=== PATIENT | male | born 1955 | race Caucasian/White ===

== ENCOUNTER → 2016-12-27 | Outpatient (CLI) | payer BC ==
--- NOTE | 2016-12-27 22:18 | PN ---
61-year-old male patient coming in for a yearly check regarding his obstructive sleep apnea. The patient has severe STEFFANIE with an AHI of 96. He is maintained on auto CPAP at a pressure minimum of 5, maximum of 15. On today's follow-up is still doing well, he is looking for alternative masks. He used to the Simplus full-face mask and he is looking for an alternative use for some leaks around his eyes. He is averaging around 6.7 hours of CPAP use per night. His leak factor is 76 per minute. His AHI while on treatment is down to 1.8. His weight has gone down and he is down to 319.2 pounds and this is approximately 13 pounds less compared to his latest body weight measurements approximately a year ago. Otherwise he has no other complaints for now. No other new onset health issues. BP is 123/78, pulse 68, respirations 16, temperature 98.9 and sats are 95% on room air. BMI is 47.1. Weight is 319. Bandon score is one. GENERAL APPEARANCE: Calm, comfortable. HEENT: Short neck, crowding posterior pharynx. There is no goiter or neck mass. LUNGS: Diminished breath sounds bilaterally; otherwise clear. HEART: Sounds are regular rate and rhythm. Normal S1, S2. ABDOMEN: Soft, nontender. No organomegaly. EXTREMITIES: No edema. No cyanosis, or clubbing. IMPRESSION: 1. Severe symptomatic obstructive sleep apnea with an AHI of 96, currently on auto CPAP therapy with successful treatment. 2. Morbid obesity. 3. Chronic hypersomnia, improved. 4. Paroxysmal atrial fibrillation. PLAN: 1. The patient remains quite compliant. 2. Will change the patient to an air fit P10 mask large size. 3. Encourage further weight loss. 4. Continue monitoring his progress and implement good sleep hygiene measures. 5. Continue to follow and see him back in a year's time in follow-up.
== END | disposition home or self-care (01) ==
LOC: SLEEP 16:56
PROVIDERS: ATTEND Internal Medicine Critical Care Medicine
DX: G47.33 Obstructive sleep apnea (adult) (pediatric) (principal); G47.10 Hypersomnia, unspecified; E66.01 Morbid (severe) obesity due to excess calories; Z68.42 Body mass index [BMI] 45.0-49.9, adult; Z99.89 Dependence on other enabling machines and devices

== ENCOUNTER → 2017-02-07 | Outpatient (CLI) | payer BC ==
--- NOTE | 2017-02-07 22:07 | PN ---
This is a 61-year-old male patient with severe obstructive sleep apnea with an AHI of 96. He is coming in for followup. He is currently receiving Auto CPAP therapy with a pressure minimum of 5, pressure maximum of 15. Originally he was using a Simplus full-face mask. I switched this patient to an AirFit F10 full-face mask. He is having significant problems with the newer mask, including air leaks that occur around 3 to 4 a.m. in the morning. The leaks are less with his Simplus full-face mask, and he switched back to the Simplus mask. His P90 pressure is 14.3. He is averaging around 6.5 hours of CPAP use per night. His AHI is down to 0.9. He is obese and is trying to lose weight. His only concern is occasional arousals due to high-pressure sensation occurring on and off through the night and the mask leaks. BP is 157/78, pulse 58, respiration 16, temperature 98.1. BMI is 44.3. Weight is 317. Height is 5 feet 11 inches. GENERAL APPEARANCE: Calm, comfortable. HEENT: Crowding of posterior pharynx. No goiter or neck masses. LUNGS: Clear to auscultation. HEART: Heart sounds are regular rate and rhythm. Normal S1, S2. ABDOMEN: Soft, nontender. No organomegaly. EXTREMITIES: No edema. No cyanosis or clubbing. IMPRESSION: 1. Severe symptomatic obstructive sleep apnea; AHI of 96; currently on Auto CPAP therapy with a pressure minimum of 5, maximum of 15. 2. Morbid obesity. 3. Paroxysmal atrial fibrillation. 4. Chronic hypersomnia, improved. PLAN: 1. Try a large-size Simplus full-face mask. 2. Quit the AirFit F10 mask. 3. Encourage weight loss. 4. No adjustments on his settings are recommended for today.
== END | disposition home or self-care (01) ==
LOC: SLEEP 17:04
PROVIDERS: ATTEND Internal Medicine Critical Care Medicine
DX: G47.33 Obstructive sleep apnea (adult) (pediatric) (principal); E66.01 Morbid (severe) obesity due to excess calories; Z68.41 Body mass index [BMI] 40.0-44.9, adult; I48.0 Paroxysmal atrial fibrillation; G47.13 Recurrent hypersomnia

== ENCOUNTER → 2017-11-18 | Outpatient (CLI) | payer BC ==
[2017-11-18 09:13] LABS: HCT 49.6 % (39.0-53.0); MCH 31.6 pg (25.0-35.0); MCHC 32.2 g/dL (31.0-37.0); MCV 98.3 fL (80.0-100.0); Mean Platelet Volume 7.2; Platelet Count 246 k/uL (150-450); RBC 5.05 m/uL (4.30-5.90); RDW 14.2 % (11.5-15.5); WBC 5.3 k/uL (3.8-10.6)
[2017-11-18 09:36] LABS: Anion Gap 9 mmol/L; Blood Urea Nitrogen 18 mg/dL (9-20); Carbon Dioxide 27 mmol/L (22-30); Chloride 105 mmol/L (98-107); Sodium 141 mmol/L (137-145)
== END | disposition home or self-care (01) ==
LOC: LABPAT 08:43
PROVIDERS: ATTEND Internal Medicine Interventional Cardiology
DX: Z01.812 Encounter for preprocedural laboratory examination (principal); I48.1 Persistent atrial fibrillation
CPT/HCPCS: 36415; 80051; 82565; 84520; 85027

== ENCOUNTER 2017-11-21 06:31 | Day surgery (SDC) | payer BC ==
[2017-11-16 15:52] VITALS: BMI 44.6
[~2017-11-21 06:31] MED LIST: SODIUM CHLORIDE 0.9% 1,000 ML IV SCH
[2017-11-21] MEDS ORDERED: fentaNYL (PF) 50 MCG/ML 2 ML AMP ONE (07:30)
[2017-11-21] MEDS ORDERED: LIDOCAINE 1% INJ 10MG/ML (20 ML MDV) ONE (07:30)
[2017-11-21] MEDS ORDERED: PROPOFOL 10 MG/ML 20 ML VIAL IV ONE (07:30)
[2017-11-21] MEDS ORDERED: BENZOCAINE SPRAY 1 SPRAY CAN MUCOUS MEM ONE (07:30)
[2017-11-21] MEDS ORDERED: SILDENAFIL 20 MG TAB PO PRN (07:50)
[2017-11-21] MEDS ORDERED: ACETAMINOPHEN TAB 325 MG TAB PO PRN (07:50)
[2017-11-21 07:58] VITALS: TEMP 98
[2017-11-21] MEDS ORDERED: SODIUM CHLORIDE 0.9% 1,000 ML IV SCH (08:00)
--- NOTE | 2017-11-21 08:14 | ECHOT ---
TRANSESOPHAGEAL ECHOCARDIOGRAM INDICATION: Evaluation for left atrial appendage. PROCEDURE: After explaining the procedure to the patient, it's risks and the complications, blood pressure, heart rate, O2 saturation was monitored. The throat was ss with sprayed Cetacaine. He received sedation per Anesthesia Department. The probe was introduced in the esophagus without difficulty. Images were obtained Following 'from that. The probe was removed. There was no immediate complication. FINDINGS: Left atrial size is dilated. Left atrial appendage is normal. Normal left ventricular size and systolic function. The aortic valve, mitral valve, tricuspid valve are normal. Descending thoracic aorta appears to be normal. Contrast bubble study revealed no evidence of shunting across the interatrial septum. No pericardial effusion was noted. Doppler and pulse wave contained revealed mild mitral and tricuspid regurgitation. There were no shunting by color Doppler study. CONCLUSION: 1. Normal left ventricular size and systolic function. 2. Dilated left atrium with normal appearance of the left atrial appendage. 3. Mild mitral and tricuspid regurgitation. 4. No shunting across the interatrial septum. MMODL / IJN: [id number] /
--- NOTE | 2017-11-21 08:29 | CE ---
CARDIAC ELECTROPHYSIOLOGY REPORT CARDIOVERSION PROCEDURE NOTE. INDICATION: Atrial fibrillation. PROCEDURE: After explaining the procedure to the patient, its risks and the complications, his blood pressure, heart rate, O2 saturation was monitored. After obtaining sedated state and obtaining a transesophageal echocardiogram, a synchronized biphasic 250 joules cardioversion was performed with confucianist of normal sinus rhythm. There was no immediate complication. KRISTAL / BELLAN: [id number] /
[2017-11-21 08:52] VITALS: PULSE 60
[2017-11-21] MEDS ORDERED: FLECAINIDE 50 MG TAB PO SCH (09:00)
[2017-11-21] MEDS ORDERED: APIXABAN 5 MG TAB PO SCH (09:00)
[2017-11-21] MEDS ORDERED: OXYBUTYNIN CHLORIDE 5 MG TAB PO SCH (09:00)
[2017-11-21] MEDS ORDERED: NON-FORMULARY DRUG (Omeprazole [Omeprazole] 20 MG) PO SCH (09:00)
[2017-11-21 09:26] VITALS: BP 103/71; RESP 20
[2017-11-21] MEDS ORDERED: NON-FORMULARY DRUG (Simvastatin [Zocor] 40 MG) PO SCH (21:00)
== END 2017-11-21 09:30 | disposition home or self-care (01) ==
LOC: CATHCVL 06:31
PROVIDERS: ATTEND Internal Medicine Interventional Cardiology
DX: I48.1 Persistent atrial fibrillation (principal); I08.1 Rheumatic disorders of both mitral and tricuspid valves; Z79.01 Long term (current) use of anticoagulants; I10 Essential (primary) hypertension; E78.2 Mixed hyperlipidemia; G47.33 Obstructive sleep apnea (adult) (pediatric); Z99.89 Dependence on other enabling machines and devices; Z79.899 Other long term (current) drug therapy
CPT/HCPCS: 93312; 93320; 93325; 92960; J2001; J3010; J2704; 93005

== ENCOUNTER → 2017-11-30 | Outpatient (CLI) | payer BC ==
[2017-11-30 13:36] LABS: Blood Urea Nitrogen 19 mg/dL (9-20)
--- NOTE | 2017-11-30 16:03 | CT ---
EXAMINATION TYPE: CT urogram wo/w con DATE OF EXAM: 11/30/2017 COMPARISON: 10/03/2017 INDICATION: Hematuria DLP: 3769 mGycm, Automated exposure control for dose reduction was used. CONTRAST: 100 ml mL of Omnipaque 300. Study performed without Oral Contrast TECHNIQUE: Axial images were obtained from above the diaphragm to the pubic rami in the axial plane a t 5 mm thick sections. Reconstructed images are reviewed on the computer in the coronal plane. FINDINGS: Limited CT sections are obtained the lung bases. The lung bases are clear. Coronary artery calcific ation is noted. CT ABDOMEN: Liver: Normal Spleen: Normal Pancreas: Normal Adrenal glands: The adrenal glands are normal. Gallbladder: Surgically absent. Kidneys: No masses are evident. No hydronephrosis is present. No cysts are present. There is a 0.6 similar calcification without obstruction at superior pole left kidney. This is adjace nt to a punctate 0.3 cm calcification. Within the left kidney there are 2 calcifications in the poste rior lateral kidney measuring 0.7 cm each. No obstruction is evident. There is a smaller nonobstructi ng stone in the posterior mid to inferior pole measuring 0.4 cm. There is a punctate superior MID rig ht kidney stone measuring 0.3 cm without obstruction. A medial superior pole right renal calcificatio n measures 0.5 cm. No hydronephrosis is evident. The ureters without contrast appear unremarkable wit hin the proximal portion. Following contrast administration there is symmetrical contrast through the bilateral kidneys. Delaye d images were obtained without hydronephrosis or hydroureter. This exam is compared 10/03/2014. The calcifications within the bilateral kidneys have increased in n umber and size. Aorta: Vascular calcification is within the aorta. Inferior vena cava: Normal. CT PELVIS: Loops of bowel within the abdomen and pelvis are normal. Study is without oral contrast limiting the evaluation. Some fecal debris is within the colon. Appendix: Not identified. No suspicious inflammatory changes are evident. Urinary bladder: Normal. Genitourinary structures: Prostate is prominent contains calcification. Osseous structures: No suspicious lytic or sclerotic lesions. Degenerative disc changes are within th e lower lumbar spine vacuum disc phenomenon. Three-D reconstructed images are performed on a separate ultrasonic computer by the technologist and presented. Renal calyces and infundibulum and renal pelves appear normal. Sequential images demonstra te the proximal to mid ureters is normal. The distal ureters are not identified during the examinatio n. IMPRESSIONS: 1. Multiple bilateral nonobstructing renal stones. 2. No suspicious changes to account for hematuria within the ureters. The distal ureters however are not visualized during this exam. Kidneys be on the nonobstructing renal stones appear unremarkable.
== END | disposition home or self-care (01) ==
LOC: RADCTMAIN 12:47
PROVIDERS: ATTEND Urology
DX: N20.0 Calculus of kidney (principal)
CPT/HCPCS: 82565; 84520; 74178; 36415; 74400; Q9967

== ENCOUNTER → 2017-12-16 | Outpatient (CLI) | payer BC ==
[2017-12-16 09:28] LABS: HCT 46.5 % (39.0-53.0); HGB 15.6 gm/dL (13.0-17.5); MCH 31.8 pg (25.0-35.0); MCHC 33.5 g/dL (31.0-37.0); MCV 94.8 fL (80.0-100.0); Mean Platelet Volume 6.7; Platelet Count 225 k/uL (150-450); RDW 12.8 % (11.5-15.5); WBC 5.8 k/uL (3.8-10.6)
[2017-12-16 10:12] LABS: Anion Gap 12 mmol/L; Blood Urea Nitrogen 18 mg/dL (9-20); Calcium 9.7 mg/dL (8.4-10.2); Carbon Dioxide 28 mmol/L (22-30); Chloride 103 mmol/L (98-107); Glucose 107 mg/dL (74-99); Potassium 4.9 mmol/L (3.5-5.1); Sodium 143 mmol/L (137-145)
== END | disposition home or self-care (01) ==
LOC: LABPAT 09:02
PROVIDERS: ATTEND Urology
DX: Z01.812 Encounter for preprocedural laboratory examination (principal); N20.0 Calculus of kidney; R35.0 Frequency of micturition; Z79.899 Other long term (current) drug therapy
CPT/HCPCS: 36415; 80048; 85027; 87086

== ENCOUNTER 2017-12-21 07:25 | Day surgery (SDC) | payer BC ==
[2017-12-18 14:49] VITALS: BMI 43.9
[~2017-12-21 07:25] MED LIST changes: +LACTATED RINGERS 1,000 ML IV SCH; +MORPHINE SULFATE 2 MG/ML SYRINGE IV PRN; -SODIUM CHLORIDE 0.9% 1,000 ML IV SCH; +ceFAZolin IN SWFI 2 GM/20 ML SYRINGE IVP ONE
[2017-12-21] MEDS ORDERED: LIDOCAINE 1% 20 ML VIAL (10MG/ML) FOR IV START INTRADERMA ONE (08:11)
--- NOTE | 2017-12-21 08:17 | XR ---
EXAMINATION TYPE: XR KUB DATE OF EXAM: 12/21/2017 7:49 AM CLINICAL HISTORY: Preop kidney stones. TECHNIQUE: Two supine KUB images of the abdomen are obtained. COMPARISON: CT urogram November 30, 2017 FINDINGS: There are 4 calculi grouped lower pole level right kidney redemonstrated measuring up to 7 mm on long axis. There is upper pole 7 mm calculus right kidney redemonstrated. Smaller 2 to 3 mm gisela culus upper to mid pole level right kidney on CT is less well-seen on x-ray. There is 5 mm calculus upper pole left kidney projecting over left posterior 11th rib redemonstrated. There is overall nonobstructive bowel gas pattern. Cholecystectomy clips are again seen. There is mul tilevel spurring in the spine and disc space narrowing redemonstrated. Impression: Right side greater than left side nephrolithiasis as detailed above without significant i nterval change.
[2017-12-21] MEDS ORDERED: GLYCOPYRROLATE 0.2 MG/ML 2 ML VIAL ONE (08:46)
[2017-12-21] MEDS ORDERED: fentaNYL (PF) 50 MCG/ML 2 ML AMP ONE (08:46)
[2017-12-21] MEDS ORDERED: SUCCINYLCHOLINE CHLORIDE VIAL 200 MG/10 ML VIAL IV ONE (08:46)
[2017-12-21] MEDS ORDERED: LIDOCAINE 1% INJ 10MG/ML (20 ML MDV) ONE (08:46)
[2017-12-21] MEDS ORDERED: MIDAZOLAM 2 MG/2 ML VIAL ONE (08:46)
[2017-12-21] MEDS ORDERED: PROPOFOL 10 MG/ML 20 ML VIAL IV ONE (08:46)
[2017-12-21] MEDS ORDERED: LACTATED RINGERS 1,000 ML IV ONE (09:16)
--- NOTE | 2017-12-21 10:57 | P.OP ---
Date of Procedure: 12/21/17 Preoperative Diagnosis: Right Renal Calculi Postoperative Diagnosis: Same Procedure(s) Performed: Cystoscopy, right ureteroscopy with Holmium laser lithotripsy and stone basketing, right ureteral stent insertion Anesthesia: IVAN Surgeon: Heri Zhao Estimated Blood Loss (ml): 5 IV fluids (ml): 600 Pathology: other (Calculus fragments, sent for chemical analysis) Condition: stable Disposition: PACU Indications for Procedure: He is a 62 year old male with a history of kidney stones and microhematuria. 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 His father was previously diagnosed with bladder cancer. He reports occasional gross hemturia, but feels that he is passing stones when this happens. He experiences pain associated with hematuria, then passes a stone. This occurs about every 2-[address] urogram reveals multiple bilateral renal calculi. Urine cytology is suspicious, but cystoscopy was unremarkable. His stone burden is greater on the right, and he has elected to undergo ureteroscopic removal of his right renal calculi. Operative Findings: Upper pole and lower pole calculi, fragmented completely and basketed. Description of Procedure: The patient was taken to the operating room and placed in the dorsolithotomy position, with legs supported in Andrey stirrups. The external genitalia was prepped and draped sterilely. The 30 lens was used to introduce the 19-Ukrainian Stortz cystoscopic sheath through the urethra and into the bladder under direct vision. The prostatic urethra showed evidence of moderate lateral lobe enlargement. The bladder was examined in its entirety. Both ureteral orifices were normal anatomic location and configuration, and clear urine effluxed from both. No tumors or foreign bodies were seen. A 0.038 inch Glidewire was passed through the cystoscope. The right ureteral orifice was cannulated, and the Glidewire was advanced up to the right renal pelvis. An 11/13-Ukrainian ureteral access catheter was passed over the wire, up to the mid ureter. The Olympus flexible ureteroscope was passed through the ureteral access catheter sheath. The ureteroscope was advanced under direct vision into the right renal pelvis, which was a bifid pelvis. Each calyx was examined. Several Brooks's plaques were seen. Within an upper pole calyx was a calculus measuring approximately 5 mm in size. A lower pole calyx contained two calculi measuring 5-7 mm. The 200 micron Holmium laser probe was passed through the ureteroscope, and lithotripsy was performed. A dusting technique was utilized, though ultimately the calculi broke into multiple small fragments which were removed using a 1.9-Ukrainian nitinol basket. Once this was completed, the ureteroscope was withdrawn. The cystoscope was again advanced into the bladder under direct vision. The Glidewire was passed up to the right renal pelvis, and a 28 cm, 4.8-Ukrainian double-J ureteral stent was placed over the wire. Proper stent positioning was verified fluoroscopically and endoscopically. The bladder was emptied and the cystoscope removed. The patient tolerated the procedure well and was taken to the recovery room in stable condition. The calculus fragments were sent for chemical analysis..
[2017-12-21 11:04] VITALS: TEMP 96.8
[2017-12-21 11:16] VITALS: RESP 16
--- NOTE | 2017-12-21 11:37 | FL ---
EXAMINATION TYPE: FL guidance operating room DATE OF EXAM: 12/21/2017 CLINICAL HISTORY: Kidney stones. TECHNIQUE: Fluoroscopy. COMPARISON: Abdominal x-ray earlier today.. FINDINGS: Fluoroscopic guidance was provided during lithotripsy procedure performed by Dr. Zhao. A total of 38 seconds of fluoroscopic time was utilized during the procedure and 2 spot intraoperativ e images are acquired which show advancement of guidewire and catheter to right-sided ureter and cecilio ecting system. IMPRESSION: As Above.
[2017-12-21] MEDS ORDERED: HYDROcodone/APAP 5-325MG 1 EACH TAB PO ONE (12:20)
[2017-12-21 12:30] VITALS: BP 154/72; PULSE 56
== END 2017-12-21 13:15 | disposition home or self-care (01) ==
LOC: OR 07:25
PROVIDERS: ATTEND Urology
DX: N20.0 Calculus of kidney (principal); I10 Essential (primary) hypertension; E78.00 Pure hypercholesterolemia, unspecified; R00.1 Bradycardia, unspecified; I48.91 Unspecified atrial fibrillation; E78.5 Hyperlipidemia, unspecified; G47.33 Obstructive sleep apnea (adult) (pediatric); K21.9 Gastro-esophageal reflux disease without esophagitis; R42 Dizziness and giddiness; E66.9 Obesity, unspecified; Z68.41 Body mass index [BMI] 40.0-44.9, adult; Z87.891 Personal history of nicotine dependence; Z80.52 Family history of malignant neoplasm of bladder; Z79.01 Long term (current) use of anticoagulants; Z79.899 Other long term (current) drug therapy
CPT/HCPCS: 82365; 74018; 52356; C2625; C1769; J2250; J0330; J2001; J3010; J2704; J0690

== ENCOUNTER → 2018-01-16 | Outpatient (CLI) | payer BC ==
--- NOTE | 2018-01-16 18:01 | PN ---
PROGRESS NOTE Nino is 62. He is seeing me for an annual check regarding his obstructive sleep apnea. He is morbidly obese. He has severe STEFFANIE with an AHI of 96 and he has been maintained on CPAP for the past year. He had one episode where he went into atrial fibrillation and he had to be cardioverted. His cardioversion has been successful and he is currently on flecainide to maintain his normal sinus rhythm. His weight has been stable. He has lost around 3 pounds. He is still benefitting from the treatment, as the patient wears his CPAP every night, which is an auto CPAP unit with a minimum pressure of 5 and a maximum pressure of 15. Treatment has been extremely successful and the patient has been averaging around 5.7 hours of CPAP use per night. His CPAP use for more than 4 hours is 26/30. His leak factor is 13 L and his AHI is down to 0.5. He has no complaints. His P90 pressure is at 12.6. He is benefitting from the treatment and he seems to be quite satisfied. PHYSICAL EXAMINATION: BP is 136/74, pulse 57, respirations 16, temperature 99.1, saturation 95% on room air. Weight is 314. Height is 5 feet 11 inches. Perkins score is 2. GENERAL APPEARANCE: Obese, calm, comfortable. Head is atraumatic, normocephalic. Neck is supple. There is no JVD. No goiter or neck masses. Mallampati class 4. LUNGS: Clear to auscultation. Heart sounds are regular rate and rhythm. Normal S1, S2. No S3, S4. No murmurs. Abdomen is soft, nontender. No organomegaly. EXTREMITIES: No edema. No cyanosis or clubbing at this point. SKIN: Negative for any wounds or ulcerations. IMPRESSION: 1. Severe symptomatic obstructive sleep apnea with an AHI of 96. The patient continues to be on auto CPAP therapy with a minimum pressure of 5, maximum pressure of 15, and treatment has been successful, as the patient continues to benefit. 2. Morbid obesity with a body mass index of 43.7. 3. Paroxysmal atrial fibrillation; current rhythm is sinus. 4. Hypersomnia, recovered. PLAN: 1. Keep the same CPAP setting. 2. Renew the patient's Simplus full-face mask, medium size. 3. Encourage weight loss. 4. Continue flecainide for normal sinus rhythm maintenance. 5. See me back in a year's time in followup, earlier if needed. MMODL / IJN: [id number] /
== END | disposition home or self-care (01) ==
LOC: SLEEP 16:11
PROVIDERS: ATTEND Internal Medicine Critical Care Medicine
DX: G47.33 Obstructive sleep apnea (adult) (pediatric) (principal); G47.10 Hypersomnia, unspecified; E66.01 Morbid (severe) obesity due to excess calories; I48.0 Paroxysmal atrial fibrillation; Z68.41 Body mass index [BMI] 40.0-44.9, adult; Z99.89 Dependence on other enabling machines and devices

== ENCOUNTER → 2018-06-14 | Day surgery (SDC) | payer BC ==
[2018-06-08 09:57] VITALS: BMI 46.0
[~2018-06-14] MED LIST changes: +APIXABAN 5 MG TAB PO SCH; +FLECAINIDE 50 MG TAB PO SCH; +LISINOPRIL 10 MG TAB PO SCH; -MORPHINE SULFATE 2 MG/ML SYRINGE IV PRN; +NON-FORMULARY DRUG (Acetaminophen [Tylenol Arthritis] 650 MG) PO PRN; +NON-FORMULARY DRUG (Omeprazole [Omeprazole] 20 MG) PO PRN; +NON-FORMULARY DRUG (Simvastatin [Zocor] 40 MG) PO SCH; +OXYBUTYNIN CHLORIDE 5 MG TAB PO SCH; +PROPOFOL 10 MG/ML 20 ML VIAL IV ONE; +SILDENAFIL 20 MG TAB PO PRN; +SODIUM CHLORIDE 0.9% 1,000 ML IV SCH; +SODIUM CHLORIDE 0.9% 500 ML IV ONE; -ceFAZolin IN SWFI 2 GM/20 ML SYRINGE IVP ONE
[2018-06-14 07:21] VITALS: TEMP 98.3
[2018-06-14] MEDS: BENZOCAINE SPRAY 1 CAN MUCOUS MEM ONE ×2 (07:25→07:41)
--- NOTE | 2018-06-14 08:34 | ECHOT ---
TRANSESOPHAGEAL ECHOCARDIOGRAM INDICATION: Evaluation left atrial appendage. PROCEDURE: After explaining the procedure to the patient, its risks and the complications, blood pressure, heart rate, O2 saturation was monitored. The throat was sprayed with Cetacaine. He received sedation per anesthesia department. The probe was introduced in the esophagus without difficulty. Images were obtained. Following that, the probe was removed. There was no immediate complication. FINDINGS: Left atrial size is dilated. Left atrial appendage is normal. Left ventricular size and systolic function normal. The aortic valve appears to be normal. Mitral valve is normal. Tricuspid valve is normal. Descending thoracic aorta appears to be normal. Contrast bubble study revealed no shunting across the interatrial septum. No pericardial effusion was noted. Doppler pulse wave and color Doppler obtained and revealed mild mitral and tricuspid regurgitation. There was no shunting by color Doppler study. CONCLUSION: 1. Dilated left atrium with normal appearance left atrial appendage. 2. Normal left ventricular size and systolic function. 3. Mild mitral and tricuspid regurgitation. 4. No shunting across the interatrial septum. MMODL / IJN: [id number] /
--- NOTE | 2018-06-14 08:40 | CE ---
CARDIAC ELECTROPHYSIOLOGY REPORT CARDIOVERSION PROCEDURE NOTE INDICATION: Atrial fibrillation. PROCEDURE: After explaining the procedure to the patient, its risks and the complications, blood pressure, heart rate, O2 saturation was monitored and after obtaining a transesophageal echocardiogram and sedated state, a synchronized biphasic cardioversion using 200, 300 and subsequently 360 joules were successful in restoring normal sinus rhythm. There was no immediate complication. KRISTAL / BELLAN: [id number] /
[2018-06-14 09:09] VITALS: BP 128/61; PULSE 58; RESP 18
== END | disposition home or self-care (01) ==
LOC: CATHCVL 06:33
PROVIDERS: ATTEND Internal Medicine Interventional Cardiology
DX: I08.1 Rheumatic disorders of both mitral and tricuspid valves (principal); I48.1 Persistent atrial fibrillation; G47.33 Obstructive sleep apnea (adult) (pediatric); Z99.89 Dependence on other enabling machines and devices; E78.2 Mixed hyperlipidemia; Z79.01 Long term (current) use of anticoagulants; Z79.899 Other long term (current) drug therapy; I10 Essential (primary) hypertension
CPT/HCPCS: 93312; 93320; 93325; 92960; J2704

== ENCOUNTER → 2018-11-16 | Outpatient (CLI) | payer BC ==
[2018-11-16 08:27] LABS: Basophils % (A) 1 %; Eosinophils # (A) 0.2 k/uL (0-0.7); Eosinophils % (A) 5 %; HCT 48.6 % (39.0-53.0); HGB 16.4 gm/dL (13.0-17.5); Lymphocytes % (A) 24 %; MCH 32.3 pg (25.0-35.0); MCHC 33.7 g/dL (31.0-37.0); MCV 95.9 fL (80.0-100.0); Mean Platelet Volume 6.6; Monocytes # (A) 0.3 k/uL (0-1.0); Monocytes % (A) 6 %; Neutrophils # (A) 2.6 k/uL (1.3-7.7); Neutrophils % (A) 61 %; Platelet Count 219 k/uL (150-450); RBC 5.07 m/uL (4.30-5.90); WBC 4.2 k/uL (3.8-10.6)
[2018-11-16 09:08] LABS: Anion Gap 4 mmol/L; Blood Urea Nitrogen 20 mg/dL (9-20); Carbon Dioxide 29 mmol/L (22-30); Chloride 107 mmol/L (98-107); Glucose 127 mg/dL (74-99); Potassium 5.1 mmol/L (3.5-5.1); Sodium 140 mmol/L (137-145)
== END | disposition home or self-care (01) ==
LOC: LABPAT 07:53
PROVIDERS: ATTEND Internal Medicine Clinical Cardiac Electrophysiology
DX: Z01.812 Encounter for preprocedural laboratory examination (principal); I48.1 Persistent atrial fibrillation
CPT/HCPCS: 80051; 82565; 82947; 84520; 85025

== ENCOUNTER → 2018-11-16 | Outpatient (CLI) | payer BC | END | disposition home or self-care (01) | LOC: LABWHC1 07:49 | PROVIDERS: ATTEND Family Medicine | DX: E78.00 Pure hypercholesterolemia, unspecified (principal) | CPT/HCPCS: 36415; 80061 ==

== ENCOUNTER 2018-11-29 12:46 | Day surgery (SDC) | payer BC ==
[~2018-11-29 12:46] MED LIST changes: -APIXABAN 5 MG TAB PO SCH; -FLECAINIDE 50 MG TAB PO SCH; -LACTATED RINGERS 1,000 ML IV SCH; -LISINOPRIL 10 MG TAB PO SCH; -NON-FORMULARY DRUG (Acetaminophen [Tylenol Arthritis] 650 MG) PO PRN; -NON-FORMULARY DRUG (Omeprazole [Omeprazole] 20 MG) PO PRN; -NON-FORMULARY DRUG (Simvastatin [Zocor] 40 MG) PO SCH; -OXYBUTYNIN CHLORIDE 5 MG TAB PO SCH; -PROPOFOL 10 MG/ML 20 ML VIAL IV ONE; -SILDENAFIL 20 MG TAB PO PRN; -SODIUM CHLORIDE 0.9% 500 ML IV ONE
[2018-11-29] MEDS ORDERED: ACETAMINOPHEN TAB 325 MG TAB ONE (13:09)
[2018-11-29] MEDS ORDERED: LISINOPRIL 10 MG TAB PO SCH (13:30)
[2018-11-29] MEDS ORDERED: SODIUM CHLORIDE 0.9% 1,000 ML IV ONE (13:40)
[2018-11-29] MEDS ORDERED: HEPARIN SODIUM,PORCINE 10,000 UNIT/ML 1 ML VIAL ONE (15:23)
[2018-11-29] MEDS ORDERED: ROCURONIUM BROMIDE 10 MG/ML 10 ML VIAL IV ONE (15:23)
[2018-11-29] MEDS ORDERED: MIDAZOLAM 2 MG/2 ML VIAL ONE (15:23)
[2018-11-29] MEDS ORDERED: PROPOFOL 10 MG/ML 20 ML VIAL IV ONE (15:23)
[2018-11-29] MEDS ORDERED: PHENYLEPHRINE-0.9% NACL SYG 1 MG/10 ML SYRINGE ONE (15:23)
[2018-11-29] MEDS ORDERED: PROTAMINE SULFATE 10 MG/ML 5 ML VIAL IV ONE (15:23)
[2018-11-29] MEDS ORDERED: SUCCINYLCHOLINE CHLORIDE VIAL 200 MG/10 ML VIAL IV ONE (15:23)
[2018-11-29] MEDS ORDERED: fentaNYL (PF) 50 MCG/ML 2 ML AMP ONE (15:23)
[2018-11-29] MEDS ORDERED: LIDOCAINE 1% INJ 10MG/ML (20 ML MDV) ONE (15:59)
[2018-11-29] MEDS ORDERED: HEPARIN SOD,PORK IN 0.45% NACL 25,000 UNIT in 0.45% NACL 1 250ML.BAG IV ONE (16:05)
[2018-11-29] MEDS ORDERED: LIDOCAINE 1% INJ 10MG/ML (20 ML MDV) SQ ONE (16:07)
[2018-11-29] MEDS ORDERED: HYDROcodone/APAP 5-325MG 1 EACH TAB PO PRN (18:35)
[2018-11-29] MEDS ORDERED: ACETAMINOPHEN IV (For NPO) 1,000 MG in EMPTY BAG 1 BAG IVPB ONE (18:35)
[2018-11-29] MEDS ORDERED: PANTOPRAZOLE 40 MG TABLET PO PRN (18:37)
[2018-11-29] MEDS ORDERED: SODIUM CHLORIDE 0.9% 250 ML IV ONE (18:43)
--- NOTE | 2018-11-29 18:50 | P.PCN ---
Preoperative Diagnosis: Diagnosis Atrial fibrillation, symptomatic, refractory to therapy, persistent atrial fibrillation failed drug therapy Result Successful pulmonary vein isolation of all veins using cryo-ablation Complete entrance block in all 4 veins confirmed No evidence for phrenic nerve injury Ablation of the left atrial roof Esophageal deflection YES for ablation of the left atrial roof Electrical cardioversion with a synchronized shock across the chest YES Procedure details Patient was brought to the EP lab in a fasting state. Written informed consent was obtained prior to the procedure. Procedure performed under general anesthesia After initial muscle relaxant use, muscle relaxants were not given thereafter in order to assess phrenic nerve during procedure. Patient prepped and draped as per protocol Full cryo-set up with standard preparation of the cryoablation tools done. Femoral Venous access obtained on the right and left groins Venous and arterial Sheaths placed. Diagnostic catheters for the high right atrium, phrenic nerve stimulation and pacing, His bundle, RV and coronary sinus placed Intracardiac echo catheter placed. Long sheath placed in the right atrium Left and right transseptal catheterization performed under intracardiac echo guidance. Intravenous heparin with aCT above 300 Later, catheter positioning and balloon positioning in the left atrium, under intracardiac echo guidance Comprehensive diagnostic EP study Coronary sinus pacing and recording Baseline measurements Sinus cycle length 1130 ms, DE interval 238 ms QRS 110 ms and QT 472 ms Baseline HV 31 ms Transseptal catheterization performed RA pressure 18/7/13 LA pressure 35/9/16 Transseptal catheterization performed with standard sheath. The cryoablation sheath was then placed with an over the wire exchange without any acute complications. All 4 pulmonary veins were isolated in the following sequence: Left superior followed by left inferior followed by right superior followed by right inferior The cryo-ablation balloon was placed at the os of each vein 1.5 mL of IV dye was injected to confirm an occluded vein Goal during cryoablation was to achieve complete occlusion of the pulmonary vein , achieve -30C at 30 seconds and achieve -40C at 60 seconds and a time to affect of less than 60-90 seconds, . If not the balloon was repositioned to obtain this result After completion of Cryoblation with durations from 180-240 seconds, entrance block was confirmed with the Attain circular catheter in a roving fashion around the antrum of the pulmonary veins Phrenic nerve pacing was performed from the SVC, right innominate vein area and diaphragm voltage was monitored. Diaphragmatic contractions were also monitored manually for strength of contraction. Parameter goals for each cryo freeze -30 C by 30 seconds -40 degrees C by 60 seconds Minimum between minus 40-55C Thaw time greater than 10 seconds Balloon visualized by intracardiac echo The esophagus was intubated. Esophageal Temperature monitoring with a CIRCA catheter formed. Esophageal deflection for hypothermia of the esophagus below 32C Left superior pulmonary vein/common left-sided os 4 minute cryoablation lesion, complete isolation, time to effect 57 seconds Left inferior pulmonary vein 3 minute cryoablation, complete isolation Right superior pulmonary vein, during phrenic nerve pacing 3 minute cryoablation, complete isolation in 21 seconds Right inferior pulmonary vein, during phrenic nerve pacing 3 minute cryoablation, complete isolation Christopher esophageal temperature 22.5C Complex fractionated electrograms noted in the roof area with mapping Roof line was made with the cryoablation balloon. 3 cryo lesions were given to span the roof. Each cryo lesion for 2 minutes, good temperature is achieved Phrenic nerve intact following that At the end of the procedure the Achieve catheter was once again used to check for entrance block Phrenic nerve stimulation was performed to confirm diaphragmatic stimulation the end of the procedure Cine fluoroscopy was performed at the very end of the procedure to confirm movement of both diaphragms with inspiration and expiration At the end of the procedure the patient was extubated Heparin was reversed Venous sheaths were removed and hemostasis assured Procedures performed (PVI - CRYO Ablation) Comprehensive diagnostic EP study CS pacing and recording Left and right transseptal catheterization Catheter the mapping of the tachycardia (NOT 3D mapping) Intracardiac echocardiography Pulmonary vein isolation with transseptal and comprehensive EPS, [id number] Linear ablation in the left atrium, roof, +[id number] Electrical cardioversion with a synchronized shock across the chest [id number]
--- NOTE | 2018-11-29 18:52 | P.PRLE ---
RE: Jeramie Stahl Dear Dr. Shaji Bobo underwent cryoablation of all 4 pulmonary veins successfully with complete isolation. He also underwent ablation of the left atrial roof. However he remained in atrial fibrillation and he underwent electrical cardioversion thereafter Previously he was refractory to therapy and has failed treatment including electrical cardioversion Hopefully with this ablation strategy along with flecainide 100 mg twice daily he is able to maintain sinus rhythm He will continue ELIQUIS lifelong Thank you for entrusting me with the care of the patient Warm regards Sincerely Zack Maciel
[2018-11-29 19:33] VITALS: RESP 18
[2018-11-29] MEDS ORDERED: ATORVASTATIN 20 MG TAB PO SCH (21:00)
[2018-11-29 21:02] VITALS: BMI 45.3
[2018-11-29] MEDS: APIXABAN 5 MG TAB PO SCH (22:45)
[2018-11-29] MEDS: LISINOPRIL 10 MG TAB PO SCH (22:45)
[2018-11-29] MEDS: ACETAMINOPHEN TAB 325 MG TAB PO PRN (22:47)
[2018-11-29] MEDS: FLECAINIDE 50 MG TAB PO SCH (22:56)
[2018-11-29] MEDS: COLCHICINE 0.6 MG EACH PO SCH (22:59)
[2018-11-30] MEDS: ACETAMINOPHEN TAB 325 MG TAB PO PRN (06:11)
[2018-11-30] MEDS: FLECAINIDE 50 MG TAB PO SCH (08:16)
[2018-11-30] MEDS: LISINOPRIL 10 MG TAB PO SCH (08:16)
[2018-11-30] MEDS: COLCHICINE 0.6 MG EACH PO SCH (08:16)
[2018-11-30] MEDS: APIXABAN 5 MG TAB PO SCH (08:17)
--- NOTE | 2018-11-30 08:21 | P.PRLE ---
RE: Jeramie Stahl Patient is doing well. He is been walking around his room to the bathroom. Groins of healed well there is no hematoma no swelling mildly tender in the right groin heart sounds are normal breath sounds are clear no rhonchi no crackles abdomen soft nontender except is warm no edema he has no orthopnea He maintains sinus rhythm blood pressure 126/63 mmHg pulse rate in the 70s afebrile Impression Persistent drug refractory symptomatically atrial fibrillation status post cryoablation of the pulmonary veins and left atrial roof ablation Plan Colchicine for 3 days Continue all other medications Continue anticoagulation lifelong and follow-up of Dr. Hernandez in 1-2 weeks
[2018-11-30 08:50] VITALS: BP 94/57; PULSE 69; TEMP 97.4
== END 2018-11-30 11:19 | disposition home or self-care (01) ==
LOC: CATHEP 12:46 → 1SOBS 18:27 → CATHEP 11-30 11:19
PROVIDERS: ATTEND Internal Medicine Clinical Cardiac Electrophysiology
DX: I48.1 Persistent atrial fibrillation (principal); I44.2 Atrioventricular block, complete; I11.0 Hypertensive heart disease with heart failure; I50.9 Heart failure, unspecified; E78.2 Mixed hyperlipidemia; G47.33 Obstructive sleep apnea (adult) (pediatric); M19.90 Unspecified osteoarthritis, unspecified site; K21.9 Gastro-esophageal reflux disease without esophagitis; Z99.89 Dependence on other enabling machines and devices; Z79.01 Long term (current) use of anticoagulants; Z79.899 Other long term (current) drug therapy; Z96.653 Presence of artificial knee joint, bilateral; Z91.048 Other nonmedicinal substance allergy status; Z87.891 Personal history of nicotine dependence
CPT/HCPCS: 85347; 93662; 93609; 93656; 93657; C1769 ×4; C1894 ×3; C1730 ×2; C1759; C1893; C1733; C1766; J2250; J0330; J2720; J1644 ×2; J2001; J3010; J2370; J2704; 92960

== ENCOUNTER → 2019-02-05 | Outpatient (CLI) | payer BC ==
--- NOTE | 2019-02-05 19:26 | PN ---
PROGRESS NOTE 63-year-old male patient coming in for a compliancy check. This is his annual check. The patient has been diagnosed having severe obstructive sleep apnea with an AHI of 96 currently is in APap with a minimum pressure of 5, maximum pressure of 15. On today's evaluation, the patient is using a medium-sized Simplus full face mask. He is averaging around 6.5 hours of CPAP. The CPAP use for more than 4 hours is 100%. His average pressures is at 12 and his AHI is down to 0.7. His leak is 26 L per minute. He has gained around 7 pounds since his last evaluation. He has also undergone cardiac ablation and cardiac rhythm was sinus. He is not having any nocturnal palpitation, chest pain, shortness of breath or heartburn. He is very compliant and he is benefitting from the CPAP unit. He has also purchased so clean cleaning system. REVIEW OF SYSTEMS: Fourteen-point review of system was done. Positive findings are mentioned above in history of present illness. Positive for weight gain. No hypersomnia or sleepiness. No sleep paralysis or hallucinations, cataplexy. No nocturnal chest pain, heartburn, shortness of breath or palpitations. PHYSICAL EXAMINATION: BP is 126/76, pulse 68, respirations 16, temperature 98.7 and weight is 221. Height is 5 feet 9 inches. Saturation 95% on room air. GENERAL APPEARANCE: Calm, comfortable. HEAD: Atraumatic, normocephalic. NECK: Supple. No JVD. No goiter or neck masses. Mallampati class IV. LUNGS: Clear to auscultation. HEART: Sounds regular rate and rhythm. Normal S1, S2. No S3, S4. No murmurs. ABDOMEN: Soft, nontender. No organomegaly. EXTREMITIES: No edema. No cyanosis or clubbing. Neurologic is awake and alert. There is no focal neurological deficits. PSYCHIATRIC: Negative for anxiety or depression. IMPRESSION: 1. Severe obstructive sleep apnea with an AHI of 96 currently undergoing successful APAP treatment minimum of 5, maximum 15. 2. Hypersomnia, improved. 3. Obesity with a BMI of 47.4. 4. Paroxysmal atrial fibrillation current rhythm is sinus, post ablation. PLAN: 1. Encourage further weight loss. 2. Continue APAP therapy at the same level of pressure. 3. Use a Simplus full-face mask, medium size. 4. See me back in a few years time, earlier if needed. For now, his treatment is successful. MMODL / IJN: [id number] /
== END ==
LOC: SLEEP 17:11
PROVIDERS: ATTEND Internal Medicine Critical Care Medicine
DX: G47.33 Obstructive sleep apnea (adult) (pediatric) (principal); E66.9 Obesity, unspecified; I48.0 Paroxysmal atrial fibrillation; Z68.42 Body mass index [BMI] 45.0-49.9, adult; Z99.89 Dependence on other enabling machines and devices

== ENCOUNTER → 2020-05-21 | Outpatient (CLI) | payer MEDICARE | END | disposition home or self-care (01) | LOC: LABWHC1 10:12 | PROVIDERS: ATTEND Urology | DX: R97.20 Elevated prostate specific antigen [PSA] (principal) | CPT/HCPCS: 36415; 84153 ==

== ENCOUNTER → 2020-12-15 | Outpatient (CLI) | payer MEDICARE ==
--- NOTE | 2020-12-15 17:29 | PN ---
PROGRESS NOTE Jeramie is 65, coming in for a followup regarding his obstructive sleep apnea. His last evaluation was in 2019. He is morbidly obese. He has a BMI of 45.7, and he has maintained his own weight at 319 pounds. He has severe STEFFANIE with an AHI of 96 at baseline, and the patient is on an APAP at a minimum pressure of 5, maximum pressure of 15. He uses a Simplus full-face mask. He was having issue with a power adapter, and he was able to get a new power adapter through his [employer]. He works at [employer]. He is using his machine every night. Compliance is 100% for more than 4 hours. He is averaging more than 6 hours of CPAP use per night. Leak is on the order of 12 L/minute. P90 pressure is 11.3 and his AHI is down to 0.4, indicating successful treatment. No hypersomnia. No sleepiness. BP is under good control. He was diagnosed having diabetes mellitus. He was started on metformin. He also takes Zocor 40 mg p.o. daily regarding his hyperlipidemia. No chest pain. No nocturnal shortness of breath. He is waking up refreshed and alert during the day. He has paroxysmal atrial fibrillation and has undergone ablation and continues to be on anticoagulation. PHYSICAL EXAMINATION: BP is 136/79, pulse 79, respirations 20, temperature 96.5. Weight is 319, height is 5 feet 10 inches. Murray score is 8. BMI 45.7. Saturation 97% on room air. GENERAL APPEARANCE: Calm, comfortable. HEAD: Atraumatic, normocephalic. NECK: Supple. No JVD. No goiter or neck masses. LUNGS: Diminished; otherwise clear. HEART: Heart sounds are regular rate and rhythm. Normal S1, S2. No S3, S4. No murmurs. ABDOMEN: Soft, nontender. No organomegaly. EXTREMITIES: No edema. No cyanosis or clubbing. NEUROLOGIC: Awake and alert. There is no focal neurological deficit. PSYCHIATRIC: Negative for anxiety or depression. IMPRESSION: 1. Severe symptomatic obstructive sleep apnea; AHI of 96, currently on APAP 5/15 pressures. 2. Morbid obesity with a BMI of 45.7. Weight is stable. 3. Hypersomnia, recovered. 4. Paroxysmal atrial fibrillation. Current rhythm is sinus. 5. Hyperlipidemia. 6. Hypertension. PLAN: 1. Encourage weight loss. 2. Order a new APAP unit for this patient. I think he is interested in updating his machine, and it has been 5 years since his original machine was given to him and he qualifies for a new machine. He is interested also in switching his DME and he may end up with [employer]. 3. Keep a Simplus full-face mask. 4. Compliance data was checked. No need for any pressure adjustments. Maintain cardiovascular health. Treat risk factors for cardiovascular disease. Maintain good sleep hygiene measures. See me back in a year's time in followup. MMODL / IJN: [id number] /
== END | disposition home or self-care (01) ==
LOC: SLEEP 16:04
PROVIDERS: ATTEND Internal Medicine Critical Care Medicine
DX: G47.33 Obstructive sleep apnea (adult) (pediatric) (principal); E66.01 Morbid (severe) obesity due to excess calories; I48.0 Paroxysmal atrial fibrillation; E78.5 Hyperlipidemia, unspecified; I10 Essential (primary) hypertension; Z68.42 Body mass index [BMI] 45.0-49.9, adult

== ENCOUNTER 2021-03-07 11:22 | Inpatient (IN) | payer MEDICARE ==
--- NOTE | 2021-03-07 11:58 | ED ---
General Adult HPI <Eliud Voss Anthony - Last Filed: 03/07/21 12:25> - General Source: patient, RN notes reviewed Mode of arrival: ambulatory Limitations: no limitations <Phi Merrill - Last Filed: 03/07/21 12:41> - General Chief complaint: Extremity Problem,Nontraumatic Stated complaint: Shoulder & back pain Time Seen by Provider: 03/07/21 11:51 - History of Present Illness Initial comments: This is a 65-year-old male presents emergency Department chief complaint of chest pain. Patient states that he's been having pain and right and left side of his chest and towards his shoulder blades last week. He states he had to his right shoulder yesterday with no trauma but states today the left side of his chest, left shoulder. Patient does have history of A. fib with multiple cardioversions and ablations with no success. Patient is currently anticoagulated. Patient states he felt short of breath states is not currently. Patient's had a cough and states is chronic in nature from his A. fib and which she's been told. No prior cardiac stents. Patient is currently on medications for hypertension denies headache dizziness diaphoresis or any abdominal complaints at this time. (Phi Merrill) - Related Data Home Medications Medication Instructions Recorded Confirmed Apixaban [Eliquis] 5 mg PO BID 11/04/15 11/29/18 Oxybutynin Chloride 5 mg PO BID 11/04/15 11/29/18 Simvastatin [Zocor] 40 mg PO HS 11/04/15 11/29/18 Acetaminophen [Tylenol Arthritis] 650 mg PO BID PRN 03/07/16 11/29/18 Omeprazole 20 mg PO DAILY PRN 09/22/16 11/29/18 Albuterol Inhaler (Mhu) [Ventolin 2 puff IH Q6HR PRN 11/21/17 11/29/18 Hfa Inhaler (Mhu)] Flecainide [Tambocor] 100 mg PO Q12HR 06/08/18 11/29/18 lisinopriL [Zestril] 10 mg PO BID 06/08/18 11/29/18 Previous Rx's Medication Instructions Recorded Sildenafil [Revatio] 20 mg PO DAILY PRN tab 11/21/17 Colchicine [Colcrys] 0.6 mg PO BID #6 each 11/30/18 Allergies Allergy/AdvReac Type Severity Reaction Status Date / Time tape AdvReac BLISTERS, Uncoded 03/07/21 11:30 SKIN PEELS Review of Systems ROS Other: All systems not noted in ROS Statement are negative. <Eliud Voss Anthony - Last Filed: 03/07/21 12:25> ROS Other: All systems not noted in ROS Statement are negative. <Phi Merrill - Last Filed: 03/07/21 12:41> ROS Statement: Those systems with pertinent positive or pertinent negative responses have been documented in the HPI. Past Medical History Past Medical History: Atrial Fibrillation, GERD/Reflux, Hyperlipidemia, Hypertension, Osteoarthritis (OA), Renal Disease, Sleep Apnea/CPAP/BIPAP Additional Past Medical History / Comment(s): kidney stones, History of Any Multi-Drug Resistant Organisms: None Reported Past Surgical History: Cholecystectomy, Hernia Repair, Joint Replacement Additional Past Surgical History / Comment(s): 10/2015 cardioversion, bilateral total knee arthroplasty, umbilical hernia repair, removal of kidney stones Past Anesthesia/Blood Transfusion Reactions: No Reported Reaction Additional Past Anesthesia/Blood Transfusion Reaction / Comment(s): difficul intubation Past Psychological History: No Psychological Hx Reported Smoking Status: Former smoker Past Alcohol Use History: Rare Past Drug Use History: None Reported - Past Family History Mother Family Medical History: No Reported History Additional Family Medical History / Comment(s): Mother is 84 yrs old. Father Family Medical History: Cancer Additional Family Medical History / Comment(s): BLADDER CANCER . <Phi Merrill - Last Filed: 03/07/21 12:41> General Exam Limitations: no limitations General appearance: alert, in no apparent distress Head exam: Present: atraumatic, normocephalic, normal inspection Eye exam: Present: normal appearance, PERRL, EOMI. Absent: scleral icterus, conjunctival injection, periorbital swelling ENT exam: Present: normal exam, normal oropharynx, mucous membranes moist Neck exam: Present: normal inspection, full ROM. Absent: tenderness, meningismus, lymphadenopathy Respiratory exam: Present: normal lung sounds bilaterally. Absent: respiratory distress, wheezes, rales, rhonchi, stridor, chest wall tenderness Cardiovascular Exam: Present: regular rate, normal rhythm, normal heart sounds. Absent: systolic murmur, diastolic murmur, rubs, gallop, clicks GI/Abdominal exam: Present: soft, normal bowel sounds. Absent: distended, tenderness, guarding, rebound, rigid <Phi Merrill - Last Filed: 03/07/21 12:41> Course <Eliud Voss - Last Filed: 03/07/21 12:25> Vital Signs 03/07/21 03/07/21 03/07/21 11:25 12:21 12:31 Temperature 98 F Pulse Rate 98 106 H 116 H Respiratory 18 18 18 Rate Blood Pressure 117/80 126/96 120/82 O2 Sat by Pulse 97 98 99 Oximetry - Reevaluation(s) Reevaluation #1: 03/07/21 12:25 65-year-old male presenting with 1 week of atraumatic left shoulder pain and developed chest pain within the past morning. Patient is noted to be in atrial fibrillation with ST segment elevation anteriorly with reciprocal change. STEMI is activated and patient is taken urgently to the Technical Stenographer. (Eliud Voss) EKG Findings - EKG Comments: EKG Findings:: EKG performed at 12:11 A. fib with RVR/STEMI rate of 118 QRS 80 QT/QTC 250/[address] elevation V2-V6, - EKG Results: EKG: interpreted by ERMD <Phi Merrill - Last Filed: 03/07/21 12:41> Medical Decision Making <Phi Merrill - Last Filed: 03/07/21 12:41> - Medical Decision Making 65-year-old male presented to [facility] from for left-sided chest, shoulder discomfort. Patient does have extensive cardiac history EKG he reveals an acute [place]. Patient case discussed with hvac estimator sent Lab. (Phi Merrill) Critical Care Time Critical Care Time: Yes Total Critical Care Time: 35 <Phi Merrill - Last Filed: 03/07/21 12:41> Critical Care Time: Total 35 including ordering labs, chest x-ray, EKG shows evidence of ST elevation, STEMI activation was called at this time case discussed with hvac estimator Dr. Treviño who came down and evaluated the patient and take to the Technical Stenographer that time. Admitting physician contacted (Phi Merrill) Disposition <Eliud Voss - Last Filed: 03/07/21 12:25> <Phi Merrill M - Last Filed: 03/07/21 12:41> Clinical Impression: STEMI (ST elevation myocardial infarction), A-fib Disposition: ADMITTED IP TO THIS HOSP Condition: Serious
[2021-03-07] MEDS ORDERED: LORazepam 2 MG/ML INJ IV STA (12:13)
[2021-03-07] MEDS ORDERED: ATORVASTATIN 80 MG TAB PO STA (12:13)
[2021-03-07] MEDS ORDERED: ASPIRIN 81 MG PO STA (12:13)
[2021-03-07] MEDS ORDERED: HEPARIN SODIUM 1,000 UN/ML (10ML VL) IV STA (12:15)
[2021-03-07] MEDS ORDERED: NITROGLYCERIN SL TABS 0.4 MG TAB SUBLINGUAL PRN ×2 (12:16→13:40)
[2021-03-07] MEDS ORDERED: HEPARIN SODIUM 1,000 UN/ML (10ML VL) IV ONE ×3 (12:17→13:18)
--- NOTE | 2021-03-07 12:33 | XR ---
EXAMINATION TYPE: XR chest 1V DATE OF EXAM: 03/07/2021 COMPARISON: 09/22/2016 HISTORY: Chest TECHNIQUE: Single frontal view of the chest is obtained. FINDINGS: There is no focal air space opacity, pleural effusion, or pneumothorax seen. The heart is enlarged and there is a prominence of the interstitium. Hypertrophic change of the spine. IMPRESSION: Cardiomegaly and mild central venous congestion in the differential diagnosis.
--- NOTE | 2021-03-07 12:34 | P.CRDCN ---
History of Present Illness History of present illness: HISTORY OF PRESENTING ILLNESS This is a pleasant 65-year-old with past medical history significant for paroxysmal atrial fibrillation status post ablation, hypertension, hyperlipidemia, morbid obesity, obstructive sleep apnea. He states he has been having left shoulder pain for the past week however developed into left-sided chest pain this morning and therefore urged patient to come to emergency department. He denies any associated shortness breath, nausea or diaphoresis. No recent fevers, chills. Admits to a chronic cough and admits always been sweaty. EKG shows afib with some Q waves in the anterolateral leads with ST elevation and reciprocal changes. REVIEW OF SYSTEMS At the time of my exam: CONSTITUTIONAL: Denies fever or chills. CARDIOVASCULAR: +chest pain, no shortness of breath, orthopnea, PND or palpitations. RESPIRATORY: +chronic cough. GASTROINTESTINAL: Denies abdominal pain, diarrhea, constipation, nausea or vomiting. MUSCULOSKELETAL: Denies myalgias. NEUROLOGIC: Denies numbness, tingling or weakness. ENDOCRINE: Denies fatigue, weight change, polydipsia or polyurina. GENITOURINARY: Denies burning, hematuria or urgency with micturation. HEMATOLOGIC: Denies history of anemia or bleeding. PHYSICAL EXAMINATION Vital signs reviewed. CONSTITUTIONAL: No apparent distress, morbidly obese HEENT: Head is normocephalic. Pupils are equal, round. Sclerae anicteric. Mucous membranes of the mouth are moist. No JVD. No carotid bruit. CHEST EXAMINATION: Lungs are clear to auscultation. No chest wall tenderness is noted on palpation or with deep breathing. HEART EXAMINATION: Regular rate and rhythm. S1, S2 heard. No murmurs, gallops or rub. ABDOMEN: Soft, nontender. Positive bowel sounds. EXTREMITIES: 2+ peripheral pulses, no lower extremity edema and no calf tenderness. NEUROLOGIC EXAMINATION: Patient is awake, alert and oriented x3. ASSESSMENT 1. Anterolateral STEMI, late presenting with some Q waves, persistent chest pain 2. Hypertension 3. Hyperlipidemia 4. Obesity 5. Obstructive sleep apnea 6. Paroxysmal atrial fibrillation PLAN Unclear if angina symptoms have been the shoulder pain or his more chest pain. EKG is concerning for Q waves with late presenting anterior lateral MN. Given ongoing chest pain we discussed recommendations for heart catheterization with likely PCI. Check 2D echo. Further recommendations follow. Past Medical History Past Medical History: Atrial Fibrillation, GERD/Reflux, Hyperlipidemia, Hypertension, Osteoarthritis (OA), Renal Disease, Sleep Apnea/CPAP/BIPAP Additional Past Medical History / Comment(s): kidney stones, History of Any Multi-Drug Resistant Organisms: None Reported Past Surgical History: Cholecystectomy, Hernia Repair, Joint Replacement Additional Past Surgical History / Comment(s): 10/2015 cardioversion, bilateral total knee arthroplasty, umbilical hernia repair, removal of kidney stones Past Anesthesia/Blood Transfusion Reactions: No Reported Reaction Additional Past Anesthesia/Blood Transfusion Reaction / Comment(s): difficul intubation Past Psychological History: No Psychological Hx Reported Smoking Status: Former smoker Past Alcohol Use History: Rare Past Drug Use History: None Reported - Past Family History Mother Family Medical History: No Reported History Additional Family Medical History / Comment(s): Mother is 84 yrs old. Father Family Medical History: Cancer Additional Family Medical History / Comment(s): BLADDER CANCER . Medications and Allergies Home Medications Medication Instructions Recorded Confirmed Type Apixaban [Eliquis] 5 mg PO BID 11/04/15 11/29/18 History Oxybutynin Chloride 5 mg PO BID 11/04/15 11/29/18 History Simvastatin [Zocor] 40 mg PO HS 11/04/15 11/29/18 History Acetaminophen [Tylenol Arthritis] 650 mg PO BID PRN 03/07/16 11/29/18 History Omeprazole 20 mg PO DAILY PRN 09/22/16 11/29/18 History Albuterol Inhaler (Mhu) [Ventolin 2 puff IH Q6HR PRN 11/21/17 11/29/18 History Hfa Inhaler (Mhu)] Sildenafil [Revatio] 20 mg PO DAILY PRN tab 11/21/17 11/29/18 Rx Flecainide [Tambocor] 100 mg PO Q12HR 06/08/18 11/29/18 History lisinopriL [Zestril] 10 mg PO BID 06/08/18 11/29/18 History Colchicine [Colcrys] 0.6 mg PO BID #6 each 11/30/18 Rx Allergies Allergy/AdvReac Type Severity Reaction Status Date / Time tape AdvReac BLISTERS, Uncoded 03/07/21 11:30 SKIN PEELS Physical Exam Vitals: Vital Signs Temp Pulse Resp BP Pulse Ox 03/07/21 12:21 106 H 18 126/96 98 03/07/21 11:25 98 F 98 18 117/80 97 Intake and Output 03/06/21 03/07/21 03/07/21 22:59 06:59 14:59 Other: Weight 140.614 kg Results Current Medications Generic Name Dose Route Start Last Admin Trade Name Freq PRN Reason Stop Dose Admin Aspirin 325 mg 03/08/21 09:00 Aspirin 325 Mg Tab PO DAILY CAROL Nitroglycerin 0.4 mg 03/07/21 12:16 Nitroglycerin Sl Tabs 0.4 Mg Tab SUBLINGUAL Q5M PRN Chest Pain Intake and Output 03/06/21 03/07/21 03/07/21 22:59 06:59 14:59 Other: Weight 140.614 kg Patient Weight 03/08/21 06:59 Weight 140.614 kg
[2021-03-07 12:41] LABS: ALT 43 U/L (4-49); AST 282 U/L (17-59); African American GFR (CKD) >90 (>60 ml/min/1.73 sqM); Albumin 3.2 g/dL (3.5-5.0); Alkaline Phosphatase 53 U/L (38-126); Anion Gap 6 mmol/L; Blood Urea Nitrogen 11 mg/dL (9-20); Calcium 7.7 mg/dL (8.4-10.2); Carbon Dioxide 21 mmol/L (22-30); Chloride 114 mmol/L (98-107); Glucose 159 mg/dL (74-99); Lipase 34 U/L (23-300); Magnesium 1.3 mg/dL (1.6-2.3); Non-African American GFR(CKD) >90 (>60 ml/min/1.73 sqM); Potassium 3.9 mmol/L (3.5-5.1); Sodium 141 mmol/L (137-145); Total Bilirubin 0.9 mg/dL (0.2-1.3); Total Protein 5.5 g/dL (6.3-8.2)
[2021-03-07 12:45] LABS: Partial Thromboplastin Time 24.3 sec (22.0-30.0); Prothrombin Time 10.9 sec (9.0-12.0)
[2021-03-07] MEDS ORDERED: VERAPAMIL 2.5 MG/ML 2 ML AMP ONE (12:50)
[2021-03-07] MEDS ORDERED: fentaNYL (PF) 50 MCG/ML 2 ML AMP ONE (12:50)
[2021-03-07] MEDS ORDERED: IV FLUID CONTINUATION 1,000 ML IV ONE (12:50)
[2021-03-07] MEDS ORDERED: LIDOCAINE 1% INJ 10MG/ML (20 ML MDV) ONE (12:50)
[2021-03-07] MEDS ORDERED: MIDAZOLAM 2 MG/2 ML VIAL IV ONE (12:52)
[2021-03-07] MEDS ORDERED: LIDOCAINE 1% INJ 10MG/ML (20 ML MDV) SQ ONE (12:52)
[2021-03-07] MEDS ORDERED: fentaNYL (PF) 50 MCG/ML 2 ML AMP IV ONE ×2 (12:52)
[2021-03-07 12:54] LABS: Basophils % (A) 0 %; Eosinophils # (A) 0.1 k/uL (0-0.7); Eosinophils % (A) 1 %; HCT 45.5 % (39.0-53.0); HGB 15.8 gm/dL (13.0-17.5); Lymphocytes # (A) 0.7 k/uL (1.0-4.8); Lymphocytes % (A) 5 %; MCH 32.7 pg (25.0-35.0); MCHC 34.7 g/dL (31.0-37.0); MCV 94.2 fL (80.0-100.0); Mean Platelet Volume 6.9; Monocytes # (A) 0.8 k/uL (0-1.0); Monocytes % (A) 6 %; Neutrophils # (A) 12.8 k/uL (1.3-7.7); Neutrophils % (A) 88 %; Platelet Count 226 k/uL (150-450); RBC 4.83 m/uL (4.30-5.90); RDW 12.7 % (11.5-15.5); WBC 14.5 k/uL (3.8-10.6)
[2021-03-07] MEDS ORDERED: VERAPAMIL SYRINGE (5 MG/10 ML) INTRAARTER ONE (12:55)
[2021-03-07] MEDS ORDERED: TICAGRELOR 90 MG TAB ONE (13:04)
[2021-03-07] MEDS ORDERED: TICAGRELOR 90 MG TAB PO ONE (13:04)
[2021-03-07] MEDS: NITROGLYCERIN 1000MCG/10ML SYRINGE INTRACORON ONE ×2 (13:05→13:11)
[2021-03-07 13:09] LABS: Troponin I 53.8 ng/mL (0.000-0.034)
[2021-03-07] MEDS ORDERED: IOPAMIDOL-370 125ML BTL INJ ONE (13:25)
[2021-03-07] MEDS ORDERED: IOPAMIDOL-370 100ML BTL INJ ONE (13:28)
[2021-03-07] MEDS ORDERED: ATROPINE SULFATE 0.1 MG/ML 10ML SYRINGE IV PRN (13:40)
[2021-03-07] MEDS ORDERED: RX INFO: IV CONTRAST WAS GIVEN 1 EACH MISC MISCELLANE PRN (13:40)
[2021-03-07] MEDS ORDERED: ZOLPIDEM 5 MG TAB PO PRN (13:40)
[2021-03-07] MEDS ORDERED: MAG HYDROX/AL HYDROX/SIMETH 30 ML CUP PO PRN (13:40)
[2021-03-07] MEDS ORDERED: SODIUM CHLORIDE 0.9% 1,000 ML IV SCH ×2 (13:45→15:45)
[2021-03-07 13:50] LABS: Glucose,Whole Blood 155 mg/dL (75-99)
[2021-03-07] MEDS ORDERED: ALBUTEROL HFA INHALER INHALATION PRN (15:42)
--- NOTE | 2021-03-07 16:42 | P.HPIM ---
History of Present Illness H&P Date: 03/07/21 Chief Complaint: Chest pain This is a 65-year-old male with past medical history noted below that presented to the emergency room with chest pain radiating to his left shoulder. Patient was evaluated in the ER and was found to have evidence of ST elevation RI. Patient was seen by cardiology and was taken urgently to the quality lab technician. He underwent left heart catheterization with successful stent placement. He is currently in the ICU. He was sitting in the chair when I saw him. He denies any chest pain at this time. Review of Systems Review of system: 14 points review of systems were obtained and were negative except to what were mentioned in the HPI. Past Medical History Past Medical History: Atrial Fibrillation, GERD/Reflux, Hyperlipidemia, Hypertension, Myocardial Infarction (RI), Osteoarthritis (OA), Renal Disease, Sleep Apnea/CPAP/BIPAP Additional Past Medical History / Comment(s): kidney stones, Last Myocardial Infarction Date:: 03/07/2021 History of Any Multi-Drug Resistant Organisms: None Reported Past Surgical History: Cholecystectomy, Hernia Repair, Joint Replacement Additional Past Surgical History / Comment(s): 10/2015 cardioversion, bilateral total knee arthroplasty, umbilical hernia repair, removal of kidney stones, cardioversion X3, Cardiac Ablation. Past Anesthesia/Blood Transfusion Reactions: No Reported Reaction Additional Past Anesthesia/Blood Transfusion Reaction / Comment(s): difficul intubation Past Psychological History: No Psychological Hx Reported Additional Psychological History / Comment(s): . Smoking Status: Former smoker Past Alcohol Use History: Rare Additional Past Alcohol Use History / Comment(s): started smoking at age 18 or 19yrs. quit in Past Drug Use History: None Reported - Past Family History Mother Family Medical History: No Reported History Additional Family Medical History / Comment(s): Mother is 84 yrs old. Father Family Medical History: Cancer Additional Family Medical History / Comment(s): BLADDER CANCER . Medications and Allergies Home Medications Medication Instructions Recorded Confirmed Type Apixaban [Eliquis] 5 mg PO BID 11/04/15 03/07/21 History Oxybutynin Chloride 5 mg PO DAILY 11/04/15 03/07/21 History Simvastatin [Zocor] 40 mg PO HS 11/04/15 03/07/21 History lisinopriL [Zestril] 10 mg PO DAILY 06/08/18 03/07/21 History Acetaminophen Tab [Tylenol Tab] 1,000 mg PO Q6H PRN 03/07/21 03/07/21 History Albuterol Sulfate [Proair Hfa] 2 puff INHALATION RT-QID PRN 03/07/21 03/07/21 History metFORMIN HCL [Glucophage] 500 mg PO AC-BID 03/07/21 03/07/21 History Allergies Allergy/AdvReac Type Severity Reaction Status Date / Time adhesive tape Allergy Rash/Hives Verified 03/07/21 14:22 tape AdvReac BLISTERS, Uncoded 03/07/21 11:30 SKIN PEELS Physical Exam Vitals: Vital Signs Temp Pulse Resp BP Pulse Ox 03/07/21 15:45 99 8 L 126/95 95 03/07/21 15:30 104 H 29 H 114/93 94 L 03/07/21 15:15 101 H 28 H 87/62 94 L 03/07/21 15:00 112 H 34 H 111/87 94 L 03/07/21 14:45 98.2 F 107 H 30 H 117/96 94 L 03/07/21 14:30 105 H 24 121/76 95 03/07/21 14:20 101 H 34 H 121/76 95 03/07/21 14:10 100 26 H 100/82 94 L 03/07/21 14:00 102 H 15 106/75 93 L 03/07/21 13:50 98.7 F 98 30 H 128/67 94 L 03/07/21 12:31 116 H 18 120/82 99 03/07/21 12:21 106 H 18 126/96 98 03/07/21 11:25 98 F 98 18 117/80 97 Intake and Output 03/07/21 03/07/21 03/07/21 06:59 14:59 22:59 Intake Total 150 Output Total 125 Balance 25 Intake: IV 150 Sodium Chloride 0.9% 1, 150 000 ml @ 30 mls/hr IV . Q24H [facility] Rx#:[id number] Output: Urine 125 Other: Weight 140.614 kg General: The patient is awake and alert, in no distress Eye: there is normal conjunctiva bilaterally. Neck: The neck is supple, there is no JVD. Cardiovascular: Normal S1-S2, no S3-S4, no murmurs. Respiratory: Lungs clear to auscultation bilaterally Gastrointestinal: Abdomen is soft, nontender Musculoskeletal: There is no pedal edema. Neurological:. Speech is normal. Skin: Skin is warm and dry Results CBC & Chem 7: 03/07/21 12:22 03/07/21 12:22 Labs: Abnormal Lab Results - Last 24 Hours (Table) 03/07/21 03/07/21 03/07/21 Range/Units 12:22 12:22 12:22 WBC 14.5 H (3.8-10.6) k/uL Neutrophils # 12.8 H (1.3-7.7) k/uL Lymphocytes # 0.7 L (1.0-4.8) k/uL Chloride 114 H (98-107) mmol/L Carbon Dioxide 21 L (22-30) mmol/L Creatinine 0.55 L (0.66-1.25) mg/dL Glucose 159 H (74-99) mg/dL POC Glucose (mg/dL) (75-99) mg/dL Calcium 7.7 L (8.4-10.2) mg/dL Magnesium 1.3 L (1.6-2.3) mg/dL AST 282 H (17-59) U/L Total Creatine Kinase 2467 H* (55-170) U/L CK-MB (CK-2) 111.0 H (0.0-2.4) ng/mL Troponin I 53.800 H* (0.000-0.034) ng/mL Total Protein 5.5 L (6.3-8.2) g/dL Albumin 3.2 L (3.5-5.0) g/dL 03/07/21 Range/Units 13:48 WBC (3.8-10.6) k/uL Neutrophils # (1.3-7.7) k/uL Lymphocytes # (1.0-4.8) k/uL Chloride (98-107) mmol/L Carbon Dioxide (22-30) mmol/L Creatinine (0.66-1.25) mg/dL Glucose (74-99) mg/dL POC Glucose (mg/dL) 155 H (75-99) mg/dL Calcium (8.4-10.2) mg/dL Magnesium (1.6-2.3) mg/dL AST (17-59) U/L Total Creatine Kinase (55-170) U/L CK-MB (CK-2) (0.0-2.4) ng/mL Troponin I (0.000-0.034) ng/mL Total Protein (6.3-8.2) g/dL Albumin (3.5-5.0) g/dL Thrombosis Risk Factor Assmnt - Choose All That Apply Each Factor Represents 1 point: Acute RI, Obesity (BMI >25) Other Risk Factors: Yes Each Risk Factor Represents 2 Points: Age 61-74 years Thrombosis Risk Factor Assessment Total Risk Factor Score: 4 Thrombosis Risk Factor Assessment Level: Moderate Risk Assessment and Plan Assessment: 1. ST elevation RI status post left heart catheterization with successful stent placement. Awaiting cath report for details. Continue dual antiplatelet therapy, metoprolol, and Lipitor. Telemetry monitoring. Awaiting echocardi ogram. 2. Paroxysmal atrial fibrillation on anticoagulation with Eliquis 3. Essential hypertension, blood pressure within acceptable range. We will continue to monitor closely 4. Hyperlipidemia: Continue Lipitor 80 mg daily. Check fasting lipid profile in the morning 5. Hypomagnesemia, replacement order 6. Chronic medical problems, morbid obesity, obstructive sleep apnea Today, I reviewed his medication list and lab work results. Continue IV fluid hydration with normal saline at 75 mL per hour. Repeat lab work in the morning. Continue ICU care.
[2021-03-07] MEDS: ACETAMINOPHEN TAB 325 MG TAB PO PRN ×2 (16:45→22:22)
[2021-03-07 16:50] LABS: Glucose,Whole Blood 184 mg/dL (75-99)
[2021-03-07] MEDS ORDERED: Magnesium Replacement Protocol 1 EACH MISC MISCELLANE PRN (19:23)
[2021-03-07 19:47] LABS: Glucose,Whole Blood 217 mg/dL (75-99)
[2021-03-07] MEDS: INSULIN ASPART (NovoLOG) 100 UNIT/ML VIAL SQ SCH ×2 (19:59→20:09)
[2021-03-07] MEDS: TICAGRELOR 90 MG TAB PO SCH (20:09)
[2021-03-07] MEDS: METOPROLOL TARTRATE 25 MG TAB PO SCH (20:09)
[2021-03-07] MEDS: MAGNESIUM OXIDE 400 MG TAB PO SCH (20:09)
[2021-03-07] MEDS: APIXABAN 5 MG TAB PO SCH (20:09)
[2021-03-07] MEDS: MAGNESIUM SULFATE-D5W PMX 1 GM in DEXTROSE/WATER 1 100ML.BAG IVPB SCH ×2 (20:10→22:23)
--- NOTE | 2021-03-07 22:28 | P.PRCINT ---
Percutaneous Coronary Int. - Percutaneous Coronary Intervention Percutaneous Coronary Intervention: PROCEDURES PERFORMED: Left heart catheterization, bilateral coronary angiography, PCI of proximal LAD with a 3.5 x 12 mm Xience MIAH INDICATION: STEMI HISTORY: Patient is a pleasant 65-year-old male with history of paroxysmal atrial fibrillation, hypertension, hyperlipidemia, obesity, obstructive sleep apnea who presents with a few days of left shoulder pain which then moved in his left chest and therefore he presented to emergency department. Patient was found to have Q waves in the anterior lateral leads however still is having chest pain and therefore decision was made to take patient to [facility] for heart catheterization and possible PCI. CONSENT:I have discussed the risks, benefits and alternative therapies for the above-mentioned procedure and for both sedation/analgesia as well as necessary blood product administration, if indicated, as they pertain to this patient. The patient has indicated understanding and acceptance of the risks and procedures discussed. PROCEDURE: After the risks, benefits and alternatives of the above mentioned procedure explained in detail with the patient, informed consent was obtained. Patient was taken to the catheterization lab and prepped and draped in usual fashion. 1% lidocaine was used to anesthetize the right radial artery. A 6- Estonian sheath was placed in the right radial artery using modified Seldinger technique. Left coronary angiography was performed with a 6-Estonian CLS 3.5 catheter and right coronary angiography was performed with a 5-Estonian JR5 catheter in various views. A 5-Estonian FR5 catheter was inserted into the left ventricle and pressure measurements were obtained. The decision was made to perform PCI of the proximal LAD. The 6Fr CLS 3.5 guide was used to engage the left main. A 0.014 BMW wire was advanced into the distal LAD. The proximal LAD was predilated with a 2.5 x 12 mm balloon. Next a 3.5 x 12 mm Xience MIAH was deployed. The proximal and midportion of the stent was postdilated with a 4.0 x 8 mm noncompliant balloon. There was mild 10-20% disease distal to the stent felt best treated medically. Preintervention there was 100% stenosis with OSCAR 0 flow and postintervention there was 0% residual stenosis with OSCAR 3 flow and no dissection. The right radial sheath was removed and a TR band was placed with hemostasis achieved. The patient tolerated the procedure well. Patient was transported back to the post catheterization holding area in stable condition. Conscious Sedation: Patient was monitored under the direct supervision of vision of myself for conscious sedation using Versed and fentanyl for a total duration of 38 minutes HEMODYNAMICS: Ao: 93/70 LV: 93/6, LVEDP 17mmHg SELECTIVE CORONARY ARTERIOGRAPHY: LEFT MAIN: The left main is a large caliber vessel which bifurcates into the LAD and circumflex. There is no significant stenosis. LEFT ANTERIOR DESCENDING CORONARY ARTERY: LAD is a large caliber vessel which wraps around to the apex. There is a 100% stenosis at the level of a small to moderate caliber diagonal 1 branch. LEFT CIRCUMFLEX CORONARY ARTERY: Left circumflex is a large caliber vessel which is the dominant vessel. There is diffuse mild 20-30% stenosis. RIGHT CORONARY ARTERY: The right coronary artery is a small caliber vessel which gives off an RV branch and is nondominant. There is no significant stenosis. FINAL IMPRESSION: 1. Late presenting anterolateral STEMI 2. S/p PCI of proximal LAD with a 3.5 x 12 mm Xience MIAH 3. Borderline decreased blood pressures 4. Mildly elevated left sided filling pressures PLAN: 1. Aggressive risk factor modification per most recent ACC/AHA guidelines. 2. Continue triple therapy for 1 month then likely transition to Plavix, Eliquis for additional 11 months.
[2021-03-08 04:09] LABS: Basophils % (A) 0 %; Eosinophils % (A) 0 %; HCT 46.5 % (39.0-53.0); HGB 15.6 gm/dL (13.0-17.5); Lymphocytes # (A) 0.6 k/uL (1.0-4.8); Lymphocytes % (A) 4 %; MCH 31.8 pg (25.0-35.0); MCHC 33.5 g/dL (31.0-37.0); MCV 94.9 fL (80.0-100.0); Monocytes # (A) 0.9 k/uL (0-1.0); Monocytes % (A) 5 %; Neutrophils # (A) 16.1 k/uL (1.3-7.7); Neutrophils % (A) 90 %; Platelet Count 201 k/uL (150-450); RDW 12.8 % (11.5-15.5); WBC 17.9 k/uL (3.8-10.6)
[2021-03-08 04:28] LABS: African American GFR (CKD) >90 (>60 ml/min/1.73 sqM); Anion Gap 13 mmol/L; Blood Urea Nitrogen 19 mg/dL (9-20); Calcium 9.5 mg/dL (8.4-10.2); Carbon Dioxide 17 mmol/L (22-30); Chloride 106 mmol/L (98-107); Glucose 223 mg/dL (74-99); Magnesium 2.2 mg/dL (1.6-2.3); Non-African American GFR(CKD) >90 (>60 ml/min/1.73 sqM); Sodium 136 mmol/L (137-145)
[2021-03-08] MEDS: ACETAMINOPHEN TAB 325 MG TAB PO PRN ×5 (04:33→23:37)
[2021-03-08 04:44] LABS: Potassium 5.1 mmol/L (3.5-5.1)
[2021-03-08 05:13] LABS: Cholesterol 132 mg/dL (<200); HDL Cholesterol 41 mg/dL (40-60); LDL Cholesterol,Calculated 74 mg/dL (0-99); Triglycerides 84 mg/dL (<150)
[2021-03-08] MEDS: MAGNESIUM SULFATE-D5W PMX 1 GM in DEXTROSE/WATER 1 100ML.BAG IVPB SCH (05:33)
[2021-03-08 06:35] LABS: Glucose,Whole Blood 201 mg/dL (75-99)
[2021-03-08] MEDS: INSULIN ASPART (NovoLOG) 100 UNIT/ML VIAL SQ SCH ×4 (07:49→20:32)
[2021-03-08] MEDS: ASPIRIN 81 MG PO SCH (08:03)
[2021-03-08] MEDS: APIXABAN 5 MG TAB PO SCH ×2 (08:03→20:32)
[2021-03-08] MEDS: TICAGRELOR 90 MG TAB PO SCH ×2 (08:04→20:31)
[2021-03-08] MEDS: lisinopriL 10 MG TAB PO SCH (08:04)
[2021-03-08] MEDS: ATORVASTATIN 80 MG TAB PO SCH (08:04)
[2021-03-08] MEDS: METOPROLOL TARTRATE 25 MG TAB PO SCH ×2 (08:04→20:32)
[2021-03-08] MEDS: MAGNESIUM OXIDE 400 MG TAB PO SCH ×2 (08:05→20:31)
[2021-03-08] MEDS ORDERED: ASPIRIN 325 MG TAB PO SCH (09:00)
--- NOTE | 2021-03-08 09:59 | P.PN ---
Subjective Progress Note Date: 03/08/21 Feels better, still has some intermittent substernal chest pain. No shortness of breath, no nausea no vomiting or fever. Patient is up in chair, he does not appear to be in distress. Objective - Vital Signs Vital signs: Vital Signs Temp 98.2 F 03/08/21 08:00 Pulse 78 03/08/21 09:00 Resp 15 03/08/21 09:00 BP 122/98 03/08/21 09:00 Pulse Ox 96 03/08/21 09:00 Intake & Output 03/07/21 03/08/21 03/08/21 18:59 06:59 18:59 Intake Total 275 550 300 Output Total 125 380 125 Balance 150 170 175 Weight 140.614 kg 144.9 kg Intake: IV 275 550 100 Sodium Chloride 0.9% 1, 225 000 ml @ 30 mls/hr IV . Q24H [facility] Rx#:[id number] Sodium Chloride 0.9% 1, 50 550 100 000 ml @ 50 mls/hr IV . Q20H [facility] Rx#:[id number] Oral 200 Output: Urine 125 380 125 Other: # Voids 1 0 - Exam Constitutional: No acute distress, conversant, pleasant Eyes: Anicteric sclerae, moist conjunctiva ENMT: NC/AT Neck:Supple, FROM, no masses Lungs: Clear to auscultation, Clear to percussion, Normal respiratory effort, no accessory muscle use Cardiovascular: Heart regular in rate and rhythm, No murmurs, gallops, or rubs no peripheral edema Abdominal: Soft Nontender, non distended Skin: Normal temperature, tone Extremities:No digital cyanosis No clubbing, Pedal pulses intact and symmetrical Radial pulses intact and symmetrical Normal gait and station, No calf tenderness Psychiatric: Alert and oriented to person, place and time, Appropriate affect Intact judgement Neuro: Muscles Strength 5/5 in all 4 extremities, Sensation to light touch grossly present throughout, Cranial nerves II-XII grossly intact. No focal s ensory deficits - Labs CBC & Chem 7: 03/08/21 03:21 03/08/21 03:21 Labs: Abnormal Lab Results - Last 24 Hours (Table) 03/07/21 03/07/21 03/07/21 Range/Units 12:22 12:22 12:22 WBC 14.5 H (3.8-10.6) k/uL Neutrophils # 12.8 H (1.3-7.7) k/uL Lymphocytes # 0.7 L (1.0-4.8) k/uL Sodium (137-145) mmol/L Chloride 114 H (98-107) mmol/L Carbon Dioxide 21 L (22-30) mmol/L Creatinine 0.55 L (0.66-1.25) mg/dL Glucose 159 H (74-99) mg/dL POC Glucose (mg/dL) (75-99) mg/dL Calcium 7.7 L (8.4-10.2) mg/dL Magnesium 1.3 L (1.6-2.3) mg/dL AST 282 H (17-59) U/L Total Creatine Kinase 2467 H* (55-170) U/L CK-MB (CK-2) 111.0 H (0.0-2.4) ng/mL Troponin I 53.800 H* (0.000-0.034) ng/mL Total Protein 5.5 L (6.3-8.2) g/dL Albumin 3.2 L (3.5-5.0) g/dL 03/07/21 03/07/21 03/07/21 Range/Units 13:48 16:48 19:46 WBC (3.8-10.6) k/uL Neutrophils # (1.3-7.7) k/uL Lymphocytes # (1.0-4.8) k/uL Sodium (137-145) mmol/L Chloride (98-107) mmol/L Carbon Dioxide (22-30) mmol/L Creatinine (0.66-1.25) mg/dL Glucose (74-99) mg/dL POC Glucose (mg/dL) 155 H 184 H 217 H (75-99) mg/dL Calcium (8.4-10.2) mg/dL Magnesium (1.6-2.3) mg/dL AST (17-59) U/L Total Creatine Kinase (55-170) U/L CK-MB (CK-2) (0.0-2.4) ng/mL Troponin I (0.000-0.034) ng/mL Total Protein (6.3-8.2) g/dL Albumin (3.5-5.0) g/dL 03/08/21 03/08/21 03/08/21 Range/Units 03:21 03:21 06:33 WBC 17.9 H (3.8-10.6) k/uL Neutrophils # 16.1 H (1.3-7.7) k/uL Lymphocytes # 0.6 L (1.0-4.8) k/uL Sodium 136 L (137-145) mmol/L Chloride (98-107) mmol/L Carbon Dioxide 17 L (22-30) mmol/L Creatinine 0.64 L (0.66-1.25) mg/dL Glucose 223 H (74-99) mg/dL POC Glucose (mg/dL) 201 H (75-99) mg/dL Calcium (8.4-10.2) mg/dL Magnesium (1.6-2.3) mg/dL AST (17-59) U/L Total Creatine Kinase (55-170) U/L CK-MB (CK-2) (0.0-2.4) ng/mL Troponin I (0.000-0.034) ng/mL Total Protein (6.3-8.2) g/dL Albumin (3.5-5.0) g/dL Assessment and Plan Plan: 1. Anterolateral ST elevation CT status post left heart catheterization with successful stent placement. Status post PCI of proximal LAD. Continue aspirin, Eliquis Brilinta, metoprolol, and Lipitor.. Awaiting echocardiogram. appreciate cardiology input 2. Paroxysmal atrial fibrillation on anticoagulation with Eliquis and metoprolol 3. Essential hypertension : continue to monitor closely 4. Hyperlipidemia: Continue Lipitor 80 mg daily 5. Hypomagnesemia, replacementas indicated 6. Chronic medical problems, morbid obesity BMI 44.6 , obstructive sleep apnea 7. Leukocytosis: WBC 17,000, likely reactive, monitor. 8. Metabolic acidosis: Serum bicarbonate down to 17, monitor Treatment plan discussed with the patient and nurse Disposition: Pending clinical progression
--- NOTE | 2021-03-08 11:28 | P.PN ---
Subjective Progress Note Date: 03/08/21 HISTORY OF PRESENT ILLNESS: 65-year-old male who follows in the office with Dr. Hernandez. Patient presented to the hospital as a STEMI. He underwent cardiac cath yesterday with Dr. Treviño with PCI to the proximal LAD. Patient examined this morning at the bedside in the intensive care unit. Patient is currently on aspirin, brilinta, and eliquis. Patient reports some chest discomfort with deep inspiration and coughing. He reports right shoulder pain which has been ongoing for the past few weeks. Patient reports he did not sleep well last night and feels tired this morning. Blood pressure 122/98. Heart rate in the 80s. He is on room air with oxygen saturations greater than 92%. He is afebrile. Telemetry reveals afib with controlled rate. PHYSICAL EXAM: VITAL SIGNS: Reviewed. GENERAL: Well-developed in no acute distress. NECK: Supple. No JVD or thyromegaly LUNGS: Respirations even and unlabored. Lungs essentially clear to auscultation bilaterally. HEART: Irregular rate and rhythm. S1 and S2 heard. EXTREMITIES: Normal range of motion. No clubbing or cyanosis. Peripheral pulses intact. No lower extremity edema. Right wrist cath side with pulse present. ASSESSMENT: Anterolateral STEMI, s/p PCI to proximal LAD Hypertension Hyperlipidemia Obesity Obstructive sleep apnea Paroxysmal atrial fibrillation PLAN: 2D echo ordered. Await results Continue triple therapy with Eliquis, Brilinta, and aspirin for 1 month. Then discontinue aspirin. Continue metoprolol and atorvastatin Continue telemetry monitoring Further recommendations pending patient course Nurse practitioner note has been reviewed by physician. Signing provider agrees with the documented findings, assessment, and plan of care. Objective - Vital Signs Vital signs: Vital Signs Temp 97.6 F 03/08/21 04:00 Pulse 93 03/08/21 07:00 Resp 25 H 03/08/21 07:00 BP 108/88 03/08/21 07:00 Pulse Ox 95 03/08/21 07:00 Intake & Output 03/07/21 03/08/21 03/08/21 18:59 06:59 18:59 Intake Total 275 550 300 Output Total 125 380 125 Balance 150 170 175 Weight 140.614 kg 144.9 kg Intake: IV 275 550 100 Sodium Chloride 0.9% 1, 225 000 ml @ 30 mls/hr IV . Q24H [facility] Rx#:[id number] Sodium Chloride 0.9% 1, 50 550 100 000 ml @ 50 mls/hr IV . Q20H [facility] Rx#:[id number] Oral 200 Output: Urine 125 380 125 Other: # Voids 1 0 - Labs CBC & Chem 7: 03/08/21 03:21 03/08/21 03:21 Labs: Abnormal Lab Results - Last 24 Hours (Table) 03/07/21 03/07/21 03/07/21 Range/Units 12:22 12:22 12:22 WBC 14.5 H (3.8-10.6) k/uL Neutrophils # 12.8 H (1.3-7.7) k/uL Lymphocytes # 0.7 L (1.0-4.8) k/uL Sodium (137-145) mmol/L Chloride 114 H (98-107) mmol/L Carbon Dioxide 21 L (22-30) mmol/L Creatinine 0.55 L (0.66-1.25) mg/dL Glucose 159 H (74-99) mg/dL POC Glucose (mg/dL) (75-99) mg/dL Calcium 7.7 L (8.4-10.2) mg/dL Magnesium 1.3 L (1.6-2.3) mg/dL AST 282 H (17-59) U/L Total Creatine Kinase 2467 H* (55-170) U/L CK-MB (CK-2) 111.0 H (0.0-2.4) ng/mL Troponin I 53.800 H* (0.000-0.034) ng/mL Total Protein 5.5 L (6.3-8.2) g/dL Albumin 3.2 L (3.5-5.0) g/dL 03/07/21 03/07/21 03/07/21 Range/Units 13:48 16:48 19:46 WBC (3.8-10.6) k/uL Neutrophils # (1.3-7.7) k/uL Lymphocytes # (1.0-4.8) k/uL Sodium (137-145) mmol/L Chloride (98-107) mmol/L Carbon Dioxide (22-30) mmol/L Creatinine (0.66-1.25) mg/dL Glucose (74-99) mg/dL POC Glucose (mg/dL) 155 H 184 H 217 H (75-99) mg/dL Calcium (8.4-10.2) mg/dL Magnesium (1.6-2.3) mg/dL AST (17-59) U/L Total Creatine Kinase (55-170) U/L CK-MB (CK-2) (0.0-2.4) ng/mL Troponin I (0.000-0.034) ng/mL Total Protein (6.3-8.2) g/dL Albumin (3.5-5.0) g/dL 03/08/21 03/08/21 03/08/21 Range/Units 03:21 03:21 06:33 WBC 17.9 H (3.8-10.6) k/uL Neutrophils # 16.1 H (1.3-7.7) k/uL Lymphocytes # 0.6 L (1.0-4.8) k/uL Sodium 136 L (137-145) mmol/L Chloride (98-107) mmol/L Carbon Dioxide 17 L (22-30) mmol/L Creatinine 0.64 L (0.66-1.25) mg/dL Glucose 223 H (74-99) mg/dL POC Glucose (mg/dL) 201 H (75-99) mg/dL Calcium (8.4-10.2) mg/dL Magnesium (1.6-2.3) mg/dL AST (17-59) U/L Total Creatine Kinase (55-170) U/L CK-MB (CK-2) (0.0-2.4) ng/mL Troponin I (0.000-0.034) ng/mL Total Protein (6.3-8.2) g/dL Albumin (3.5-5.0) g/dL
[2021-03-08 11:43] VITALS: BMI 44.5
[2021-03-08 11:44] LABS: Glucose,Whole Blood 191 mg/dL (75-99)
[2021-03-08 17:05] LABS: Glucose,Whole Blood 204 mg/dL (75-99)
--- NOTE | 2021-03-08 18:22 | XR ---
EXAMINATION TYPE: XR chest 2V DATE OF EXAM: 03/08/2021 COMPARISON: Chest x-ray 03/07/2021 HISTORY: Chest pain TECHNIQUE: Frontal and lateral views of the chest are obtained. FINDINGS: There is no focal air space opacity, pleural effusion, or pneumothorax seen. The cardiac silhouette size is stable and enlarged, there are overlying leads. The osseous structures are intac t. Aorta is dense. IMPRESSION: No acute cardiopulmonary process.
[2021-03-08 19:51] LABS: Glucose,Whole Blood 209 mg/dL (75-99)
[2021-03-09 06:04] LABS: Glucose,Whole Blood 218 mg/dL (75-99)
[2021-03-09] MEDS: INSULIN ASPART (NovoLOG) 100 UNIT/ML VIAL SQ SCH ×4 (06:31→20:21)
[2021-03-09 08:09] LABS: Basophils % (A) 0 %; Eosinophils # (A) 0.2 k/uL (0-0.7); Eosinophils % (A) 1 %; HCT 43.1 % (39.0-53.0); HGB 15.1 gm/dL (13.0-17.5); Lymphocytes # (A) 0.8 k/uL (1.0-4.8); Lymphocytes % (A) 6 %; MCH 33.5 pg (25.0-35.0); MCV 95.7 fL (80.0-100.0); Mean Platelet Volume 7.1; Monocytes # (A) 0.5 k/uL (0-1.0); Monocytes % (A) 4 %; Neutrophils # (A) 11.4 k/uL (1.3-7.7); Neutrophils % (A) 88 %; Platelet Count 221 k/uL (150-450); RDW 12.8 % (11.5-15.5); WBC 13.1 k/uL (3.8-10.6)
[2021-03-09 08:24] LABS: ALT 47 U/L (4-49); AST 96 U/L (17-59); African American GFR (CKD) >90 (>60 ml/min/1.73 sqM); Albumin 3.8 g/dL (3.5-5.0); Alkaline Phosphatase 53 U/L (38-126); Anion Gap 8 mmol/L; Blood Urea Nitrogen 25 mg/dL (9-20); Calcium 9.3 mg/dL (8.4-10.2); Carbon Dioxide 26 mmol/L (22-30); Chloride 105 mmol/L (98-107); Glucose 183 mg/dL (74-99); Non-African American GFR(CKD) >90 (>60 ml/min/1.73 sqM); Potassium 4.7 mmol/L (3.5-5.1); Sodium 139 mmol/L (137-145); Total Bilirubin 1.4 mg/dL (0.2-1.3); Total Protein 6.7 g/dL (6.3-8.2)
[2021-03-09] MEDS: ACETAMINOPHEN TAB 325 MG TAB PO PRN (08:55)
[2021-03-09] MEDS: APIXABAN 5 MG TAB PO SCH ×2 (08:56→20:21)
[2021-03-09] MEDS: lisinopriL 10 MG TAB PO SCH (08:56)
[2021-03-09] MEDS: ASPIRIN 81 MG PO SCH (08:56)
[2021-03-09] MEDS: ATORVASTATIN 80 MG TAB PO SCH (08:56)
[2021-03-09] MEDS: MAGNESIUM OXIDE 400 MG TAB PO SCH ×2 (08:56→20:21)
[2021-03-09] MEDS: TICAGRELOR 90 MG TAB PO SCH ×2 (08:56→20:21)
[2021-03-09] MEDS: METOPROLOL TARTRATE 25 MG TAB PO SCH ×2 (08:57→20:21)
--- NOTE | 2021-03-09 10:07 | P.PN ---
<Baltazar Khan - Last Filed: 03/09/21 09:50> Subjective Progress Note Date: 03/09/21 Hospital course: Patient is a 65-year-old male with a past medical history of hypertension, hy perlipidemia, paroxysmal atrial fibrillation status post ablation, and obstructive sleep apnea. He presented to the hospital on 01/05/21 with a chief complaint of left-sided chest pain. He was found to have an elevated troponin of 53.800 and his EKG revealed ST elevations in anterolateral leads with reciprocal changes positive for STEMI. Patient was taken to medical laboratory assistant which resulted in placement of PCI of proximal LAD and patient placed on triple therapy with aspirin, Brillinta, and Eliquis. Physical exam: General: non toxic, No distress, appears at stated age Derm: warm, dry Head: atraumatic, normocephalic, symmetric Eyes: EOMI, no lid lag, anicteric sclera Mouth: no lip lesion, mucus membranes moist Cardiovascular: S1S2 reg, no murmur, gallop, or rub, positive posterior tibial pulses bilaterally, cap refill less than 2 seconds. Lungs: Respirations even, regular, and unlabored, lungs CTA bilaterally, no rhonchi, no rales, or wheezes noted. No accessory muscle use. Abdominal: Obese abdomen soft, nontender to palpation, no guarding, no ap preciable organomegaly Ext: No gross muscle atrophy, no edema, no contractures Neuro: CN II-XI grossly intact, no focal neuro deficits Psych: Alert, oriented, appropriate affect Plan of care: Anterolateral STEMI status post heart catheterization with successful stent placement in proximal LAD -Continue triple therapy with aspirin, Brillinta, and Eliquis as recommended by cardiovascular team. -Continue atorvastatin and metoprolol. -Continuous telemetry monitoring. -PRN nitroglycerin sublingual tablets as needed for chest pain -Heart healthy diet Hypertension -Monitor vital signs and continue daily medication regimen with Metoprolol and lisinopril. Hyperlipidemia -Continue daily medication regimen with atorvastatin 80 mg daily. -Heart healthy diet Paroxysmal atrial fibrillation -Continue anticoagulation with Eliquis and metoprolol for rate control. Other chronic medical conditions include: Obstructive sleep apnea and morbid obesity with BMI of 44.6 CODE STATUS: Full code DVT prophylaxis: Eliquis Discussed with: Patient and RN Anticipated discharge date: Clinical course to determine Anticipated discharge place: Home A total of 45 minutes was spent on the care of this complex patient more than 50% of the time was spent in counseling and care coordination. Objective - Vital Signs Vital signs: Vital Signs Temp 98.1 F 03/09/21 08:00 Pulse 110 H 03/09/21 08:00 Resp 20 03/09/21 08:00 BP 126/80 03/09/21 08:00 Pulse Ox 95 03/09/21 08:00 Intake & Output 03/08/21 03/09/21 03/09/21 18:59 06:59 18:59 Intake Total 1410 240 240 Output Total 275 Balance 1135 240 240 Weight 144.9 kg 145 kg Intake: IV 100 Sodium Chloride 0.9% 1, 100 000 ml @ 50 mls/hr IV . Q20H [facility] Rx#:[id number] Oral 1310 240 240 Output: Urine 275 Other: Voiding Method Toilet Toilet # Voids 1 1 - Labs CBC & Chem 7: 03/09/21 07:54 03/09/21 07:54 Labs: Abnormal Lab Results - Last 24 Hours (Table) 03/08/21 03/08/21 03/08/21 Range/Units 11:42 17:01 19:49 WBC (3.8-10.6) k/uL Neutrophils # (1.3-7.7) k/uL Lymphocytes # (1.0-4.8) k/uL BUN (9-20) mg/dL Glucose (74-99) mg/dL POC Glucose (mg/dL) 191 H 204 H 209 H (75-99) mg/dL Total Bilirubin (0.2-1.3) mg/dL AST (17-59) U/L 03/09/21 03/09/21 03/09/21 Range/Units 06:03 07:54 07:54 WBC 13.1 H (3.8-10.6) k/uL Neutrophils # 11.4 H (1.3-7.7) k/uL Lymphocytes # 0.8 L (1.0-4.8) k/uL BUN 25 H (9-20) mg/dL Glucose 183 H (74-99) mg/dL POC Glucose (mg/dL) 218 H (75-99) mg/dL Total Bilirubin 1.4 H (0.2-1.3) mg/dL AST 96 H (17-59) U/L <ElyssaKiara A - Last Filed: 03/09/21 15:05> Objective - Vital Signs Vital signs: Vital Signs Temp 98.2 F 03/09/21 12:00 Pulse 78 03/09/21 13:43 Resp 20 03/09/21 13:43 BP 108/74 03/09/21 12:00 Pulse Ox 96 03/09/21 12:00 Intake & Output 03/08/21 03/09/21 03/09/21 18:59 06:59 18:59 Intake Total 1410 240 540 Output Total 275 Balance 1135 240 540 Weight 144.9 kg 145 kg Intake: IV 100 Sodium Chloride 0.9% 1, 100 000 ml @ 50 mls/hr IV . Q20H [facility] Rx#:[id number] Oral 1310 240 540 Output: Urine 275 Other: Voiding Method Toilet Toilet # Voids 1 1 1 - Labs CBC & Chem 7: 03/09/21 07:54 03/09/21 07:54 Labs: Abnormal Lab Results - Last 24 Hours (Table) 03/08/21 03/08/21 03/09/21 Range/Units 17:01 19:49 06:03 WBC (3.8-10.6) k/uL Neutrophils # (1.3-7.7) k/uL Lymphocytes # (1.0-4.8) k/uL BUN (9-20) mg/dL Glucose (74-99) mg/dL POC Glucose (mg/dL) 204 H 209 H 218 H (75-99) mg/dL Total Bilirubin (0.2-1.3) mg/dL AST (17-59) U/L 03/09/21 03/09/21 03/09/21 Range/Units 07:54 07:54 11:18 WBC 13.1 H (3.8-10.6) k/uL Neutrophils # 11.4 H (1.3-7.7) k/uL Lymphocytes # 0.8 L (1.0-4.8) k/uL BUN 25 H (9-20) mg/dL Glucose 183 H (74-99) mg/dL POC Glucose (mg/dL) 172 H (75-99) mg/dL Total Bilirubin 1.4 H (0.2-1.3) mg/dL AST 96 H (17-59) U/L Assessment and Plan Assessment: I discussed the care with Baltazar Khan NP and reviewed the findings and plan as documented in the note above. I did not physically speak with or examine the patient on this date. Ischemic Cardiomyopathy with EF 20-25% - on metoprolol, Lisinopril - will d/w cardio possible need for life vest. - tele
[2021-03-09 11:21] LABS: Glucose,Whole Blood 172 mg/dL (75-99)
--- NOTE | 2021-03-09 12:00 | ECHOF ---
Referral Reason:lv function MEASUREMENTS -------- HEIGHT: 180.3 cm WEIGHT: 144.7 kg BP: 91/59 RVIDd: 3.5 cm (< 3.3) IVSd: 1.7 cm (0.6 - 1.1) LVIDd: 4.8 cm (3.9 - 5.3) LVPWd: 1.9 cm (0.6 - 1.1) IVSs: 2.3 cm LVIDs: 4.5 cm LVPWs: 2.1 cm LA Diam: 4.2 cm (2.7 - 3.8) Ao Diam: 3.3 cm (2.0 - 3.7) AV Cusp: 2.2 cm (1.5 - 2.6) MV EXCURSION: 16.052 mm (> 18.000) MV EF SLOPE: 102 mm/s (70 - 150) EPSS: 1.6 cm RAP: 5.00 mmHg RVSP: 58.19 mmHg FINDINGS -------- Atrial fibrillation. This was a technically difficult study with suboptimal views. The left ventricular size is normal. There is severe concentric left ventricular hypertrophy. Ove rall left ventricular systolic function is severely impaired with, an EF between 20 - 25 %. Apical anterior LV wall motion is akinetic. Apical lateral LV wall motion is akinetic. Apical inferior LV wall motion is akinetic. Apical septum LV wall motion is akinetic. Global hypokinesis The right ventricle is mildly enlarged. The left atrium is mildly dilated. The right atrium is normal in size. 5 ml of Lumason was utilized for enhancement of images. There is mild aortic valve sclerosis. Mild mitral annular calcification present. Mild tricuspid regurgitation present. There is severe pulmonary hypertension. The right ventricul ar systolic pressure, as measured by Doppler, is 58.19mmHg. The pulmonic valve was not well visualized. The aortic root size is normal. IVC Not well visulized. There is no pericardial effusion. CONCLUSIONS -------- 1. The left ventricular size is normal. 2. There is severe concentric left ventricular hypertrophy. 3. Overall left ventricular systolic function is severely impaired with, an EF between 20 - 25 %. 4. Apical anterior LV wall motion is akinetic. 5. Apical lateral LV wall motion is akinetic. 6. Apical inferior LV wall motion is akinetic. 7. Apical septum LV wall motion is akinetic. 8. Global hypokinesis 9. The right ventricle is mildly enlarged. 10. The left atrium is mildly dilated. 11. 5 ml of Lumason was utilized for enhancement of images. 12. There is mild aortic valve sclerosis. 13. Mild mitral annular calcification present. 14. Mild tricuspid regurgitation present. 15. There is severe pulmonary hypertension. 16. The right ventricular systolic pressure, as measured by Doppler, is 58.19mmHg. 17. There is no pericardial effusion. AGRICULTURAL EXTENSION SPECIALIST: Sonya Caldera RDCS
--- NOTE | 2021-03-09 12:19 | P.PN ---
Subjective This is a pleasant 65-year-old male past medical history significant for chronic persistent atrial fibrillation status post cardioversion, hypertension, dyslipidemia and obstructive sleep apnea. He follows in the office with Dr. Hernandez. He is status post PCI to the proximal LAD. Maintained on dual antiplatelet therapy. He is seen and examined laying flat resting comfortably in bed in no acute distress. He denies chest pain, shortness of breath, dizziness or palpitations. Blood pressure 126/80 heart rate 110 afebrile and maintaining oxygen saturation on room air. Telemetry tracings reviewed, he is in afib with controlled rates, no VT/VF. Laboratory data reviewed, WBC 13.1, hemoglobin 15.1, platelets 221, sodium 139, potassium 4.7 and creatinine 0.72. Currently maintained on Eliquis 5 mg twice a day, aspirin 81 mg daily, osiel rvastatin 80 mg daily, lisinopril 10 mg daily, metoprolol 25 mg twice a day and brilinta 90 mg BID. GENERAL: Well-appearing, well-nourished and in no acute distress. NECK: Supple without JVD or thyromegaly. LUNGS: Breath sounds clear to auscultation bilaterally. Respiration equal and unlabored. No wheezes, rales or rhonchi. HEART: Irregular rate and rhythm without murmurs, rubs or gallops. S1 and S2 heard. EXTREMITIES: Normal range of motion, no edema. No clubbing or cyanosis. Peripheral pulses intact. ASSESSMENT Anterolater ST elevated DC s/p PCI to the LAD Chronic persistent atrial fibrillation s/p cardioversion and ablation with controlled ventricular rates Ischemic cardiomyopathy Acute systolic heart failure s/p DC Hypertension Dyslipidemia STEFFANIE Morbid obesity, BMI 44 PLAN STEMI with EF less than 35%, recommend Life Vest placement to prevent sudden cardiac . Ongoing telemetry monitoring. Further recommendations to follow based on clinical course. Nurse Practitioner note has been reviewed, I agree with a documented findings and plan of care. Patient was seen and examined. Objective - Vital Signs Vital signs: Vital Signs Temp 98.1 F 03/09/21 08:00 Pulse 110 H 03/09/21 08:00 Resp 20 03/09/21 08:00 BP 126/80 03/09/21 08:00 Pulse Ox 95 03/09/21 08:00 Intake & Output 03/08/21 03/09/21 03/09/21 18:59 06:59 18:59 Intake Total 1410 240 540 Output Total 275 Balance 1135 240 540 Weight 144.9 kg 145 kg Intake: IV 100 Sodium Chloride 0.9% 1, 100 000 ml @ 50 mls/hr IV . Q20H [facility] Rx#:[id number] Oral 1310 240 540 Output: Urine 275 Other: Voiding Method Toilet Toilet # Voids 1 1 1 - Labs CBC & Chem 7: 03/09/21 07:54 03/09/21 07:54 Labs: Abnormal Lab Results - Last 24 Hours (Table) 03/08/21 03/08/21 03/08/21 Range/Units 11:42 17:01 19:49 WBC (3.8-10.6) k/uL Neutrophils # (1.3-7.7) k/uL Lymphocytes # (1.0-4.8) k/uL BUN (9-20) mg/dL Glucose (74-99) mg/dL POC Glucose (mg/dL) 191 H 204 H 209 H (75-99) mg/dL Total Bilirubin (0.2-1.3) mg/dL AST (17-59) U/L 03/09/21 03/09/21 03/09/21 Range/Units 06:03 07:54 07:54 WBC 13.1 H (3.8-10.6) k/uL Neutrophils # 11.4 H (1.3-7.7) k/uL Lymphocytes # 0.8 L (1.0-4.8) k/uL BUN 25 H (9-20) mg/dL Glucose 183 H (74-99) mg/dL POC Glucose (mg/dL) 218 H (75-99) mg/dL Total Bilirubin 1.4 H (0.2-1.3) mg/dL AST 96 H (17-59) U/L
[2021-03-09 16:41] LABS: Glucose,Whole Blood 181 mg/dL (75-99)
[2021-03-09 19:57] LABS: Glucose,Whole Blood 182 mg/dL (75-99)
[2021-03-10 06:23] LABS: Glucose,Whole Blood 137 mg/dL (75-99)
[2021-03-10] MEDS: INSULIN ASPART (NovoLOG) 100 UNIT/ML VIAL SQ SCH (06:28)
[2021-03-10 08:01] LABS: Basophils # (A) 0.1 k/uL (0-0.2); Basophils % (A) 1 %; Eosinophils # (A) 0.1 k/uL (0-0.7); Eosinophils % (A) 1 %; Lymphocytes # (A) 0.9 k/uL (1.0-4.8); Lymphocytes % (A) 8 %; MCH 33.3 pg (25.0-35.0); MCHC 34.1 g/dL (31.0-37.0); MCV 97.5 fL (80.0-100.0); Mean Platelet Volume 7.4; Monocytes # (A) 0.5 k/uL (0-1.0); Monocytes % (A) 5 %; Neutrophils # (A) 8.7 k/uL (1.3-7.7); Neutrophils % (A) 84 %; Platelet Count 267 k/uL (150-450); RBC 4.82 m/uL (4.30-5.90); RDW 12.6 % (11.5-15.5); WBC 10.3 k/uL (3.8-10.6)
[2021-03-10 08:14] LABS: African American GFR (CKD) >90 (>60 ml/min/1.73 sqM); Anion Gap 11 mmol/L; Blood Urea Nitrogen 29 mg/dL (9-20); Calcium 9.5 mg/dL (8.4-10.2); Carbon Dioxide 23 mmol/L (22-30); Chloride 106 mmol/L (98-107); Glucose 151 mg/dL (74-99); Magnesium 2.2 mg/dL (1.6-2.3); Non-African American GFR(CKD) >90 (>60 ml/min/1.73 sqM); Potassium 4.7 mmol/L (3.5-5.1); Sodium 140 mmol/L (137-145)
[2021-03-10] MEDS: METOPROLOL TARTRATE 25 MG TAB PO SCH (08:42)
[2021-03-10] MEDS: ASPIRIN 81 MG PO SCH (08:42)
[2021-03-10] MEDS: MAGNESIUM OXIDE 400 MG TAB PO SCH (08:42)
[2021-03-10] MEDS: lisinopriL 10 MG TAB PO SCH (08:42)
[2021-03-10] MEDS: TICAGRELOR 90 MG TAB PO SCH (08:42)
[2021-03-10] MEDS: APIXABAN 5 MG TAB PO SCH (08:43)
[2021-03-10] MEDS: ATORVASTATIN 80 MG TAB PO SCH (08:43)
[2021-03-10 08:49] VITALS: BP 125/83; PULSE 105; RESP 20; TEMP 98.2
--- NOTE | 2021-03-10 10:58 | P.DS ---
<Baltazar Khan - Last Filed: 03/10/21 12:49> Providers Expected date of discharge: 03/10/21 Hospital Course: Discharge Diagnosis: Anterolateral STEMI status post heart catheterization with successful stent placement in proximal LAD Ischemic cardiomyopathy with a severely impaired ejection fraction of 20-25% requiring placement in LifeVest Severe pulmonary hypertension Hypertension Hyperlipidemia Paroxysmal atrial fibrillation Obstructive sleep apnea Morbid obesity with BMI of 44.6 Hospital Course: Patient is a 65-year-old male with a past medical history of hypertension, hyperlipidemia, paroxysmal atrial fibrillation status post ablation, and obstructive sleep apnea. He presented to the hospital on 01/05/21 with a chief complaint of left-sided chest pain. He was found to have an elevated troponin of 53.800 and his EKG revealed ST elevations in anterolateral leads with reciprocal changes positive for STEMI. Patient was taken to wetlands conservation laborer which resulted in placement of PCI of proximal LAD and patient placed on triple therapy with aspirin, Brillinta, and Eliquis. Echocardiogram was then completed on 03/09/21 revealing a severely impaired ejection fraction of 20-25%, severe LVH with akinetic movement throughout, and severe pulmonary hypertension. Patient was placed in LifeVest. He is being discharged home with LifeVest and educated on the importance of taking his cardiac medications directly as prescribed without of her missing a dose. Patient to follow-up with PCP in the next 1-2 days and has scheduled appointment to follow up with support engineer on 03/17/21 at 9:15 AM. Patient educated on the importance of keeping these appointments as they are necessary to ensure his continued medical management. Patient verbalized understanding and is stable for discharge home at this time. Physical exam: Patient was seen and fully evaluated at the bedside this morning. He is sitting up in the chair reports feeling great this morning. Patient verbalized understanding of LifeVest after meeting with business development representative. Patient's vital signs and labs unremarkable. Patient denies currently having any headache, lightheadedness, dizziness, chest pain or palpitations, shortness of breath, abdominal pain, nausea, vomiting, or experiencing any numbness/tingling/weakness in his extremities. LifeVest is in place. General: non toxic, No distress, appears at stated age Derm: warm, dry Head: atraumatic, normocephalic, symmetric Eyes: EOMI, no lid lag, anicteric sclera Mouth: no lip lesion, mucus membranes moist Cardiovascular: S1S2 reg, no murmur, gallop, or rub, positive posterior tibial pulses bilaterally, cap refill less than [address] Lungs: Respirations even, regular, and unlabored, lungs CTA bilaterally, no rhonchi, no rales, or wheezes noted. No accessory muscle use. Abdominal: Obese abdomen soft, nontender to palpation, no guarding, no appreciable organomegaly Ext: No gross muscle atrophy, no edema, no contractures Neuro: CN II-XI grossly intact, no focal neuro deficits Psych: Alert, oriented, appropriate affect A total of 45 minutes of time were spent preparing this complex discharge summar y. Plan - Discharge Summary Discharge Rx Participant: No New Discharge Prescriptions: New Ticagrelor [Brilinta] 90 mg PO BID #60 tab Aspirin 81 mg PO DAILY chew Atorvastatin [Lipitor] 80 mg PO DAILY #90 tab Metoprolol Tartrate [Lopressor] 25 mg PO BID #180 tab Continue Oxybutynin Chloride 5 mg PO DAILY Apixaban [Eliquis] 5 mg PO BID lisinopriL [Zestril] 10 mg PO DAILY Albuterol Sulfate [Proair Hfa] 2 puff INHALATION RT-QID PRN PRN Reason: Shortness Of Breath metFORMIN HCL [Glucophage] 500 mg PO AC-BID Discontinued Simvastatin [Zocor] 40 mg PO HS Acetaminophen Tab [Tylenol Tab] 1,000 mg PO Q6H PRN PRN Reason: Pain Discharge Medication List Apixaban [Eliquis] 5 mg PO BID 11/04/15 [History] Oxybutynin Chloride 5 mg PO DAILY 11/04/15 [History] lisinopriL [Zestril] 10 mg PO DAILY 06/08/18 [History] Albuterol Sulfate [Proair Hfa] 2 puff INHALATION RT-QID PRN 03/07/21 [History] metFORMIN HCL [Glucophage] 500 mg PO AC-BID 03/07/21 [History] Ticagrelor [Brilinta] 90 mg PO BID #60 tab 03/08/21 [Rx] Aspirin 81 mg PO DAILY chew 03/10/21 [Rx] Atorvastatin [Lipitor] 80 mg PO DAILY #90 tab 03/10/21 [Rx] Metoprolol Tartrate [Lopressor] 25 mg PO BID #180 tab 03/10/21 [Rx] Follow up Appointment(s)/Referral(s): María Elena Hernandez MD [STAFF PHYSICIAN] - 03/17/21 9:15 am Nonstaff,Physician [REFERRING] - 1-2 days (It is very important to follow up with your PCP in his office in the next 1-2 days for follow up after discharge.) Patient Instructions/Handouts: *Surgery [facility] - After Heart Catheterization - Receiving Lead Instructions, Wearable Cardioverter Defibrillator (DC) Activity/Diet/Wound Care/Special Instructions: Activity: As tolerated Diet: Heart healthy and carb consistent diet. Avoid salt, or foods with hidden salts. Extra salt make sure heart work harder and traps fluid in your body. Special Instructions: It is very important to take all of your medications directly as prescribed without skipping a dose. Please refer to the manual for any additional questions you may have pertaining your LifeVest or you may call the number provided to and/or your support engineer office. It is very important to keep your follow-up appointments with your primary care provider and support engineer as directed. Thank you for allowing us to participate in your care, it was a pleasure having you for our patient!! Discharge Disposition: HOME SELF-CARE <Kiara Bergeron - Last Filed: 03/10/21 22:16> Providers Date of admission: 03/07/21 12:07 Attending physician: Kiara Bergeron DO Consults: 03/07/21 12:16 Consult Physician Urgent Consulting Provider: Dom Treviño Consult Reason/Comments: STEMI Do you want consulting provider notified?: Already Contacted 03/07/21 13:40 Consult Physician Routine Consulting Provider: [facility] Consult Reason/Comments: Post Interventional patient Do you want consulting provider notified?: Already Contacted Primary care physician: Brien Girard [facility] Hospital Course: I discussed the care with Baltazar Khan NP and reviewed the findings and plan as documented in the note above. I did not physically speak with or examine the patient on this date.
[2021-03-10 12:05] LABS: Glucose,Whole Blood 197 mg/dL (75-99)
--- NOTE | 2021-03-10 12:37 | P.PN ---
Subjective This is a pleasant 65-year-old male past medical history significant for chronic persistent atrial fibrillation status post cardioversion, hypertension, dyslipidemia and obstructive sleep apnea. He follows in the office with Dr. Hernandez. He is status post PCI to the proximal LAD. Maintained on dual antiplatelet therapy. He is seen and examined laying flat resting comfortably in bed in no acute distress. He denies chest pain, shortness of breath, dizziness or palpitations. Blood pressure 126/80 heart rate 110 afebrile and maintaining oxygen saturation on room air. Telemetry tracings reviewed, he is in afib with controlled rates, no VT/VF. Laboratory data reviewed, WBC 13.1, hemoglobin 15.1, platelets 221, sodium 139, potassium 4.7 and creatinine 0.72. Currently maintained on Eliquis 5 mg twice a day, aspirin 81 mg daily, osiel rvastatin 80 mg daily, lisinopril 10 mg daily, metoprolol 25 mg twice a day and brilinta 90 mg BID. 03/10/2021 Patient seen and examined sitting up in the recliner in no acute distress. Life vest was applied yesterday with instructions from the refining machine operator. The patient has no symptoms of chest discomfort, shortness of breath, dizziness or palpitations. Telemetry tracings reveal he is in atrial fibrillation with mostly controlled ventricular rates. Blood pressure 125/83 heart rate 70-80's on the monitor afebrile maintaining oxygen saturation on room air. Laboratory data reviewed, CBC unremarkable, sodium 140, potassium 4.7, creatinine 0.81 and magnesium 2.2. Currently maintained on Eliquis 5 mg twice a day, aspirin 81 mg daily, lisinopril 10 mg daily, metoprolol 25 mg twice a day and brilinta 90 mg BID. GENERAL: Well-appearing, well-nourished and in no acute distress. NECK: Supple without JVD or thyromegaly. LUNGS: Breath sounds clear to auscultation bilaterally. Respiration equal and unlabored. No wheezes, rales or rhonchi. HEART: Irregular rate and rhythm without murmurs, rubs or gallops. S1 and S2 heard. EXTREMITIES: Normal range of motion, no edema. No clubbing or cyanosis. Peripheral pulses intact. ASSESSMENT Anterolateral ST elevated TX s/p PCI to the LAD Chronic persistent atrial fibrillation s/p cardioversion and ablation with controlled ventricular rates Ischemic cardiomyopathy Acute systolic heart failure s/p TX Hypertension Dyslipidemia STEFFANIE Morbid obesity, BMI 44 PLAN Clinically stable from a cardiac perspective. Life vest in place. Questions have been answered appropriately. Follow-up in the office with Dr. Hernandez in one week. Nurse Practitioner note has been reviewed, I agree with a documented findings and plan of care. Patient was seen and examined. Objective - Vital Signs Vital signs: Vital Signs Temp 98.2 F 03/10/21 08:00 Pulse 105 H 03/10/21 08:00 Resp 20 03/10/21 08:00 BP 125/83 03/10/21 08:00 Pulse Ox 96 03/10/21 08:00 Intake & Output 03/09/21 03/10/21 03/10/21 18:59 06:59 18:59 Intake Total 780 540 200 Output Total 100 Balance 680 540 200 Weight 145 kg Intake: Oral 780 540 200 Output: Urine 100 Other: Voiding Method Toilet Toilet Toilet # Voids 1 2 1 - Labs CBC & Chem 7: 03/10/21 07:28 03/10/21 07:28 Labs: Abnormal Lab Results - Last 24 Hours (Table) 03/09/21 03/09/21 03/09/21 Range/Units 11:18 16:38 19:56 Neutrophils # (1.3-7.7) k/uL Lymphocytes # (1.0-4.8) k/uL BUN (9-20) mg/dL Glucose (74-99) mg/dL POC Glucose (mg/dL) 172 H 181 H 182 H (75-99) mg/dL 03/10/21 03/10/21 03/10/21 Range/Units 06:21 07:28 07:28 Neutrophils # 8.7 H (1.3-7.7) k/uL Lymphocytes # 0.9 L (1.0-4.8) k/uL BUN 29 H (9-20) mg/dL Glucose 151 H (74-99) mg/dL POC Glucose (mg/dL) 137 H (75-99) mg/dL
== END 2021-03-10 13:15 | disposition home or self-care (01) | DRG 246 ==
LOC: EC 11:22 → 2SICU 12:07 → 3SCARD 03-08 15:53
PROVIDERS: ADMIT Internal Medicine; ATTEND Internal Medicine
PROC: 4A023N7 Measurement of Cardiac Sampling and Pressure, Left Heart, Percutaneous Approach (ICD-10-PCS; principal; 2021-03-07 12:37)
PROC: B2111ZZ Fluoroscopy of Multiple Coronary Arteries using Low Osmolar Contrast (ICD-10-PCS; principal; 2021-03-07 12:37)
PROC: 027034Z Dilation of Coronary Artery, One Artery with Drug-eluting Intraluminal Device, Percutaneous Approach (ICD-10-PCS; principal; 2021-03-07 12:37)
DX: I21.09 ST elevation (STEMI) myocardial infarction involving other coronary artery of anterior wall (principal); I50.21 Acute systolic (congestive) heart failure; E87.2 Acidosis; I48.19 Other persistent atrial fibrillation; Z68.41 Body mass index [BMI] 40.0-44.9, adult; I27.20 Pulmonary hypertension, unspecified; I11.0 Hypertensive heart disease with heart failure; E66.01 Morbid (severe) obesity due to excess calories; I25.5 Ischemic cardiomyopathy; I25.2 Old myocardial infarction; E83.42 Hypomagnesemia; G47.33 Obstructive sleep apnea (adult) (pediatric); E78.5 Hyperlipidemia, unspecified; K21.9 Gastro-esophageal reflux disease without esophagitis; M19.90 Unspecified osteoarthritis, unspecified site; Z79.01 Long term (current) use of anticoagulants; Z79.84 Long term (current) use of oral hypoglycemic drugs; Z79.899 Other long term (current) drug therapy; Z87.891 Personal history of nicotine dependence; Z90.49 Acquired absence of other specified parts of digestive tract; Z87.442 Personal history of urinary calculi; Z87.19 Personal history of other diseases of the digestive system; Z96.653 Presence of artificial knee joint, bilateral; Z87.448 Personal history of other diseases of urinary system; Z98.890 Other specified postprocedural states; Z91.048 Other nonmedicinal substance allergy status; Z80.52 Family history of malignant neoplasm of bladder
CPT/HCPCS: 71045; 71046; 80048; 80053; 80061; 82550; 82553; 83690; 83735; 83880; 84484; 85025; 85379; 85610; 85730; 93005; 93306; 93458; 99291

== ENCOUNTER 2021-03-13 21:35 | Inpatient (IN) | payer MEDICARE ==
--- NOTE | 2021-03-13 21:46 | ED ---
Chest Pain HPI - General Chief Complaint: Chest Pain Stated Complaint: Coughing up blood Time Seen by Provider: 03/13/21 21:42 Source: patient Mode of arrival: wheelchair Limitations: no limitations - History of Present Illness Initial Comments: This is a 66-year-old male DF for evaluation of high blood pressure cholesterol history of prior OR coming in for what he believes any coughing up some blood. Patient complaining of severe dizziness weakness and lightheadedness. Ration presents by EMS history obtained by EMS patient did from patient's prior charting. Patient has and strong cardiac history EKG is obtained patient very diaphoretic on arrival and did have a STEMI last week with pacer Complaint: chest pain -: hour(s) Onset: during rest, during exertion Pain Location: substernal, left chest Pain Radiation: none Severity: severe Severity scale (1-10): 9 Quality: similar to prior OR Consistency: constant Improves With: nothing Worsens With: nothing Context: recent surgery Anginal Symptoms: diaphoresis, dyspnea, sense of impending doom Other Symptoms: palpitations Treatments Prior to Arrival: none - Related Data Home Medications Medication Instructions Recorded Confirmed Oxybutynin Chloride 5 mg PO DAILY 11/04/15 03/14/21 lisinopriL [Zestril] 10 mg PO DAILY 06/08/18 03/14/21 Albuterol Sulfate [Proair Hfa] 2 puff INHALATION RT-QID PRN 03/07/21 03/14/21 metFORMIN HCL [Glucophage] 500 mg PO AC-BID 03/07/21 03/14/21 Atorvastatin [Lipitor] 80 mg PO HS 03/14/21 03/14/21 Previous Rx's Medication Instructions Recorded Ticagrelor [Brilinta] 90 mg PO BID #60 tab 03/08/21 Aspirin 81 mg PO DAILY chew 03/10/21 Metoprolol Tartrate [Lopressor] 25 mg PO BID #180 tab 03/10/21 Furosemide [Lasix] 20 mg PO DAILY #30 tab 03/14/21 Nitroglycerin Sl Tabs [Nitrostat] 0.4 mg SUBLINGUAL Q5M PRN #30 tab 03/14/21 Allergies Allergy/AdvReac Type Severity Reaction Status Date / Time adhesive tape Allergy Rash/Hives Verified 03/14/21 09:52 tape AdvReac BLISTERS, Uncoded 03/13/21 21:41 SKIN PEELS Review of Systems ROS Statement: Those systems with pertinent positive or pertinent negative responses have been documented in the HPI. ROS Other: All systems not noted in ROS Statement are negative. EKG Findings - EKG Comments: EKG Findings:: EKG shows a fib 89 QRS 88 QTc 420 Past Medical History Past Medical History: Atrial Fibrillation, GERD/Reflux, Hyperlipidemia, Hypertension, Myocardial Infarction (OR), Osteoarthritis (OA), Renal Disease, Sleep Apnea/CPAP/BIPAP Additional Past Medical History / Comment(s): kidney stones, Last Myocardial Infarction Date:: 03/07/2021 History of Any Multi-Drug Resistant Organisms: None Reported Past Surgical History: Cholecystectomy, Hernia Repair, Joint Replacement Additional Past Surgical History / Comment(s): 10/2015 cardioversion, bilateral total knee arthroplasty, umbilical hernia repair, removal of kidney stones, cardioversion X3, Cardiac Ablation. Past Anesthesia/Blood Transfusion Reactions: No Reported Reaction Additional Past Anesthesia/Blood Transfusion Reaction / Comment(s): difficul intubation Past Psychological History: No Psychological Hx Reported Smoking Status: Former smoker Past Alcohol Use History: Rare Past Drug Use History: None Reported - Past Family History Mother Family Medical History: No Reported History Additional Family Medical History / Comment(s): Mother is 84 yrs old. Father Family Medical History: Cancer Additional Family Medical History / Comment(s): BLADDER CANCER . General Exam Limitations: no limitations General appearance: anxious, in distress Head exam: Present: atraumatic, normocephalic, normal inspection Eye exam: Present: normal appearance, PERRL, EOMI. Absent: scleral icterus, conjunctival injection, periorbital swelling ENT exam: Present: normal exam, mucous membranes moist Neck exam: Present: normal inspection. Absent: tenderness, meningismus, lymphadenopathy Respiratory exam: Present: normal lung sounds bilaterally. Absent: respiratory distress, wheezes, rales, rhonchi, stridor Cardiovascular Exam: Present: regular rate, normal rhythm, normal heart sounds. Absent: systolic murmur, diastolic murmur, rubs, gallop, clicks GI/Abdominal exam: Present: soft, normal bowel sounds. Absent: distended, te nderness, guarding, rebound, rigid Extremities exam: Present: normal inspection, full ROM, normal capillary refill. Absent: tenderness, pedal edema, joint swelling, calf tenderness Back exam: Present: normal inspection Neurological exam: Present: alert, oriented X3, CN II-XII intact Psychiatric exam: Present: normal affect, normal mood Skin exam: Present: warm, dry, intact, normal color. Absent: rash Course Vital Signs 03/13/21 03/13/21 03/13/21 21:38 21:40 22:00 Temperature 97.8 F Pulse Rate 88 86 Pulse Rate [ 84 Roustabout Crew Pusher ] Respiratory 22 18 Rate Blood Pressure 130/96 140/77 O2 Sat by Pulse 95 98 Oximetry - Reevaluation(s) Reevaluation #1: Medical record is reviewed STEMI was paged on patient arrival of EKG Patient remains a chest pain here significantly in the emergency room Patient informed results and questions answered Chest Pain MDM - MDM 66 male coming in for dizziness. Patient is found to have ST elevated OR. Patient to be admitted for cardiac evaluation, Abrasive Wheel Molder Critical Care Time Critical Care Time: Yes Total Critical Care Time: 31 Disposition Clinical Impression: Dizziness, STEMI (ST elevation myocardial infarction) Disposition: ADMITTED IP TO THIS HOSP Condition: Good Is patient prescribed a controlled substance at d/c from ED?: No
[2021-03-13] MEDS ORDERED: ASPIRIN 81 MG PO STA (21:55)
[2021-03-13] MEDS ORDERED: HEPARIN SODIUM 1,000 UN/ML (10ML VL) IV ONE (21:55)
[2021-03-13] MEDS ORDERED: NITROGLYCERIN SL TABS 0.4 MG TAB SUBLINGUAL PRN (21:55)
[2021-03-13] MEDS ORDERED: MORPHINE SULFATE 4 MG/ML SYRINGE IV PRN (21:55)
[2021-03-13 22:00] LABS: Basophils # (A) 0.1 k/uL (0-0.2); Basophils % (A) 1 %; Eosinophils # (A) 0.2 k/uL (0-0.7); Eosinophils % (A) 2 %; HCT 41.4 % (39.0-53.0); HGB 14.1 gm/dL (13.0-17.5); Lymphocytes % (A) 11 %; MCH 32.2 pg (25.0-35.0); MCV 94.6 fL (80.0-100.0); Mean Platelet Volume 7.1; Monocytes # (A) 0.6 k/uL (0-1.0); Monocytes % (A) 6 %; Neutrophils # (A) 7.5 k/uL (1.3-7.7); Neutrophils % (A) 79 %; Platelet Count 347 k/uL (150-450); RBC 4.37 m/uL (4.30-5.90); RDW 12.6 % (11.5-15.5); WBC 9.4 k/uL (3.8-10.6)
[2021-03-13] MEDS ORDERED: HEPARIN SOD,PORK IN 0.45% NACL 25,000 UNIT in 0.45% NACL 1 250ML.BAG IV SCH (22:00)
[2021-03-13 22:09] LABS: INR 1.1 (<1.2); Prothrombin Time 11.7 sec (9.0-12.0)
[2021-03-13 22:12] LABS: ALT 95 U/L (4-49); AST 65 U/L (17-59); African American GFR (CKD) >90 (>60 ml/min/1.73 sqM); Albumin 3.6 g/dL (3.5-5.0); Alkaline Phosphatase 113 U/L (38-126); Anion Gap 8 mmol/L; Blood Urea Nitrogen 19 mg/dL (9-20); Calcium 9.1 mg/dL (8.4-10.2); Carbon Dioxide 26 mmol/L (22-30); Chloride 106 mmol/L (98-107); Glucose 159 mg/dL (74-99); Lipase 102 U/L (23-300); Magnesium 1.9 mg/dL (1.6-2.3); Non-African American GFR(CKD) >90 (>60 ml/min/1.73 sqM); Potassium 4.5 mmol/L (3.5-5.1); Sodium 140 mmol/L (137-145); Total Bilirubin 0.8 mg/dL (0.2-1.3); Total Protein 6.3 g/dL (6.3-8.2)
--- NOTE | 2021-03-13 22:12 | XR ---
EXAMINATION TYPE: XR chest 1V portable DATE OF EXAM: 03/13/2021 COMPARISON: 03/08/2021 HISTORY: Chest pain TECHNIQUE: FINDINGS: Heart is enlarged. There is mild pulmonary congestion. There are chest leads. There is no d efinite pleural effusion. IMPRESSION: Cardiomegaly with mild pelvic congestion that could be mild acute heart failure. Pulmonar y congestion is new compared to old exam.
[2021-03-13] MEDS ORDERED: MIDAZOLAM 2 MG/2 ML VIAL IV ONE (22:27)
[2021-03-13] MEDS ORDERED: LIDOCAINE 1% INJ 10MG/ML (20 ML MDV) ONE (22:28)
[2021-03-13] MEDS ORDERED: LIDOCAINE 1% INJ 10MG/ML (20 ML MDV) SQ ONE (22:30)
[2021-03-13] MEDS ORDERED: fentaNYL (PF) 50 MCG/ML 2 ML AMP IV ONE (22:30)
[2021-03-13] MEDS ORDERED: fentaNYL (PF) 50 MCG/ML 2 ML AMP ONE (22:35)
[2021-03-13] MEDS ORDERED: IV FLUID CONTINUATION 1,000 ML IV ONE (22:36)
[2021-03-13] MEDS ORDERED: IOPAMIDOL-370 125ML BTL INJ ONE (22:48)
[2021-03-13] MEDS ORDERED: RX INFO: IV CONTRAST WAS GIVEN 1 EACH MISC MISCELLANE PRN (22:57)
[2021-03-13] MEDS ORDERED: SODIUM CHLORIDE 0.9% 1,000 ML IV SCH (23:00)
[2021-03-13] MEDS ORDERED: FUROSEMIDE 10 MG/ML 4 ML VIAL ONE (23:01)
[2021-03-13] MEDS ORDERED: FUROSEMIDE 10 MG/ML 4 ML VIAL IV ONE (23:01)
[2021-03-13 23:24] LABS: Glucose,Whole Blood 131 mg/dL (75-99)
[2021-03-14 04:34] LABS: Basophils # (A) 0.1 k/uL (0-0.2); Basophils % (A) 1 %; Eosinophils # (A) 0.2 k/uL (0-0.7); Eosinophils % (A) 2 %; HCT 39.4 % (39.0-53.0); HGB 13.8 gm/dL (13.0-17.5); Lymphocytes % (A) 12 %; MCH 33.3 pg (25.0-35.0); MCV 95.1 fL (80.0-100.0); Monocytes # (A) 0.5 k/uL (0-1.0); Monocytes % (A) 6 %; Neutrophils # (A) 6.7 k/uL (1.3-7.7); Neutrophils % (A) 79 %; Platelet Count 324 k/uL (150-450); RBC 4.14 m/uL (4.30-5.90); RDW 12.7 % (11.5-15.5); WBC 8.5 k/uL (3.8-10.6)
[2021-03-14 04:55] LABS: ALT 83 U/L (4-49); AST 52 U/L (17-59); African American GFR (CKD) >90 (>60 ml/min/1.73 sqM); Albumin 3.4 g/dL (3.5-5.0); Alkaline Phosphatase 85 U/L (38-126); Anion Gap 6 mmol/L; Blood Urea Nitrogen 18 mg/dL (9-20); Calcium 8.7 mg/dL (8.4-10.2); Carbon Dioxide 28 mmol/L (22-30); Chloride 106 mmol/L (98-107); Glucose 130 mg/dL (74-99); Non-African American GFR(CKD) >90 (>60 ml/min/1.73 sqM); Potassium 4.4 mmol/L (3.5-5.1); Sodium 140 mmol/L (137-145); Total Bilirubin 0.9 mg/dL (0.2-1.3); Total Protein 5.9 g/dL (6.3-8.2)
--- NOTE | 2021-03-14 07:52 | CC ---
CARDIAC CATHETERIZATION REPORT PROCEDURE: Cardiac catheterization INDICATION: Acute ST-segment elevation MA. HISTORY OF PRESENT ILLNESS: This is a 65-year-old gentleman who was admitted to the hospital last week with acute anterior wall myocardial infarction. He underwent cardiac catheterization and angioplasty of proximal LAD. The patient presented to the hospital somewhat late and developed a persistent ST-segment elevation. Was discharged home on Monday and today comes into hospital initially because his sputum was a little bloody, but to the ER physician he complained that he was having chest tightness, that he was short of breath and diaphoretic and EKG showed the persistent ST-segment elevation in the precordial leads. The ER physician has activated the STEMI team and I saw the patient in the cardiac catheterization lab where his chest discomfort had improved, but he stated that earlier in the day, he had chest pressure that lasted for 15 minutes and he was diaphoretic. We decided to proceed with cardiac catheterization to rule out subacute thrombosis of the stent. The patient understood risks, benefits and alternatives. PROCEDURE NOTE: After obtaining informed consent, left heart catheterization and coronary angiogram are performed via the right femoral artery using standard Darek catheters. The patient tolerated the procedure well without any obvious immediate complications. A femoral angiogram was performed and Angio-Seal was deployed for hemostasis. ANESTHESIA: He received moderate conscious sedation and total sedation time was 19 minutes. HEMODYNAMICS: Left ventricular end-diastolic pressure is 29 mm. There is no significant gradient across the aortic valve. ANGIOGRAPHIC DATA: Left main coronary artery: Left main coronary artery is a normal-sized vessel and is free of stenosis. Divides into left anterior descending coronary artery and circumflex coronary artery. Circumflex coronary artery and its branches are free of significant stenosis. LAD was previously occluded in the midportion and was stented. The stent appears patent with good flow into the distal LAD. Right coronary artery is a dominant vessel and is free of significant stenosis. CONCLUSIONS: 1. Patent stent within the LAD. 2. Elevated left ventricular end-diastolic pressure. 3. The patient's ST-segment elevation is probably related to recent myocardial infarction and delayed reperfusion. We will admit the patient to the hospital, hold the Eliquis at this time and continue the Plavix. Hopefully discharge him home tomorrow. MMODL / IJN: [id number] /
--- NOTE | 2021-03-14 08:10 | CONS ---
CONSULTATION CHIEF COMPLAINT: Chest pain and shortness of breath. This is a 65-year-old gentleman with history of coronary artery disease, status post recent acute anterior wall myocardial infarction who was discharged home. Had ischemic cardiomyopathy and went home with a life vest. Comes back in actually because he had bloody sputum at home, but when he presented to the emergency room told the ER physician that he had chest pressure and was diaphoretic. He had persistent ST-segment elevation on his EKG that was related to his recent myocardial infarction and the ER physician has activated the STEMI team. The patient was seen in the label maker for the first time. He was appearing comfortable but had chest pressure here and was diaphoretic due to which we decided to proceed with cardiac catheterization and he had been explained of risks, benefits and alternatives, PAST MEDICAL HISTORY: Significant for coronary artery disease, persistent atrial fibrillation, hypertension, diabetes, dyslipidemia. MEDICATIONS: Medications at home include Eliquis 5 b.i.d., albuterol, Lipitor, Lopressor, Brilinta, Zestril and metformin. ALLERGIES: TAPE. FAMILY HISTORY: Negative for premature coronary artery disease. SOCIAL HISTORY: Negative for smoking, EtOH abuse, or drug abuse. REVIEW OF SYSTEMS: HEENT is unremarkable. CARDIAC: As described above. RESPIRATORY: Negative. GI: Negative. GENITOURINARY: Negative. ALLERGY/IMMUNOLOGY: Negative. SKIN: Negative. MUSCULOSKELETAL: Significant for arthritis. PSYCHOSOCIAL: Negative. ENDOCRINE: Negative. DERM: Negative. CONSTITUTIONAL: Negative. ONCOLOGICAL: Negative. ZIG ZAG SPRING MACHINE OPERATOR: Negative. PHYSICAL EXAMINATION: Patient is comfortable at rest. Heart rate is 84 beats per minute, blood pressure is 130/80, respiratory rate is 16, O2 saturation is 98% on 2 L. There is no jugular venous distention. Carotid upstroke is normal. There is no bruit. Chest exam reveals good air entry bilaterally. Heart exam reveals first and second heart sounds. No gallop. No murmur. No rub. Abdomen is soft, nontender. Examination of extremities did not reveal edema. Peripheral pulses are felt. LABS: Labs show that the hemoglobin is 14.1, creatinine is 0.78, potassium is 4.5. Troponin is 7.1. ASSESSMENT: 1. Acute coronary syndrome in a patient with recent anterior wall myocardial infarction and angioplasty of LAD. 2. Ischemic cardiomyopathy with severe LV dysfunction. PLAN: Patient will undergo cardiac catheterization and we will decide on further course of action based on how he does. KRISTAL / BELLAN: [id number] /
[2021-03-14] MEDS: ASPIRIN 81 MG PO SCH ×2 (08:51→09:10)
[2021-03-14] MEDS ORDERED: TICAGRELOR 90 MG TAB PO SCH (09:00)
[2021-03-14] MEDS ORDERED: lisinopriL 5 MG TAB PO SCH (09:00)
[2021-03-14] MEDS ORDERED: ASPIRIN 325 MG TAB PO SCH (09:00)
[2021-03-14] MEDS ORDERED: lisinopriL 5 MG TAB PO STA (09:00)
[2021-03-14] MEDS ORDERED: METOPROLOL TARTRATE 25 MG TAB PO SCH (09:00)
[2021-03-14] MEDS ORDERED: FUROSEMIDE 20 MG TAB PO SCH (09:15)
[2021-03-14 10:02] LABS: Chol/HDL Ratio 4.45; Cholesterol 98 mg/dL (0-200); LDL Cholesterol,Calculated 54.2 mg/dL (0.0-131.0)
[2021-03-14 12:05] VITALS: BP 110/86; PULSE 65; RESP 96; TEMP 97.7
--- NOTE | 2021-03-14 12:44 | PN ---
PROGRESS NOTE This is a 65-year-old gentleman who was admitted to the hospital with acute coronary syndrome. He underwent emergent cardiac catheterization yesterday that revealed a patent stent within the LAD. He is doing well this morning and is free of symptoms. He denies chest pain or difficulty in breathing. He is on aspirin Lipitor 80 mg daily, Lasix 20 mg daily, Zestril 10 mg daily, Lopressor 25 b.i.d. and Brilinta 90 mg b.i.d. EXAM: Comfortable at rest. Afebrile. Vital signs are stable. There is no jugular venous distention. Carotid upstroke is normal. There is no bruit. Chest exam reveals good air entry bilaterally. Heart exam reveals first and second heart sounds. No gallop. No murmur. No rub. Abdomen is soft, nontender. Examination of extremities did not reveal any edema. Peripheral pulses are felt. Groin is free of bleeding, bruit or hematoma. LABS: Labs show a hemoglobin of 13.8, platelet count is 324. Potassium is 4.4. His tropes have been coming down. BNP was elevated at 4030 with a chest x-ray that showed mild pulmonary congestion. ASSESSMENT: 1. Acute coronary syndrome, status post catheterization. 2. Acute systolic heart failure. 3. Permanent atrial fibrillation with controlled ventricular rate. PLAN: The patient is doing much better. We will discharge him home on Lasix along with his other medications. I will hold Eliquis at this time as he has blood-stained sputum from time to time and he will be evaluated by Dr. Hernandez, his technician automated equipment tomorrow. I told the patient that is once his sputum clears up, he should resume the Eliquis. MMODL / IJN: [id number] /
--- NOTE | 2021-03-14 15:00 | P.HPIM ---
History of Present Illness Patient [id number] male came in with comments of chest pain patient had a recent acute myocardial infarction with ischemic cardiomyopathy and is on a LifeVest. Patient came in with chest pressure like sensation and had a pers istent ST elevation on the EKG because of which patient underwent the emergent cardiac catheterization which showed patent stent within the LAD and elevated end-diastolic pressure and ST elevations or believed to be secondary to delayed reperfusion from his recent acute myocardial infarction. On admission patient was complaining of for the coughing up blood or hemoptysis. Patient is on Mcdonough tie along with aspirin and Eliquis for atrial fibrillation. Cardiology cleared the patient to be discharged. They're recommending to hold off on Eliquis. Patient has a follow-up with Dr. wilkins on his his rehabilitation inspector tomorrow with this side on anticoagulation and antiplatelet therapy. Patient had an ejection fraction of 20-25% post catheterization. RVSP of around 58. Review of Systems REVIEW OF SYSTEMS: CONSTITUTIONAL: No fever, no malaise, no fatigue. HEENT: No recent visual problems or hearing problems. Denied any sore throat. CARDIOVASCULAR: No orthopnea, PND, no palpitations, no syncope. PULMONARY: No shortness of breath. GASTROINTESTINAL: No diarrhea, no nausea, no vomiting, no abdominal pain. NEUROLOGICAL: No headaches, no weakness, no numbness. HEMATOLOGICAL: Denies any bleeding or petechiae. GENITOURINARY: Denies any burning micturition, frequency, or urgency. MUSCULOSKELETAL/RHEUMATOLOGICAL: Denies any joint pain, swelling, or any muscle pain. ENDOCRINE: Denies any polyuria or polydipsia. The rest of the 14-point review of systems is negative. Past Medical History Past Medical History: Atrial Fibrillation, GERD/Reflux, Hyperlipidemia, Hypertension, Myocardial Infarction ([place]), Osteoarthritis (OA), Renal Disease, Sleep Apnea/CPAP/BIPAP Additional Past Medical History / Comment(s): kidney stones, Last Myocardial Infarction Date:: 03/07/2021 History of Any Multi-Drug Resistant Organisms: None Reported Past Surgical History: Cholecystectomy, Hernia Repair, Joint Replacement Additional Past Surgical History / Comment(s): 10/2015 cardioversion, bilateral total knee arthroplasty, umbilical hernia repair, removal of kidney stones, cardioversion X3, Cardiac Ablation. Past Anesthesia/Blood Transfusion Reactions: No Reported Reaction Additional Past Anesthesia/Blood Transfusion Reaction / Comment(s): difficul int ubation Smoking Status: Former smoker - Past Family History Mother Family Medical History: No Reported History Additional Family Medical History / Comment(s): Mother is 84 yrs old. Father Family Medical History: Cancer Additional Family Medical History / Comment(s): BLADDER CANCER . Medications and Allergies Home Medications Medication Instructions Recorded Confirmed Type Oxybutynin Chloride 5 mg PO DAILY 11/04/15 03/14/21 History lisinopriL [Zestril] 10 mg PO DAILY 06/08/18 03/14/21 History Albuterol Sulfate [Proair Hfa] 2 puff INHALATION RT-QID PRN 03/07/21 03/14/21 History metFORMIN HCL [Glucophage] 500 mg PO AC-BID 03/07/21 03/14/21 History Ticagrelor [Brilinta] 90 mg PO BID #60 tab 03/08/21 03/14/21 Rx Aspirin 81 mg PO DAILY chew 03/10/21 03/14/21 Rx Metoprolol Tartrate [Lopressor] 25 mg PO BID #180 tab 03/10/21 03/14/21 Rx Atorvastatin [Lipitor] 80 mg PO HS 03/14/21 03/14/21 History Furosemide [Lasix] 20 mg PO DAILY #30 tab 03/14/21 Rx Nitroglycerin Sl Tabs [Nitrostat] 0.4 mg SUBLINGUAL Q5M PRN #30 tab 03/14/21 Rx Allergies Allergy/AdvReac Type Severity Reaction Status Date / Time adhesive tape Allergy Rash/Hives Verified 03/14/21 09:52 tape AdvReac BLISTERS, Uncoded 03/13/21 21:41 SKIN PEELS Physical Exam Vitals: Vital Signs Temp Pulse Pulse Resp BP BP Pulse Ox 03/14/21 12:00 97.7 F 65 96 H 110/86 03/14/21 08:47 98.2 F 84 18 129/87 94 L 03/14/21 08:00 84 03/14/21 02:42 71 24 100/69 97 03/14/21 01:42 79 24 118/87 97 03/14/21 00:42 79 24 111/84 97 03/14/21 00:12 98.3 F 78 26 H 111/78 96 03/13/21 23:45 77 33 H 97 03/13/21 23:30 13 92 L 03/13/21 23:23 21 03/13/21 22:20 98.0 F 84 16 134/88 98 03/13/21 22:00 86 18 140/77 98 03/13/21 21:40 84 03/13/21 21:38 97.8 F 88 22 130/96 95 Intake and Output 03/13/21 03/14/21 03/14/21 22:59 06:59 14:59 Intake Total 50 250 730 Output Total 1940 450 Balance 50 -1690 280 Intake: IV 50 250 250 Sodium Chloride 0.9% 1, 250 250 000 ml @ 50 mls/hr IV . Q20H [facility] Rx#:[id number] Oral 480 Output: Urine 1940 450 Other: Voiding Method Indwelling Catheter Urinal Weight 144.696 kg 142.9 kg PHYSICAL EXAMINATION: GENERAL: The patient is alert and oriented x3, not in any acute distress. Obese HEENT: Pupils are round and equally reacting to light. EOMI. No scleral icterus. No conjunctival pallor. Normocephalic, atraumatic. No pharyngeal erythema. No thyromegaly. CARDIOVASCULAR: S1 and S2 present. No murmurs, rubs, or gallops. PULMONARY: Chest is clear to auscultation, no wheezing or crackles. ABDOMEN: Soft, nontender, nondistended, normoactive bowel sounds. No palpable organomegaly. MUSCULOSKELETAL: No joint swelling or deformity. EXTREMITIES: No cyanosis, clubbing, or pedal edema. NEUROLOGICAL: Gross neurological examination did not reveal any focal deficits. SKIN: No rashes. Results CBC & Chem 7: 03/14/21 04:04 03/14/21 04:04 Labs: Abnormal Lab Results - Last 24 Hours (Table) 03/13/21 03/13/21 03/13/21 Range/Units 21:46 21:46 23:22 RBC (4.30-5.90) m/uL Glucose 159 H (74-99) mg/dL POC Glucose (mg/dL) 131 H (75-99) mg/dL AST 65 H (17-59) U/L ALT 95 H (4-49) U/L Troponin I 7.140 H* (0.000-0.034) ng/mL Total Protein (6.3-8.2) g/dL Albumin (3.5-5.0) g/dL HDL Cholesterol (40.0-60.0) mg/dL 03/14/21 03/14/21 03/14/21 Range/Units 01:19 04:04 04:04 RBC (4.30-5.90) m/uL Glucose 130 H (74-99) mg/dL POC Glucose (mg/dL) (75-99) mg/dL AST (17-59) U/L ALT 83 H (4-49) U/L Troponin I 6.440 H* 5.540 H* (0.000-0.034) ng/mL Total Protein 5.9 L (6.3-8.2) g/dL Albumin 3.4 L (3.5-5.0) g/dL HDL Cholesterol 22.0 L (40.0-60.0) mg/dL 03/14/21 Range/Units 04:04 RBC 4.14 L (4.30-5.90) m/uL Glucose (74-99) mg/dL POC Glucose (mg/dL) (75-99) mg/dL AST (17-59) U/L ALT (4-49) U/L Troponin I (0.000-0.034) ng/mL Total Protein (6.3-8.2) g/dL Albumin (3.5-5.0) g/dL HDL Cholesterol (40.0-60.0) mg/dL Thrombosis Risk Factor Assmnt - Choose All That Apply Other Risk Factors: Yes Each Risk Factor Represents 2 Points: Age 61-74 years Thrombosis Risk Factor Assessment Total Risk Factor Score: 2 Thrombosis Risk Factor Assessment Level: Low Risk Assessment and Plan Plan: -Hemoptysis: Secondary to Eliquis and dual antiplatelet therapy. Eliquis is being held patient will continue with his dual antiplatelet therapy patient will follow with his cardiology's -Chest pain with ST elevations on the EKG and elevated troponins: Patient had a cardiac catheterization which showed patent stent to LAD. ST elevations and elevated troponins are believed to be secondary to delayed reperfusion. -Acute systolic dysfunction with EF of around the 20-25% secondary to acute myocardial infarction. Patient is not in acute exacerbation patient was started on low-dose of Lasix that is 20 mg by cardiology and patient will be discharged on that. -Atrial fibrillation: Presently rate controlled anti-correlation is being held for above-mentioned reasons -Gastroesophageal reflux disease -Obesity sleep apnea -Coronary artery disease -Hyperlipidemia -Hypertension Patient will be discharged today holding off on Eliquis.
--- NOTE | 2021-03-14 15:00 | P.DS ---
Providers Date of admission: 03/13/21 21:55 Attending physician: Andres Irvin Consults: 03/13/21 21:55 Consult Physician Urgent Consulting Provider: Simeon Rubio Consult Reason/Comments: stemi Do you want consulting provider notified?: Yes Primary care physician: Brien Girard [facility] Course: Please refer to my HPI for further details. Patient Condition at Discharge: Good Plan - Discharge Summary New Discharge Prescriptions: New Furosemide [Lasix] 20 mg PO DAILY #30 tab Nitroglycerin Sl Tabs [Nitrostat] 0.4 mg SUBLINGUAL Q5M PRN #30 tab PRN Reason: Chest Pain Continue Oxybutynin Chloride 5 mg PO DAILY lisinopriL [Zestril] 10 mg PO DAILY Albuterol Sulfate [Proair Hfa] 2 puff INHALATION RT-QID PRN PRN Reason: Shortness Of Breath Ticagrelor [Brilinta] 90 mg PO BID #60 tab Atorvastatin [Lipitor] 80 mg PO HS metFORMIN HCL [Glucophage] 500 mg PO AC-BID Aspirin 81 mg PO DAILY chew Metoprolol Tartrate [Lopressor] 25 mg PO BID #180 tab Discontinued Apixaban [Eliquis] 5 mg PO BID Discharge Medication List Oxybutynin Chloride 5 mg PO DAILY 11/04/15 [History] lisinopriL [Zestril] 10 mg PO DAILY 06/08/18 [History] Albuterol Sulfate [Proair Hfa] 2 puff INHALATION RT-QID PRN 03/07/21 [History] metFORMIN HCL [Glucophage] 500 mg PO AC-BID 03/07/21 [History] Ticagrelor [Brilinta] 90 mg PO BID #60 tab 03/08/21 [Rx] Aspirin 81 mg PO DAILY chew 03/10/21 [Rx] Metoprolol Tartrate [Lopressor] 25 mg PO BID #180 tab 03/10/21 [Rx] Atorvastatin [Lipitor] 80 mg PO HS 03/14/21 [History] Furosemide [Lasix] 20 mg PO DAILY #30 tab 03/14/21 [Rx] Nitroglycerin Sl Tabs [Nitrostat] 0.4 mg SUBLINGUAL Q5M PRN #30 tab 03/14/21 [Rx] Follow up Appointment(s)/Referral(s): María Elena Hernandez MD [STAFF PHYSICIAN] - 1-2 Days Brien Girard MD [Primary Care Provider] - 1-2 days Patient Instructions/Handouts: Left Heart Catheterization (DC) Discharge Disposition: HOME SELF-CARE
[2021-03-14] MEDS ORDERED: ATORVASTATIN 80 MG TAB PO SCH (21:00)
[2021-03-15] MEDS ORDERED: lisinopriL 10 MG TAB PO SCH (09:00)
== END 2021-03-14 13:55 | disposition home or self-care (01) | DRG 280 ==
LOC: EC 21:35 → 2SICU 21:55
PROVIDERS: ADMIT Hospitalist; ATTEND Hospitalist
PROC: B2111ZZ Fluoroscopy of Multiple Coronary Arteries using Low Osmolar Contrast (ICD-10-PCS; 2021-03-13)
PROC: 4A023N7 Measurement of Cardiac Sampling and Pressure, Left Heart, Percutaneous Approach (ICD-10-PCS; principal; 2021-03-13 22:14)
DX: I21.09 ST elevation (STEMI) myocardial infarction involving other coronary artery of anterior wall (principal); I50.21 Acute systolic (congestive) heart failure; I48.21 Permanent atrial fibrillation; R04.2 Hemoptysis; I25.2 Old myocardial infarction; Z79.84 Long term (current) use of oral hypoglycemic drugs; Z79.02 Long term (current) use of antithrombotics/antiplatelets; Z79.82 Long term (current) use of aspirin; Z80.52 Family history of malignant neoplasm of bladder; I25.5 Ischemic cardiomyopathy; Z87.891 Personal history of nicotine dependence; T45.515A Adverse effect of anticoagulants, initial encounter; T45.525A Adverse effect of antithrombotic drugs, initial encounter; K21.9 Gastro-esophageal reflux disease without esophagitis; E66.9 Obesity, unspecified; G47.30 Sleep apnea, unspecified; I25.10 Atherosclerotic heart disease of native coronary artery without angina pectoris; E78.5 Hyperlipidemia, unspecified; E11.9 Type 2 diabetes mellitus without complications; Z87.442 Personal history of urinary calculi; Z96.653 Presence of artificial knee joint, bilateral; I11.0 Hypertensive heart disease with heart failure
CPT/HCPCS: 36415; 71045; 80053; 80061; 83690; 83735; 83880; 84484; 85025; 85610; 85730; 93005; 93458; 99285

== ENCOUNTER → 2021-03-23 | Outpatient (CLI) | payer MEDICARE ==
[2021-03-23 22:08] LABS: African American GFR (CKD) 102.8 (60.0-200.0); Anion Gap 11.2 mmol/L (4.00-12.00); Carbon Dioxide 23.8 mmol/L (21.6-31.8); Non-African American GFR(CKD) 88.7 (60.0-200.0); Potassium 4.7 mmol/L (3.5-5.5)
== END | disposition home or self-care (01) ==
LOC: LABWHC1 11:33
PROVIDERS: ATTEND Internal Medicine Interventional Cardiology
DX: I10 Essential (primary) hypertension (principal)
CPT/HCPCS: 36415; 80051; 82565; 84520

== ENCOUNTER → 2021-04-19 | Outpatient (CLI) | payer MEDICARE ==
[2021-04-19 15:32] LABS: African American GFR (CKD) 90.5 (60.0-200.0); Albumin 4.4 g/dL (3.80-4.90); Anion Gap 9.7 mmol/L (4.00-12.00); Calcium 9.5 mg/dL (8.7-10.3); Carbon Dioxide 23.3 mmol/L (21.6-31.8); Chol/HDL Ratio 3.93; Globulin 2.2 g/dL (1.6-3.3); LDL Cholesterol,Calculated 60.8 mg/dL (0.0-131.0); Non-African American GFR(CKD) 78.1 (60.0-200.0); Potassium 4.3 mmol/L (3.5-5.5); Total Protein 6.6 g/dL (6.2-8.2); VLDL Calculation 18.2 mg/dL (5.00-40.00)
== END | disposition home or self-care (01) ==
LOC: LABWHC1 08:03
PROVIDERS: ATTEND Internal Medicine Interventional Cardiology
DX: E78.2 Mixed hyperlipidemia (principal)
CPT/HCPCS: 36415; 80053; 80061

== ENCOUNTER → 2021-05-04 | Outpatient (CLI) | payer MEDICARE ==
--- NOTE | 2021-05-04 17:17 | PN ---
PROGRESS NOTE Jeramie is 66 with known history of severe obstructive sleep apnea. During his last evaluation, I was able to provide him a new CPAP unit. Note that the patient has an AHI of 96 and he was given a newer-generation ResMed APAP unit which is a minimum pressure of 5, maximum pressure of 15. He is also using a Simplus full-face mask. The same mask was provided. On today's compliancy evaluation, the patient demonstrated excellent use and averaging around 4.8 hours of CPAP use per night. He puts on his machine every night without any interruption. Leak is in order of 90 L/minute. AHI is down to 0.9. He is using a Simplus full-face mask, medium size. His weight is down from 319 down to 300. His average pressure delivered by the machine is at 9.2 cm of water. His current Murphy score is 6. No complaints otherwise for now. REVIEW OF SYSTEMS: Fourteen-point review of system was done, positive findings are mentioned in history of present illness. BP is 105/76, pulse 76, respirations 16, temperature 98.7, weight is 300, saturation 98% on room air. General appearance: Calm, comfortable. Head is atraumatic, normocephalic. Neck: Supple. No JVD. No goiter or neck mass. Mallampati class 4. Lungs diminished, otherwise clear. Heart sounds are regular rate and rhythm. Normal S1, S2. No S3, S4. No murmurs. Abdomen: Soft, nontender. No organomegaly. Extremities: No edema, no cyanosis or clubbing. Neurologically: The patient is awake and alert. There is no focal neurological deficits. IMPRESSION: 1. Severe symptomatic obstructive sleep apnea, AHI of 96, currently on APAP machine, pressure minimum of 5, maximum of 15 with excellent clinical response and compliance. 2. Hypersomnia, improving. 3. Obesity with interval weight loss. Current weight is down to 300. 4. Congestive heart failure with ischemic cardiomyopathy, ejection fraction of less than 20%, currently wearing a LifeVest. 5. Chronic atrial fibrillation. 6. Coronary artery disease with recent myocardial infarction and stenting of the LAD. 7. Hypertension. 8. Hyperlipidemia. PLAN: 1. Continue using APAP therapy and compliance evaluation was done. The patient's usage of the machine is appropriate. We will encourage using the same machine, same pressure setting with same mask interface. 2. Activated smart start feature. 3. Activated EPR features. 4. Keep the heated tubing at automatic mode. 5. Keep a Simplus full-face mask. 6. Continue wearing a life vest and ultimately the patient is being considered for an AICD. 7. Follow up with Cardiology, Dr. Hernandez. 8. See me back in a year's time in followup. Earlier if needed. MMODL / IJN: [id number] /
== END ==
LOC: SLEEP 14:52
PROVIDERS: ATTEND Internal Medicine Critical Care Medicine
DX: G47.33 Obstructive sleep apnea (adult) (pediatric) (principal); E66.9 Obesity, unspecified; E78.5 Hyperlipidemia, unspecified; I11.0 Hypertensive heart disease with heart failure; I25.10 Atherosclerotic heart disease of native coronary artery without angina pectoris; I48.20 Chronic atrial fibrillation, unspecified; I25.2 Old myocardial infarction; Z95.5 Presence of coronary angioplasty implant and graft; Z99.89 Dependence on other enabling machines and devices

== ENCOUNTER → 2021-06-30 | Outpatient (CLI) | payer MEDICARE | END | disposition home or self-care (01) | LOC: LABWHC1 09:35 | PROVIDERS: ATTEND Urology | DX: R35.0 Frequency of micturition (principal) | CPT/HCPCS: 36415; 84153 ==

== ENCOUNTER → 2021-09-02 | Outpatient (CLI) | payer MEDICARE ==
[2021-09-02 16:33] LABS: ALT 12 U/L (10-49); AST 14 U/L (14-35); African American GFR (CKD) 102.8 (60.0-200.0); Albumin 4.1 g/dL (3.8-4.9); Albumin/Globulin Ratio 1.95 (1.60-3.17); Alkaline Phosphatase 76 U/L (41-126); BUN/Creat Ratio 22.89 Ratio (12.00-20.00); Blood Urea Nitrogen 20.6 mg/dL (9.0-27.0); Calcium 9.4 mg/dL (8.7-10.3); Carbon Dioxide 20.7 mmol/L (21.6-31.8); Chloride 105 mmol/L (96-109); Globulin 2.1 g/dL (1.6-3.3); Glucose 141 mg/dL (70-110); LDL Cholesterol,Calculated 60.1 mg/dL (0.0-131.0); Non-African American GFR(CKD) 88.7 (60.0-200.0); Potassium 4.6 mmol/L (3.5-5.5); Sodium 140 mmol/L (135-145); Total Protein 6.2 g/dL (6.2-8.2); VLDL Calculation 15.42 mg/dL (5.00-40.00)
== END | disposition home or self-care (01) ==
LOC: LABWHC1 07:21
PROVIDERS: ATTEND Nurse Practitioner Adult Health
DX: I10 Essential (primary) hypertension (principal); E78.2 Mixed hyperlipidemia
CPT/HCPCS: 36415; 80053; 80061

== ENCOUNTER 2021-09-05 06:31 | Inpatient (IN) | payer MEDICARE ==
--- NOTE | 2021-09-05 06:49 | ED ---
Chest Pain HPI - General Chief Complaint: Chest Pain Stated Complaint: Chest Pain Time Seen by Provider: 09/05/21 06:38 Source: patient, RN notes reviewed Mode of arrival: wheelchair Limitations: no limitations - History of Present Illness Initial Comments: This a 66-year-old male presents emergency Department chief complaint of upper back chest discomfort. Patient states that is very similar pain that he had when he had his LA. Patient states his started around 3:30 AM. Patient states that he does have chronic A. fib and which she's had multiple cardioversions, attempted ablation. Patient states that it's nothing has worked he is on Eliquis currently. Patient did not take any nitro as he took Viagra. Patient states that he has no nausea vomiting and diaphoretic episodes shortness breath headache dizziness. Patient states the pain is moving up towards his upper shoulders, neck region. - Related Data Home Medications Medication Instructions Recorded Confirmed Oxybutynin Chloride 5 mg PO DAILY 11/04/15 03/14/21 lisinopriL [Zestril] 10 mg PO DAILY 06/08/18 03/14/21 Albuterol Sulfate [Proair Hfa] 2 puff INHALATION RT-QID PRN 03/07/21 03/14/21 metFORMIN HCL [Glucophage] 500 mg PO AC-BID 03/07/21 03/14/21 Atorvastatin [Lipitor] 80 mg PO HS 03/14/21 03/14/21 Previous Rx's Medication Instructions Recorded Ticagrelor [Brilinta] 90 mg PO BID #60 tab 03/08/21 Aspirin 81 mg PO DAILY chew 03/10/21 Metoprolol Tartrate [Lopressor] 25 mg PO BID #180 tab 03/10/21 Furosemide [Lasix] 20 mg PO DAILY #30 tab 03/14/21 Nitroglycerin Sl Tabs [Nitrostat] 0.4 mg SUBLINGUAL Q5M PRN #30 tab 03/14/21 Allergies Allergy/AdvReac Type Severity Reaction Status Date / Time adhesive tape Allergy Rash/Hives Verified 09/05/21 06:36 tape AdvReac BLISTERS, Uncoded 03/13/21 21:41 SKIN PEELS Review of Systems ROS Statement: Those systems with pertinent positive or pertinent negative responses have been documented in the HPI. ROS Other: All systems not noted in ROS Statement are negative. EKG Findings - EKG Comments: EKG Findings:: EKG performed at 6:42 atrial fibrillation rate of 63 QRS 84 QT/QTC 394/403 Past Medical History Past Medical History: Atrial Fibrillation, GERD/Reflux, Hyperlipidemia, Hypertension, Myocardial Infarction ([place]), Osteoarthritis ([place]), Renal Disease, Sleep Apnea/CPAP/BIPAP Additional Past Medical History / Comment(s): kidney stones, Last Myocardial Infarction Date:: 03/07/2021 History of Any Multi-Drug Resistant Organisms: None Reported Past Surgical History: Cholecystectomy, Hernia Repair, Joint Replacement Additional Past Surgical History / Comment(s): 10/2015 cardioversion, bilateral total knee arthroplasty, umbilical hernia repair, removal of kidney stones, cardioversion X3, Cardiac Ablation. Past Anesthesia/Blood Transfusion Reactions: No Reported Reaction Additional Past Anesthesia/Blood Transfusion Reaction / Comment(s): difficul intubation Past Psychological History: No Psychological Hx Reported Smoking Status: Former smoker Past Alcohol Use History: Rare Past Drug Use History: None Reported - Past Family History Mother Family Medical History: No Reported History Additional Family Medical History / Comment(s): Mother is 84 yrs old. Father Family Medical History: Cancer Additional Family Medical History / Comment(s): BLADDER CANCER . General Exam General appearance: alert, in no apparent distress Head exam: Present: atraumatic, normocephalic, normal inspection Eye exam: Present: normal appearance, PERRL, EOMI. Absent: scleral icterus, conjunctival injection, periorbital swelling ENT exam: Present: normal exam, normal oropharynx, mucous membranes moist Neck exam: Present: normal inspection, full ROM. Absent: tenderness, meningismus, lymphadenopathy Respiratory exam: Present: normal lung sounds bilaterally. Absent: respiratory distress, wheezes, rales, rhonchi, stridor Cardiovascular Exam: Present: regular rate, normal rhythm, normal heart sounds. Absent: systolic murmur, diastolic murmur, rubs, gallop, clicks GI/Abdominal exam: Present: soft, normal bowel sounds. Absent: distended, tenderness, guarding, rebound, rigid Extremities exam: Present: normal capillary refill Skin exam: Present: warm, dry, intact, normal color. Absent: rash Course Vital Signs 09/05/21 09/05/21 06:33 07:37 Temperature 97.9 F Pulse Rate 71 47 L Respiratory 18 16 Rate Blood Pressure 130/82 101/84 O2 Sat by Pulse 98 95 Oximetry Chest Pain MDM - MDM EKG shows atrial fibrillation which is chronic. Patient's initial troponin is negative. Patient has concerning symptoms in which she had a stent placed in February. Patient be admitted for cardiology evaluation. Disposition Clinical Impression: A-fib, Bradycardia, Chest pain Disposition: ADMITTED IP TO THIS HOSP Referrals: Brien Girard MD [Primary Care Provider] - 1-2 days Time of Disposition: 07:49
--- NOTE | 2021-09-05 07:01 | XR ---
EXAMINATION TYPE: XR chest 2V DATE OF EXAM: 09/05/2021 COMPARISON: 03/13/2021 HISTORY: Chest pain TECHNIQUE: FINDINGS: Heart appears enlarged. There is no heart failure. Lungs are clear of consolidation. There are no hilar masses. There are chest leads. IMPRESSION: No active cardiopulmonary disease. There is improvement in the pulmonary vascularity comp ared to old exam.
[2021-09-05 07:16] LABS: Basophils # (A) 0.1 k/uL (0-0.2); Basophils % (A) 1 %; Eosinophils # (A) 0.3 k/uL (0-0.7); Eosinophils % (A) 4 %; HCT 39.9 % (39.0-53.0); HGB 13.6 gm/dL (13.0-17.5); Lymphocytes # (A) 1.1 k/uL (1.0-4.8); Lymphocytes % (A) 15 %; MCH 32.4 pg (25.0-35.0); MCHC 34.1 g/dL (31.0-37.0); MCV 95.2 fL (80.0-100.0); Mean Platelet Volume 6.9; Monocytes # (A) 0.5 k/uL (0-1.0); Monocytes % (A) 7 %; Neutrophils # (A) 5.1 k/uL (1.3-7.7); Neutrophils % (A) 72 %; Platelet Count 253 k/uL (150-450); RDW 12.8 % (11.5-15.5); WBC 7.1 k/uL (3.8-10.6)
[2021-09-05 07:27] LABS: ALT 13 U/L (4-49); African American GFR (CKD) >90 (>60 ml/min/1.73 sqM); Albumin 4.2 g/dL (3.5-5.0); Anion Gap 6 mmol/L; Blood Urea Nitrogen 24 mg/dL (9-20); Calcium 9.8 mg/dL (8.4-10.2); Carbon Dioxide 24 mmol/L (22-30); Chloride 107 mmol/L (98-107); Glucose 132 mg/dL (74-99); Lipase 218 U/L (23-300); Non-African American GFR(CKD) >90 (>60 ml/min/1.73 sqM); Partial Thromboplastin Time 24.7 sec (22.0-30.0); Prothrombin Time 10.9 sec (9.0-12.0); Sodium 137 mmol/L (137-145); Total Bilirubin 1.1 mg/dL (0.2-1.3)
[2021-09-05 07:33] LABS: AST 23 U/L (17-59); Alkaline Phosphatase 60 U/L (38-126); Magnesium 1.7 mg/dL (1.6-2.3); Potassium 5.3 mmol/L (3.5-5.1)
[2021-09-05] MEDS ORDERED: NITROGLYCERIN SL TABS 0.4 MG TAB SUBLINGUAL PRN (07:51)
[2021-09-05] MEDS ORDERED: FLUTICASONE 50MCG/SPRAY NASAL 16GM EA NOSTRIL PRN (12:12)
[2021-09-05] MEDS ORDERED: ALBUTEROL NEBULIZED 2.5 MG/3 ML INHALATION PRN (12:12)
--- NOTE | 2021-09-05 12:55 | P.HPIM ---
History of Present Illness H&P Date: 09/05/21 Chief Complaint: Atypical chest pain This is a pleasant 66-year-old male presents to the emergency department with upper back and shoulder pain. Patient states this episode is very similar to the pain he experienced with his prior myocardial infarction. The pain began around 3:30 AM because it woke him up. Patient noticed that her CPAP mask was off his face. Patient did take all his medications this morning which include lisinopril, metoprolol, Lasix, and Spirinolactone. Hence, his low blood pressure in the ER. Patient's family became greatly concerned and recommended patient be evaluated in the hospital. Patient continues to be persistently bradycardic. Troponin 1 was negative. Patient does have history of chronic atrial fibrillation with multiple cardioversions and ablation, hypertension, hyperlipidemia, coronary artery disease PTCA 1, non-insulin- dependent diabetes mellitus, STEFFANIE on CPAP, and morbid obesity. Last cardiac cath was March 07, 2021. At that time PCI of proximal LAD was done after a late presenting anterolateral STEMI. Echocardiogram completed in February of 2021 showed an ejection fraction of 20-25%. Patient has since had the echocardiogram repeated and admits that with medical management ejection fraction went above 40% patient denies retrosternal chest pain or shortness of breath. Patient further denies nausea, vomiting, fever, chills, or diaphoresis. Patient is resting comfortably in a chair. Review of Systems All systems: negative Past Medical History Past Medical History: Atrial Fibrillation, GERD/Reflux, Hyperlipidemia, Hypertension, Myocardial Infarction ([place]), Osteoarthritis ([place]), Renal Disease, Sleep Apnea/CPAP/BIPAP Additional Past Medical History / Comment(s): kidney stones, Last Myocardial Infarction Date:: 03/07/2021 History of Any Multi-Drug Resistant Organisms: None Reported Past Surgical History: Cholecystectomy, Hernia Repair, Joint Replacement Additional Past Surgical History / Comment(s): 10/2015 cardioversion, bilateral total knee arthroplasty, umbilical hernia repair, removal of kidney stones, cardioversion X3, Cardiac Ablation. Past Anesthesia/Blood Transfusion Reactions: No Reported Reaction Additional Past Anesthesia/Blood Transfusion Reaction / Comment(s): difficul intubation Past Psychological History: No Psychological Hx Reported Smoking Status: Former smoker Past Alcohol Use History: Rare Past Drug Use History: None Reported - Past Family History Mother Family Medical History: No Reported History Additional Family Medical History / Comment(s): Mother is 84 yrs old. Father Family Medical History: Cancer Additional Family Medical History / Comment(s): BLADDER CANCER . Medications and Allergies Home Medications Medication Instructions Recorded Confirmed Type Oxybutynin Chloride 5 mg PO BID 11/04/15 09/05/21 History lisinopriL [Zestril] 5 mg PO BID 06/08/18 09/05/21 History Albuterol Sulfate [Proair Hfa] 2 puff INHALATION RT-QID PRN 03/07/21 09/05/21 History metFORMIN HCL [Glucophage] 500 mg PO AC-BID 03/07/21 09/05/21 History Atorvastatin [Lipitor] 80 mg PO HS 03/14/21 09/05/21 History Nitroglycerin Sl Tabs [Nitrostat] 0.4 mg SUBLINGUAL Q5M PRN #30 tab 03/14/21 09/05/21 Rx ALPRAZolam [Xanax] 0.25 mg PO DAILY PRN 09/05/21 09/05/21 History Acetaminophen [Tylenol Extra 500 mg PO Q6H PRN 09/05/21 09/05/21 History Strength] Apixaban [Eliquis] 5 mg PO BID 09/05/21 09/05/21 History Fluticasone Nasal Morton [Flonase 1 spray EA NOSTRIL DAILY PRN 09/05/21 09/05/21 History Nasal Morton] Furosemide [Lasix] 20 mg PO BID 09/05/21 09/05/21 History Metoprolol Tartrate [Lopressor] 25 mg PO DAILY 09/05/21 09/05/21 History Spironolactone 25 mg PO DAILY 09/05/21 09/05/21 History Allergies Allergy/AdvReac Type Severity Reaction Status Date / Time adhesive tape Allergy Rash/Hives Verified 09/05/21 11:47 tape AdvReac BLISTERS, Uncoded 09/05/21 11:47 SKIN PEELS Physical Exam Osteopathic Statement: *. No significant issues noted on an osteopathic structural exam other than those noted in the History and Physical/Consult. Vitals: Vital Signs Temp Pulse Resp BP Pulse Ox 09/05/21 10:00 43 L 18 85/53 96 09/05/21 08:40 46 L 18 96/40 96 09/05/21 07:37 47 L 16 101/84 95 09/05/21 06:33 97.9 F 71 18 130/82 98 Intake and Output 09/04/21 09/05/21 09/05/21 22:59 06:59 14:59 Other: Weight 138.346 kg General: [non toxic], [no distress], [appears at stated age] morbidly obese Derm: [warm], [dry] Head: [atraumatic], [normocephalic], [symmetric] Eyes: [EOMI], [no lid lag], [anicteric sclera] Mouth: [no lip lesion], [mucus membranes moist] Cardiovascular: [Bradycardic], [no murmur], [positive posterior tibial pulse bilateral], Lungs: [CTA bilateral], [no rhonchi, no rales] , [no accessory muscle use] Abdominal: [soft], [ nontender to palpation], [no guarding], [no appreciable or ganomegaly] Ext: [no gross muscle atrophy], [+1 edema], [no contractures] Neuro: [ CN II-XI grossly intact], [no focal neuro deficits] Psych: [Alert], [oriented], [appropriate affect] Results CBC & Chem 7: 09/05/21 06:53 09/05/21 06:53 Labs: Abnormal Lab Results - Last 24 Hours (Table) 09/05/21 09/05/21 Range/Units 06:53 06:53 RBC 4.20 L (4.30-5.90) m/uL Potassium 5.3 H (3.5-5.1) mmol/L BUN 24 H (9-20) mg/dL Glucose 132 H (74-99) mg/dL Thrombosis Risk Factor Assmnt - DVT/VTE Prophylaxis DVT/VTE Prophylaxis: Pharmacologic Prophylaxis ordered Assessment and Plan Assessment: 1. Atypical chest pain rule out acute coronary syndrome Trend cardiac enzymes Cardiology consult Nitro when necessary Oxygen as needed Telemetry 2. Chronic A. fib currently bradycardic Continue Eliquis Monitor telemetry Hold beta ron Check TSH 3. Hypotension with bradycardia rule out ACS Hold metoprolol, lisinopril, Lasix, and spironolactone Monitor on telemetry 4. PTCA 1 of LAD February 2021 Continue statin 5. Systolic heart failure compensated 6. History of hypertension, hyperlipidemia, diabetes, Overactive bladder, and obstructive sleep apnea on CPAP CPAP machine at night Resume home medications that her appropriate 7. GI DVT prophylaxis 8. A.m. labs 9. Insulin sliding scale Metformin will be held during hospital stay Check hemoglobin A1c CODE STATUS full code Anticipated time of stay greater than 1-2 midnight stay Greater than 45 minutes spent coordinating care, counseling and documenting. Time with Patient: Greater than 30
[2021-09-05] MEDS: FAMOTIDINE 20 MG TAB PO SCH ×2 (13:10→13:11)
[2021-09-05 13:12] LABS: Glucose,Whole Blood 177 mg/dL (75-99)
[2021-09-05] MEDS: INSULIN ASPART (NovoLOG) 100 UNIT/ML VIAL SQ SCH ×2 (13:12→17:48)
[2021-09-05 14:38] LABS: African American GFR (CKD) >90 (>60 ml/min/1.73 sqM); Anion Gap 9 mmol/L; Blood Urea Nitrogen 25 mg/dL (9-20); Calcium 9.7 mg/dL (8.4-10.2); Carbon Dioxide 28 mmol/L (22-30); Chloride 101 mmol/L (98-107); Glucose 167 mg/dL (74-99); Non-African American GFR(CKD) 85 (>60 ml/min/1.73 sqM); Potassium 4.5 mmol/L (3.5-5.1); Sodium 138 mmol/L (137-145)
[2021-09-05 17:16] LABS: Glucose,Whole Blood 105 mg/dL (75-99)
[2021-09-05 20:32] LABS: Glucose,Whole Blood 149 mg/dL (75-99)
[2021-09-05] MEDS: APIXABAN 5 MG TAB PO SCH (21:00)
[2021-09-05] MEDS: ATORVASTATIN 80 MG TAB PO SCH (21:00)
[2021-09-05] MEDS: OXYBUTYNIN CHLORIDE 5 MG TAB PO SCH (21:32)
[2021-09-05] MEDS: ACETAMINOPHEN TAB 500 MG TAB PO PRN (21:32)
[2021-09-06 00:04] LABS: Glucose,Whole Blood 103 mg/dL (75-99)
[2021-09-06 06:45] LABS: ALT 13 U/L (4-49); AST 19 U/L (17-59); African American GFR (CKD) >90 (>60 ml/min/1.73 sqM); Albumin/Globulin Ratio 1.5; Alkaline Phosphatase 61 U/L (38-126); Anion Gap 9 mmol/L; Blood Urea Nitrogen 22 mg/dL (9-20); Calcium 9.8 mg/dL (8.4-10.2); Carbon Dioxide 26 mmol/L (22-30); Chloride 103 mmol/L (98-107); Globulin 2.7 g/dL; Glucose 111 mg/dL (74-99); Non-African American GFR(CKD) >90 (>60 ml/min/1.73 sqM); Potassium 4.6 mmol/L (3.5-5.1); Sodium 138 mmol/L (137-145); Total Bilirubin 1.4 mg/dL (0.2-1.3); Total Protein 6.7 g/dL (6.3-8.2)
[2021-09-06 07:24] LABS: Glucose,Whole Blood 114 mg/dL (75-99)
[2021-09-06] MEDS: INSULIN ASPART (NovoLOG) 100 UNIT/ML VIAL SQ SCH ×3 (07:26→18:19)
[2021-09-06] MEDS: APIXABAN 5 MG TAB PO SCH (07:32)
[2021-09-06] MEDS: OXYBUTYNIN CHLORIDE 5 MG TAB PO SCH ×2 (07:32→19:53)
[2021-09-06] MEDS ORDERED: CLOPIDOGREL 75 MG TAB PO SCH (09:45)
--- NOTE | 2021-09-06 09:48 | P.CRDCN ---
History of Present Illness Consult date: 09/06/21 History of present illness: HISTORY OF PRESENT ILLNESS: This is a 66-year-old male with a past medical history significant for coronary artery disease with stent placement to the LAD and February 2021, Ischemic cardiomyopathy, Atrial fibrillation, hypertension, and hyperlipidemia. Patient follows in the office with Dr. Hernandez. We have been asked to see the patient in consultation for chest pain. Patient examined at the bedside. Patient states he woke up yesterday around 4am and was having pain that went from his left shoulder blade across his back to his right shoulder blade. He denies any injury to the area. He denied any chest pain or pressure. Denied shortness of breath. He states when he had his heart attack in February the only symptom he had was back pain so he became concerned and came to the ER for further evaluation. He reports taking Tylenol at home with no relief. He report intermittent back pain overnight. This morning he is rating the pain 2/10. The patient does have significant discomfort with palpation of his upper back. EKG reveals atrial fibrillation with controlled ventricular rates. Chest xray no active cardiac pulmonary disease. There is some improvement in the pulmonary vascularity compared to exam. Laboratory data: WBC 7.1. Hemoglobin 13.6. Platelet count 253. Sodium 138. Potassium 4.6. BUN 22. Creatinine 0.4. Troponin negative 3. Current home cardiac medications include Lipitor 80 mg daily, lisinopril 5 mg twice a day, Eliquis 5 mg twice a day, spironolactone 25 mg daily, metoprolol tartrate 25 mg daily, and Lasix 20 mg twice a day Most recent echocardiogram obtained in April 2021 revealed ejection fraction 42%, mild MR, mild TR, RVSP 40 mmHg, ascending aorta 4.1 cm Previous echocardiogram performed in February 2021 revealed ejection fraction 25% Cardiac catheterization history: February 2021 with stent placement to the proximal LAD REVIEW OF SYSTEMS: At the time of my exam: CONSTITUTIONAL: Denies fever or chills. HEENT: Denies blurred vision, vision changes, or eye pain. Denies hemoptysis CARDIOVASCULAR: Denies chest pain. Denies orthopnea. Denies PND. Denies pa lpitations RESPIRATORY: Denies shortness of breath. GASTROINTESTINAL: Denies abdominal pain. Denies nausea or vomiting. HEMATOLOGIC: Denies bleeding disorders. GENITOURINARY: Denies any blood in urine. SKIN: Denies pruitis. Denies rash. PHYSICAL EXAM: VITAL SIGNS: Reviewed. GENERAL: Well-developed in no acute distress. HEENT: Head is normocephalic. Pupils are equal, round. Sclerae anicteric. Mucous membranes of the mouth are moist. Neck supple. No JVD or thyromegaly LUNGS: Respirations even and unlabored. Lungs essentially clear to auscultation bilaterally. HEART: Irregular rate and rhythm. S1 and S2 heard. ABDOMEN: Soft. Nondistended. Nontender. EXTREMITIES: Normal range of motion. No clubbing or cyanosis. Peripheral pulses intact. No lower extremity edema NEUROLOGIC: Awake and alert. Oriented x 3. ASSESSMENT: Upper back discomfort, reproducible with palpation, atypical chest pain, troponin negative x 3 Chronic persistent atrial fibrillation Coronary artery disease with PCI to LAD, February 2021 Ischemic cardiomyopathy, previous EF 25%, most recently 42% Hypertension Hyperlipidemia Objective sleep apnea Diabetes Morbid obesity PLAN: Obtain 2D echo to assess cardiac structure and function Continue Eliquis Add Plavix 75mg daily due to recent PCI Resume metoprolol and lisinopril at lower doses Resume spironolactone and Lasix. Continue to monitor blood pressure and telemetry Further recommendations pending patient course Nurse practitioner note has been reviewed by physician. Signing provider agrees with the documented findings, assessment, and plan of care. Past Medical History Past Medical History: Atrial Fibrillation, Diabetes Mellitus, GERD/Reflux, Hyperlipidemia, Hypertension, Myocardial Infarction ([place]), Osteoarthritis (OA), Renal Disease, Sleep Apnea/CPAP/BIPAP Additional Past Medical History / Comment(s): kidney stones, Last Myocardial Infarction Date:: 03/07/2021 History of Any Multi-Drug Resistant Organisms: None Reported Past Surgical History: Cholecystectomy, Hernia Repair, Joint Replacement Additional Past Surgical History / Comment(s): 10/2015 cardioversion, bilateral total knee arthroplasty, umbilical hernia repair, removal of kidney stones, cardioversion X3, Cardiac Ablation. Past Anesthesia/Blood Transfusion Reactions: No Reported Reaction Additional Past Anesthesia/Blood Transfusion Reaction / Comment(s): difficul intubation Past Psychological History: No Psychological Hx Reported Smoking Status: Former smoker Past Alcohol Use History: Rare Additional Past Alcohol Use History / Comment(s): started smoking at age 18 or 19yrs. quit in Past Drug Use History: None Reported - Past Family History Mother Family Medical History: No Reported History Additional Family Medical History / Comment(s): Mother is 84 yrs old. Father Family Medical History: Cancer Additional Family Medical History / Comment(s): BLADDER CANCER . Medications and Allergies Home Medications Medication Instructions Recorded Confirmed Type Oxybutynin Chloride 5 mg PO BID 11/04/15 09/05/21 History lisinopriL [Zestril] 5 mg PO BID 06/08/18 09/05/21 History Albuterol Sulfate [Proair Hfa] 2 puff INHALATION RT-QID PRN 03/07/21 09/05/21 History metFORMIN HCL [Glucophage] 500 mg PO AC-BID 03/07/21 09/05/21 History Atorvastatin [Lipitor] 80 mg PO HS 03/14/21 09/05/21 History Nitroglycerin Sl Tabs [Nitrostat] 0.4 mg SUBLINGUAL Q5M PRN #30 tab 03/14/21 09/05/21 Rx ALPRAZolam [Xanax] 0.25 mg PO DAILY PRN 09/05/21 09/05/21 History Acetaminophen [Tylenol Extra 500 mg PO Q6H PRN 09/05/21 09/05/21 History Strength] Apixaban [Eliquis] 5 mg PO BID 09/05/21 09/05/21 History Fluticasone Nasal [place] [Flonase 1 spray EA NOSTRIL DAILY PRN 09/05/21 09/05/21 History Nasal [place]] Furosemide [Lasix] 20 mg PO BID 09/05/21 09/05/21 History Metoprolol Tartrate [Lopressor] 25 mg PO DAILY 09/05/21 09/05/21 History Spironolactone 25 mg PO DAILY 09/05/21 09/05/21 History Allergies Allergy/AdvReac Type Severity Reaction Status Date / Time adhesive tape Allergy Rash/Hives Verified 09/05/21 11:47 tape AdvReac BLISTERS, Uncoded 09/05/21 11:47 SKIN PEELS Physical Exam Vitals: Vital Signs Temp Pulse Pulse Resp BP BP Pulse Ox 09/06/21 04:47 97.6 F 68 18 104/64 98 09/06/21 00:00 98.3 F 51 L 17 85/55 99 09/05/21 19:16 98.1 F 67 18 108/71 97 09/05/21 16:16 98.0 F 64 18 109/74 98 09/05/21 14:00 50 L 16 104/79 97 09/05/21 12:30 97.8 F 43 L 18 104/76 97 09/05/21 12:16 90 16 108/70 98 09/05/21 10:00 43 L 18 85/53 96 09/05/21 08:40 46 L 18 96/40 96 Intake and Output 09/05/21 09/06/21 09/06/21 22:59 06:59 14:59 Intake Total 600 Balance 600 Intake: Oral 600 Other: # Voids 1 2 Weight 138.346 kg Results 09/05/21 06:53 09/06/21 04:39 Cardiac Enzymes 09/05/21 09/05/21 09/06/21 Range/Units 13:59 18:24 04:39 AST 19 (17-59) U/L Troponin I <0.012 <0.012 (0.000-0.034) ng/mL Comprehensive Metabolic Panel 09/05/21 09/06/21 Range/Units 13:59 04:39 Sodium 138 138 (137-145) mmol/L Potassium 4.5 4.6 (3.5-5.1) mmol/L Chloride 101 103 (98-107) mmol/L Carbon Dioxide 28 26 (22-30) mmol/L BUN 25 H 22 H (9-20) mg/dL Creatinine 0.94 0.84 (0.66-1.25) mg/dL Glucose 167 H 111 H (74-99) mg/dL Calcium 9.7 9.8 (8.4-10.2) mg/dL AST 19 (17-59) U/L ALT 13 (4-49) U/L Alkaline Phosphatase 61 (38-126) U/L Total Protein 6.7 (6.3-8.2) g/dL Albumin 4.0 (3.5-5.0) g/dL Current Medications Generic Name Dose Route Start Last Admin Trade Name Freq PRN Reason Stop Dose Admin Acetaminophen 500 mg 09/05/21 12:12 09/05/21 21:32 Acetaminophen Tab 500 Mg Tab PO 500 mg Q6H PRN Administration Fever and/ or Pain Albuterol Sulfate 2.5 mg 09/05/21 12:12 Albuterol Nebulized 2.5 Mg/3 Ml INHALATION RT-QID PRN Shortness Of Breath Alprazolam 0.25 mg 09/05/21 12:12 Alprazolam 0.25 Mg Tab PO DAILY PRN Anxiety Apixaban 5 mg 09/05/21 21:00 09/06/21 07:32 Apixaban 5 Mg Tab PO 5 mg BID CAROL Administration Protocol Atorvastatin Calcium 80 mg 09/05/21 21:00 09/05/21 21:00 Atorvastatin 80 Mg Tab PO 80 mg HS CAROL Administration Famotidine 40 mg 09/05/21 12:30 09/05/21 13:11 Famotidine 20 Mg Tab PO 40 mg DAILY CAROL Administration Fluticasone Propionate 1 spray 09/05/21 12:12 Fluticasone 50mcg/[place] Nasal 16gm EA NOSTRIL DAILY PRN Allergy Symptoms Insulin Aspart 0 unit 09/05/21 12:30 09/06/21 07:26 Insulin Aspart (Novolog) 100 Unit/Ml Vial SQ Not Given AC-TID [facility] Protocol Nitroglycerin 0.4 mg 09/05/21 07:51 Nitroglycerin Sl Tabs 0.4 Mg Tab SUBLINGUAL Q5M PRN Chest Pain Oxybutynin Chloride 5 mg 09/05/21 21:00 09/06/21 07:32 Oxybutynin Chloride 5 Mg Tab PO 5 mg BID CAROL Administration Intake and Output 09/05/21 09/06/21 09/06/21 22:59 06:59 14:59 Intake Total 600 Balance 600 Intake: Oral 600 Other: # Voids 1 2 Weight 138.346 kg 09/05/21 06:53 09/06/21 04:39
[2021-09-06] MEDS: CLOPIDOGREL 75 MG TAB PO SCH (10:03)
[2021-09-06 11:05] LABS: Basophils # (A) 0.07 X 10*3/uL (0.00-0.10); Basophils % (A) 0.9 %; Eosinophils # (A) 0.25 X 10*3/uL (0.04-0.35); Eosinophils % (A) 3.2 %; HCT 38.9 % (39.6-50.0); Lymphocytes # (A) 1.25 X 10*3/uL (0.90-5.00); Lymphocytes % (A) 16.1 %; MCH 32.4 pg (27.0-32.0); MCHC 33.4 g/dL (32.0-37.0); Mean Platelet Volume 9.2 fL (9.5-12.2); Monocytes # (A) 0.65 X 10*3/uL (0.20-1.00); Monocytes % (A) 8.4 %; Neutrophils # (A) 5.51 X 10*3/uL (1.80-7.70); Platelet Count 237 X 10*3/uL (140-440); RBC 4.01 X 10*6/uL (4.40-5.60); RDW 12.9 % (11.5-14.5); WBC 7.76 X 10*3/uL (4.50-10.00)
[2021-09-06] MEDS: FUROSEMIDE 20 MG TAB PO SCH ×2 (11:10→18:26)
[2021-09-06] MEDS: SPIRONOLACTONE 25 MG TAB PO SCH (11:10)
[2021-09-06] MEDS: ALPRAZolam 0.25 MG TAB PO PRN (11:10)
[2021-09-06 12:17] LABS: Glucose,Whole Blood 238 mg/dL (75-99)
[2021-09-06 14:26] LABS: Glucose,Whole Blood 141 mg/dL (75-99)
[2021-09-06] MEDS ORDERED: MORPHINE SULFATE 2 MG/ML SYRINGE ONE ×2 (15:05→15:09)
[2021-09-06] MEDS ORDERED: LORazepam 2 MG/ML INJ ONE (15:08)
[2021-09-06] MEDS ORDERED: AMIODARONE 360 MG in DEXTROSE 5% IN WATER 200 ML IV ONE ×2 (15:10)
[2021-09-06] MEDS ORDERED: AMIODARONE IN DEXTROSE,ISO-OSM 360 MG/200 ML PLAST..BAG IV ONE (15:20)
--- NOTE | 2021-09-06 15:37 | P.EN ---
I responded for a CODE BLUE on patient was found pulseless. Apparently patient was getting an echocardiogram and right after receiving Lumason patient went unresponsive and was found to be pulseless. Chest compression started immediately by nursing staff. Initial rhythm showed PEA arrest and patient received multiple rounds of epinephrine and subsequently he was noted to be in V. fib and what appears to be torsades de pointes transitioning to V. fib on the monitor. Patient received multiple shocks and was more challenging the patient was very hard to palpate a pulse on him. High quality CPR continue patient was treated per ACLS protocol and received 2 amiodarone boluses and subsequently shocked one last time with ROSC with what appeared to be A. fib on the monitor. Nursing staff were able to obtain a blood pressure of 112/72. Patient was sedated with propofol and also he was intubated during the code. He was transferred to the ICU. A 12-lead EKG to be done as soon as patient arrival to the ICU. I would also order a chest x-ray.
[2021-09-06] MEDS ORDERED: NOREPINEPHRIN 4 MG-0.9% NS PMX 4 MG/250 ML ML IV ONE (16:01)
[2021-09-06] MEDS: NOREPINEPHRINE 4 MG in SODIUM CHLORIDE 0.9% 250 ML IV SCH ×3 (16:07→22:56)
--- NOTE | 2021-09-06 16:12 | XR ---
EXAMINATION TYPE: XR thoracic spine 2V DATE OF EXAM: 09/06/2021 COMPARISON: NONE HISTORY: 66-year-old male left-sided back pain, shoulder pain, thoracic region. TECHNIQUE: 3 views FINDINGS: 12 rib bearing thoracic vertebral bodies. Moderate degenerative disc disease and endplate spondylosis throughout the thoracic spine. Vertebral body heights are preserved and alignment is maintained. IMPRESSION: Moderate disc/endplate degenerative change throughout the thoracic spine. No vertebral compression co llapse or malalignment.
--- NOTE | 2021-09-06 16:19 | XR ---
EXAMINATION TYPE: XR chest 1V portable DATE OF EXAM: 09/06/2021 COMPARISON: 09/05/2021 INDICATION: Status post intubation TECHNIQUE: Single frontal view of the chest is obtained. FINDINGS: The heart size is moderately prominent. The pulmonary vasculature is normal. No suspicious focal consolidation is evident. There is placement of an endotracheal tube with the tip 5.5 cm above the ana. A nasogastric tube t ransverses the thorax with tip in the left upper quadrant of the abdomen. IMPRESSION: 1. No acute pulmonary process radiographically evident. 2. Lines and catheters discussed above.
[2021-09-06] MEDS ORDERED: NOREPINEPHRINE 8 MG in SODIUM CHLORIDE 0.9% 250 ML IV SCH ×2 (16:30→22:00)
[2021-09-06] MEDS ORDERED: CISATRACURIUM 2 MG/ML 5 ML VIAL IV ONE (16:37)
--- NOTE | 2021-09-06 16:56 | P.PN ---
Subjective Progress Note Date: 09/06/21 Hospital course: Patient is a very pleasant 66-year-old male with a past medical history of CAD with stents, chronic systolic heart failure with a previously known severely impaired EF between 20 and 25%, chronic persistentatrial fibrillation status post ablation on anticoagulation with Eliquis, hypertension, hyperlipidemia, and type II [id number] diabetes mellitus. patient presented to the hospital on 09/05/21 with a chief complaint of left upper back and shoulder pain. Patient states this pain is very similar to previous AL. Pt states that he was awoken from sleep with this severe sharp pain. He was seen and evaluated in the ER. chest x-ray revealed improvement in pulmonary vascularity compared to prior evaluation, negative for acute cardiopulmonary process.EKG revealing atrial fibrillation with a controlled ventricular rate at 63 bpm with no noted T wave or ST abnormality showing no signs of acute ischemia. Patient was admitted under our services with consultation to cardiology. Pt had recent cardiac cath on 03/07/21 in which pt presented with back pain and diagnosed with anterolateral STEMI which resulted in stent place ment to proximal LAD. Troponins were trended resulting at < 0.012 x 3 draws. Pt was evaluated by cardiology and had echocardiogram completed and awaiting results. Physical exam: Pt continues to report reproducible left upper thoracic back pain directly beneath left scapula and reported to radiate into left shoulder. Point Tenderness upon palpation, denies worsening pain with movement and has full ROM with left arm and shoulder. Orders placed for Thoracic spine x-ray. Pt denies experiencing any headache, lightheadedness, dizziness, chest pain, palpitations, shortness of breath, or experiencing any recent increased dyspnea with exertion, or having any increased swelling/tingling/weakness in extremities. Morning labs reviewed and stable. Vital signs reviewed and stable. General: Nontoxic, no distress and appears stated age. Obese. Derm: Skin warm and dry, normal coloration for ethnicity. Head: Atraumatic, normocephalic and symmetric. Eyes: No lid lag and anicteric sclera Mouth: No lip lesions mucus membranes moist Cardiovascular: irregularly irregular rhythm, normal rate,with normal S1S2, no murmur, positive posterior tibial pulses bilaterally, and cap refill < 2 seconds. Lungs: Respirations even, regular, and unlabored on room air. Lungs CTA bilaterally, no rhonchi, no rales, no wheezing, and no accessory muscle usage. Abdominal: soft, round, distended, nontender to palpation, no guarding, no appreciable organomegaly Ext: ROM intact. No gross muscle atrophy, trace edema, no contractures Neuro: Speech clear, face symmetrical and CN II-XII grossly intact with no noted focal neuro deficits Psych: Alert and oriented to person, place, time, and situation. Appropriate and pleasant affect. Assessment and Plan of Care: Atypical chest pain, acute coronary event ruled out Left upper back pain, thoracic region History of CAD with stents Chronic persistent atrial fibrillation status post ablation on anticoagulation with Eliquis, having episodes of bradycardic rate -EKG revealing atrial fibrillation with a controlled ventricular rate at 63 bpm with no noted T wave or ST abnormality showing no signs of acute ischemia. -Troponins were trended resulting at < 0.012 x 3 draws. -Echocardiogram completed, awaiting results -Cardiology following, recommending following up outpatient pending echocardiogram results. -Continuous telemetry monitoring -Continue daily medication regimen with Eliquis, Plavix, atorvastatin, lisinopril, metoprolol, and Aldactone with when necessary sublingual nitro for chest pain. Hypertension, experienced episodes of hypotension upon arrival to facility, currently resolved with vital signs stable. -Metoprolol decreased to 12.5 mg twice daily and lisinopril decreased to 2.5 mg daily. -continue to monitor vital signs closely. Hyperlipidemia Continue daily medication regimen with atorvastatin 80 mg nightly. Chronic systolic heart failure with previously known severely impaired EF of 20- 25% Continue daily medication regimen with Aldactone and Lasix. Obstructive sleep apnea CPAP dependent nightly -Continue CPAP machine at night and while napping. Type II mop-[id number]-bidwtdetd diabetes mellitus. Hold metformin in place patient on glycemic protocol with NovoLog sliding scale. CODE STATUS: Full code DVT prophylaxis: Eliquis Discussed with: Patient and RN Anticipated discharge date: Clinical course to determine, likely tomorrow a.m. pending echocardiogram results and clinical course. Anticipated discharge place: Home A total of 45 minutes was spent on the care of this complex patient more than 50% of the time was spent in counseling and care coordination. Objective - Vital Signs Vital signs: Vital Signs Temp 97.6 F 09/06/21 04:47 Pulse 68 09/06/21 04:47 Resp 18 09/06/21 04:47 BP 104/64 09/06/21 04:47 Pulse Ox 98 09/06/21 04:47 Intake & Output 09/05/21 09/06/21 09/06/21 18:59 06:59 18:59 Intake Total 600 Balance 600 Weight 138.346 kg Intake: Oral 600 Other: # Voids 2 - Labs CBC & Chem 7: 09/06/21 04:39 09/06/21 04:39 Labs: Abnormal Lab Results - Last 24 Hours (Table) 09/05/21 09/05/21 09/05/21 Range/Units 13:10 13:59 13:59 BUN 25 H (9-20) mg/dL Glucose 167 H (74-99) mg/dL POC Glucose (mg/dL) 177 H (75-99) mg/dL Hemoglobin A1c 6.8 H (4.0-6.0) % Total Bilirubin (0.2-1.3) mg/dL 09/05/21 09/05/21 09/06/21 Range/Units 17:14 20:31 00:04 BUN (9-20) mg/dL Glucose (74-99) mg/dL POC Glucose (mg/dL) 105 H 149 H 103 H (75-99) mg/dL Hemoglobin A1c (4.0-6.0) % Total Bilirubin (0.2-1.3) mg/dL 09/06/21 09/06/21 Range/Units 04:39 07:23 BUN 22 H (9-20) mg/dL Glucose 111 H (74-99) mg/dL POC Glucose (mg/dL) 114 H (75-99) mg/dL Hemoglobin A1c (4.0-6.0) % Total Bilirubin 1.4 H (0.2-1.3) mg/dL
[2021-09-06] MEDS: CISATRACURIUM 200 MG in SODIUM CHLORIDE 0.9% 180 ML IV SCH (16:59)
[2021-09-06 17:06] LABS: ABG Base Excess -3.6 mmol/L; ABG HCO3 24 mmol/L (21-25); ABG Oxygen Saturation 91.3 % (94-97); ABG PCO2 57 mmHg (35-45); ABG PH 7.23 (7.35-7.45); ABG PO2 73 mmHg (83-108); ABG TCO2 26 mmol/L (19-24)
[2021-09-06] MEDS ORDERED: HEPARIN SODIUM 1,000 UN/ML (10ML VL) IV PRN (17:08)
[2021-09-06] MEDS ORDERED: HEPARIN SODIUM 1,000 UN/ML (10ML VL) IV ONE (17:08)
[2021-09-06 17:37] LABS: Albumin 3.4 g/dL (3.5-5.0); Calcium 8.8 mg/dL (8.4-10.2); Potassium 3.8 mmol/L (3.5-5.1); Total Protein 5.8 g/dL (6.3-8.2)
--- NOTE | 2021-09-06 17:37 | P.CNPUL ---
History of Present Illness Consult date: 09/06/21 Requesting physician: Chito Mujica Reason for consult: other (cardiac arrest) Chief complaint: chest pain History of present illness: This is a 66-year-old white male with history of coronary artery disease, ischemic cardiomyopathy, patient had previous stent placement in LAD back in February 2021, his also known to have history of chronic atrial fibrillation, hypertension, dyslipidemia, patient was admitted on 09/05/2021, mostly with symptoms of chest pain. Patient described the chest pain as severe, woke him up in the morning around 5:40 AM, and pain was radiating to the left shoulder. Ac ross his back. Patient had similar chest pain previously when he had previous AL. Patient was seen by cardiology, and the recommendation was to do an echocardiogram, and recommended reevaluation after his echocardiogram and stress test.apparently the patient was getting an echocardiogram,Just after receiving his lumason, patient went unresponsive, and he went pulseless. Chest compression was started immediately by nursing staff, his initial rhythm was pulseless electrical activity, patient received multiple rounds of epinephrine, and he received multiple fibrillations. And multiple shocks were given. Patient had high quality CPR, and ACLS protocol was followed. Patient received 2 amiodarone boluses, he was shocked you times, and eventually there was return of spontaneous circulation, in the meantime patient was intubated, transferred to the ICU, and I was asked to see him on consultation. In the ICU, patient was hypotensive, required placement of right femoral central line, and he required an arterial line/left radial. His ventilator settings were noted to be initially on the percent FiO2, tidal volume is 500, rate of 20, PEEP was increased from 5-10. And ABG was pending. Review of Systems ROS unobtainable: due to endotracheal tube Past Medical History Past Medical History: Atrial Fibrillation, Diabetes Mellitus, GERD/Reflux, Hyperlipidemia, Hypertension, Myocardial Infarction (AL), Osteoarthritis (OA), Renal Disease, Sleep Apnea/CPAP/BIPAP Additional Past Medical History / Comment(s): kidney stones, Last Myocardial Infarction Date:: 03/07/2021 History of Any Multi-Drug Resistant Organisms: None Reported Past Surgical History: Cholecystectomy, Hernia Repair, Joint Replacement Additional Past Surgical History / Comment(s): 10/2015 cardioversion, bilateral total knee arthroplasty, umbilical hernia repair, removal of kidney stones, cardioversion X3, Cardiac Ablation. Past Anesthesia/Blood Transfusion Reactions: No Reported Reaction Additional Past Anesthesia/Blood Transfusion Reaction / Comment(s): difficul intubation Past Psychological History: No Psychological Hx Reported Smoking Status: Former smoker Past Alcohol Use History: Rare Additional Past Alcohol Use History / Comment(s): started smoking at age 18 or 19yrs. quit in Past Drug Use History: None Reported - Past Family History Mother Family Medical History: No Reported History Additional Family Medical History / Comment(s): Mother is 84 yrs old. Father Family Medical History: Cancer Additional Family Medical History / Comment(s): BLADDER CANCER . Medications and Allergies Home Medications Medication Instructions Recorded Confirmed Type Oxybutynin Chloride 5 mg PO BID 11/04/15 09/05/21 History lisinopriL [Zestril] 5 mg PO BID 06/08/18 09/05/21 History Albuterol Sulfate [Proair Hfa] 2 puff INHALATION RT-QID PRN 03/07/21 09/05/21 History metFORMIN HCL [Glucophage] 500 mg PO AC-BID 03/07/21 09/05/21 History Atorvastatin [Lipitor] 80 mg PO HS 03/14/21 09/05/21 History Nitroglycerin Sl Tabs [Nitrostat] 0.4 mg SUBLINGUAL Q5M PRN #30 tab 03/14/21 09/05/21 Rx ALPRAZolam [Xanax] 0.25 mg PO DAILY PRN 09/05/21 09/05/21 History Acetaminophen [Tylenol Extra 500 mg PO Q6H PRN 09/05/21 09/05/21 History Strength] Apixaban [Eliquis] 5 mg PO BID 09/05/21 09/05/21 History Fluticasone Nasal [place] [Flonase 1 spray EA NOSTRIL DAILY PRN 09/05/21 09/05/21 History Nasal [place]] Furosemide [Lasix] 20 mg PO BID 09/05/21 09/05/21 History Metoprolol Tartrate [Lopressor] 25 mg PO DAILY 09/05/21 09/05/21 History Spironolactone 25 mg PO DAILY 09/05/21 09/05/21 History Allergies Allergy/AdvReac Type Severity Reaction Status Date / Time adhesive tape Allergy Rash/Hives Verified 09/05/21 11:47 tape AdvReac BLISTERS, Uncoded 09/05/21 11:47 SKIN PEELS Physical Exam Vitals: Vital Signs Temp Pulse Resp BP BP Pulse Ox 09/06/21 12:43 98.2 F 63 16 111/74 97 09/06/21 08:00 97.5 F L 63 16 117/80 98 09/06/21 07:52 98 09/06/21 04:47 97.6 F 68 18 104/64 98 09/06/21 00:00 98.3 F 51 L 17 85/55 99 09/05/21 19:16 98.1 F 67 18 108/71 97 Intake and Output 09/06/21 09/06/21 09/06/21 06:59 14:59 22:59 Intake Total 600 0.439 Balance 600 0.439 Intake: Intake, IV Titration 0.439 Amount Norepinephrine 4 mg In 0.439 Sodium Chloride 0.9% 250 ml @ 0.05 MCG/KG/MIN 26. 355 mls/hr IV .Q9H39M [facility] Rx#:[id number] Oral 600 Other: # Voids 2 1 GENERAL: revealed a 66-year-old white male. intubated and mechanically ventilated. head:atraumatic normocephalic. HEENT: Head is normocephalic. Pupils are equal, round. Sclerae anicteric. Mucous membranes of the mouth are moist. Neck supple. No JVD or thyromegaly LUNGS: .Diminished breath sounds and crackles bilaterally noted. HEART: Irregular rate and rhythm. S1 and S2 heard. ABDOMEN: Soft. Nondistended. Nontender. EXTREMITIES: Normal range of motion. No clubbing or cyanosis. Peripheral pulses intact. No lower extremity edema NEUROLOGIC: could not be assessed, patient is sedated, on propofol, Psychiatric: could not be assessed. Results - Laboratory Findings CBC and BMP: 09/06/21 04:39 09/06/21 04:39 ABG ABG pH 7.23 (7.35-7.45) L 09/06/21 16:58 ABG pCO2 57 mmHg (35-45) H 09/06/21 16:58 ABG pO2 73 mmHg (83-108) L 09/06/21 16:58 ABG O2 Saturation 91.3 % (94-97) L 09/06/21 16:58 PT/INR, D-dimer PT 10.9 sec (9.0-12.0) 09/05/21 06:53 INR 1.0 (<1.2) 09/05/21 06:53 Abnormal lab findings: Abnormal Labs 09/05/21 09/05/21 09/05/21 06:53 06:53 13:10 RBC 4.20 L Hct MCH MPV ABG pH ABG pCO2 ABG pO2 ABG Total CO2 ABG O2 Saturation Potassium 5.3 H BUN 24 H Glucose 132 H POC Glucose (mg/dL) 177 H Hemoglobin A1c Total Bilirubin 09/05/21 09/05/21 09/05/21 13:59 13:59 17:14 RBC Hct MCH MPV ABG pH ABG pCO2 ABG pO2 ABG Total CO2 ABG O2 Saturation Potassium BUN 25 H Glucose 167 H POC Glucose (mg/dL) 105 H Hemoglobin A1c 6.8 H Total Bilirubin 09/05/21 09/06/21 09/06/21 20:31 00:04 04:39 RBC Hct MCH MPV ABG pH ABG pCO2 ABG pO2 ABG Total CO2 ABG O2 Saturation Potassium BUN 22 H Glucose 111 H POC Glucose (mg/dL) 149 H 103 H Hemoglobin A1c Total Bilirubin 1.4 H 09/06/21 09/06/21 09/06/21 04:39 07:23 12:16 RBC 4.01 L Hct 38.9 L MCH 32.4 H MPV 9.2 L ABG pH ABG pCO2 ABG pO2 ABG Total CO2 ABG O2 Saturation Potassium BUN Glucose POC Glucose (mg/dL) 114 H 238 H Hemoglobin A1c Total Bilirubin 09/06/21 09/06/21 14:24 16:58 RBC Hct MCH MPV ABG pH 7.23 L ABG pCO2 57 H ABG pO2 73 L ABG Total CO2 26 H ABG O2 Saturation 91.3 L Potassium BUN Glucose POC Glucose (mg/dL) 141 H Hemoglobin A1c Total Bilirubin - Diagnostic Findings Chest x-ray: image reviewed (no acute pulmonary processes noted) Assessment and Plan Assessment: Impression: Cardiac arrest, etiology is not clear. Acute hypoxic respiratory failure secondary to cardiac arrest. History of underlying coronary artery disease and previous stent placement. Suspect anoxic brain injury. Patient had a prolonged CPR. Was over half an hour. Hypotension secondary to ischemic cardiomyopathy and LV dysfunction. Recommendation: Continue present ventilatory support. Continue norepinephrine. GI and DVT prophylaxis. Cardiology to reevaluate the patient today. Neurology consultation for possible anoxic brain injury. Overall prognosis is extremely poor and guarded. Discussed his condition with family at bedside, patient is still presently full code. We will continue to follow and address his neurological status and cardiac status on a daily basis. ABG is pending and based on the ABG further recommendations will follow regarding his ventilator settings. We will continue to follow. Critical care time is over 55 minutes not including the time spent on procedures. Time with Patient: Greater than 30
[2021-09-06 17:44] LABS: HCT 50.3 % (39.0-53.0); MCH 32.4 pg (25.0-35.0); MCHC 33.5 g/dL (31.0-37.0); MCV 96.9 fL (80.0-100.0); Mean Platelet Volume 7.1; Platelet Count 376 k/uL (150-450); RBC 5.19 m/uL (4.30-5.90); RDW 13.4 % (11.5-15.5); WBC 16.4 k/uL (3.8-10.6)
[2021-09-06 17:45] LABS: Magnesium 5.1 mg/dL (1.6-2.3)
[2021-09-06 17:48] LABS: HGB 16.9 gm/dL (13.0-17.5)
[2021-09-06 17:50] LABS: Glucose,Whole Blood 168 mg/dL (75-99)
--- NOTE | 2021-09-06 17:59 | P.PN ---
Subjective Cardiology progress note: Patient's main presentation was of atypical mostly reproducible constant back pain radiating across to his chest. Troponins initially noted to be normal and EKG unrevealing. Patient has a history of prior ischemic cardiomyopathy with EF 20-25% improved to 40% s/p PCI in February 2021. Patient had echo performed with difficulty assessing LV function and endocardial border and therefore Lumason was used to help define endocardial border. Per nursing, shortly after patient appeared to be gasping and appeared to almost be choking. Per nursing, quick attempts were made at stabilizing patient however became blue and lost pulse. Underwent prolonged CPR with initial PEA then Torsades and Vfib with Amio given, defibrillation and eventual ROSC. Patient seen and examined again in ICU. Intubated and sedated, nonresponsive, on Norepinephrine and amiodarone drip. Discussed events with family and concern regarding possible anoxic brain injury. Family admits he did have more mild symptoms with previous Lumason injection in February 2021 with apparent mild diaphoresis and SOB and appears possible allergic reaction to Lumason. We will stop Eliquis and place patient on heparin drip, check troponin x 3, continue supportive care with Vasopressors as needed. Prognosis guarded. Objective - Vital Signs Vital signs: Vital Signs Temp 98.2 F 09/06/21 12:43 Pulse 63 09/06/21 12:43 Resp 16 09/06/21 12:43 BP 111/74 09/06/21 12:43 Pulse Ox 97 09/06/21 12:43 Intake & Output 09/05/21 09/06/21 09/06/21 18:59 06:59 18:59 Intake Total 600 0.439 Balance 600 0.439 Weight 138.346 kg Intake: Intake, IV Titration 0.439 Amount Norepinephrine 4 mg In 0.439 Sodium Chloride 0.9% 250 ml @ 0.05 MCG/KG/MIN 26. 355 mls/hr IV .Q9H39M [facility] Rx#:[id number] Oral 600 Other: # Voids 2 1 - Labs CBC & Chem 7: 09/06/21 16:30 09/06/21 16:30 Labs: Abnormal Lab Results - Last 24 Hours (Table) 09/05/21 09/05/21 09/06/21 Range/Units 13:59 20:31 00:04 WBC (3.8-10.6) k/uL RBC (4.40-5.60) X 10*6/uL Hct (39.6-50.0) % MCH (27.0-32.0) pg MPV (9.5-12.2) fL Neutrophils # (1.3-7.7) k/uL ABG pH (7.35-7.45) ABG pCO2 (35-45) mmHg ABG pO2 (83-108) mmHg ABG Total CO2 (19-24) mmol/L ABG O2 Saturation (94-97) % BUN (9-20) mg/dL Glucose (74-99) mg/dL POC Glucose (mg/dL) 149 H 103 H (75-99) mg/dL Hemoglobin A1c 6.8 H (4.0-6.0) % Magnesium (1.6-2.3) mg/dL Total Bilirubin (0.2-1.3) mg/dL Alkaline Phosphatase (38-126) U/L Total Protein (6.3-8.2) g/dL Albumin (3.5-5.0) g/dL 09/06/21 09/06/21 09/06/21 Range/Units 04:39 04:39 07:23 WBC (3.8-10.6) k/uL RBC 4.01 L (4.40-5.60) X 10*6/uL Hct 38.9 L (39.6-50.0) % MCH 32.4 H (27.0-32.0) pg MPV 9.2 L (9.5-12.2) fL Neutrophils # (1.3-7.7) k/uL ABG pH (7.35-7.45) ABG pCO2 (35-45) mmHg ABG pO2 (83-108) mmHg ABG Total CO2 (19-24) mmol/L ABG O2 Saturation (94-97) % BUN 22 H (9-20) mg/dL Glucose 111 H (74-99) mg/dL POC Glucose (mg/dL) 114 H (75-99) mg/dL Hemoglobin A1c (4.0-6.0) % Magnesium (1.6-2.3) mg/dL Total Bilirubin 1.4 H (0.2-1.3) mg/dL Alkaline Phosphatase (38-126) U/L Total Protein (6.3-8.2) g/dL Albumin (3.5-5.0) g/dL 09/06/21 09/06/21 09/06/21 Range/Units 12:16 14:24 16:30 WBC 16.4 H (3.8-10.6) k/uL RBC (4.40-5.60) X 10*6/uL Hct (39.6-50.0) % MCH (27.0-32.0) pg MPV (9.5-12.2) fL Neutrophils # 14.1 H (1.3-7.7) k/uL ABG pH (7.35-7.45) ABG pCO2 (35-45) mmHg ABG pO2 (83-108) mmHg ABG Total CO2 (19-24) mmol/L ABG O2 Saturation (94-97) % BUN (9-20) mg/dL Glucose (74-99) mg/dL POC Glucose (mg/dL) 238 H 141 H (75-99) mg/dL Hemoglobin A1c (4.0-6.0) % Magnesium (1.6-2.3) mg/dL Total Bilirubin (0.2-1.3) mg/dL Alkaline Phosphatase (38-126) U/L Total Protein (6.3-8.2) g/dL Albumin (3.5-5.0) g/dL 09/06/21 09/06/21 Range/Units 16:30 16:58 WBC (3.8-10.6) k/uL RBC (4.40-5.60) X 10*6/uL Hct (39.6-50.0) % MCH (27.0-32.0) pg MPV (9.5-12.2) fL Neutrophils # (1.3-7.7) k/uL ABG pH 7.23 L (7.35-7.45) ABG pCO2 57 H (35-45) mmHg ABG pO2 73 L (83-108) mmHg ABG Total CO2 26 H (19-24) mmol/L ABG O2 Saturation 91.3 L (94-97) % BUN 23 H (9-20) mg/dL Glucose 200 H (74-99) mg/dL POC Glucose (mg/dL) (75-99) mg/dL Hemoglobin A1c (4.0-6.0) % Magnesium 5.1 H* (1.6-2.3) mg/dL Total Bilirubin (0.2-1.3) mg/dL Alkaline Phosphatase 132 H (38-126) U/L Total Protein 5.8 L (6.3-8.2) g/dL Albumin 3.4 L (3.5-5.0) g/dL
[2021-09-06 18:01] LABS: Band Neutrophils % 7 %; Eosinophils # (M) 0.16 k/uL (0-0.7); Lymphocytes # (M) 1.97 k/uL (1.0-4.8); Monocytes # (M) 0.33 k/uL (0-1.0); Neutrophils % (M) 78 %; Nucleated Red Blood Cells 0 /100 WBC (0-0); Polychromasia Present; Total Cells Counted 100
[2021-09-06] MEDS ORDERED: SODIUM CHLORIDE 0.9% 1,000 ML IV ONE (18:05)
[2021-09-06 18:08] LABS: INR 1.1 (<1.2); Partial Thromboplastin Time 20.5 sec (22.0-30.0); Prothrombin Time 11.2 sec (9.0-12.0)
[2021-09-06] MEDS: HEPARIN SOD,PORK IN 0.45% NACL 25,000 UNIT in 0.45% NACL 1 250ML.BAG IV SCH (18:55)
[2021-09-06] MEDS: ATORVASTATIN 80 MG TAB PO SCH (19:53)
[2021-09-06] MEDS: CHLORHEXIDINE GLUCONATE 15 ML CUP MUCOUS MEM SCH (19:53)
[2021-09-06 20:40] LABS: Chol/HDL Ratio 3.85 Ratio; LDL Cholesterol,Calculated 58.6 mg/dL (0.0-131.0)
--- NOTE | 2021-09-06 22:33 | PCN ---
PROCEDURE NOTE OPERATIVE REPORT: Placement of a right femoral triple-lumen catheter. PREOPERATIVE DIAGNOSIS: Status post cardiac arrest, hypotension. POSTOPERATIVE DIAGNOSIS: Status post cardiac arrest, hypotension. ANESTHESIA USED: 2 mL of 1% lidocaine. PROCEDURE: The right groin was prepared in a sterile fashion, drapes were applied, the area was locally anesthetized with 2 mL of lidocaine. Then, the right femoral vein was easily cannulated, and a guidewire was placed. The area around the guidewire was dilated. Then a triple-lumen catheter was inserted over the guidewire, and the guidewire was removed. Good blood flow noted in the 3 different ports of the triple-lumen catheter. Catheter was secured using 3.0 silk sutures. No evidence of any complications and a sterile dressing was applied. No complications. MMODL / IJN: [id number] /
--- NOTE | 2021-09-06 22:33 | PCN ---
PROCEDURE NOTE OPERATIVE REPORT: Placement of a left radial arterial line. PREOPERATIVE DIAGNOSIS: Acute cardiac arrest. POSTOPERATIVE DIAGNOSIS: Acute cardiac arrest. ANESTHESIA: Used none deployed. PROCEDURE: The patient was placed in the supine position. The left wrist was prepared in a sterile fashion. The drapes were applied. The left radial artery was palpated, cannulated easily and a guidewire was placed. A Cook's catheter was inserted over the guidewire, and the guidewire was removed. Good blood flow, good waveform noted, no evidence of complications, the line was secured using 3.0 silk sutures. MMODL / IJN: [id number] /
[2021-09-06] MEDS: AMIODARONE 450 MG in DEXTROSE 5% IN WATER 250 ML IV SCH ×2 (22:37)
[2021-09-07 00:19] LABS: INR 1.1 (<1.2); Prothrombin Time 11.9 sec (9.0-12.0)
[2021-09-07 00:56] LABS: Glucose,Whole Blood 179 mg/dL (75-99)
[2021-09-07 01:00] LABS: Partial Thromboplastin Time 106.3 sec (22.0-30.0)
[2021-09-07 05:46] LABS: Glucose,Whole Blood 242 mg/dL (75-99)
[2021-09-07] MEDS: INSULIN ASPART (NovoLOG) 100 UNIT/ML VIAL SQ SCH ×4 (05:57→23:37)
[2021-09-07] MEDS: HEPARIN SOD,PORK IN 0.45% NACL 25,000 UNIT in 0.45% NACL 1 250ML.BAG IV SCH ×3 (06:15→22:24)
[2021-09-07 06:16] LABS: Albumin 3.4 g/dL (3.5-5.0); Calcium 8.4 mg/dL (8.4-10.2); Magnesium 3.9 mg/dL (1.6-2.3); Total Bilirubin 0.8 mg/dL (0.2-1.3); Total Protein 5.9 g/dL (6.3-8.2)
[2021-09-07] MEDS: NOREPINEPHRINE 4 MG in SODIUM CHLORIDE 0.9% 250 ML IV SCH ×3 (06:18→22:11)
[2021-09-07] MEDS: CISATRACURIUM 200 MG in SODIUM CHLORIDE 0.9% 180 ML IV SCH ×2 (06:18→17:25)
--- NOTE | 2021-09-07 06:26 | XR ---
EXAMINATION TYPE: XR chest 1V portable DATE OF EXAM: 09/07/2021 CLINICAL HISTORY: Difficulty breathing progress study. Atrial fibrillation. TECHNIQUE: Single AP portable upright view of the chest is obtained. COMPARISON: Chest x-ray from one day earlier and older studies FINDINGS: Stable endotracheal and orogastric tubes. Persistent cardiomegaly with new left basilar opacity silhouetting left hemidiaphragm. Right lung rem ains clear. Spurring in the mid to lower thoracic spine redemonstrated. IMPRESSION: New left basilar acute infiltrate and/or atelectasis and possible small left pleural effu estephanie.
--- NOTE | 2021-09-07 07:55 | ECHOF ---
Referral Reason:re: LV function MEASUREMENTS -------- HEIGHT: 177.8 cm WEIGHT: 138.3 kg BP: 117/80 RAP: 5.00 mmHg RVSP: 35.64 mmHg FINDINGS -------- Atrial fibrillation. This was a technically difficult study with suboptimal views. Overall left ventricular systolic function is severely impaired with, an EF between 20 - 25 %. 5.0mg of Lumason was utilized for enhancement of images Patient with CODE BLUE shortly after Lumaso n given concerning for allergic reaction to Lumason. There is no pericardial effusion. CONCLUSIONS -------- 1. Overall left ventricular systolic function is severely impaired with, an EF between 20 - 25 %. 2. 5.0mg of Lumason was utilized for enhancement of images 3. Patient with CODE BLUE shortly after Lumason given concerning for allergic reaction to Lumason. 4. There is no pericardial effusion. FIXTURE REPAIRER FABRICATOR: Sonya Caldera RDCS
[2021-09-07 07:57] LABS: ABG Base Excess -3.6 mmol/L; ABG HCO3 23 mmol/L (21-25); ABG PCO2 51 mmHg (35-45); ABG PH 7.27 (7.35-7.45); ABG PO2 90 mmHg (83-108); ABG TCO2 25 mmol/L (19-24)
[2021-09-07 07:59] LABS: Allen Test Performed? NO
[2021-09-07 08:58] LABS: Basophils # (A) 0.1 k/uL (0-0.2); Basophils % (A) 0 %; Eosinophils % (A) 0 %; HCT 47.1 % (39.0-53.0); Lymphocytes # (A) 0.4 k/uL (1.0-4.8); Lymphocytes % (A) 1 %; MCH 33.2 pg (25.0-35.0); MCHC 34.1 g/dL (31.0-37.0); MCV 97.4 fL (80.0-100.0); Mean Platelet Volume 7.8; Monocytes # (A) 1.2 k/uL (0-1.0); Monocytes % (A) 4 %; Neutrophils # (A) 27.7 k/uL (1.3-7.7); Neutrophils % (A) 94 %; Platelet Count 357 k/uL (150-450); RBC 4.83 m/uL (4.30-5.90); RDW 13.5 % (11.5-15.5); WBC 29.5 k/uL (3.8-10.6)
[2021-09-07] MEDS: SPIRONOLACTONE 25 MG TAB PO SCH (09:29)
[2021-09-07] MEDS: CLOPIDOGREL 75 MG TAB PO SCH (09:29)
[2021-09-07] MEDS: FAMOTIDINE 20 MG TAB PO SCH (09:29)
[2021-09-07] MEDS: METOPROLOL TARTRATE 12.5 MG TAB PO SCH (09:29)
[2021-09-07] MEDS: OXYBUTYNIN CHLORIDE 5 MG TAB PO SCH ×2 (09:30→20:43)
[2021-09-07] MEDS: CHLORHEXIDINE GLUCONATE 15 ML CUP MUCOUS MEM SCH ×2 (09:30→20:44)
[2021-09-07] MEDS: FUROSEMIDE 10 MG/ML 4 ML VIAL IV SCH ×2 (09:35→20:43)
[2021-09-07 10:07] LABS: Glucose,Whole Blood 218 mg/dL (75-99)
[2021-09-07] MEDS ORDERED: INSULIN REGULAR 100 UNIT/ML VIAL (IV) IV ONE (10:15)
[2021-09-07] MEDS: AMIODARONE 450 MG in DEXTROSE 5% IN WATER 250 ML IV SCH ×8 (11:18→12:25)
[2021-09-07 11:51] LABS: Glucose,Whole Blood 226 mg/dL (75-99)
--- NOTE | 2021-09-07 11:53 | PN ---
PROGRESS NOTE This gentleman has ischemic cardiomyopathy, paroxysmal atrial fibrillation. He came in yesterday to the hospital with some shortness of breath, was found to be in atrial fibrillation with a controlled ventricular rate, then he went on to have echocardiogram; while in the echo he received Lumason to optimize the echo images and developed a cardiac arrest with some shortness of breath that He had pulseless ventricular ectopic activity. Then after prolonged CPR he is here in the ICU. Neurological status is still not assessed. Patient remains hemodynamically unstable on over 20 mcg of Levophed. Urine output is marginal. His potassium is up to 6.0. This is being addressed with bicarb and glucose and insulin also. He will be receiving Lokelma to lower the potassium. Nephrology has also been requested to consult. Creatinine is up to 1.8. Troponin is up to 1.9. Both values are about the same. Chest x-ray suggests that there is a developing infiltrate as well. Overall prognosis remains quite poor for this gentleman with recent cardiac arrest and CPR. He probably may have some aspiration pneumonia. There is a left basilar acute infiltrate as well in the lungs. On Levophed, his blood pressure is about 100 systolic. Pulse rate is 80. Rhythm appears to be sinus, although he has been in intermittent atrial fibrillation. Heart exam reveals S1, S2 heard normally. Lungs reveal respiratory-assisted breath sounds. Abdomen is soft. Lower extremities reveal diminished pulses. IMPRESSION: 1. Ischemic cardiomyopathy. 2. Paroxysmal atrial fibrillation. 3. Cardiac arrest following Lumason administration to optimize echo images. 4. History of type 2 diabetes mellitus. 5. Hyperlipidemia. 6. Status post PCI of LAD in February of this year. RECOMMENDATIONS: Prognosis remains poor. We will reduce the potassium level with bicarb and glucose/insulin and continue supportive care for now. Echo revealed ejection fraction in the 25% range. Prognosis remains poor. Will speak to the family when they are available. MMODL / IJN: [id number] /
--- NOTE | 2021-09-07 12:54 | CONS ---
CONSULTATION REASON FOR CONSULT: Renal failure. HISTORY OF PRESENT ILLNESS: Patient is a 66-year-old male who is status post cardiac arrest. This occurred while patient was having an echocardiogram and received Lumason. He had CPR and was eventually brought into the ICU. Patient remains on the vent. He also has aspiration pneumonia. He is maintained on Levophed, as he had been hypotensive with atrial fibrillation with RVR as well. Patient's urine output dropped. Initially it was only 5 to 2 mL/hour. Now it seems to be at 15 to 18 mL/hour. Patient was just started on IV Lasix today. Serum potassium was elevated at 6.0 this morning. Patient is maintained on small dose of lisinopril as well as Aldactone. PAST MEDICAL HISTORY: Significant for hypertension, atrial fibrillation, hyperlipidemia, history of AK, osteoarthritis, obstructive sleep apnea. PAST SURGICAL HISTORY: Cholecystectomy, hernia repair, cardioversion, bilateral knee arthroplasty, umbilical hernia repair, removal of kidney stones, cardioversion, cardiac ablation. SOCIAL HISTORY: Patient is a former smoker. No history of drug abuse or alcohol abuse. MEDICATIONS: Medications prior to admission included Zestril, oxybutynin, metformin, Nitrostat, Xanax, Eliquis, metoprolol, spironolactone, Lasix. ALLERGIES: ALLERGIES include TAPE, which causes rash and hives. REVIEW OF SYSTEMS: Negative for any ongoing GI bleed. Patient remains on the vent. He is sedated and paralyzed. LABS: Sodium 136, potassium 6.0, chloride 103, BUN 32, serum creatinine 1.8. Troponin 1.9. ASSESSMENT: 1. Acute kidney injury secondary to hypotension, cardiac arrest, hypoperfusion, currently oliguric. Agree with Lasix. If urine output does not steel pickler, I will give him a higher dose of Lasix. Continue with pressor support. No nephrotoxic agents on board. 2. Status post cardiac arrest after receiving Lumason for echocardiogram. 3. Hyperkalemia associated with acute kidney injury; started on IV Lasix. Will give one dose of Lokelma. 4. Atrial fibrillation with rapid ventricular response, maintained on IV amiodarone. 5. Dyslipidemia. 6. History of coronary artery disease. PLAN: Lokelma x1. Repeat higher dose of Lasix later on today. Treat hyperglycemia, as it will worsen the hyperkalemia, and repeat labs again this evening and in the morning. Thank you for this consultation. Will continue to follow the patient with you during his hospitalization. MMODL / IJN: [id number] /
[2021-09-07] MEDS ORDERED: SODIUM ZIRCONIUM CYCLOSILICATE 10 GM PACKET PO ONE (13:00)
--- NOTE | 2021-09-07 13:00 | P.PN ---
Subjective Progress Note Date: 09/07/21 Principal diagnosis: Cardiac arrest This is a 66-year-old white male with history of coronary artery disease, ischemic cardiomyopathy, patient had previous stent placement in [facility]AD back in February 2021, his also known to have history of chronic atrial fibrillation, hypertension, dyslipidemia, patient was admitted on 09/05/2021, mostly with symptoms of chest pain. Patient described the chest pain as severe, woke him up in the morning around 5:40 AM, and pain was radiating to the left shoulder. Across his back. Patient had similar chest pain previously when he had previous CT. Patient was seen by cardiology, and the recommendation was to do an echocardiogram, and recommended reevaluation after his echocardiogram and stress test.apparently the patient was getting an echocardiogram,Just after receiving his lumason, patient went unresponsive, and he went pulseless. Chest co mpression was started immediately by nursing staff, his initial rhythm was pulseless electrical activity, patient received multiple rounds of epinephrine, and he received multiple fibrillations. And multiple shocks were given. Patient had high quality CPR, and ACLS protocol was followed. Patient received 2 amiodarone boluses, he was shocked you times, and eventually there was return of spontaneous circulation, in the meantime patient was intubated, transferred to the ICU, and I was asked to see him on consultation. In the ICU, patient was hypotensive, required placement of right femoral central line, and he required an arterial line/left radial. His ventilator settings were noted to be initially on the percent FiO2, tidal volume is 500, rate of 20, PEEP was increased from 5-10. And ABG was pending. Reevaluated today on 09/07/2021, patient remains in the ICU intubated and mechanically ventilated, his assist-control rate is 26 FiO2 is down to 55%, PEEP is 10 tidal volume is 500. ABG showed a pO2 of 90 pCO2 51 pH of 7.27. WBC count is elevated at 29.5 hemoglobin 16. Electrolytes showed elevated potassium of 6.0. Worsening renal profile with a BUN of 32 creatinine 1.8. Patient is being followed by nephrology. Chest x-ray showed left basilar infiltrate or atelectasis. With a small left pleural effusion. Right lung is relatively clear. Patient remains on multiple drips, including amiodarone at 0.5 mg/m, he is on Nimbex, propofol at 40, is also on heparin drip. And norepinephrine. Blood pressure remains marginal with systolic of 97 diastolic of 54, urine output is also marginal about 15 mL per hour. Troponin today is 1.9, patient is being followed by cardiology. Patient is yet to be started on enteral feeding today, and I'm recommending stopping his Nimbex today for at least assessment of mental status if possible. In the meantime neurology was consulted, I strongly believe the patient must have sustained significant brain injury from his prolonged cardiac arrest. Objective - Vital Signs Vital signs: Vital Signs Temp 99.8 F H 09/07/21 08:00 Pulse 85 09/07/21 10:30 Resp 26 H 09/07/21 10:30 BP 115/67 09/06/21 16:30 Pulse Ox 94 L 09/07/21 10:30 Intake & Output 09/06/21 09/07/21 09/07/21 18:59 06:59 18:59 Intake Total 5934.441 7086.608 391.308 Output Total 12 177 69 Balance 091.907 5128.608 322.308 Weight 144 kg 144 kg Intake: IV 1000 1090 10 .9 @ 10 mL/hr 90 10 bOLUS 1000 1000 Intake, IV Titration 0.439 846.608 381.308 Amount Amiodarone 450 mg In 18.334 Dextrose 5% in Water 250 ml @ 0.5 MG/MIN 16.667 mls/hr IV .Q15H [facility] Rx#: [id number] Cisatracurium 200 mg In 97.399 40.117 Sodium Chloride 0.9% 180 ml @ 2 MCG/KG/MIN 16.602 mls/hr IV .Q12H3M [facility] Rx# :[id number] Heparin Sod,Pork in 0.45% 220.087 94.245 NaCl 25,000 unit In 0.45 % NaCl 1 250ml.bag @ 16. 625 UNITS/KG/HR 23 mls/hr IV .[id number] [facility] Rx#: [id number] Norepinephrine 4 mg In 0.439 Sodium Chloride 0.9% 250 ml @ 0.05 MCG/KG/MIN 26. 355 mls/hr IV .Q9H39M [facility] Rx#:[id number] Norepinephrine 4 mg In 254 128.612 Sodium Chloride 0.9% 250 ml @ 0.05 MCG/KG/MIN 26. 355 mls/hr IV .Q9H39M [facility] Rx#:[id number] propofoL 1,000 mg In 275.122 100 Empty Bag 1 bag @ Titrate IV .Q0M [facility] Rx#: [id number] Output: Urine 12 177 69 Other: Voiding Method Indwelling Catheter Indwelling Catheter Indwelling Catheter # Voids 1 ABP, PAP, CO, CI - Last Documented Arterial Blood Pressure 97/54 - Exam GENERAL: revealed a 66-year-old white male. intubated and mechanically ventilated. head:atraumatic normocephalic. HEENT: Head is normocephalic. Pupils are equal, round. Sclerae anicteric. Mucous membranes of the mouth are moist. Neck supple. No JVD or thyromegaly LUNGS: .Diminished breath sounds and crackles bilaterally noted. HEART: Irregular rate and rhythm. S1 and S2 heard. ABDOMEN: Soft. Nondistended. Nontender. EXTREMITIES: Normal range of motion. No clubbing or cyanosis. Peripheral pulses intact. No lower extremity edema NEUROLOGIC: could not be assessed, patient is sedated, on propofol, and on Nimbex which will be discontinued Psychiatric: could not be assessed. - Labs CBC & Chem 7: 09/07/21 04:50 09/07/21 04:50 Labs: Abnormal Lab Results - Last 24 Hours (Table) 09/06/21 09/06/21 09/06/21 Range/Units 04:39 14:24 16:30 WBC 16.4 H (3.8-10.6) k/uL Neutrophils # (1.3-7.7) k/uL Neutrophils # (Manual) 13.90 H (1.3-7.7) k/uL Lymphocytes # (1.0-4.8) k/uL Monocytes # (0-1.0) k/uL APTT (22.0-30.0) sec ABG pH (7.35-7.45) ABG pCO2 (35-45) mmHg ABG pO2 (83-108) mmHg ABG Total CO2 (19-24) mmol/L ABG O2 Saturation (94-97) % Sodium (137-145) mmol/L Potassium (3.5-5.1) mmol/L Carbon Dioxide (22-30) mmol/L BUN (9-20) mg/dL Creatinine (0.66-1.25) mg/dL Glucose (74-99) mg/dL POC Glucose (mg/dL) 141 H (75-99) mg/dL Magnesium (1.6-2.3) mg/dL Alkaline Phosphatase (38-126) U/L Troponin I (0.000-0.034) ng/mL Total Protein (6.3-8.2) g/dL Albumin (3.5-5.0) g/dL HDL Cholesterol 29.60 L (40.00-60.00) mg/dL 09/06/21 09/06/21 09/06/21 Range/Units 16:30 16:58 17:20 WBC (3.8-10.6) k/uL Neutrophils # (1.3-7.7) k/uL Neutrophils # (Manual) (1.3-7.7) k/uL Lymphocytes # (1.0-4.8) k/uL Monocytes # (0-1.0) k/uL APTT 20.5 L (22.0-30.0) sec ABG pH 7.23 L (7.35-7.45) ABG pCO2 57 H (35-45) mmHg ABG pO2 73 L (83-108) mmHg ABG Total CO2 26 H (19-24) mmol/L ABG O2 Saturation 91.3 L (94-97) % Sodium (137-145) mmol/L Potassium (3.5-5.1) mmol/L Carbon Dioxide (22-30) mmol/L BUN 23 H (9-20) mg/dL Creatinine (0.66-1.25) mg/dL Glucose 200 H (74-99) mg/dL POC Glucose (mg/dL) (75-99) mg/dL Magnesium 5.1 H* (1.6-2.3) mg/dL Alkaline Phosphatase 132 H (38-126) U/L Troponin I (0.000-0.034) ng/mL Total Protein 5.8 L (6.3-8.2) g/dL Albumin 3.4 L (3.5-5.0) g/dL HDL Cholesterol (40.00-60.00) mg/dL 11/15/21 11/15/21 11/15/21 Range/Units 17:48 20:50 23:35 WBC (3.8-10.6) k/uL Neutrophils # (1.3-7.7) k/uL Neutrophils # (Manual) (1.3-7.7) k/uL Lymphocytes # (1.0-4.8) k/uL Monocytes # (0-1.0) k/uL APTT 106.3 H* (22.0-30.0) sec ABG pH (7.35-7.45) ABG pCO2 (35-45) mmHg ABG pO2 (83-108) mmHg ABG Total CO2 (19-24) mmol/L ABG O2 Saturation (94-97) % Sodium (137-145) mmol/L Potassium (3.5-5.1) mmol/L Carbon Dioxide (22-30) mmol/L BUN (9-20) mg/dL Creatinine (0.66-1.25) mg/dL Glucose (74-99) mg/dL POC Glucose (mg/dL) 168 H (75-99) mg/dL Magnesium (1.6-2.3) mg/dL Alkaline Phosphatase (38-126) U/L Troponin I 1.920 H* (0.000-0.034) ng/mL Total Protein (6.3-8.2) g/dL Albumin (3.5-5.0) g/dL HDL Cholesterol (40.00-60.00) mg/dL 09/07/21 09/07/21 09/07/21 Range/Units 00:55 04:50 04:50 WBC 29.5 H (3.8-10.6) k/uL Neutrophils # 27.7 H (1.3-7.7) k/uL Neutrophils # (Manual) (1.3-7.7) k/uL Lymphocytes # 0.4 L (1.0-4.8) k/uL Monocytes # 1.2 H (0-1.0) k/uL APTT (22.0-30.0) sec ABG pH (7.35-7.45) ABG pCO2 (35-45) mmHg ABG pO2 (83-108) mmHg ABG Total CO2 (19-24) mmol/L ABG O2 Saturation (94-97) % Sodium 136 L (137-145) mmol/L Potassium 6.0 H (3.5-5.1) mmol/L Carbon Dioxide 21 L (22-30) mmol/L BUN 32 H (9-20) mg/dL Creatinine 1.80 H (0.66-1.25) mg/dL Glucose 210 H (74-99) mg/dL POC Glucose (mg/dL) 179 H (75-99) mg/dL Magnesium 3.9 H (1.6-2.3) mg/dL Alkaline Phosphatase (38-126) U/L Troponin I (0.000-0.034) ng/mL Total Protein 5.9 L (6.3-8.2) g/dL Albumin 3.4 L (3.5-5.0) g/dL HDL Cholesterol (40.00-60.00) mg/dL 09/07/21 09/07/21 09/07/21 Range/Units 04:50 05:45 07:55 WBC (3.8-10.6) k/uL Neutrophils # (1.3-7.7) k/uL Neutrophils # (Manual) (1.3-7.7) k/uL Lymphocytes # (1.0-4.8) k/uL Monocytes # (0-1.0) k/uL APTT (22.0-30.0) sec ABG pH 7.27 L (7.35-7.45) ABG pCO2 51 H (35-45) mmHg ABG pO2 (83-108) mmHg ABG Total CO2 25 H (19-24) mmol/L ABG O2 Saturation (94-97) % Sodium (137-145) mmol/L Potassium (3.5-5.1) mmol/L Carbon Dioxide (22-30) mmol/L BUN (9-20) mg/dL Creatinine (0.66-1.25) mg/dL Glucose (74-99) mg/dL POC Glucose (mg/dL) 242 H (75-99) mg/dL Magnesium (1.6-2.3) mg/dL Alkaline Phosphatase (38-126) U/L Troponin I 1.920 H* (0.000-0.034) ng/mL Total Protein (6.3-8.2) g/dL Albumin (3.5-5.0) g/dL HDL Cholesterol (40.00-60.00) mg/dL 09/07/21 09/07/21 09/07/21 Range/Units 10:06 10:13 11:49 WBC (3.8-10.6) k/uL Neutrophils # (1.3-7.7) k/uL Neutrophils # (Manual) (1.3-7.7) k/uL Lymphocytes # (1.0-4.8) k/uL Monocytes # (0-1.0) k/uL APTT 154.5 H* (22.0-30.0) sec ABG pH (7.35-7.45) ABG pCO2 (35-45) mmHg ABG pO2 (83-108) mmHg ABG Total CO2 (19-24) mmol/L ABG O2 Saturation (94-97) % Sodium (137-145) mmol/L Potassium (3.5-5.1) mmol/L Carbon Dioxide (22-30) mmol/L BUN (9-20) mg/dL Creatinine (0.66-1.25) mg/dL Glucose (74-99) mg/dL POC Glucose (mg/dL) 218 H 226 H (75-99) mg/dL Magnesium (1.6-2.3) mg/dL Alkaline Phosphatase (38-126) U/L Troponin I (0.000-0.034) ng/mL Total Protein (6.3-8.2) g/dL Albumin (3.5-5.0) g/dL HDL Cholesterol (40.00-60.00) mg/dL Assessment and Plan Assessment: Impression: Cardiac arrest, possible non-ST elevation myocardial infarction. Acute hypoxic respiratory failure secondary to cardiac arrest. History of underlying coronary artery disease and previous stent placement. Suspect anoxic brain injury. Patient had a prolonged CPR. Was over half an hour. Acute kidney injury, suspect acute tubular necrosis secondary to hypotension secondary to cardiac arrest and ischemic cardiomyopathy with LV dysfunction. Hypotension secondary to ischemic cardiomyopathy and LV dysfunction. Recommendation: Continue ventilatory support. Continue hemodynamic support. Start the nutritional support. Will start enteral feeding. GI and DVT prophylaxis. Continue heparin. Nephrology consultation for his acute tubular necrosis Neurology consultation for possible anoxic brain injury. Overall prognosis is extremely poor and guarded. was made aware of his status yesterday during my discussion with her. Will hold Nimbex and possibly titrate propofol down to assess mental status today. We will continue to follow and address his neurological status and cardiac stat us on a daily basis. Empiric antibiotics/Zosyn for possible aspiration. We will continue to follow. Critical care time is over over 30 minutes Time with Patient: Greater than 30
[2021-09-07] MEDS: ARTIFICIAL TEARS-HYPROMELLOSE DROPS 15 ML BTL BOTH EYES SCH ×2 (13:32→17:51)
[2021-09-07] MEDS: PIPERACILLIN-TAZOBACTAM 3.375 GM in SODIUM CHLORIDE 0.9% 100 ML IVPB SCH ×2 (13:51→22:22)
--- NOTE | 2021-09-07 16:00 | EEG ---
ELECTROENCEPHALOGRAM REPORT DATE OF SERVICE: 09/07/2021 PREAMBLE: This is a 66-year-old male with cardiac arrest. EEG FINDINGS: This is a 21-channel digital EEG recorded with video component, utilizing 10/20 international system with referential and bipolar montages. The background consists of moderately well-developed and regulated, mixed frequencies of somewhat low-amplitude 2- 3 hertz delta with some theta activity seen in bihemispheric region. Some 10-12 hertz low-amplitude alpha activity is seen in the bifrontal region. Photic stimulation was not performed. Different stages of sleep were not seen. No focal or generalized epileptiform activity was seen. IMPRESSION: This is an abnormal EEG due to background slowing of moderate degree. This is suggestive of generalized cerebral dysfunction as can be seen with toxic metabolic encephalopathy or related to diffuse structural brain abnormality. No epileptiform activity was seen. Follow-up EEG recommended, if clinically indicated. MMVALENTINOL / BELLAN: [id number] /
[2021-09-07 17:42] LABS: Calcium 7.7 mg/dL (8.4-10.2); Potassium 5.4 mmol/L (3.5-5.1)
[2021-09-07 17:43] LABS: Glucose,Whole Blood 192 mg/dL (75-99)
--- NOTE | 2021-09-07 18:37 | P.PN ---
Subjective Patient was seen and evaluated by me this morning. He is sedated and intubated. His is at bedside. Objective - Vital Signs Vital signs: Vital Signs Temp 99.5 F 09/07/21 16:00 Pulse 86 09/07/21 17:30 Resp 26 H 09/07/21 17:30 BP 115/67 09/06/21 16:30 Pulse Ox 96 09/07/21 17:30 Intake & Output 09/06/21 09/07/21 09/07/21 18:59 06:59 18:59 Intake Total 5637.090 2598.608 651.308 Output Total 12 177 309 Balance 863.777 0440.608 342.308 Weight 144 kg 144 kg Intake: IV 1000 1090 90 .9 @ 10 mL/hr 90 90 bOLUS 1000 1000 Intake, IV Titration 0.439 846.608 481.308 Amount Amiodarone 450 mg In 18.334 Dextrose 5% in Water 250 ml @ 0.5 MG/MIN 16.667 mls/hr IV .Q15H [facility] Rx#: [id number] Cisatracurium 200 mg In 97.399 40.117 Sodium Chloride 0.9% 180 ml @ 2 MCG/KG/MIN 16.602 mls/hr IV .Q12H3M [facility] Rx# :[id number] Heparin Sod,Pork in 0.45% 220.087 94.245 NaCl 25,000 unit In 0.45 % NaCl 1 250ml.bag @ 16. 625 UNITS/KG/HR 23 mls/hr IV .[id number] [facility] Rx#: [id number] Norepinephrine 4 mg In 0.439 Sodium Chloride 0.9% 250 ml @ 0.05 MCG/KG/MIN 26. 355 mls/hr IV .Q9H39M [facility] Rx#:[id number] Norepinephrine 4 mg In 254 128.612 Sodium Chloride 0.9% 250 ml @ 0.05 MCG/KG/MIN 26. 355 mls/hr IV .Q9H39M [facility] Rx#:[id number] propofoL 1,000 mg In 275.122 200 Empty Bag 1 bag @ Titrate IV .Q0M [facility] Rx#: [id number] Tube Feeding 80 Output: Urine 12 177 309 Other: Voiding Method Indwelling Catheter Indwelling Catheter Indwelling Catheter # Voids 1 ABP, PAP, CO, CI - Last Documented Arterial Blood Pressure 103/53 - Exam General: The patient i sedated and intubated Eye: there is normal conjunctiva bilaterally. Neck: The neck is supple, there is no JVD. Cardiovascular: Normal S1-S2, no S3-S4, no murmurs. Respiratory: Lungs clear to auscultation bilaterally Gastrointestinal: Abdomen is soft, nontender Musculoskeletal: There is no pedal edema. Skin: Skin is warm and dry - Labs CBC & Chem 7: 09/07/21 04:50 09/07/21 16:00 Labs: Abnormal Lab Results - Last 24 Hours (Table) 09/06/21 09/06/21 09/06/21 Range/Units 04:39 20:50 23:35 WBC (3.8-10.6) k/uL Neutrophils # (1.3-7.7) k/uL Lymphocytes # (1.0-4.8) k/uL Monocytes # (0-1.0) k/uL APTT 106.3 H* (22.0-30.0) sec ABG pH (7.35-7.45) ABG pCO2 (35-45) mmHg ABG Total CO2 (19-24) mmol/L Sodium (137-145) mmol/L Potassium (3.5-5.1) mmol/L Carbon Dioxide (22-30) mmol/L BUN (9-20) mg/dL Creatinine (0.66-1.25) mg/dL Glucose (74-99) mg/dL POC Glucose (mg/dL) (75-99) mg/dL Calcium (8.4-10.2) mg/dL Magnesium (1.6-2.3) mg/dL Troponin I 1.920 H* (0.000-0.034) ng/mL Total Protein (6.3-8.2) g/dL Albumin (3.5-5.0) g/dL HDL Cholesterol 29.60 L (40.00-60.00) mg/dL 09/07/21 09/07/21 09/07/21 Range/Units 00:55 04:50 04:50 WBC 29.5 H (3.8-10.6) k/uL Neutrophils # 27.7 H (1.3-7.7) k/uL Lymphocytes # 0.4 L (1.0-4.8) k/uL Monocytes # 1.2 H (0-1.0) k/uL APTT (22.0-30.0) sec ABG pH (7.35-7.45) ABG pCO2 (35-45) mmHg ABG Total CO2 (19-24) mmol/L Sodium 136 L (137-145) mmol/L Potassium 6.0 H (3.5-5.1) mmol/L Carbon Dioxide 21 L (22-30) mmol/L BUN 32 H (9-20) mg/dL Creatinine 1.80 H (0.66-1.25) mg/dL Glucose 210 H (74-99) mg/dL POC Glucose (mg/dL) 179 H (75-99) mg/dL Calcium (8.4-10.2) mg/dL Magnesium 3.9 H (1.6-2.3) mg/dL Troponin I (0.000-0.034) ng/mL Total Protein 5.9 L (6.3-8.2) g/dL Albumin 3.4 L (3.5-5.0) g/dL HDL Cholesterol (40.00-60.00) mg/dL 09/07/21 09/07/21 09/07/21 Range/Units 04:50 05:45 07:55 WBC (3.8-10.6) k/uL Neutrophils # (1.3-7.7) k/uL Lymphocytes # (1.0-4.8) k/uL Monocytes # (0-1.0) k/uL APTT (22.0-30.0) sec ABG pH 7.27 L (7.35-7.45) ABG pCO2 51 H (35-45) mmHg ABG Total CO2 25 H (19-24) mmol/L Sodium (137-145) mmol/L Potassium (3.5-5.1) mmol/L Carbon Dioxide (22-30) mmol/L BUN (9-20) mg/dL Creatinine (0.66-1.25) mg/dL Glucose (74-99) mg/dL POC Glucose (mg/dL) 242 H (75-99) mg/dL Calcium (8.4-10.2) mg/dL Magnesium (1.6-2.3) mg/dL Troponin I 1.920 H* (0.000-0.034) ng/mL Total Protein (6.3-8.2) g/dL Albumin (3.5-5.0) g/dL HDL Cholesterol (40.00-60.00) mg/dL 09/07/21 09/07/21 09/07/21 Range/Units 10:06 10:13 11:49 WBC (3.8-10.6) k/uL Neutrophils # (1.3-7.7) k/uL Lymphocytes # (1.0-4.8) k/uL Monocytes # (0-1.0) k/uL APTT 154.5 H* (22.0-30.0) sec ABG pH (7.35-7.45) ABG pCO2 (35-45) mmHg ABG Total CO2 (19-24) mmol/L Sodium (137-145) mmol/L Potassium (3.5-5.1) mmol/L Carbon Dioxide (22-30) mmol/L BUN (9-20) mg/dL Creatinine (0.66-1.25) mg/dL Glucose (74-99) mg/dL POC Glucose (mg/dL) 218 H 226 H (75-99) mg/dL Calcium (8.4-10.2) mg/dL Magnesium (1.6-2.3) mg/dL Troponin I (0.000-0.034) ng/mL Total Protein (6.3-8.2) g/dL Albumin (3.5-5.0) g/dL HDL Cholesterol (40.00-60.00) mg/dL 09/07/21 09/07/21 Range/Units 16:00 17:41 WBC (3.8-10.6) k/uL Neutrophils # (1.3-7.7) k/uL Lymphocytes # (1.0-4.8) k/uL Monocytes # (0-1.0) k/uL APTT (22.0-30.0) sec ABG pH (7.35-7.45) ABG pCO2 (35-45) mmHg ABG Total CO2 (19-24) mmol/L Sodium 133 L (137-145) mmol/L Potassium 5.4 H (3.5-5.1) mmol/L Carbon Dioxide 20 L (22-30) mmol/L BUN 43 H (9-20) mg/dL Creatinine 2.61 H (0.66-1.25) mg/dL Glucose 203 H (74-99) mg/dL POC Glucose (mg/dL) 192 H (75-99) mg/dL Calcium 7.7 L (8.4-10.2) mg/dL Magnesium (1.6-2.3) mg/dL Troponin I (0.000-0.034) ng/mL Total Protein (6.3-8.2) g/dL Albumin (3.5-5.0) g/dL HDL Cholesterol (40.00-60.00) mg/dL Assessment and Plan Assessment: This is a 66-year-old male with complex past medical history noted below who presented to the hospital originally with a chief complaint of back pain and shoulder pain. Given prior history of coronary artery disease patient was placed on observation and ACS was ruled out. He was seen and evaluated by cardiology. He was doing fairly well up until 09/06 in the afternoon and he was found unresponsive right after finishing an echocardiogram and he went into a cardiac arrest requiring a prolonged resuscitation with successful ROSC. Patient was intubated and admitted to the ICU. Below is a list of his medical problems at this hospitalization. 1. PA cardiac arrest requiring prolonged resuscitation with successful ROSC 2. Acute hypoxic respiratory failure requiring intubation and mechanical v entilation secondary to above 3. Cardiogenic shock requiring norepinephrine, currently on the low dose 4. Coronary artery disease with prior stent and underlying ischemic cardiomyopathy with known EF of 20-25% 5. Chronic atrial fibrillation with prior ablation on anticoagulation currently with IV heparin drip 6. Acute kidney injury with hyperkalemia with possible ATN probably secondary to cardiac event. Nephrology consulted for further evaluation Today, I reviewed his medication list and lab work results. Plan for sedation holiday to assess mentation. Neurology consulted as well to help assess any underlying hypoxic brain injury. We will continue ICU care otherwise. Appreciate analytics consultant's recommendations. Patient's at bedside updated about his current critical condition.
--- NOTE | 2021-09-07 19:30 | XR ---
EXAMINATION TYPE: XR abdomen 1V DATE OF EXAM: 09/07/2021 6:47 PM CLINICAL HISTORY: NG tube placement TECHNIQUE: Supine images of the abdomen and pelvis were obtained COMPARISON: None. FINDINGS: Enteric tube distal tip over the left upper quadrant over the gastric fundus. The side-port is not discretely visualized. There is a catheter tip over the right hemipelvis, incompletely visual ized. Right upper quadrant surgical clips. Nonspecific bowel gas pattern. Degenerative changes of the spine. IMPRESSION: 1. Enteric tube distal tip over the gastric fundus. Side-port not discretely seen. 2. Catheter tip over the right hemipelvis.
[2021-09-07] MEDS: ATORVASTATIN 80 MG TAB PO SCH (20:43)
--- NOTE | 2021-09-07 20:54 | P.CNNES ---
History of Present Illness Consult date: 09/07/21 Requesting physician: Von Isidro Reason for Consult: anoxic brain injury History of Present Illness: Patient is a 66-year-old male with history of previous NE, atrial fibrillation, diabetes, hypertension, hyperlipidemia, STEFFANIE came to the hospital on 09/05/2021 for upper back and shoulder pain. Patient had experienced similar spell with his previous NE. Patient's vital signs on arrival blood pressure 130/82, pulse is 71, temperature 97.9. Patient was diagnosed with possible atypical chest pain, chronic atrial fibrillation. Patient had a CODE BLUE activated yesterday at around 3 PM-patient while getting an echocardiogram and right after receiving Lumison patient went unresponsive and was found to be pulseless. Chest compressions started immediately by nursing staff. Initial rhythm was PEA arrest and patient received multiple rounds of epinephrine and subsequently he was noted to be in V. fib and what yamila ears to be torsades de Pointes, then to V. fib on the monitor. Patient received multiple shocks, received two amiodarone boluses and subsequently shocked one last time with ROSC with what appears to be atrial fibrillation on the monitor. The CPR was initiated immediately at the time of cardiac arrest. The downtime was reported as between 30-40 minutes that CPR was continued. Patient was intubated. Patient transferred to the ICU. Patient's most recent blood test shows to be busy 29.5, hemoglobin 16.0, platelets 357. PTT is 154.5. ABG showing pH of 7.27, pCO2 51, pO2 90. Sodium 136 potassium 6.0, BUN 32, creatinine 1.80. Hepatic panel is normal, troponin is elevated 1.920. Patient is currently on propofol 40 mcg/kg gram per minute. Also on Levophed 0.08. Patient was on Nimbex, which has been discontinued earlier. Also on heparin IV. Review of Systems ROS unobtainable: due to endotracheal tube, due to mental status Past Medical History Past Medical History: Atrial Fibrillation, Diabetes Mellitus, GERD/Reflux, Hyperlipidemia, Hypertension, Myocardial Infarction (NE), Osteoarthritis (OA), Renal Disease, Sleep Apnea/CPAP/BIPAP Additional Past Medical History / Comment(s): kidney stones, Last Myocardial Infarction Date:: 03/07/2021 History of Any Multi-Drug Resistant Organisms: None Reported Past Surgical History: Cholecystectomy, Hernia Repair, Joint Replacement Additional Past Surgical History / Comment(s): 10/2015 cardioversion, bilateral total knee arthroplasty, umbilical hernia repair, removal of kidney stones, cardioversion X3, Cardiac Ablation. Past Anesthesia/Blood Transfusion Reactions: No Reported Reaction Additional Past Anesthesia/Blood Transfusion Reaction / Comment(s): difficul intubation Past Psychological History: No Psychological Hx Reported Smoking Status: Former smoker Past Alcohol Use History: Rare Additional Past Alcohol Use History / Comment(s): started smoking at age 18 or 19yrs. quit in Past Drug Use History: None Reported - Past Family History Mother Family Medical History: No Reported History Additional Family Medical History / Comment(s): Mother is 84 yrs old. Father Family Medical History: Cancer Additional Family Medical History / Comment(s): BLADDER CANCER . Medications and Allergies Home Medications Medication Instructions Recorded Confirmed Type Oxybutynin Chloride 5 mg PO BID 11/04/15 09/05/21 History lisinopriL [Zestril] 5 mg PO BID 06/08/18 09/05/21 History Albuterol Sulfate [Proair Hfa] 2 puff INHALATION RT-QID PRN 03/07/21 09/05/21 Hi story metFORMIN HCL [Glucophage] 500 mg PO AC-BID 03/07/21 09/05/21 History Atorvastatin [Lipitor] 80 mg PO HS 03/14/21 09/05/21 History Nitroglycerin Sl Tabs [Nitrostat] 0.4 mg SUBLINGUAL Q5M PRN #30 tab 03/14/21 09/05/21 Rx ALPRAZolam [Xanax] 0.25 mg PO DAILY PRN 09/05/21 09/05/21 History Acetaminophen [Tylenol Extra 500 mg PO Q6H PRN 09/05/21 09/05/21 History Strength] Apixaban [Eliquis] 5 mg PO BID 09/05/21 09/05/21 History Fluticasone Nasal [place] [Flonase 1 spray EA NOSTRIL DAILY PRN 09/05/21 09/05/21 History Nasal [place]] Furosemide [Lasix] 20 mg PO BID 09/05/21 09/05/21 History Metoprolol Tartrate [Lopressor] 25 mg PO DAILY 09/05/21 09/05/21 History Spironolactone 25 mg PO DAILY 09/05/21 09/05/21 History Allergies Allergy/AdvReac Type Severity Reaction Status Date / Time adhesive tape Allergy Rash/Hives Verified 09/05/21 11:47 sulfur hexafluoride Allergy Unknown Verified 09/06/21 17:23 microspheres [From Lumason] tape AdvReac BLISTERS, Uncoded 09/05/21 11:47 SKIN PEELS Physical Examination - Vital Signs Vital Signs: Vital Signs Temp Pulse Resp BP Pulse Ox 09/07/21 13:30 78 26 H 96 09/07/21 13:15 79 26 H 96 09/07/21 13:00 79 26 H 96 09/07/21 12:45 80 27 H 96 09/07/21 12:30 79 26 H 96 09/07/21 12:15 80 26 H 96 09/07/21 12:00 78 26 H 96 09/07/21 11:45 77 26 H 94 L 09/07/21 11:30 75 26 H 96 09/07/21 11:15 76 26 H 95 09/07/21 11:00 90 26 H 95 09/07/21 10:45 83 26 H 95 09/07/21 10:30 85 26 H 94 L 09/07/21 10:15 88 26 H 94 L 09/07/21 10:00 88 24 96 09/07/21 09:45 88 15 95 09/07/21 09:30 89 24 95 09/07/21 09:15 89 24 95 09/07/21 09:00 85 24 94 L 09/07/21 08:45 84 24 94 L 09/07/21 08:30 84 24 94 L 09/07/21 08:15 84 24 94 L 09/07/21 08:00 99.8 F H 82 24 94 L 09/07/21 07:45 82 24 93 L 09/07/21 07:30 82 24 94 L 09/07/21 07:15 81 24 94 L 09/07/21 07:00 82 24 94 L 09/07/21 06:45 81 24 94 L 09/07/21 06:30 80 24 93 L 09/07/21 06:15 81 24 93 L 09/07/21 06:00 79 24 94 L 09/07/21 05:45 80 24 93 L 09/07/21 05:30 77 24 93 L 09/07/21 05:15 79 24 94 L 09/07/21 05:00 78 24 94 L 09/07/21 04:45 75 24 93 L 09/07/21 04:30 75 24 94 L 09/07/21 04:15 75 24 93 L 09/07/21 04:00 98.6 F 73 24 93 L 09/07/21 03:45 73 24 93 L 09/07/21 03:30 72 24 94 L 09/07/21 03:15 71 24 93 L 09/07/21 03:00 71 24 93 L 09/07/21 02:45 71 24 93 L 09/07/21 02:30 72 24 93 L 09/07/21 02:15 69 24 94 L 09/07/21 02:00 69 24 93 L 09/07/21 01:45 62 24 94 L 09/07/21 01:30 71 24 94 L 09/07/21 01:15 73 24 95 09/07/21 01:00 74 24 95 09/07/21 00:45 74 24 95 09/07/21 00:30 73 24 94 L 09/07/21 00:29 73 24 94 L 09/07/21 00:15 71 24 94 L 09/07/21 00:00 98.8 F 72 24 94 L 09/06/21 23:45 73 24 94 L 09/06/21 23:30 72 24 94 L 09/06/21 23:15 70 24 95 09/06/21 23:00 71 24 95 09/06/21 22:45 74 5 L 98 09/06/21 22:30 70 24 96 09/06/21 22:15 70 24 96 09/06/21 22:00 82 24 97 09/06/21 21:45 69 24 97 09/06/21 21:30 68 24 96 09/06/21 21:15 65 24 96 09/06/21 21:00 66 24 97 09/06/21 20:45 60 24 96 09/06/21 20:30 61 24 96 09/06/21 20:15 64 24 96 09/06/21 20:00 98.7 F 65 24 96 09/06/21 19:45 70 24 97 09/06/21 19:30 71 16 96 09/06/21 19:15 74 24 96 09/06/21 19:00 82 24 97 09/06/21 18:45 81 25 H 95 09/06/21 18:30 82 24 94 L 09/06/21 18:15 83 24 93 L 09/06/21 18:00 82 24 93 L 09/06/21 17:45 81 20 93 L 09/06/21 17:30 80 20 92 L 09/06/21 17:15 79 20 93 L 09/06/21 17:00 84 21 93 L 09/06/21 16:45 95 21 94 L 09/06/21 16:30 86 27 H 115/67 94 L 09/06/21 16:15 64 25 H 85/42 89 L 09/06/21 16:00 62 30 H 82/33 83 L 09/06/21 15:45 73 28 H 09/06/21 15:41 32 H Intake and Output 09/06/21 09/07/21 09/07/21 22:59 06:59 14:59 Intake Total 2133.984 803.063 521.308 Output Total 39 150 174 Balance 2094.984 653.063 347.308 Intake: IV 2010 80 40 .9 @ 10 mL/hr 10 80 40 bOLUS 2000 Intake, IV Titration 123.984 723.063 481.308 Amount Amiodarone 450 mg In 18.334 Dextrose 5% in Water 250 ml @ 0.5 MG/MIN 16.667 mls/hr IV .Q15H [facility] Rx#: [id number] Cisatracurium 200 mg In 66.685 30.714 40.117 Sodium Chloride 0.9% 180 ml @ 2 MCG/KG/MIN 16.602 mls/hr IV .Q12H3M [facility] Rx# :[id number] Heparin Sod,Pork in 0.45% 220.087 94.245 NaCl 25,000 unit In 0.45 % NaCl 1 250ml.bag @ 16. 625 UNITS/KG/HR 23 mls/hr IV .[id number] [facility] Rx#: [id number] Norepinephrine 4 mg In 0.439 Sodium Chloride 0.9% 250 ml @ 0.05 MCG/KG/MIN 26. 355 mls/hr IV .Q9H39M [facility] Rx#:[id number] Norepinephrine 4 mg In 254 128.612 Sodium Chloride 0.9% 250 ml @ 0.05 MCG/KG/MIN 26. 355 mls/hr IV .Q9H39M [facility] Rx#:[id number] propofoL 1,000 mg In 56.860 218.262 200 Empty Bag 1 bag @ Titrate IV .Q0M [facility] Rx#: [id number] Output: Urine 39 150 174 Other: Voiding Method Indwelling Catheter Indwelling Catheter Indwelling Catheter Weight 144 kg 144 kg ABP, PAP, CO, CI - Last 8 Hours Arterial Blood Pressure 101/55 Arterial Blood Pressure 100/55 Arterial Blood Pressure 104/57 Arterial Blood Pressure 100/55 Arterial Blood Pressure 99/55 Arterial Blood Pressure 102/56 Arterial Blood Pressure 100/55 Arterial Blood Pressure 93/52 Arterial Blood Pressure 95/53 Arterial Blood Pressure 99/55 Arterial Blood Pressure 112/62 Arterial Blood Pressure 97/54 Arterial Blood Pressure 98/54 Arterial Blood Pressure 103/55 Arterial Blood Pressure 93/51 Arterial Blood Pressure 93/52 Arterial Blood Pressure 94/52 Arterial Blood Pressure 87/49 Arterial Blood Pressure 97/58 Arterial Blood Pressure 107/59 Arterial Blood Pressure 106/60 Arterial Blood Pressure 107/59 Arterial Blood Pressure 107/59 Arterial Blood Pressure 103/58 Arterial Blood Pressure 102/59 Arterial Blood Pressure 109/61 Arterial Blood Pressure 109/60 Arterial Blood Pressure 108/66 Arterial Blood Pressure 108/60 Arterial Blood Pressure 108/60 Patient is an elderly male, who is intubated, comatose, GCS of 3. Patient is also sedated. Patient is on a mechanical ventilator, sedated. Speech and language functions cannot be tested. On cranial examination, pupils are round and reacting to light, visual mejia cannot be tested, oculocephalics are almost absent. Corneal reflexes absent. Per nurse, patient is breathing over the ventilator. Lower cranial nerves cannot be assessed. Muscle strength cannot be assessed. Tone is equal bilaterally. Patient does not respond to painful stimuli in the upper limbs, although had slight withdrawal response in bilateral feet with nailbed pressure. Deep tendon reflexes are hypoactive and plantars are flat bilaterally. Sensory to touch cannot be assessed. Cerebellar function and gait cannot be checked. On general examination, there is no carotid bruit or murmur, S1-S2 audible. Abdomen is soft. Chest is clear. No edema. Results - Laboratory Findings CBC and BMP: 09/07/21 04:50 09/07/21 16:00 Abnormal Lab Findings: Abnormal Labs 09/05/21 09/05/21 09/05/21 06:53 06:53 13:10 WBC RBC 4.20 L Hct MCH MPV Neutrophils # Neutrophils # (Manual) Lymphocytes # Monocytes # APTT ABG pH ABG pCO2 ABG pO2 ABG Total CO2 ABG O2 Saturation Sodium Potassium 5.3 H Carbon Dioxide BUN 24 H Creatinine Glucose 132 H POC Glucose (mg/dL) 177 H Hemoglobin A1c Magnesium Total Bilirubin Alkaline Phosphatase Troponin I Total Protein Albumin HDL Cholesterol 09/05/21 09/05/21 09/05/21 13:59 13:59 17:14 WBC RBC Hct MCH MPV Neutrophils # Neutrophils # (Manual) Lymphocytes # Monocytes # APTT ABG pH ABG pCO2 ABG pO2 ABG Total CO2 ABG O2 Saturation Sodium Potassium Carbon Dioxide BUN 25 H Creatinine Glucose 167 H POC Glucose (mg/dL) 105 H Hemoglobin A1c 6.8 H Magnesium Total Bilirubin Alkaline Phosphatase Troponin I Total Protein Albumin HDL Cholesterol 09/05/21 09/06/21 09/06/21 20:31 00:04 04:39 WBC RBC Hct MCH MPV Neutrophils # Neutrophils # (Manual) Lymphocytes # Monocytes # APTT ABG pH ABG pCO2 ABG pO2 ABG Total CO2 ABG O2 Saturation Sodium Potassium Carbon Dioxide BUN 22 H Creatinine Glucose 111 H POC Glucose (mg/dL) 149 H 103 H Hemoglobin A1c Magnesium Total Bilirubin 1.4 H Alkaline Phosphatase Troponin I Total Protein Albumin HDL Cholesterol 29.60 L 09/06/21 09/06/21 09/06/21 04:39 07:23 12:16 WBC RBC 4.01 L Hct 38.9 L MCH 32.4 H MPV 9.2 L Neutrophils # Neutrophils # (Manual) Lymphocytes # Monocytes # APTT ABG pH ABG pCO2 ABG pO2 ABG Total CO2 ABG O2 Saturation Sodium Potassium Carbon Dioxide BUN Creatinine Glucose POC Glucose (mg/dL) 114 H 238 H Hemoglobin A1c Magnesium Total Bilirubin Alkaline Phosphatase Troponin I Total Protein Albumin HDL Cholesterol 09/06/21 09/06/21 09/06/21 14:24 16:30 16:30 WBC 16.4 H RBC Hct MCH MPV Neutrophils # Neutrophils # (Manual) 13.90 H Lymphocytes # Monocytes # APTT ABG pH ABG pCO2 ABG pO2 ABG Total CO2 ABG O2 Saturation Sodium Potassium Carbon Dioxide BUN 23 H Creatinine Glucose 200 H POC Glucose (mg/dL) 141 H Hemoglobin A1c Magnesium 5.1 H* Total Bilirubin Alkaline Phosphatase 132 H Troponin I Total Protein 5.8 L Albumin 3.4 L HDL Cholesterol 09/06/21 09/06/21 09/06/21 16:58 17:20 17:48 WBC RBC Hct MCH MPV Neutrophils # Neutrophils # (Manual) Lymphocytes # Monocytes # APTT 20.5 L ABG pH 7.23 L ABG pCO2 57 H ABG pO2 73 L ABG Total CO2 26 H ABG O2 Saturation 91.3 L Sodium Potassium Carbon Dioxide BUN Creatinine Glucose POC Glucose (mg/dL) 168 H Hemoglobin A1c Magnesium Total Bilirubin Alkaline Phosphatase Troponin I Total Protein Albumin HDL Cholesterol 09/06/21 09/06/21 09/07/21 20:50 23:35 00:55 WBC RBC Hct MCH MPV Neutrophils # Neutrophils # (Manual) Lymphocytes # Monocytes # APTT 106.3 H* ABG pH ABG pCO2 ABG pO2 ABG Total CO2 ABG O2 Saturation Sodium Potassium Carbon Dioxide BUN Creatinine Glucose POC Glucose (mg/dL) 179 H Hemoglobin A1c Magnesium Total Bilirubin Alkaline Phosphatase Troponin I 1.920 H* Total Protein Albumin HDL Cholesterol 09/07/21 09/07/21 09/07/21 04:50 04:50 04:50 WBC 29.5 H RBC Hct MCH MPV Neutrophils # 27.7 H Neutrophils # (Manual) Lymphocytes # 0.4 L Monocytes # 1.2 H APTT ABG pH ABG pCO2 ABG pO2 ABG Total CO2 ABG O2 Saturation Sodium 136 L Potassium 6.0 H Carbon Dioxide 21 L BUN 32 H Creatinine 1.80 H Glucose 210 H POC Glucose (mg/dL) Hemoglobin A1c Magnesium 3.9 H Total Bilirubin Alkaline Phosphatase Troponin I 1.920 H* Total Protein 5.9 L Albumin 3.4 L HDL Cholesterol 09/07/21 09/07/21 09/07/21 05:45 07:55 10:06 WBC RBC Hct MCH MPV Neutrophils # Neutrophils # (Manual) Lymphocytes # Monocytes # APTT ABG pH 7.27 L ABG pCO2 51 H ABG pO2 ABG Total CO2 25 H ABG O2 Saturation Sodium Potassium Carbon Dioxide BUN Creatinine Glucose POC Glucose (mg/dL) 242 H 218 H Hemoglobin A1c Magnesium Total Bilirubin Alkaline Phosphatase Troponin I Total Protein Albumin HDL Cholesterol 09/07/21 09/07/21 10:13 11:49 WBC RBC Hct MCH MPV Neutrophils # Neutrophils # (Manual) Lymphocytes # Monocytes # APTT 154.5 H* ABG pH ABG pCO2 ABG pO2 ABG Total CO2 ABG O2 Saturation Sodium Potassium Carbon Dioxide BUN Creatinine Glucose POC Glucose (mg/dL) 226 H Hemoglobin A1c Magnesium Total Bilirubin Alkaline Phosphatase Troponin I Total Protein Albumin HDL Cholesterol Assessment and Plan Assessment: * Status post in-house, witnessed cardiac arrest with prolonged downtime. CPR continued for about 30-40 minutes. Patient at present is sedated, intubated. Examination limited. Per nursing report, patient has occasionally tried to reach for ET tube minimally while suctioning. * Acute NE, cardiogenic shock, ischemic cardiomyopathy * Acute kidney injury, with hyperkalemia, possible ATN. * Hypertension Plan: * Patient underwent EEG, which revealed background slowing of moderate degree. This is suggestive of generalized cerebral dysfunction as can be seen with toxic metabolic encephalopathy or related to diffuse structural brain abnormality. No epileptiform activity was seen. * CT head, rule out any cerebral edema or intracranial process. * Continue close neuro checks. * Continue Plavix 75 mg and Lipitor 80 mg. Also on heparin IV. * We will follow clinically as well. * Discussed with patient's in detail.
[2021-09-07 23:35] LABS: Glucose,Whole Blood 197 mg/dL (75-99)
--- NOTE | 2021-09-08 01:49 | CT ---
EXAMINATION TYPE: CT brain wo con DATE OF EXAM: 09/08/2021 COMPARISON: 09/22/2016 HISTORY: ams CT DLP: 1267.4 mGycm Automated exposure control for dose reduction was used. There is mild cerebral atrophy. There is no mass effect nor midline shift. There is no sign of intrac ranial hemorrhage. Calvarium is intact. Skull base is intact. There is fairly normal aeration of the mastoid sinuses. IMPRESSION: Negative unenhanced head CT scan. Mild atrophy. No change.
[2021-09-08] MEDS: AMIODARONE 450 MG in DEXTROSE 5% IN WATER 250 ML IV SCH ×4 (03:36→18:38)
[2021-09-08] MEDS: CISATRACURIUM 200 MG in SODIUM CHLORIDE 0.9% 180 ML IV SCH ×2 (04:31→19:43)
[2021-09-08] MEDS: NOREPINEPHRINE 4 MG in SODIUM CHLORIDE 0.9% 250 ML IV SCH ×3 (05:59→23:30)
[2021-09-08 06:02] LABS: Glucose,Whole Blood 218 mg/dL (75-99)
[2021-09-08] MEDS: INSULIN ASPART (NovoLOG) 100 UNIT/ML VIAL SQ SCH ×5 (06:04→23:50)
[2021-09-08] MEDS: PIPERACILLIN-TAZOBACTAM 3.375 GM in SODIUM CHLORIDE 0.9% 100 ML IVPB SCH ×3 (06:04→22:28)
[2021-09-08 07:29] LABS: ABG Base Excess -3.8 mmol/L; ABG HCO3 22 mmol/L (21-25); ABG Oxygen Saturation 94.5 % (94-97); ABG PCO2 37 mmHg (35-45); ABG PH 7.37 (7.35-7.45); ABG PO2 70 mmHg (83-108); ABG TCO2 23 mmol/L (19-24)
[2021-09-08 07:31] LABS: Allen Test Performed? no
--- NOTE | 2021-09-08 07:56 | XR ---
EXAMINATION TYPE: XR chest 1V portable DATE OF EXAM: 09/08/2021 Comparison: 09/07/2021 Clinical History: 66-year-old male Tube placement Findings: ET tube is satisfactory. Distal aspect of the NG tube is not well-seen due to underpenetration. Heart remains enlarged. Retrocardiac region is underpenetrated and not well assessed. The remainder of the lungs appear relatively clear. Impression: Mild cardiomegaly. Retrocardiac region and lower mediastinum are underpenetrated and not well assesse d. Distal aspect of the NG tube not adequately visualized.
[2021-09-08] MEDS: CLOPIDOGREL 75 MG TAB PO SCH (09:12)
[2021-09-08] MEDS: METOPROLOL TARTRATE 12.5 MG TAB PO SCH (09:13)
[2021-09-08] MEDS: FUROSEMIDE 10 MG/ML 4 ML VIAL IV SCH (09:13)
[2021-09-08] MEDS: FAMOTIDINE 20 MG TAB PO SCH (09:14)
--- NOTE | 2021-09-08 09:19 | PN ---
PROGRESS NOTE Mr. Stahl is deeply sedated and intubated. He is still on a Diprivan drip. This gentleman had a cardiac arrest in the echo lab while echo was being performed after administration of Lumason. However, he has paroxysmal atrial fibrillation. Now he is in sinus rhythm, hemodynamically better on a smaller dose of Levophed. Urine output is fair. He is in sinus rhythm. Labs are pending at the time. I was not able to speak to his yesterday. I suggested I will speak to her today when she comes or she could speak to the consumer loan officer also. I wanted to update as to what is going on with the patient, and prognosis remains quite poor. Physical exam revealed a blood pressure of 118/60 on a modest dose of Levophed. Heart rate is 80, sinus. First-degree AV block. JVD 1 cm. No carotid bruit. S1-S2 heard normally. Short systolic murmur. Lungs reveal respiratory-assisted breath sounds. Rest of physical exam unchanged. IMPRESSION: 1. Cardiac arrest following Lumason administration during echocardiogram. 2. Ischemic cardiomyopathy. 3. Paroxysmal atrial fibrillation. 4. History of type 2 diabetes mellitus. RECOMMENDATIONS: Prognosis remains poor. We will continue supportive care for now and see how he does. MMODL / IJN: [id number] /
[2021-09-08 09:24] LABS: Albumin 2.7 g/dL (3.5-5.0); Calcium 7.7 mg/dL (8.4-10.2); Potassium 5.1 mmol/L (3.5-5.1); Total Bilirubin 0.8 mg/dL (0.2-1.3); Total Protein 4.9 g/dL (6.3-8.2)
[2021-09-08] MEDS ORDERED: DEXMEDETOMIDINE/0.9% NACL(PMX) 400 MCG in EMPTY BAG 1 BAG IV SCH (09:45)
[2021-09-08] MEDS: HEPARIN SOD,PORK IN 0.45% NACL 25,000 UNIT in 0.45% NACL 1 250ML.BAG IV SCH ×2 (10:07→15:01)
[2021-09-08] MEDS: HEPARIN SODIUM 1,000 UN/ML (10ML VL) IV PRN (10:12)
[2021-09-08] MEDS: OXYBUTYNIN CHLORIDE 5 MG TAB PO SCH ×2 (10:56→20:55)
[2021-09-08] MEDS: CHLORHEXIDINE GLUCONATE 15 ML CUP MUCOUS MEM SCH ×2 (10:57→20:55)
[2021-09-08] MEDS ORDERED: LORazepam 2 MG/ML INJ IV STA (11:01)
[2021-09-08] MEDS: DEXMEDETOMIDINE/0.9% NACL(PMX) 400 MCG in EMPTY BAG 1 BAG IV SCH ×4 (11:03→23:31)
--- NOTE | 2021-09-08 12:10 | P.PN ---
Subjective Patient remains sedated and intubated. No significant improvement in his vent setting since yesterday. No acute events overnight reported to me by nursing staff. Objective - Vital Signs Vital signs: Vital Signs Temp 100.6 F H 09/08/21 12:00 Pulse 82 09/08/21 12:00 Resp 28 H 09/08/21 12:00 BP 115/67 09/06/21 16:30 Pulse Ox 96 09/08/21 12:00 Intake & Output 09/07/21 09/08/21 09/08/21 18:59 06:59 18:59 Intake Total 553.381 5502.178 515.322 Output Total 334 410 290 Balance 450.781 6856.178 225.322 Weight 144 kg Intake: IV 100 110 40 .9 @ 10 mL/hr 100 110 40 Intake, IV Titration 161.722 2890.178 307.322 Amount Amiodarone 450 mg In 18.334 250 Dextrose 5% in Water 250 ml @ 0.5 MG/MIN 16.667 mls/hr IV .Q15H [facility] Rx#: [id number] Cisatracurium 200 mg In 40.117 Sodium Chloride 0.9% 180 ml @ 2 MCG/KG/MIN 16.602 mls/hr IV .Q12H3M [facility] Rx# :[id number] Dexmedetomidine/0.9% NaCl 3.72 (Pmx) 400 mcg In Empty Bag 1 bag @ 0.2 MCG/KG/HR 7.2 mls/hr IV .[id number] [facility] Rx#:[id number] Heparin Sod,Pork in 0.45% 94.245 182.031 81.457 NaCl 25,000 unit In 0.45 % NaCl 1 250ml.bag @ 16. 625 UNITS/KG/HR 23 mls/hr IV .[id number] [facility] Rx#: [id number] Norepinephrine 4 mg In 128.612 426.827 126.241 Sodium Chloride 0.9% 250 ml @ 0.05 MCG/KG/MIN 26. 355 mls/hr IV .Q9H39M [facility] Rx#:[id number] Piperacillin-Tazobactam 3 100 .375 gm In Sodium Chloride 0.9% 100 ml @ 25 mls/hr IVPB Q8H [facility] Rx#: [id number] propofoL 1,000 mg In 300 394.32 95.904 Empty Bag 1 bag @ Titrate IV .Q0M [facility] Rx#: [id number] Tube Feeding 100 300 168 Other 60 Output: Urine 334 410 290 Other: Voiding Method Indwelling Catheter Indwelling Catheter Indwelling Catheter ABP, PAP, CO, CI - Last Documented Arterial Blood Pressure 119/55 - Exam General: The patient i sedated and intubated Eye: there is normal conjunctiva bilaterally. Neck: The neck is supple, there is no JVD. Cardiovascular: Normal S1-S2, no S3-S4, no murmurs. Respiratory: Lungs clear to auscultation bilaterally Gastrointestinal: Abdomen is soft, nontender Musculoskeletal: There is no pedal edema. Skin: Skin is warm and dry - Labs CBC & Chem 7: 09/07/21 04:50 09/08/21 08:24 Labs: Abnormal Lab Results - Last 24 Hours (Table) 09/07/21 09/07/21 09/07/21 Range/Units 16:00 17:41 18:00 APTT 78.1 H (22.0-30.0) sec ABG pO2 (83-108) mmHg Sodium 133 L (137-145) mmol/L Potassium 5.4 H (3.5-5.1) mmol/L Carbon Dioxide 20 L (22-30) mmol/L BUN 43 H (9-20) mg/dL Creatinine 2.61 H (0.66-1.25) mg/dL Glucose 203 H (74-99) mg/dL POC Glucose (mg/dL) 192 H (75-99) mg/dL Calcium 7.7 L (8.4-10.2) mg/dL Total Protein (6.3-8.2) g/dL Albumin (3.5-5.0) g/dL 09/07/21 09/08/21 09/08/21 Range/Units 23:34 01:15 06:01 APTT 35.6 H (22.0-30.0) sec ABG pO2 (83-108) mmHg Sodium (137-145) mmol/L Potassium (3.5-5.1) mmol/L Carbon Dioxide (22-30) mmol/L BUN (9-20) mg/dL Creatinine (0.66-1.25) mg/dL Glucose (74-99) mg/dL POC Glucose (mg/dL) 197 H 218 H (75-99) mg/dL Calcium (8.4-10.2) mg/dL Total Protein (6.3-8.2) g/dL Albumin (3.5-5.0) g/dL 09/08/21 09/08/21 09/08/21 Range/Units 07:27 08:24 08:24 APTT 37.3 H (22.0-30.0) sec ABG pO2 70 L (83-108) mmHg Sodium 132 L (137-145) mmol/L Potassium (3.5-5.1) mmol/L Carbon Dioxide 18 L (22-30) mmol/L BUN 54 H (9-20) mg/dL Creatinine 3.40 H (0.66-1.25) mg/dL Glucose 227 H (74-99) mg/dL POC Glucose (mg/dL) (75-99) mg/dL Calcium 7.7 L (8.4-10.2) mg/dL Total Protein 4.9 L (6.3-8.2) g/dL Albumin 2.7 L (3.5-5.0) g/dL Assessment and Plan Assessment: This is a 66-year-old male with complex past medical history noted below who presented to the hospital originally with a chief complaint of back pain and shoulder pain. Given prior history of coronary artery disease patient was placed on observation and ACS was ruled out. He was seen and evaluated by cardiology. He was doing fairly well up until 09/06 in the afternoon and he was found unresponsive right after finishing an echocardiogram and he went into a cardiac arrest requiring a prolonged resuscitation with successful ROSC. Patient was intubated and admitted to the ICU. Below is a list of his medical problems at this hospitalization. 1. PA cardiac arrest requiring prolonged resuscitation with successful ROSC 2. Acute hypoxic respiratory failure requiring intubation and mechanical ventilation secondary to above 3. Cardiogenic shock requiring norepinephrine, currently on the low dose 4. Coronary artery disease with prior stent and underlying ischemic cardi omyopathy with known EF of 20-25% 5. Chronic atrial fibrillation with prior ablation on anticoagulation currently with IV heparin drip 6. Acute kidney injury with hyperkalemia with possible ATN probably secondary to cardiac event. Nephrology consulted for further evaluation Today, I reviewed his medication list and lab work results. Vent management by supervisor steel division. Neurology consulted as well to help assess any underlying hypoxic brain injury. Computed tomography scan of the brain with no acute findings. We will continue ICU care otherwise. Appreciate art sales consultant's recommendations. Erika mendoza's at bedside updated about his current critical condition.
[2021-09-08 12:24] LABS: Glucose,Whole Blood 232 mg/dL (75-99)
--- NOTE | 2021-09-08 13:22 | P.PN ---
Subjective Progress Note Date: 09/08/21 Principal diagnosis: Cardiac arrest This is a 66-year-old white male with history of coronary artery disease, ischemic cardiomyopathy, patient had previous stent placement in LAD back in February 2021, his also known to have history of chronic atrial fibrillation, hypertension, dyslipidemia, patient was admitted on 09/05/2021, mostly with symptoms of chest pain. Patient described the chest pain as severe, woke him up in the morning around 5:40 AM, and pain was radiating to the left shoulder. Across his back. Patient had similar chest pain previously when he had previous MN. Patient was seen by cardiology, and the recommendation was to do an echocardiogram, and recommended reevaluation after his echocardiogram and stress test.apparently the patient was getting an echocardiogram,Just after receiving his lumason, patient went unresponsive, and he went pulseless. Chest c ompression was started immediately by nursing staff, his initial rhythm was pulseless electrical activity, patient received multiple rounds of epinephrine, and he received multiple fibrillations. And multiple shocks were given. Patient had high quality CPR, and ACLS protocol was followed. Patient received 2 amiodarone boluses, he was shocked you times, and eventually there was return of spontaneous circulation, in the meantime patient was intubated, transferred to the ICU, and I was asked to see him on consultation. In the ICU, patient was hypotensive, required placement of right femoral central line, and he required an arterial line/left radial. His ventilator settings were noted to be initially on the percent FiO2, tidal volume is 500, rate of 20, PEEP was increased from 5-10. And ABG was pending. Reevaluated today on 09/07/2021, patient remains in the ICU intubated and mechanically ventilated, his assist-control rate is 26 FiO2 is down to 55%, PEEP is 10 tidal volume is 500. ABG showed a pO2 of 90 pCO2 51 pH of 7.27. WBC count is elevated at 29.5 hemoglobin 16. Electrolytes showed elevated potassium of 6.0. Worsening renal profile with a BUN of 32 creatinine 1.8. Patient is being followed by nephrology. Chest x-ray showed left basilar infiltrate or atelectasis. With a small left pleural effusion. Right lung is relatively clear. Patient remains on multiple drips, including amiodarone at 0.5 mg/m, he is on Nimbex, propofol at 40, is also on heparin drip. And norepinephrine. Blood pressure remains marginal with systolic of 97 diastolic of 54, urine output is also marginal about 15 mL per hour. Troponin today is 1.9, patient is being followed by cardiology. Patient is yet to be started on enteral feeding today, and I'm recommending stopping his Nimbex today for at least assessment of mental status if possible. In the meantime neurology was consulted, I strongly believe the patient must have sustained significant brain injury from his prolonged cardiac arrest. The patient is seen today 09/08/2021 in follow-up in the intensive care unit. He remains intubated, sedated and on the mechanical ventilator. Current settings are assist-control mode with a rate of 26, tidal volume 500, FiO2 55% 10. Morning blood gases reveal a pO2 of 70, pCO2 7, pH 7.37. Chest x-ray shows atelectasis in the lung bases. He is sedated on propofol 50 mcg/kg/m. N orepinephrine at 4 mcg/m. Heparin drip per weight base protocol. Amiodarone is 0.5 mg/m. He is being nourished with vital HPI 36 ML's per hour which is goal. He is on antibiotics in the form of Zosyn. He remains on IV diuretics. Moderate to severely impaired left ventricular systolic function with ejection fraction 20-25%. Computed tomography scan of the brain without contrast revealed mild atrophy. No mass effect or midline shift. No sign of intracranial hemorrhage. Sodium 132. Potassium 5.1. Creatinine 3.40. Glucose 227. AST 40. ALT 16. CBC pending. Objective - Vital Signs Vital signs: Vital Signs Temp 100.6 F H 09/08/21 12:00 Pulse 79 09/08/21 13:00 Resp 30 H 09/08/21 13:00 BP 115/67 09/06/21 16:30 Pulse Ox 95 09/08/21 13:00 Intake & Output 09/07/21 09/08/21 09/08/21 18:59 06:59 18:59 Intake Total 873.685 2843.178 583.827 Output Total 334 410 415 Balance 436.702 4130.178 168.827 Weight 144 kg Intake: IV 100 110 40 .9 @ 10 mL/hr 100 110 40 Intake, IV Titration 031.170 7771.178 339.827 Amount Amiodarone 450 mg In 18.334 250 Dextrose 5% in Water 250 ml @ 0.5 MG/MIN 16.667 mls/hr IV .Q15H [facility] Rx#: [id number] Cisatracurium 200 mg In 40.117 Sodium Chloride 0.9% 180 ml @ 2 MCG/KG/MIN 16.602 mls/hr IV .Q12H3M [facility] Rx# :[id number] Dexmedetomidine/0.9% NaCl 3.72 (Pmx) 400 mcg In Empty Bag 1 bag @ 0.2 MCG/KG/HR 7.2 mls/hr IV .[id number] [facility] Rx#:[id number] Heparin Sod,Pork in 0.45% 94.245 182.031 81.457 NaCl 25,000 unit In 0.45 % NaCl 1 250ml.bag @ 16. 625 UNITS/KG/HR 23 mls/hr IV .[id number] [facility] Rx#: [id number] Norepinephrine 4 mg In 128.612 426.827 158.746 Sodium Chloride 0.9% 250 ml @ 0.05 MCG/KG/MIN 26. 355 mls/hr IV .Q9H39M [facility] Rx#:[id number] Piperacillin-Tazobactam 3 100 .375 gm In Sodium Chloride 0.9% 100 ml @ 25 mls/hr IVPB Q8H [facility] Rx#: [id number] propofoL 1,000 mg In 300 394.32 95.904 Empty Bag 1 bag @ Titrate IV .Q0M [facility] Rx#: [id number] Tube Feeding 100 300 204 Other 60 Output: Urine 334 410 415 Other: Voiding Method Indwelling Catheter Indwelling Catheter Indwelling Catheter ABP, PAP, CO, CI - Last Documented Arterial Blood Pressure 122/56 - Exam GENERAL EXAM: Intubated, sedated 66-year-old gentleman, on 55% FiO2 and a PEEP of 10, comfortable in no apparent distress. HEAD: Normocephalic. EYES: Sluggish reaction of pupils, equal size. NOSE: Clear with pink turbinates. THROAT: No erythema or exudates. NECK: No masses, no JVD. CHEST: No chest wall deformity. LUNGS: Equal air entry with scattered rhonchi, crackles in the posterior bases. CVS: S1 and S2 normal with no audible murmur, regular rhythm. ABDOMEN: No hepatosplenomegaly, normal bowel sounds, no guarding or rigidity. SPINE: No scoliosis or deformity SKIN: No rashes CENTRAL NERVOUS SYSTEM: Sedated, tone is normal in all 4 extremities. EXTREMITIES: There is peripheral edema. No clubbing, no cyanosis. Peripheral pulses are intact. - Labs CBC & Chem 7: 09/07/21 04:50 09/08/21 08:24 Labs: Abnormal Lab Results - Last 24 Hours (Table) 09/07/21 09/07/21 09/07/21 Range/Units 16:00 17:41 18:00 APTT 78.1 H (22.0-30.0) sec ABG pO2 (83-108) mmHg Sodium 133 L (137-145) mmol/L Potassium 5.4 H (3.5-5.1) mmol/L Carbon Dioxide 20 L (22-30) mmol/L BUN 43 H (9-20) mg/dL Creatinine 2.61 H (0.66-1.25) mg/dL Glucose 203 H (74-99) mg/dL POC Glucose (mg/dL) 192 H (75-99) mg/dL Calcium 7.7 L (8.4-10.2) mg/dL Total Protein (6.3-8.2) g/dL Albumin (3.5-5.0) g/dL 09/07/21 09/08/21 09/08/21 Range/Units 23:34 01:15 06:01 APTT 35.6 H (22.0-30.0) sec ABG pO2 (83-108) mmHg Sodium (137-145) mmol/L Potassium (3.5-5.1) mmol/L Carbon Dioxide (22-30) mmol/L BUN (9-20) mg/dL Creatinine (0.66-1.25) mg/dL Glucose (74-99) mg/dL POC Glucose (mg/dL) 197 H 218 H (75-99) mg/dL Calcium (8.4-10.2) mg/dL Total Protein (6.3-8.2) g/dL Albumin (3.5-5.0) g/dL 09/08/21 09/08/21 09/08/21 Range/Units 07:27 08:24 08:24 APTT 37.3 H (22.0-30.0) sec ABG pO2 70 L (83-108) mmHg Sodium 132 L (137-145) mmol/L Potassium (3.5-5.1) mmol/L Carbon Dioxide 18 L (22-30) mmol/L BUN 54 H (9-20) mg/dL Creatinine 3.40 H (0.66-1.25) mg/dL Glucose 227 H (74-99) mg/dL POC Glucose (mg/dL) (75-99) mg/dL Calcium 7.7 L (8.4-10.2) mg/dL Total Protein 4.9 L (6.3-8.2) g/dL Albumin 2.7 L (3.5-5.0) g/dL 09/08/21 Range/Units 12:23 APTT (22.0-30.0) sec ABG pO2 (83-108) mmHg Sodium (137-145) mmol/L Potassium (3.5-5.1) mmol/L Carbon Dioxide (22-30) mmol/L BUN (9-20) mg/dL Creatinine (0.66-1.25) mg/dL Glucose (74-99) mg/dL POC Glucose (mg/dL) 232 H (75-99) mg/dL Calcium (8.4-10.2) mg/dL Total Protein (6.3-8.2) g/dL Albumin (3.5-5.0) g/dL Assessment and Plan Assessment: 1 Cardiac arrest, possible non-ST segment elevation myocardial infarction 2 Acute hypoxic respiratory failure secondary to above requiring intubation mechanical ventilatory support 3 History of underlying coronary artery disease with previous stent placement 4 Suspect anoxic brain injury secondary to prolonged CPR of greater than 30 minutes 5 Acute kidney injury, acute tubular necrosis secondary to hypotension, current creatinine 3.40 6 Ischemic cardiomyopathy with ejection fraction 20-25% 7 Cardiogenic shock requiring pressor support 8 Hyperlipidemia 8 Diabetes mellitus Plan: The patient was seen and evaluated by Dr. Isidro Chest x-ray and labs reviewed We'll provide daily interruption of sedation Continue the current vent settings Continue Zosyn and bronchodilators Continue nutritional support Prognosis remains guarded We will continue to follow and make further recommendations based on his clinical status Critical care time 36 minutes I, the cosigning physician, performed a history & physical examination of the patient. Lungs sounds few scattered rhonchi, crackles in the posterior bases. Maintaining good O2 saturations in the 90s on 50% FiO2 via the mechanical ventilator. I discussed the assessment and plan of care with my nurse practitioner, Alma Delia Castillo. I attest to the above note as dictated by her.
--- NOTE | 2021-09-08 15:19 | PN ---
PROGRESS NOTE Patient is seen for followup for acute kidney injury. His urine output has picked up to about 40-50 mL an hour now with last output at 100 mL an hour. The patient's serum creatinine is a bit higher from yesterday. However, it looks like he has overall turned around. The patient's Levophed is also down to only about 5 mics now. He is following commands. According to nursing staff, sedation has been decreased. EXAMINATION: Today, blood pressure 119/55, heart rate 82 per minute. He did have a temperature of 100.6 degrees Fahrenheit. Examination of the heart S1, S2. Examination of the lungs, bilateral breath sounds are heard. Abdomen is soft, nontender. Examination of lower extremities shows trace edema bilaterally. LAB: Show sodium 132, potassium 5.1, chloride 103, CO2 is 18, BUN 54, creatinine 3.4. ASSESSMENT: 1. Acute kidney injury, acute tubular necrosis secondary to hypotension, hypoperfusion and cardiac arrest, currently nonoliguric with improvement in urine output. No nephrotoxic agents on board. 2. Hyperkalemia associated with acute kidney injury, now improved. 3. Status post cardiac arrest after receiving Lumason during echocardiogram. 4. Atrial fibrillation with RVR, rate is controlled. Patient is maintained on IV amiodarone. 5. Mild volume overload. PLAN: Continue with current dose of Lasix. Repeat labs in a.m. Continue to wean off Levophed. MMODL / IJN: [id number] /
[2021-09-08] MEDS: ACETAMINOPHEN IV (For NPO) 1,000 MG in EMPTY BAG 1 BAG IVPB SCH (15:48)
--- NOTE | 2021-09-08 15:48 | XR ---
EXAMINATION TYPE: XR chest 1V portable DATE OF EXAM: 09/08/2021 Comparison: 09/08/2021 Clinical History: 66-year-old male OG tube placement verification Findings: ET tube is satisfactory. NG tube courses below the diaphragm. Heart is enlarged. Hazy right basilar d ensity. Retrocardiac opacity also present. Impression: 1. Satisfactory ET and NG tubes. 2. Mild cardiomegaly with small layering right pleural effusion. Retrocardiac atelectasis and/or cons olidation.
[2021-09-08 15:53] LABS: Glucose,Whole Blood 257 mg/dL (75-99)
[2021-09-08 18:23] LABS: Glucose,Whole Blood 254 mg/dL (75-99)
[2021-09-08] MEDS ORDERED: INSULIN ASPART (NovoLOG) 100 UNIT/ML VIAL SQ ONE (18:32)
[2021-09-08 20:50] LABS: Glucose,Whole Blood 254 mg/dL (75-99)
[2021-09-08] MEDS: ATORVASTATIN 80 MG TAB PO SCH (20:55)
[2021-09-08] MEDS: ALPRAZolam 0.25 MG TAB PO PRN (21:00)
[2021-09-08] MEDS ORDERED: ACETAMINOPHEN IV (For NPO) 1,000 MG in EMPTY BAG 1 BAG IVPB PRN (22:00)
[2021-09-08 23:38] LABS: Glucose,Whole Blood 230 mg/dL (75-99)
[2021-09-09] MEDS: DEXMEDETOMIDINE/0.9% NACL(PMX) 400 MCG in EMPTY BAG 1 BAG IV SCH ×2 (02:51→07:02)
[2021-09-09 03:29] LABS: Glucose,Whole Blood 191 mg/dL (75-99)
[2021-09-09] MEDS: INSULIN ASPART (NovoLOG) 100 UNIT/ML VIAL SQ SCH ×5 (03:32→21:00)
[2021-09-09] MEDS: HEPARIN SOD,PORK IN 0.45% NACL 25,000 UNIT in 0.45% NACL 1 250ML.BAG IV SCH (04:36)
[2021-09-09 04:54] LABS: Basophils % (A) 0 %; Eosinophils % (A) 0 %; HCT 32.7 % (39.0-53.0); Lymphocytes # (A) 0.7 k/uL (1.0-4.8); Lymphocytes % (A) 6 %; MCH 32.8 pg (25.0-35.0); MCHC 33.7 g/dL (31.0-37.0); MCV 97.2 fL (80.0-100.0); Mean Platelet Volume 8.8; Monocytes # (A) 0.5 k/uL (0-1.0); Monocytes % (A) 5 %; Neutrophils # (A) 9.5 k/uL (1.3-7.7); Neutrophils % (A) 87 %; Platelet Count 189 k/uL (150-450); RBC 3.37 m/uL (4.30-5.90); RDW 13.4 % (11.5-15.5)
[2021-09-09] MEDS: CISATRACURIUM 200 MG in SODIUM CHLORIDE 0.9% 180 ML IV SCH (05:16)
[2021-09-09 05:32] LABS: Albumin 2.7 g/dL (3.5-5.0); Total Bilirubin 0.9 mg/dL (0.2-1.3); Total Protein 5.2 g/dL (6.3-8.2)
[2021-09-09] MEDS: PIPERACILLIN-TAZOBACTAM 3.375 GM in SODIUM CHLORIDE 0.9% 100 ML IVPB SCH ×2 (05:41→19:52)
[2021-09-09 07:19] LABS: ABG Base Excess -3.1 mmol/L; ABG HCO3 22 mmol/L (21-25); ABG Oxygen Saturation 99.5 % (94-97); ABG PCO2 34 mmHg (35-45); ABG PH 7.41 (7.35-7.45); ABG PO2 123 mmHg (83-108); ABG TCO2 23 mmol/L (19-24)
[2021-09-09 07:20] LABS: Allen Test Performed? no
--- NOTE | 2021-09-09 07:59 | XR ---
EXAMINATION TYPE: XR chest 1V portable DATE OF EXAM: 09/09/2021 COMPARISON: 09/08/2021 HISTORY: SOB, Follow Up FINDINGS: Indwelling tubes and catheters are unchanged. No change in bibasilar opacities. Stable appearance of the cardio-mediastinal structures at this time. Pleural effusion unchanged. IMPRESSION: 1. Stable portable chest. Clinical correlation and follow up until resolution is recommended.
--- NOTE | 2021-09-09 08:46 | P.PN ---
Subjective Progress Note Date: 09/08/21 Patient was seen for a follow-up. Patient is on Precedex drip running at 0.8 g. Patient still significantly obtunded. Per nursing report, he does squeeze hands on commands and tries to bring his arms up to the ET tube. No seizures. Objective - Vital Signs Vital signs: Vital Signs Temp 99.4 F 09/09/21 08:00 Pulse 61 09/09/21 08:00 Resp 26 H 09/09/21 08:00 BP 115/67 09/06/21 16:30 Pulse Ox 98 09/09/21 08:00 Intake & Output 09/08/21 09/09/21 09/09/21 18:59 06:59 18:59 Intake Total 3197.421 2407.322 218 Output Total 915 970 150 Balance 477.845 271.322 68 Weight 146.6 kg Intake: IV 190 153 116 .9 @ 10 mL/hr 90 120 10 ART line 33 6 Piperacillin-Tazobactam 3 100 100 .375 gm In Sodium Chloride 0.9% 100 ml @ 25 mls/hr IVPB Q8H [facility] Rx#: [id number] Intake, IV Titration 926.845 740.322 Amount Amiodarone 450 mg In 250 Dextrose 5% in Water 250 ml @ 0.5 MG/MIN 16.667 mls/hr IV .Q15H [facility] Rx#: [id number] Dexmedetomidine/0.9% NaCl 3.72 (Pmx) 400 mcg In Empty Bag 1 bag @ 0.2 MCG/KG/HR 7.2 mls/hr IV .[id number] [facility] Rx#:[id number] Dexmedetomidine/0.9% NaCl 100 373.76 (Pmx) 400 mcg In Empty Bag 1 bag @ 0.7 MCG/KG/HR 25.2 mls/hr IV .Q3H59M [facility] Rx#:[id number] Heparin Sod,Pork in 0.45% 81.457 NaCl 25,000 unit In 0.45 % NaCl 1 250ml.bag @ 16. 625 UNITS/KG/HR 23 mls/hr IV .[id number] [facility] Rx#: [id number] Heparin Sod,Pork in 0.45% 81.85 244.714 NaCl 25,000 unit In 0.45 % NaCl 1 250ml.bag @ 6. 944 UNITS/KG/HR 9.999 mls /hr IV .Q24H [facility] Rx#: [id number] Norepinephrine 4 mg In 313.914 121.848 Sodium Chloride 0.9% 250 ml @ 0.05 MCG/KG/MIN 26. 355 mls/hr IV .Q9H39M [facility] Rx#:[id number] propofoL 1,000 mg In 95.904 Empty Bag 1 bag @ Titrate IV .Q0M [facility] Rx#: [id number] Tube Feeding 276 288 72 Other 60 30 Output: Urine 915 970 150 Other: Voiding Method Indwelling Catheter Indwelling Catheter ABP, PAP, CO, CI - Last Documented Arterial Blood Pressure 123/58 - Exam Patient is mildly sedated with Precedex. Patient grimaces on painful stimuli. He does brings his arms up towards ET tube. Patient did squeeze the hands minimally bilaterally. Patient did not wiggle his toes today for me, although did for the nurse earlier. Pupils are round and reacting. Corneals are present. Oculocephalics present. Patient is breathing over the ventilator, has good Cough and gag reflex. Reflexes are diminished. Plantar is upgoing on the right, flat on the left. No obvious seizure-like activity noted. - Labs CBC & Chem 7: 09/09/21 04:40 09/09/21 04:40 Labs: Abnormal Lab Results - Last 24 Hours (Table) 09/08/21 09/08/21 09/08/21 Range/Units 08:24 08:24 12:23 WBC (3.8-10.6) k/uL RBC (4.30-5.90) m/uL Hgb (13.0-17.5) gm/dL Hct (39.0-53.0) % Neutrophils # (1.3-7.7) k/uL Lymphocytes # (1.0-4.8) k/uL APTT 37.3 H (22.0-30.0) sec ABG pCO2 (35-45) mmHg ABG pO2 (83-108) mmHg ABG O2 Saturation (94-97) % Sodium 132 L (137-145) mmol/L Carbon Dioxide 18 L (22-30) mmol/L BUN 54 H (9-20) mg/dL Creatinine 3.40 H (0.66-1.25) mg/dL Glucose 227 H (74-99) mg/dL POC Glucose (mg/dL) 232 H (75-99) mg/dL Calcium 7.7 L (8.4-10.2) mg/dL Total Protein 4.9 L (6.3-8.2) g/dL Albumin 2.7 L (3.5-5.0) g/dL 09/08/21 09/08/21 09/08/21 Range/Units 14:00 15:52 18:22 WBC (3.8-10.6) k/uL RBC (4.30-5.90) m/uL Hgb (13.0-17.5) gm/dL Hct (39.0-53.0) % Neutrophils # (1.3-7.7) k/uL Lymphocytes # (1.0-4.8) k/uL APTT 61.9 H (22.0-30.0) sec ABG pCO2 (35-45) mmHg ABG pO2 (83-108) mmHg ABG O2 Saturation (94-97) % Sodium (137-145) mmol/L Carbon Dioxide (22-30) mmol/L BUN (9-20) mg/dL Creatinine (0.66-1.25) mg/dL Glucose (74-99) mg/dL POC Glucose (mg/dL) 257 H 254 H (75-99) mg/dL Calcium (8.4-10.2) mg/dL Total Protein (6.3-8.2) g/dL Albumin (3.5-5.0) g/dL 09/08/21 09/08/21 09/09/21 Range/Units 20:48 23:36 03:28 WBC (3.8-10.6) k/uL RBC (4.30-5.90) m/uL Hgb (13.0-17.5) gm/dL Hct (39.0-53.0) % Neutrophils # (1.3-7.7) k/uL Lymphocytes # (1.0-4.8) k/uL APTT (22.0-30.0) sec ABG pCO2 (35-45) mmHg ABG pO2 (83-108) mmHg ABG O2 Saturation (94-97) % Sodium (137-145) mmol/L Carbon Dioxide (22-30) mmol/L BUN (9-20) mg/dL Creatinine (0.66-1.25) mg/dL Glucose (74-99) mg/dL POC Glucose (mg/dL) 254 H 230 H 191 H (75-99) mg/dL Calcium (8.4-10.2) mg/dL Total Protein (6.3-8.2) g/dL Albumin (3.5-5.0) g/dL 09/09/21 09/09/21 09/09/21 Range/Units 04:40 04:40 04:40 WBC 11.0 H (3.8-10.6) k/uL RBC 3.37 L (4.30-5.90) m/uL Hgb 11.0 L D (13.0-17.5) gm/dL Hct 32.7 L (39.0-53.0) % Neutrophils # 9.5 H (1.3-7.7) k/uL Lymphocytes # 0.7 L (1.0-4.8) k/uL APTT 45.0 H (22.0-30.0) sec ABG pCO2 (35-45) mmHg ABG pO2 (83-108) mmHg ABG O2 Saturation (94-97) % Sodium 135 L (137-145) mmol/L Carbon Dioxide 20 L (22-30) mmol/L BUN 70 H (9-20) mg/dL Creatinine 3.96 H (0.66-1.25) mg/dL Glucose 197 H (74-99) mg/dL POC Glucose (mg/dL) (75-99) mg/dL Calcium 8.0 L (8.4-10.2) mg/dL Total Protein 5.2 L (6.3-8.2) g/dL Albumin 2.7 L (3.5-5.0) g/dL 09/09/21 Range/Units 07:17 WBC (3.8-10.6) k/uL RBC (4.30-5.90) m/uL Hgb (13.0-17.5) gm/dL Hct (39.0-53.0) % Neutrophils # (1.3-7.7) k/uL Lymphocytes # (1.0-4.8) k/uL APTT (22.0-30.0) sec ABG pCO2 34 L (35-45) mmHg ABG pO2 123 H (83-108) mmHg ABG O2 Saturation 99.5 H (94-97) % Sodium (137-145) mmol/L Carbon Dioxide (22-30) mmol/L BUN (9-20) mg/dL Creatinine (0.66-1.25) mg/dL Glucose (74-99) mg/dL POC Glucose (mg/dL) (75-99) mg/dL Calcium (8.4-10.2) mg/dL Total Protein (6.3-8.2) g/dL Albumin (3.5-5.0) g/dL Microbiology - Last 24 Hours (Table) 09/08/21 16:05 Urine Culture - Preliminary Urine,Catheterized Assessment and Plan Assessment: * Status post in-house, witnessed cardiac arrest with prolonged downtime. CPR continued for about 30-40 minutes. Patient is showing some clinical improvement, but still significant impaired mentation, and significant weakness noticeable in the arms and legs. Patient probably have some component of anoxic brain injury from cardiac arrest. Superimposed metabolic encephalopathy also possibly due to reasons mentioned below. * Acute non-ST segment elevation [place], cardiogenic shock, ischemic cardiomyopathy * Acute kidney injury, with hyperkalemia, possible ATN. Renal functions getting worse. * Possible aspiration pneumonia, on Zosyn. * Hypertension * Diabetes Plan: * EEG 09/07/2021 revealed background slowing of moderate degree. This is suggestive of generalized cerebral dysfunction as can be seen with toxic metabolic encephalopathy or related to diffuse structural brain abnormality. No epileptiform activity was seen. * CT head 09/08/[address] head. Mild atrophy. No change. I reviewed the CT, agree with the findings. * Continue Plavix 75 mg and Lipitor 80 mg. Also on heparin IV. * We will follow clinically as well.
[2021-09-09] MEDS ORDERED: FUROSEMIDE 10 MG/ML 4 ML VIAL IV SCH (09:00)
[2021-09-09] MEDS: CLOPIDOGREL 75 MG TAB PO SCH (09:45)
[2021-09-09] MEDS: METOPROLOL TARTRATE 12.5 MG TAB PO SCH ×2 (09:45→13:49)
[2021-09-09] MEDS: FAMOTIDINE 20 MG TAB PO SCH (09:45)
[2021-09-09] MEDS: CHLORHEXIDINE GLUCONATE 15 ML CUP MUCOUS MEM SCH (09:45)
[2021-09-09] MEDS ORDERED: FUROSEMIDE 10 MG/ML 4 ML VIAL IV STA (09:53)
[2021-09-09 10:07] LABS: Glucose,Whole Blood 198 mg/dL (75-99)
--- NOTE | 2021-09-09 10:33 | PN ---
PROGRESS NOTE Mr. Stahl is a gentleman who went into cardiac arrest followed by resuscitation and intubation. This occurred in the echo department following administration of Lumason. However, he also has underlying atrial fibrillation and ischemic cardiomyopathy with previous stenting of LAD. Apparently yesterday he was responding to commands. This morning he is still sedated. He is hemodynamically stable. He is making more urine and we are using a very small dose of Levophed at this time for blood pressure support. Clinically there is improvement. He remains in sinus rhythm with first-degree AV block. JVD 1 cm. No carotid bruit. S1-S2 heard with a short systolic murmur. Lungs reveal improved air entry assisted by the ventilator. Abdomen is soft. Lower extremities reveal diminished pulses. Central nervous system assessment was not performed, but yesterday he was apparently responding to commands, according to the nursing staff. Plan is to continue current medications, supportive care, and see how he does. Prognosis remains guarded. MMODL / IJN: [id number] /
--- NOTE | 2021-09-09 11:44 | PN ---
PROGRESS NOTE Patient is seen for followup for acute kidney injury secondary to hypotension, shock and cardiac arrest. Patient's urine output has picked up. His creatinine is slightly higher than yesterday at 3.9 from 3.4. There are plans for extubation today. Patient is awake. He is following commands. On examination, blood pressure 115/56, heart rate 63 per minute. He is afebrile. EXAMINATION OF THE HEART: S1 and S2. EXAMINATION OF LUNGS: Bilateral breath sounds are heard. Abdomen is soft, non-tender, obese. Examination of lower extremities shows no edema. H[employer] EXAM: Grossly intact. Patient is following commands. Labs show sodium 135, potassium 5.0, BUN 70, creatinine 3.9, hemoglobin 11.0 g/dL. ASSESSMENT: 1. Acute kidney injury, acute tubular necrosis, currently nonoliguric with improved urine output. However, serum creatinine is slightly higher, but the delta gap is much smaller, which means that the rise in the creatinine is not as high as it had been previously. Hopefully the renal function will stabilize and start to improve by tomorrow. I will hold off on the Lasix after today's dose. Patient is being given Lasix since he is being extubated and there were mild bilateral pleural effusions noted on the chest x-ray. His blood pressure is currently on the lower side. I will continue off of IV fluids for now. 2. Status post cardiac arrest during echocardiogram after administration of Lumason. 3. Hyperkalemia associated with acute kidney injury, now resolved. 4. Atrial fibrillation with rapid ventricular response. Rate is controlled. Maintained on IV heparin and amiodarone. 5. Mild volume overload, currently improved. PLAN: Hold Lasix after today's administration. Repeat labs in a.m. Avoid significant hypotension. MMODL / IJN: [id number] /
--- NOTE | 2021-09-09 13:28 | P.PN ---
Subjective Progress Note Date: 09/09/21 Principal diagnosis: Cardiac arrest This is a 66-year-old white male with history of coronary artery disease, ischemic cardiomyopathy, patient had previous stent placement in [facility]AD back in February 2021, his also known to have history of chronic atrial fibrillation, hypertension, dyslipidemia, patient was admitted on 09/05/2021, mostly with symptoms of chest pain. Patient described the chest pain as severe, woke him up in the morning around 5:40 AM, and pain was radiating to the left shoulder. Across his back. Patient had similar chest pain previously when he had previous CO. Patient was seen by cardiology, and the recommendation was to do an echocardiogram, and recommended reevaluation after his echocardiogram and stress test.apparently the patient was getting an echocardiogram,Just after receiving his lumason, patient went unresponsive, and he went pulseless. Chest co mpression was started immediately by nursing staff, his initial rhythm was pulseless electrical activity, patient received multiple rounds of epinephrine, and he received multiple fibrillations. And multiple shocks were given. Patient had high quality CPR, and ACLS protocol was followed. Patient received 2 amiodarone boluses, he was shocked you times, and eventually there was return of spontaneous circulation, in the meantime patient was intubated, transferred to the ICU, and I was asked to see him on consultation. In the ICU, patient was hypotensive, required placement of right femoral central line, and he required an arterial line/left radial. His ventilator settings were noted to be initially on the percent FiO2, tidal volume is 500, rate of 20, PEEP was increased from 5-10. And ABG was pending. Reevaluated today on 09/07/2021, patient remains in the ICU intubated and mechanically ventilated, his assist-control rate is 26 FiO2 is down to 55%, PEEP is 10 tidal volume is 500. ABG showed a pO2 of 90 pCO2 51 pH of 7.27. WBC count is elevated at 29.5 hemoglobin 16. Electrolytes showed elevated potassium of 6.0. Worsening renal profile with a BUN of 32 creatinine 1.8. Patient is being followed by nephrology. Chest x-ray showed left basilar infiltrate or atelectasis. With a small left pleural effusion. Right lung is relatively clear. Patient remains on multiple drips, including amiodarone at 0.5 mg/m, he is on Nimbex, propofol at 40, is also on heparin drip. And norepinephrine. Blood pressure remains marginal with systolic of 97 diastolic of 54, urine output is also marginal about 15 mL per hour. Troponin today is 1.9, patient is being followed by cardiology. Patient is yet to be started on enteral feeding today, and I'm recommending stopping his Nimbex today for at least assessment of mental status if possible. In the meantime neurology was consulted, I strongly believe the patient must have sustained significant brain injury from his prolonged cardiac arrest. The patient is seen today 09/08/2021 in follow-up in the intensive care unit. He remains intubated, sedated and on the mechanical ventilator. Current settings are assist-control mode with a rate of 26, tidal volume 500, FiO2 55% 10. Morning blood gases reveal a pO2 of 70, pCO2 7, pH 7.37. Chest x-ray shows atelectasis in the lung bases. He is sedated on propofol 50 mcg/kg/m. N orepinephrine at 4 mcg/m. Heparin drip per weight base protocol. Amiodarone is 0.5 mg/m. He is being nourished with vital HPI 36 ML's per hour which is goal. He is on antibiotics in the form of Zosyn. He remains on IV diuretics. Moderate to severely impaired left ventricular systolic function with ejection fraction 20-25%. Computed tomography scan of the brain without contrast revealed mild atrophy. No mass effect or midline shift. No sign of intracranial hemorrhage. Sodium 132. Potassium 5.1. Creatinine 3.40. Glucose 227. AST 40. ALT 16. CBC pending. Reevaluated today on 09/09/2021, patient remains in the ICU, remains on mechanical ventilation, remains on Precedex. His ventilator settings are assist control rate of 26 tidal volume is 500 FiO2 is 50%, PEEP of 10 and I cut it down to 5. ABG this morning showed a pO2 of 123 pCO2 34 pH of 7.41. Chest x-ray is showing small bilateral pleural effusions right more so than left. Hence the patient received a dose of Lasix earlier today. Patient is arousable, he is on Precedex, and seems to follow all instructions, seems to be very appropriate. His CBC is relatively normal lites are normal however his renal profile is abnormal with a BUN of 70 creatinine 3.96, this is obviously secondary to acute tubular necrosis/acute kidney injury from his cardiac arrest. However the patient is making good urine. Patient had weaning parameters which seems to be very adequate, and I went ahead and place the patient on pressure support of 8 and CPAP, he seemed to tolerate the weaning mode quite well, then I proceeded to extubating the patient while I'm at bedside. Objective - Vital Signs Vital signs: Vital Signs Temp 99.4 F 09/09/21 08:00 Pulse 60 09/09/21 11:15 Resp 26 H 09/09/21 11:15 BP 115/67 09/06/21 16:30 Pulse Ox 97 09/09/21 11:15 Intake & Output 09/08/21 09/09/21 09/09/21 18:59 06:59 18:59 Intake Total 7427.135 6988.322 409.203 Output Total 915 970 340 Balance 477.845 271.322 69.203 Weight 146.6 kg Intake: IV 190 153 155 .9 @ 10 mL/hr 90 120 40 ART line 33 15 Piperacillin-Tazobactam 3 100 100 .375 gm In Sodium Chloride 0.9% 100 ml @ 25 mls/hr IVPB Q8H [facility] Rx#: [id number] Intake, IV Titration 926.845 740.322 80.203 Amount Amiodarone 450 mg In 250 Dextrose 5% in Water 250 ml @ 0.5 MG/MIN 16.667 mls/hr IV .Q15H [facility] Rx#: [id number] Dexmedetomidine/0.9% NaCl 3.72 (Pmx) 400 mcg In Empty Bag 1 bag @ 0.2 MCG/KG/HR 7.2 mls/hr IV .[id number] [facility] Rx#:[id number] Dexmedetomidine/0.9% NaCl 100 373.76 72.84 (Pmx) 400 mcg In Empty Bag 1 bag @ 0.7 MCG/KG/HR 25.2 mls/hr IV .Q3H59M [facility] Rx#:[id number] Heparin Sod,Pork in 0.45% 81.457 NaCl 25,000 unit In 0.45 % NaCl 1 250ml.bag @ 16. 625 UNITS/KG/HR 23 mls/hr IV .[id number] [facility] Rx#: [id number] Heparin Sod,Pork in 0.45% 81.85 244.714 NaCl 25,000 unit In 0.45 % NaCl 1 250ml.bag @ 6. 944 UNITS/KG/HR 9.999 mls /hr IV .Q24H [facility] Rx#: [id number] Norepinephrine 4 mg In 313.914 121.848 7.363 Sodium Chloride 0.9% 250 ml @ 0.05 MCG/KG/MIN 26. 355 mls/hr IV .Q9H39M [facility] Rx#:[id number] propofoL 1,000 mg In 95.904 Empty Bag 1 bag @ Titrate IV .Q0M [facility] Rx#: [id number] Tube Feeding 276 288 144 Other 60 30 Output: Urine 915 970 340 Other: Voiding Method Indwelling Catheter Indwelling Catheter ABP, PAP, CO, CI - Last Documented Arterial Blood Pressure 110/51 - Exam GENERAL: revealed a 66-year-old white male. intubated and mechanically ventilated. head:atraumatic normocephalic. The tracheal tube and orogastric tubes are intact HEENT: Head is normocephalic. Pupils are equal, round. Sclerae anicteric. Mucous membranes of the mouth are moist. Neck supple. No JVD or thyromegaly LUNGS: .Diminished breath sounds and crackles bilaterally noted. HEART: Irregular rate and rhythm. S1 and S2 heard. ABDOMEN: Soft. Nondistended. Nontender. EXTREMITIES: Normal range of motion. No clubbing or cyanosis. Peripheral pulses intact. No lower extremity edema NEUROLOGIC: Arousable, follows simple instructions. Psychiatric: Arousable, normal mood, affect and normal mental status examination. - Labs CBC & Chem 7: 09/09/21 04:40 09/09/21 04:40 Labs: Abnormal Lab Results - Last 24 Hours (Table) 09/08/21 09/08/21 09/08/21 Range/Units 14:00 15:52 18:22 WBC (3.8-10.6) k/uL RBC (4.30-5.90) m/uL Hgb (13.0-17.5) gm/dL Hct (39.0-53.0) % Neutrophils # (1.3-7.7) k/uL Lymphocytes # (1.0-4.8) k/uL APTT 61.9 H (22.0-30.0) sec ABG pCO2 (35-45) mmHg ABG pO2 (83-108) mmHg ABG O2 Saturation (94-97) % Sodium (137-145) mmol/L Carbon Dioxide (22-30) mmol/L BUN (9-20) mg/dL Creatinine (0.66-1.25) mg/dL Glucose (74-99) mg/dL POC Glucose (mg/dL) 257 H 254 H (75-99) mg/dL Calcium (8.4-10.2) mg/dL Total Protein (6.3-8.2) g/dL Albumin (3.5-5.0) g/dL 09/08/21 09/08/21 09/09/21 Range/Units 20:48 23:36 03:28 WBC (3.8-10.6) k/uL RBC (4.30-5.90) m/uL Hgb (13.0-17.5) gm/dL Hct (39.0-53.0) % Neutrophils # (1.3-7.7) k/uL Lymphocytes # (1.0-4.8) k/uL APTT (22.0-30.0) sec ABG pCO2 (35-45) mmHg ABG pO2 (83-108) mmHg ABG O2 Saturation (94-97) % Sodium (137-145) mmol/L Carbon Dioxide (22-30) mmol/L BUN (9-20) mg/dL Creatinine (0.66-1.25) mg/dL Glucose (74-99) mg/dL POC Glucose (mg/dL) 254 H 230 H 191 H (75-99) mg/dL Calcium (8.4-10.2) mg/dL Total Protein (6.3-8.2) g/dL Albumin (3.5-5.0) g/dL 09/09/21 09/09/21 09/09/21 Range/Units 04:40 04:40 04:40 WBC 11.0 H (3.8-10.6) k/uL RBC 3.37 L (4.30-5.90) m/uL Hgb 11.0 L D (13.0-17.5) gm/dL Hct 32.7 L (39.0-53.0) % Neutrophils # 9.5 H (1.3-7.7) k/uL Lymphocytes # 0.7 L (1.0-4.8) k/uL APTT 45.0 H (22.0-30.0) sec ABG pCO2 (35-45) mmHg ABG pO2 (83-108) mmHg ABG O2 Saturation (94-97) % Sodium 135 L (137-145) mmol/L Carbon Dioxide 20 L (22-30) mmol/L BUN 70 H (9-20) mg/dL Creatinine 3.96 H (0.66-1.25) mg/dL Glucose 197 H (74-99) mg/dL POC Glucose (mg/dL) (75-99) mg/dL Calcium 8.0 L (8.4-10.2) mg/dL Total Protein 5.2 L (6.3-8.2) g/dL Albumin 2.7 L (3.5-5.0) g/dL 09/09/21 09/09/21 Range/Units 07:17 10:05 WBC (3.8-10.6) k/uL RBC (4.30-5.90) m/uL Hgb (13.0-17.5) gm/dL Hct (39.0-53.0) % Neutrophils # (1.3-7.7) k/uL Lymphocytes # (1.0-4.8) k/uL APTT (22.0-30.0) sec ABG pCO2 34 L (35-45) mmHg ABG pO2 123 H (83-108) mmHg ABG O2 Saturation 99.5 H (94-97) % Sodium (137-145) mmol/L Carbon Dioxide (22-30) mmol/L BUN (9-20) mg/dL Creatinine (0.66-1.25) mg/dL Glucose (74-99) mg/dL POC Glucose (mg/dL) 198 H (75-99) mg/dL Calcium (8.4-10.2) mg/dL Total Protein (6.3-8.2) g/dL Albumin (3.5-5.0) g/dL Microbiology - Last 24 Hours (Table) 09/08/21 20:55 Sputum Culture - Preliminary Sputum 09/08/21 16:05 Urine Culture - Preliminary Urine,Catheterized Assessment and Plan Assessment: Impression: Cardiac arrest, possible non-ST elevation myocardial infarction. Acute hypoxic respiratory failure secondary to cardiac arrest. History of underlying coronary artery disease and previous stent placement. Suspect anoxic brain injury. Patient had a prolonged CPR. Was over half an hour. Acute kidney injury, suspect acute tubular necrosis secondary to hypotension secondary to cardiac arrest and ischemic cardiomyopathy with LV dysfunction. Hypotension secondary to ischemic cardiomyopathy and LV dysfunction. Recommendation: Patient will be given a trial of weaning using a pressure support mode of mechanical ventilation with pressure support of 8, and CPAP. His weaning parameters seem to be adequate. Continue hemodynamic support. Patient is on 0.006 mcg/kg/m of norepinephrine. GI and DVT prophylaxis. Continue heparin. Continue diuretics. Incentive spirometry post extubation Overall prognosis is extremely poor and guarded. Nephrology to continue assessment of his renal status hopefully the patient will not require any replacement therapy. Continue antibiotics. Discussed his status yesterday with family members at bedside. Critical care time is over over 30 minutes, will continue to monitor in the ICU Critical care time is over 30 minutes. Time with Patient: Greater than 30
--- NOTE | 2021-09-09 14:04 | P.PN ---
Subjective Patient is doing a lot better today. He was extubated successfully. He is answering my questions appropriately and even joking around. Objective - Vital Signs Vital signs: Vital Signs Temp 99.4 F 09/09/21 08:00 Pulse 60 09/09/21 11:15 Resp 26 H 09/09/21 11:15 BP 115/67 09/06/21 16:30 Pulse Ox 97 09/09/21 11:15 Intake & Output 09/08/21 09/09/21 09/09/21 18:59 06:59 18:59 Intake Total 4218.470 3945.322 409.203 Output Total 915 970 340 Balance 477.845 271.322 69.203 Weight 146.6 kg Intake: IV 190 153 155 .9 @ 10 mL/hr 90 120 40 ART line 33 15 Piperacillin-Tazobactam 3 100 100 .375 gm In Sodium Chloride 0.9% 100 ml @ 25 mls/hr IVPB Q8H [facility] Rx#: [id number] Intake, IV Titration 926.845 740.322 80.203 Amount Amiodarone 450 mg In 250 Dextrose 5% in Water 250 ml @ 0.5 MG/MIN 16.667 mls/hr IV .Q15H [facility] Rx#: [id number] Dexmedetomidine/0.9% NaCl 3.72 (Pmx) 400 mcg In Empty Bag 1 bag @ 0.2 MCG/KG/HR 7.2 mls/hr IV .[id number] [facility] Rx#:[id number] Dexmedetomidine/0.9% NaCl 100 373.76 72.84 (Pmx) 400 mcg In Empty Bag 1 bag @ 0.7 MCG/KG/HR 25.2 mls/hr IV .Q3H59M [facility] Rx#:[id number] Heparin Sod,Pork in 0.45% 81.457 NaCl 25,000 unit In 0.45 % NaCl 1 250ml.bag @ 16. 625 UNITS/KG/HR 23 mls/hr IV .[id number] [facility] Rx#: [id number] Heparin Sod,Pork in 0.45% 81.85 244.714 NaCl 25,000 unit In 0.45 % NaCl 1 250ml.bag @ 6. 944 UNITS/KG/HR 9.999 mls /hr IV .Q24H [facility] Rx#: [id number] Norepinephrine 4 mg In 313.914 121.848 7.363 Sodium Chloride 0.9% 250 ml @ 0.05 MCG/KG/MIN 26. 355 mls/hr IV .Q9H39M [facility] Rx#:[id number] propofoL 1,000 mg In 95.904 Empty Bag 1 bag @ Titrate IV .Q0M [facility] Rx#: [id number] Tube Feeding 276 288 144 Other 60 30 Output: Urine 915 970 340 Other: Voiding Method Indwelling Catheter Indwelling Catheter ABP, PAP, CO, CI - Last Documented Arterial Blood Pressure 110/51 - Exam General: The patient is awake and alert, in no distress Eye: there is normal conjunctiva bilaterally. Neck: The neck is supple, there is no JVD. Cardiovascular: Normal S1-S2, no S3-S4, no murmurs. Respiratory: Lungs clear to auscultation bilaterally Gastrointestinal: Abdomen is soft, nontender Musculoskeletal: There is no pedal edema. Neurological:. Speech is normal. Skin: Skin is warm and dry - Labs CBC & Chem 7: 09/09/21 04:40 09/09/21 04:40 Labs: Abnormal Lab Results - Last 24 Hours (Table) 09/08/21 09/08/21 09/08/21 Range/Units 14:00 15:52 18:22 WBC (3.8-10.6) k/uL RBC (4.30-5.90) m/uL Hgb (13.0-17.5) gm/dL Hct (39.0-53.0) % Neutrophils # (1.3-7.7) k/uL Lymphocytes # (1.0-4.8) k/uL APTT 61.9 H (22.0-30.0) sec ABG pCO2 (35-45) mmHg ABG pO2 (83-108) mmHg ABG O2 Saturation (94-97) % Sodium (137-145) mmol/L Carbon Dioxide (22-30) mmol/L BUN (9-20) mg/dL Creatinine (0.66-1.25) mg/dL Glucose (74-99) mg/dL POC Glucose (mg/dL) 257 H 254 H (75-99) mg/dL Calcium (8.4-10.2) mg/dL Total Protein (6.3-8.2) g/dL Albumin (3.5-5.0) g/dL 09/08/21 09/08/21 09/09/21 Range/Units 20:48 23:36 03:28 WBC (3.8-10.6) k/uL RBC (4.30-5.90) m/uL Hgb (13.0-17.5) gm/dL Hct (39.0-53.0) % Neutrophils # (1.3-7.7) k/uL Lymphocytes # (1.0-4.8) k/uL APTT (22.0-30.0) sec ABG pCO2 (35-45) mmHg ABG pO2 (83-108) mmHg ABG O2 Saturation (94-97) % Sodium (137-145) mmol/L Carbon Dioxide (22-30) mmol/L BUN (9-20) mg/dL Creatinine (0.66-1.25) mg/dL Glucose (74-99) mg/dL POC Glucose (mg/dL) 254 H 230 H 191 H (75-99) mg/dL Calcium (8.4-10.2) mg/dL Total Protein (6.3-8.2) g/dL Albumin (3.5-5.0) g/dL 09/09/21 09/09/21 09/09/21 Range/Units 04:40 04:40 04:40 WBC 11.0 H (3.8-10.6) k/uL RBC 3.37 L (4.30-5.90) m/uL Hgb 11.0 L D (13.0-17.5) gm/dL Hct 32.7 L (39.0-53.0) % Neutrophils # 9.5 H (1.3-7.7) k/uL Lymphocytes # 0.7 L (1.0-4.8) k/uL APTT 45.0 H (22.0-30.0) sec ABG pCO2 (35-45) mmHg ABG pO2 (83-108) mmHg ABG O2 Saturation (94-97) % Sodium 135 L (137-145) mmol/L Carbon Dioxide 20 L (22-30) mmol/L BUN 70 H (9-20) mg/dL Creatinine 3.96 H (0.66-1.25) mg/dL Glucose 197 H (74-99) mg/dL POC Glucose (mg/dL) (75-99) mg/dL Calcium 8.0 L (8.4-10.2) mg/dL Total Protein 5.2 L (6.3-8.2) g/dL Albumin 2.7 L (3.5-5.0) g/dL 09/09/21 09/09/21 Range/Units 07:17 10:05 WBC (3.8-10.6) k/uL RBC (4.30-5.90) m/uL Hgb (13.0-17.5) gm/dL Hct (39.0-53.0) % Neutrophils # (1.3-7.7) k/uL Lymphocytes # (1.0-4.8) k/uL APTT (22.0-30.0) sec ABG pCO2 34 L (35-45) mmHg ABG pO2 123 H (83-108) mmHg ABG O2 Saturation 99.5 H (94-97) % Sodium (137-145) mmol/L Carbon Dioxide (22-30) mmol/L BUN (9-20) mg/dL Creatinine (0.66-1.25) mg/dL Glucose (74-99) mg/dL POC Glucose (mg/dL) 198 H (75-99) mg/dL Calcium (8.4-10.2) mg/dL Total Protein (6.3-8.2) g/dL Albumin (3.5-5.0) g/dL Microbiology - Last 24 Hours (Table) 09/08/21 20:55 Sputum Culture - Preliminary Sputum 09/08/21 16:05 Urine Culture - Preliminary Urine,Catheterized Assessment and Plan Assessment: This is a 66-year-old male with complex past medical history noted below who presented to the hospital originally with a chief complaint of back pain and shoulder pain. Given prior history of coronary artery disease patient was placed on observation and ACS was ruled out. He was seen and evaluated by cardiology. He was doing fairly well up until 09/06 in the afternoon and he was found unresponsive right after finishing an echocardiogram and he went into a cardiac arrest requiring a prolonged resuscitation with successful ROSC. Patient was intubated and admitted to the ICU. Below is a list of his medical problems at this hospitalization. 1. PEA cardiac arrest requiring prolonged resuscitation with successful ROSC 2. Acute hypoxic respiratory failure requiring intubation and mechanical ventilation secondary to above extubated successfully on 09/09 3. Cardiogenic shock requiring norepinephrine 4. Coronary artery disease with prior stent and underlying ischemic cardiomyopathy with known EF of 20-25% 5. Chronic atrial fibrillation with prior ablation on anticoagulation currently with IV heparin drip 6. Acute kidney injury with hyperkalemia with possible ATN probably secondary to cardiac event. Nephrology consulted for further evaluation Today, I reviewed his medication list and lab work results. Appreciate furniture rental consultant's recommendations. Continue antibiotic as directed by pulmonary. Repeat Work in the morning. PT/OT evaluation.
[2021-09-09 14:48] LABS: Glucose,Whole Blood 180 mg/dL (75-99)
[2021-09-09 17:57] LABS: Glucose,Whole Blood 181 mg/dL (75-99)
[2021-09-09] MEDS ORDERED: ARTIFICIAL TEARS-HYPROMELLOSE DROPS 15 ML BTL LEFT EYE PRN (18:14)
[2021-09-09] MEDS: ATORVASTATIN 80 MG TAB PO SCH (20:04)
[2021-09-09] MEDS: NOREPINEPHRINE 4 MG in SODIUM CHLORIDE 0.9% 250 ML IV SCH (20:35)
[2021-09-09] MEDS: ACETAMINOPHEN TAB 500 MG TAB PO PRN (21:34)
[2021-09-09] MEDS ORDERED: HYDROmorphone 0.5 MG/0.5 ML SYRINGE IVP STA (23:06)
[2021-09-09 23:27] LABS: Glucose,Whole Blood 125 mg/dL (75-99)
[2021-09-09] MEDS: AMIODARONE 450 MG in DEXTROSE 5% IN WATER 250 ML IV SCH ×2 (23:41)
[2021-09-10 05:16] LABS: Basophils % (A) 0 %; Eosinophils # (A) 0.1 k/uL (0-0.7); Eosinophils % (A) 1 %; HCT 30.6 % (39.0-53.0); HGB 10.1 gm/dL (13.0-17.5); Lymphocytes # (A) 0.6 k/uL (1.0-4.8); Lymphocytes % (A) 5 %; MCH 32.2 pg (25.0-35.0); MCHC 32.9 g/dL (31.0-37.0); MCV 97.8 fL (80.0-100.0); Mean Platelet Volume 7.6; Monocytes # (A) 0.6 k/uL (0-1.0); Monocytes % (A) 5 %; Neutrophils # (A) 10.2 k/uL (1.3-7.7); Neutrophils % (A) 86 %; Platelet Count 205 k/uL (150-450); RBC 3.13 m/uL (4.30-5.90); RDW 13.2 % (11.5-15.5); WBC 11.9 k/uL (3.8-10.6)
[2021-09-10] MEDS: NOREPINEPHRINE 4 MG in SODIUM CHLORIDE 0.9% 250 ML IV SCH (05:30)
[2021-09-10 05:41] LABS: Calcium 8.1 mg/dL (8.4-10.2); Potassium 4.7 mmol/L (3.5-5.1)
[2021-09-10] MEDS: HEPARIN SODIUM 1,000 UN/ML (10ML VL) IV PRN (05:41)
[2021-09-10 06:32] LABS: Glucose,Whole Blood 150 mg/dL (75-99)
[2021-09-10] MEDS: PIPERACILLIN-TAZOBACTAM 3.375 GM in SODIUM CHLORIDE 0.9% 100 ML IVPB SCH ×2 (06:41→17:41)
[2021-09-10] MEDS: INSULIN ASPART (NovoLOG) 100 UNIT/ML VIAL SQ SCH ×4 (06:41→20:24)
--- NOTE | 2021-09-10 08:12 | XR ---
EXAMINATION TYPE: XR chest 1V portable DATE OF EXAM: 09/10/2021 Comparison: 09/09/2021 Clinical History: 66-year-old male Tube placement Findings: The heart remains enlarged. Interval extubation and removal of NG tube. Interstitial densities persis t. Improving aeration at the right base. Continued retrocardiac opacity. Impression: Similar cardiomegaly. Interval extubation. Significantly improving aeration at the right base. But ot herwise, similar interstitial changes and patchy retrocardiac opacity.
--- NOTE | 2021-09-10 09:03 | P.PN ---
Subjective Progress Note Date: 09/09/21 Patient was extubated this morning. Patient is doing very well. Patient's mentation is remarkably improved. Patient speaking normally. Denies headache. Offers no complaints. Patient's was also present today. No seizures. Objective - Vital Signs Vital signs: Vital Signs Temp 98.1 F 09/10/21 04:00 Pulse 64 09/10/21 07:30 Resp 23 09/10/21 07:30 BP 118/77 09/10/21 07:30 Pulse Ox 95 09/10/21 07:30 Intake & Output 09/09/21 09/10/21 09/10/21 18:59 06:59 18:59 Intake Total 766.543 911.182 10 Output Total 1285 1250 100 Balance -518.457 -338.818 -90 Weight 143.3 kg Intake: IV 246 329 10 .9 @ 10 mL/hr 110 120 10 ART line 36 9 Piperacillin-Tazobactam 3 100 200 .375 gm In Sodium Chloride 0.9% 100 ml @ 25 mls/hr IVPB Q8H [facility] Rx#: [id number] Intake, IV Titration 346.543 232.182 Amount Amiodarone 450 mg In 250 Dextrose 5% in Water 250 ml @ 0.5 MG/MIN 16.667 mls/hr IV .Q15H [facility] Rx#: [id number] Dexmedetomidine/0.9% NaCl 72.84 (Pmx) 400 mcg In Empty Bag 1 bag @ 0.7 MCG/KG/HR 25.2 mls/hr IV .Q3H59M [facility] Rx#:[id number] Heparin Sod,Pork in 0.45% 232.182 NaCl 25,000 unit In 0.45 % NaCl 1 250ml.bag @ 6. 944 UNITS/KG/HR 9.999 mls /hr IV .Q24H [facility] Rx#: [id number] Norepinephrine 4 mg In 23.703 Sodium Chloride 0.9% 250 ml @ 0.05 MCG/KG/MIN 26. 355 mls/hr IV .Q9H39M [facility] Rx#:[id number] Oral 350 Tube Feeding 144 Other 30 Output: Urine 1285 1250 100 Other: Voiding Method Indwelling Catheter Indwelling Catheter ABP, PAP, CO, CI - Last Documented Arterial Blood Pressure 153/67 - Exam Patient is extubated, comfortably laying in the bed. Patient in no distress. Patient speech and language functions are normal. He can name and repeat. Patient states it is September. He knows he is in [place] in [place]. He knows that giving is coming. Patient states Raffi Markham is the president, but then changed to [place]. On cranial examination pupils are round and reacting to light, visual mejia are full on confrontation, extraocular muscles are intact. Face is symmetric, tongue protrudes to the midline. Palatal elevation is normal, hearing and shoulder shrug normal. Muscle strength is normal in the arms and legs. Reflexes are diminished but plantars appears upgoing. Sensory touch is equal. No neglect. No ataxia for [id number] testing. Gait deferred. - Labs CBC & Chem 7: 09/10/21 04:45 09/10/21 04:45 Labs: Abnormal Lab Results - Last 24 Hours (Table) 09/09/21 09/09/21 09/09/21 Range/Units 04:40 10:05 14:47 WBC (3.8-10.6) k/uL RBC (4.30-5.90) m/uL Hgb (13.0-17.5) gm/dL Hct (39.0-53.0) % Neutrophils # (1.3-7.7) k/uL Lymphocytes # (1.0-4.8) k/uL APTT (22.0-30.0) sec Sodium (137-145) mmol/L Carbon Dioxide (22-30) mmol/L BUN (9-20) mg/dL Creatinine (0.66-1.25) mg/dL Glucose (74-99) mg/dL POC Glucose (mg/dL) 198 H 180 H (75-99) mg/dL Calcium (8.4-10.2) mg/dL Magnesium 3.2 H (1.6-2.3) mg/dL 09/09/21 09/09/21 09/10/21 Range/Units 17:55 23:25 04:45 WBC (3.8-10.6) k/uL RBC (4.30-5.90) m/uL Hgb (13.0-17.5) gm/dL Hct (39.0-53.0) % Neutrophils # (1.3-7.7) k/uL Lymphocytes # (1.0-4.8) k/uL APTT 37.3 H (22.0-30.0) sec Sodium (137-145) mmol/L Carbon Dioxide (22-30) mmol/L BUN (9-20) mg/dL Creatinine (0.66-1.25) mg/dL Glucose (74-99) mg/dL POC Glucose (mg/dL) 181 H 125 H (75-99) mg/dL Calcium (8.4-10.2) mg/dL Magnesium (1.6-2.3) mg/dL 09/10/21 09/10/21 09/10/21 Range/Units 04:45 04:45 06:31 WBC 11.9 H (3.8-10.6) k/uL RBC 3.13 L (4.30-5.90) m/uL Hgb 10.1 L (13.0-17.5) gm/dL Hct 30.6 L (39.0-53.0) % Neutrophils # 10.2 H (1.3-7.7) k/uL Lymphocytes # 0.6 L (1.0-4.8) k/uL APTT (22.0-30.0) sec Sodium 135 L (137-145) mmol/L Carbon Dioxide 21 L (22-30) mmol/L BUN 85 H (9-20) mg/dL Creatinine 4.23 H (0.66-1.25) mg/dL Glucose 145 H (74-99) mg/dL POC Glucose (mg/dL) 150 H (75-99) mg/dL Calcium 8.1 L (8.4-10.2) mg/dL Magnesium (1.6-2.3) mg/dL Microbiology - Last 24 Hours (Table) 09/08/21 16:05 Urine Culture - Final Urine,Catheterized 09/08/21 15:45 Blood Culture - Preliminary Blood No Growth after 24 hours 09/08/21 20:55 Sputum Culture - Preliminary Sputum Assessment and Plan Assessment: * Status post in-house, witnessed cardiac arrest with prolonged downtime. CPR continued for about 30-40 minutes. Patient is extubated, very normal mental status, except for some minimal orientation concerns. Otherwise the cranial nerves, muscle strength appears normal. * Acute non-ST segment elevation IL, cardiogenic shock, ischemic cardiomyopathy * Acute kidney injury, with hyperkalemia, possible ATN. Renal functions getting worse. * Possible aspiration pneumonia, on Zosyn. * Hypertension * Diabetes Plan: * Patient is extubated, showing remarkable clinical improvement. Patient has minimal orientation concerns as mentioned above, but otherwise doing very well. * EEG 09/07/2021 revealed background slowing of moderate degree. This is sugg estive of generalized cerebral dysfunction as can be seen with toxic metabolic encephalopathy or related to diffuse structural brain abnormality. No epileptiform activity was seen. * CT head 09/08/[address] head. Mild atrophy. No change. I reviewed the CT, agree with the findings. * Continue Plavix 75 mg and Lipitor 80 mg. Also on heparin IV. * We will follow clinically.
[2021-09-10] MEDS: FAMOTIDINE 20 MG TAB PO SCH (09:58)
[2021-09-10] MEDS: CLOPIDOGREL 75 MG TAB PO SCH (09:58)
[2021-09-10] MEDS: AMIODARONE 200 MG TAB PO SCH ×2 (09:58→20:24)
[2021-09-10] MEDS: HEPARIN SOD,PORK IN 0.45% NACL 25,000 UNIT in 0.45% NACL 1 250ML.BAG IV SCH ×2 (09:59→22:14)
[2021-09-10] MEDS: METOPROLOL TARTRATE 12.5 MG TAB PO SCH ×3 (10:02→20:24)
--- NOTE | 2021-09-10 10:33 | P.PN ---
Subjective Patient is doing well today. No acute events overnight reported to me by nursing staff. Patient reports mild nausea but no other complaints. Creatinine is worse today compared to yesterday but urine output is good at 100 mL per hour. Objective - Vital Signs Vital signs: Vital Signs Temp 98.1 F 09/10/21 04:00 Pulse 64 09/10/21 07:30 Resp 23 09/10/21 07:30 BP 118/77 09/10/21 07:30 Pulse Ox 95 09/10/21 07:30 Intake & Output 09/09/21 09/10/21 09/10/21 18:59 06:59 18:59 Intake Total 766.543 911.182 10 Output Total 1285 1250 100 Balance -518.457 -338.818 -90 Weight 143.3 kg Intake: IV 246 329 10 .9 @ 10 mL/hr 110 120 10 ART line 36 9 Piperacillin-Tazobactam 3 100 200 .375 gm In Sodium Chloride 0.9% 100 ml @ 25 mls/hr IVPB Q8H [facility] Rx#: [id number] Intake, IV Titration 346.543 232.182 Amount Amiodarone 450 mg In 250 Dextrose 5% in Water 250 ml @ 0.5 MG/MIN 16.667 mls/hr IV .Q15H [facility] Rx#: [id number] Dexmedetomidine/0.9% NaCl 72.84 (Pmx) 400 mcg In Empty Bag 1 bag @ 0.7 MCG/KG/HR 25.2 mls/hr IV .Q3H59M [facility] Rx#:[id number] Heparin Sod,Pork in 0.45% 232.182 NaCl 25,000 unit In 0.45 % NaCl 1 250ml.bag @ 6. 944 UNITS/KG/HR 9.999 mls /hr IV .Q24H [facility] Rx#: [id number] Norepinephrine 4 mg In 23.703 Sodium Chloride 0.9% 250 ml @ 0.05 MCG/KG/MIN 26. 355 mls/hr IV .Q9H39M [facility] Rx#:[id number] Oral 350 Tube Feeding 144 Other 30 Output: Urine 1285 1250 100 Other: Voiding Method Indwelling Catheter Indwelling Catheter ABP, PAP, CO, CI - Last Documented Arterial Blood Pressure 153/67 - Exam General: The patient is awake and alert, in no distress Eye: there is normal conjunctiva bilaterally. Neck: The neck is supple, there is no JVD. Cardiovascular: Normal S1-S2, no S3-S4, no murmurs. Respiratory: Lungs clear to auscultation bilaterally Gastrointestinal: Abdomen is soft, nontender Musculoskeletal: There is no pedal edema. Neurological:. Speech is normal. Skin: Skin is warm and dry - Labs CBC & Chem 7: 09/10/21 04:45 09/10/21 04:45 Labs: Abnormal Lab Results - Last 24 Hours (Table) 09/09/21 09/09/21 09/09/21 Range/Units 04:40 14:47 17:55 WBC (3.8-10.6) k/uL RBC (4.30-5.90) m/uL Hgb (13.0-17.5) gm/dL Hct (39.0-53.0) % Neutrophils # (1.3-7.7) k/uL Lymphocytes # (1.0-4.8) k/uL APTT (22.0-30.0) sec Sodium (137-145) mmol/L Carbon Dioxide (22-30) mmol/L BUN (9-20) mg/dL Creatinine (0.66-1.25) mg/dL Glucose (74-99) mg/dL POC Glucose (mg/dL) 180 H 181 H (75-99) mg/dL Calcium (8.4-10.2) mg/dL Magnesium 3.2 H (1.6-2.3) mg/dL 09/09/21 09/10/21 09/10/21 Range/Units 23:25 04:45 04:45 WBC 11.9 H (3.8-10.6) k/uL RBC 3.13 L (4.30-5.90) m/uL Hgb 10.1 L (13.0-17.5) gm/dL Hct 30.6 L (39.0-53.0) % Neutrophils # 10.2 H (1.3-7.7) k/uL Lymphocytes # 0.6 L (1.0-4.8) k/uL APTT 37.3 H (22.0-30.0) sec Sodium (137-145) mmol/L Carbon Dioxide (22-30) mmol/L BUN (9-20) mg/dL Creatinine (0.66-1.25) mg/dL Glucose (74-99) mg/dL POC Glucose (mg/dL) 125 H (75-99) mg/dL Calcium (8.4-10.2) mg/dL Magnesium (1.6-2.3) mg/dL 09/10/21 09/10/21 Range/Units 04:45 06:31 WBC (3.8-10.6) k/uL RBC (4.30-5.90) m/uL Hgb (13.0-17.5) gm/dL Hct (39.0-53.0) % Neutrophils # (1.3-7.7) k/uL Lymphocytes # (1.0-4.8) k/uL APTT (22.0-30.0) sec Sodium 135 L (137-145) mmol/L Carbon Dioxide 21 L (22-30) mmol/L BUN 85 H (9-20) mg/dL Creatinine 4.23 H (0.66-1.25) mg/dL Glucose 145 H (74-99) mg/dL POC Glucose (mg/dL) 150 H (75-99) mg/dL Calcium 8.1 L (8.4-10.2) mg/dL Magnesium (1.6-2.3) mg/dL Microbiology - Last 24 Hours (Table) 09/08/21 16:05 Urine Culture - Final Urine,Catheterized 09/08/21 15:45 Blood Culture - Preliminary Blood No Growth after 24 hours 09/08/21 20:55 Sputum Culture - Preliminary Sputum Assessment and Plan Assessment: This is a 66-year-old male with complex past medical history noted below who presented to the hospital originally with a chief complaint of back pain and shoulder pain. Given prior history of coronary artery disease patient was placed on observation and ACS was ruled out. He was seen and evaluated by cardiology. He was doing fairly well up until 09/06 in the afternoon and he was found unresponsive right after finishing an echocardiogram and he went into a cardiac arrest requiring a prolonged resuscitation with successful ROSC. Patient was intubated and admitted to the ICU. Below is a list of his medical problems at this hospitalization. 1. PEA cardiac arrest converting to V. fib requiring prolonged resuscitation with successful ROSC 2. Acute hypoxic respiratory failure requiring intubation and mechanical ventilation secondary to above extubated successfully on 09/09 3. Cardiogenic shock requiring norepinephrine 4. Coronary artery disease with prior stent and underlying ischemic cardiomyopathy with known EF of 20-25% 5. Chronic atrial fibrillation with prior ablation on anticoagulation currently with IV heparin drip 6. Acute kidney injury with hyperkalemia and possible ATN probably secondary to cardiac event and hypotension. Nephrology consulted for further evaluation Today, I reviewed his medication list and lab work results. Appreciate brand sales consultant's recommendations. Continue antibiotic as directed by pulmonary. Patient will be transferred out of ICU today to telemetry floor IV amiodarone drip would be transitioned to oral Start MiraLAX daily at bedtime Repeat lab work in the morning PT/OT evaluation.
--- NOTE | 2021-09-10 10:40 | PN ---
PROGRESS NOTE Mr. Stahl has been extubated. Neurologically he is stable. He has recovered wonderfully. He is doing well. No chest pain. He is currently on IV amiodarone. I will switch it to oral amiodarone for this gentleman. His creatinine has gone up significantly. Nephrology is following him. No chest pain. Remains in sinus rhythm. Blood pressure is good. Urine output is excellent. JVD is 1 cm. No carotid bruit. S1- S2 heard normally. Short systolic murmur noted. Lungs reveal diminished air entry. Abdomen is soft. Lower extremities reveal diminished pulses. Central nervous system: Generalized weakness. No focal deficits. RECOMMENDATIONS: I recommend that we switch from IV to oral amiodarone, continue other medications, and await further input from Nephrology. MMODL / IJN: [id number] /
--- NOTE | 2021-09-10 12:04 | PN ---
PROGRESS NOTE Patient is seen for followup for acute kidney injury, acute tubular necrosis associated with hypotension, hypoperfusion status post cardiac arrest. The patient had sustained a cardiac arrest during an echocardiogram after injection of Lumason. He has remarkably turned around over the last 2-3 days. He had been on significant high doses of pressors, which is now discontinued. The patient was extubated yesterday. His urine output had been low and now it is at about 60 to 100 mL/hour an hour. The patient was maintained on Lasix which was discontinued yesterday. His serum creatinine continues to rise, although the rise in the creatinine has not been that significant over the past 2-3 days. Patient is not on any nephrotoxic medications at this time. PHYSICAL EXAMINATION: On examination today, blood pressure is 118/77, heart rate 64 per minute. He is afebrile. Examination of the heart S1, S2. Examination of the lungs, decreased breath sounds at the bases. Abdomen is soft, nontender. Examination of lower extremities shows no significant edema. [employer] exam grossly intact. Patient is following commands. LAB: Show sodium 135, potassium 4.7, BUN 85, creatinine 4.2, hemoglobin 10.1 g/dL. ASSESSMENT: 1. Acute kidney injury acute tubular necrosis secondary to hypotension, hypoperfusion, cardiac arrest, currently with much improved urine output. Serum creatinine continues to rise, hopefully to stabilize over the next 1-2 days. No indication for renal replacement therapy at this point. 2. Status post cardiac arrest during echocardiogram after administration of Lumason. 3. Hyperkalemia associated with acute kidney injury and oliguria, now resolved. 4. Atrial fibrillation with RVR, rate is currently controlled. The patient is maintained on amiodarone. 5. Mild volume overload, currently improved. Chest x-ray continues to show mild bilateral effusions, although clinically patient is currently comfortable. We will maintain him off IV Lasix for now. PLAN: Repeat labs in a.m. Avoid hypotension. Continue off diuretics for now. MMODL / IJN: [id number] /
--- NOTE | 2021-09-10 12:32 | P.PN ---
Subjective Progress Note Date: 09/10/21 Principal diagnosis: Cardiac arrest This is a 66-year-old white male with history of coronary artery disease, ischemic cardiomyopathy, patient had previous stent placement in LAD back in February 2021, his also known to have history of chronic atrial fibrillation, hypertension, dyslipidemia, patient was admitted on 09/05/2021, mostly with symptoms of chest pain. Patient described the chest pain as severe, woke him up in the morning around 5:40 AM, and pain was radiating to the left shoulder. Across his back. Patient had similar chest pain previously when he had previous OR. Patient was seen by cardiology, and the recommendation was to do an echocardiogram, and recommended reevaluation after his echocardiogram and stress test.apparently the patient was getting an echocardiogram,Just after receiving his lumason, patient went unresponsive, and he went pulseless. Chest c ompression was started immediately by nursing staff, his initial rhythm was pulseless electrical activity, patient received multiple rounds of epinephrine, and he received multiple fibrillations. And multiple shocks were given. Patient had high quality CPR, and ACLS protocol was followed. Patient received 2 amiodarone boluses, he was shocked you times, and eventually there was return of spontaneous circulation, in the meantime patient was intubated, transferred to the ICU, and I was asked to see him on consultation. In the ICU, patient was hypotensive, required placement of right femoral central line, and he required an arterial line/left radial. His ventilator settings were noted to be initially on the percent FiO2, tidal volume is 500, rate of 20, PEEP was increased from 5-10. And ABG was pending. Reevaluated today on 09/07/2021, patient remains in the ICU intubated and mechanically ventilated, his assist-control rate is 26 FiO2 is down to 55%, PEEP is 10 tidal volume is 500. ABG showed a pO2 of 90 pCO2 51 pH of 7.27. WBC count is elevated at 29.5 hemoglobin 16. Electrolytes showed elevated potassium of 6.0. Worsening renal profile with a BUN of 32 creatinine 1.8. Patient is being followed by nephrology. Chest x-ray showed left basilar infiltrate or atelectasis. With a small left pleural effusion. Right lung is relatively clear. Patient remains on multiple drips, including amiodarone at 0.5 mg/m, he is on Nimbex, propofol at 40, is also on heparin drip. And norepinephrine. Blood pressure remains marginal with systolic of 97 diastolic of 54, urine output is also marginal about 15 mL per hour. Troponin today is 1.9, patient is being followed by cardiology. Patient is yet to be started on enteral feeding today, and I'm recommending stopping his Nimbex today for at least assessment of mental status if possible. In the meantime neurology was consulted, I strongly believe the patient must have sustained significant brain injury from his prolonged cardiac arrest. The patient is seen today 09/08/2021 in follow-up in the intensive care unit. He remains intubated, sedated and on the mechanical ventilator. Current settings are assist-control mode with a rate of 26, tidal volume 500, FiO2 55% 10. Morning blood gases reveal a pO2 of 70, pCO2 7, pH 7.37. Chest x-ray shows atelectasis in the lung bases. He is sedated on propofol 50 mcg/kg/m. N orepinephrine at 4 mcg/m. Heparin drip per weight base protocol. Amiodarone is 0.5 mg/m. He is being nourished with vital HPI 36 ML's per hour which is goal. He is on antibiotics in the form of Zosyn. He remains on IV diuretics. Moderate to severely impaired left ventricular systolic function with ejection fraction 20-25%. Computed tomography scan of the brain without contrast revealed mild atrophy. No mass effect or midline shift. No sign of intracranial hemorrhage. Sodium 132. Potassium 5.1. Creatinine 3.40. Glucose 227. AST 40. ALT 16. CBC pending. Reevaluated today on 09/09/2021, patient remains in the ICU, remains on mechanical ventilation, remains on Precedex. His ventilator settings are assist control rate of 26 tidal volume is 500 FiO2 is 50%, PEEP of 10 and I cut it down to 5. ABG this morning showed a pO2 of 123 pCO2 34 pH of 7.41. Chest x-ray is showing small bilateral pleural effusions right more so than left. Hence the patient received a dose of Lasix earlier today. Patient is arousable, he is on Precedex, and seems to follow all instructions, seems to be very appropriate. His CBC is relatively normal lites are normal however his renal profile is abnormal with a BUN of 70 creatinine 3.96, this is obviously secondary to acute tubular necrosis/acute kidney injury from his cardiac arrest. However the patient is making good urine. Patient had weaning parameters which seems to be very adequate, and I went ahead and place the patient on pressure support of 8 and CPAP, he seemed to tolerate the weaning mode quite well, then I proceeded to extubating the patient while I'm at bedside. The patient is seen today 09/10/2021 in follow-up in the intensive care unit. He is currently resting comfortably in bed. Awake and alert in no acute distr ess. His sclerae extubated yesterday. He is alert and oriented 3. He is maintaining good O2 saturations in the 90s on 2 L/m per nasal cannula. His chest x-ray is showing improvement in the small effusions. He received Lasix yesterday. He does remain in atrial fibrillation. He is currently on amiodarone drip at 0.5 mg per hour. Remains on heparin drip. He does have worsening renal failure with a creatinine up to 4.23. BUN 85. White count 11.9. Hemoglobin 10.1. Sodium 135. Potassium 4.7. Glucose 145. Sputum culture is pending. Urine culture revealed no growth. Blood cultures revealed no growth. Continued on Zosyn. Objective - Vital Signs Vital signs: Vital Signs Temp 97.9 F 09/10/21 08:00 Pulse 66 09/10/21 10:30 Resp 25 H 09/10/21 10:30 BP 130/80 09/10/21 10:00 Pulse Ox 96 09/10/21 10:30 Intake & Output 09/09/21 09/10/21 09/10/21 18:59 06:59 18:59 Intake Total 766.543 911.182 319 Output Total 1285 1250 400 Balance -518.457 -338.818 -81 Weight 143.3 kg Intake: IV 246 329 119 .9 @ 10 mL/hr 110 120 10 ART line 36 9 9 Piperacillin-Tazobactam 3 100 200 100 .375 gm In Sodium Chloride 0.9% 100 ml @ 25 mls/hr IVPB Q8H [facility] Rx#: [id number] Intake, IV Titration 346.543 232.182 Amount Amiodarone 450 mg In 250 Dextrose 5% in Water 250 ml @ 0.5 MG/MIN 16.667 mls/hr IV .Q15H [facility] Rx#: [id number] Dexmedetomidine/0.9% NaCl 72.84 (Pmx) 400 mcg In Empty Bag 1 bag @ 0.7 MCG/KG/HR 25.2 mls/hr IV .Q3H59M [facility] Rx#:[id number] Heparin Sod,Pork in 0.45% 232.182 NaCl 25,000 unit In 0.45 % NaCl 1 250ml.bag @ 6. 944 UNITS/KG/HR 9.999 mls /hr IV .Q24H [facility] Rx#: [id number] Norepinephrine 4 mg In 23.703 Sodium Chloride 0.9% 250 ml @ 0.05 MCG/KG/MIN 26. 355 mls/hr IV .Q9H39M [facility] Rx#:[id number] Oral 350 200 Tube Feeding 144 Other 30 Output: Urine 1285 1250 400 Other: Voiding Method Indwelling Catheter Indwelling Catheter ABP, PAP, CO, CI - Last Documented Arterial Blood Pressure 167/73 - Exam GENERAL EXAM: Awake, alert 66-year-old gentleman, on 2 L/m per nasal cannula, comfortable in no apparent distress. HEAD: Normocephalic. EYES: Sluggish reaction of pupils, equal size. NOSE: Clear with pink turbinates. THROAT: No erythema or exudates. NECK: No masses, no JVD. CHEST: No chest wall deformity. LUNGS: Equal air entry with scattered rhonchi, crackles in the posterior bases. CVS: S1 and S2 normal with no audible murmur, regular rhythm. ABDOMEN: No hepatosplenomegaly, normal bowel sounds, no guarding or rigidity. SPINE: No scoliosis or deformity SKIN: No rashes CENTRAL NERVOUS SYSTEM: No noted focal deficits, tone is normal in all 4 extremities. EXTREMITIES: There is peripheral edema. No clubbing, no cyanosis. Peripheral pulses are intact. - Labs CBC & Chem 7: 09/10/21 04:45 09/10/21 04:45 Labs: Abnormal Lab Results - Last 24 Hours (Table) 09/09/21 09/09/21 09/09/21 Range/Units 04:40 14:47 17:55 WBC (3.8-10.6) k/uL RBC (4.30-5.90) m/uL Hgb (13.0-17.5) gm/dL Hct (39.0-53.0) % Neutrophils # (1.3-7.7) k/uL Lymphocytes # (1.0-4.8) k/uL APTT (22.0-30.0) sec Sodium (137-145) mmol/L Carbon Dioxide (22-30) mmol/L BUN (9-20) mg/dL Creatinine (0.66-1.25) mg/dL Glucose (74-99) mg/dL POC Glucose (mg/dL) 180 H 181 H (75-99) mg/dL Calcium (8.4-10.2) mg/dL Magnesium 3.2 H (1.6-2.3) mg/dL 09/09/21 09/10/21 09/10/21 Range/Units 23:25 04:45 04:45 WBC 11.9 H (3.8-10.6) k/uL RBC 3.13 L (4.30-5.90) m/uL Hgb 10.1 L (13.0-17.5) gm/dL Hct 30.6 L (39.0-53.0) % Neutrophils # 10.2 H (1.3-7.7) k/uL Lymphocytes # 0.6 L (1.0-4.8) k/uL APTT 37.3 H (22.0-30.0) sec Sodium (137-145) mmol/L Carbon Dioxide (22-30) mmol/L BUN (9-20) mg/dL Creatinine (0.66-1.25) mg/dL Glucose (74-99) mg/dL POC Glucose (mg/dL) 125 H (75-99) mg/dL Calcium (8.4-10.2) mg/dL Magnesium (1.6-2.3) mg/dL 09/10/21 09/10/21 Range/Units 04:45 06:31 WBC (3.8-10.6) k/uL RBC (4.30-5.90) m/uL Hgb (13.0-17.5) gm/dL Hct (39.0-53.0) % Neutrophils # (1.3-7.7) k/uL Lymphocytes # (1.0-4.8) k/uL APTT (22.0-30.0) sec Sodium 135 L (137-145) mmol/L Carbon Dioxide 21 L (22-30) mmol/L BUN 85 H (9-20) mg/dL Creatinine 4.23 H (0.66-1.25) mg/dL Glucose 145 H (74-99) mg/dL POC Glucose (mg/dL) 150 H (75-99) mg/dL Calcium 8.1 L (8.4-10.2) mg/dL Magnesium (1.6-2.3) mg/dL Microbiology - Last 24 Hours (Table) 09/08/21 16:05 Urine Culture - Final Urine,Catheterized 09/08/21 15:45 Blood Culture - Preliminary Blood No Growth after 24 hours 09/08/21 20:55 Sputum Culture - Preliminary Sputum Assessment and Plan Assessment: 1 Cardiac arrest, possible non-ST segment elevation myocardial infarction 2 Acute hypoxic respiratory failure secondary to above requiring intubation mechanical ventilatory support, successfully extubated on 09/09/2021 3 Acute kidney injury secondary to acute tubular necrosis secondary to hypotension, hypoperfusion, cardiac arrest, current creatinine 4.23 4 History of underlying coronary artery disease with previous stent placement 5 Suspected anoxic brain injury secondary to prolonged CPR of greater than 30 minutes, however the patient is awake and alert and oriented 3 6 Ischemic cardiomyopathy with ejection fraction 20-25% 7 Cardiogenic shock requiring pressor support 8 Hyperlipidemia 9 Diabetes mellitus Plan: The patient was seen and evaluated by Dr. 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 Lungs sounds few scattered rhonchi, crackles in the posterior bases. Maintaining good O2 saturations in the 90s on 2 L/m per nasal cannula. I discussed the assessment and plan of care with my nurse practitioner, Alma Delia Castillo. I attest to the above note as dictated by her.
[2021-09-10 13:18] LABS: Glucose,Whole Blood 216 mg/dL (75-99)
--- NOTE | 2021-09-10 13:41 | P.CONS ---
History of Present Illness - Chief Complaint Cardiac debility - History of Present Illness I had the opportunity to see patient for inpatient rehab consultation regard to cardiac debility. Patient apparently undergoing cardiac workup and underwent echo on September 05 resulted in side effect of cardiac arrest afraid she seen by cardiology. Also by Dr. Lopez for ICU management. Seen by neurology, Dr. Monique bustamante diagnosed toxic metabolic encephalopathy. No chest x-rays followed for cardiomegaly in interstitial changes. Head CT with mild atrophy. EEG with moderate diffuse disturbance consistent with toxic metabolic encephalopathy. T- spine x-ray with moderate DDD. Seen by therapies. PT reports moderate to maximal assistance to person for bed mobility and transfers. OT reports minimal assistance for upper dressing mod assist for lower dressing and bathing. 2 person moderate assistance for toileting and toilet transfers. Previous functional history elicited from patient and : 66-year-old right- handed white male who is lives in one form with basement, and . Both are retired. gently does the cooking and laundry in the both drive. Patient dependent with standing shower and gait without device. PCP Dr. Girard. Denies tobacco has rare drink. Review of Systems Review of systems: ENT: Denies sneezes or discharge. Eyes: Denies discharge or photophobia. Cardiac: Denies chest pain or palpitation. Pulmonary: Mild to moderate shortness of breath. Gastrointestinal: Denies nausea, emesis, constipation, diarrhea. Genitourinary: Denies discharge or frequency. Musculoskeletal: Denies muscle or bone aches. Neurologic: Generalized weakness. Endocrine: Denies shakes or sweats. Oncology: Denies cancers. Dermatologic: Denies rash, itching, pruritus. ALLERGY/immunology: Denies sneezes, rashes. Past Medical History Past Medical History: Atrial Fibrillation, Diabetes Mellitus, GERD/Reflux, Hyperlipidemia, Hypertension, Myocardial Infarction (RI), Osteoarthritis (OA), Renal Disease, Sleep Apnea/CPAP/BIPAP Additional Past Medical History / Comment(s): kidney stones, Last Myocardial Infarction Date:: 03/07/2021 History of Any Multi-Drug Resistant Organisms: None Reported Past Surgical History: Cholecystectomy, Hernia Repair, Joint Replacement Additional Past Surgical History / Comment(s): 10/2015 cardioversion, bilateral total knee arthroplasty, umbilical hernia repair, removal of kidney stones, cardioversion X3, Cardiac Ablation. Past Anesthesia/Blood Transfusion Reactions: No Reported Reaction Additional Past Anesthesia/Blood Transfusion Reaction / Comm: difficul intubation Past Psychological History: No Psychological Hx Reported Smoking Status: Former smoker Past Alcohol Use History: Rare Additional Past Alcohol Use History / Comment(s): started smoking at age 18 or 19yrs. quit in Past Drug Use History: None Reported - Past Family History Mother Family Medical History: No Reported History Additional Family Medical History / Comment(s): Mother is 84 yrs old. Father Family Medical History: Cancer Additional Family Medical History / Comment(s): BLADDER CANCER . Medications and Allergies Home Medications Medication Instructions Recorded Confirmed Type Oxybutynin Chloride 5 mg PO BID 11/04/15 09/05/21 History lisinopriL [Zestril] 5 mg PO BID 06/08/18 09/05/21 History Albuterol Sulfate [Proair Hfa] 2 puff INHALATION RT-QID PRN 03/07/21 09/05/21 History metFORMIN HCL [Glucophage] 500 mg PO AC-BID 03/07/21 09/05/21 History Atorvastatin [Lipitor] 80 mg PO HS 03/14/21 09/05/21 History Nitroglycerin Sl Tabs [Nitrostat] 0.4 mg SUBLINGUAL Q5M PRN #30 tab 03/14/21 09/05/21 Rx ALPRAZolam [Xanax] 0.25 mg PO DAILY PRN 09/05/21 09/05/21 History Acetaminophen [Tylenol Extra 500 mg PO Q6H PRN 09/05/21 09/05/21 History Strength] Apixaban [Eliquis] 5 mg PO BID 09/05/21 09/05/21 History Fluticasone Nasal [place] [Flonase 1 spray EA NOSTRIL DAILY PRN 09/05/21 09/05/21 History Nasal [place]] Furosemide [Lasix] 20 mg PO BID 09/05/21 09/05/21 History Metoprolol Tartrate [Lopressor] 25 mg PO DAILY 09/05/21 09/05/21 History Spironolactone 25 mg PO DAILY 09/05/21 09/05/21 History Clopidogrel [Plavix] 75 mg PO DAILY 09/09/21 09/09/21 History Sildenafil [Revatio] 20 mg PO TID 09/09/21 09/09/21 History Allergies Allergy/AdvReac Type Severity Reaction Status Date / Time adhesive tape Allergy Rash/Hives Verified 09/05/21 11:47 sulfur hexafluoride Allergy Unknown Verified 09/06/21 17:23 microspheres [From Lumason] tape AdvReac BLISTERS, Uncoded 09/05/21 11:47 SKIN PEELS Physical Exam Vitals: Vital Signs Temp Pulse Resp BP Pulse Ox 09/10/21 10:30 66 25 H 96 09/10/21 10:00 68 29 H 130/80 95 09/10/21 09:30 67 17 97 09/10/21 09:00 66 20 122/85 94 L 09/10/21 08:30 20 96 09/10/21 08:00 97.9 F 66 17 109/86 96 09/10/21 07:30 64 23 118/77 95 09/10/21 07:00 68 25 H 109/72 95 09/10/21 06:30 70 26 H 109/72 95 09/10/21 06:00 62 23 109/71 94 L 09/10/21 05:30 68 21 109/71 90 L 09/10/21 05:00 66 20 109/67 92 L 09/10/21 04:30 66 18 109/67 88 L 09/10/21 04:00 98.1 F 66 14 105/73 91 L 09/10/21 03:30 67 16 105/73 91 L 09/10/21 03:00 67 26 H 103/69 93 L 09/10/21 02:30 66 21 103/69 92 L 09/10/21 02:00 64 21 101/70 92 L 09/10/21 01:30 66 19 101/70 93 L 09/10/21 01:00 70 20 95/60 93 L 09/10/21 00:30 67 23 95/60 92 L 09/10/21 00:00 97.7 F 66 26 H 99/66 88 L 09/09/21 23:30 70 30 H 99/66 95 09/09/21 23:00 72 26 H 105/64 94 L 09/09/21 22:30 69 20 105/64 96 09/09/21 22:00 69 20 100/58 96 09/09/21 21:30 67 24 100/58 96 09/09/21 21:00 68 28 H 95/57 96 09/09/21 20:30 68 24 95/57 96 09/09/21 20:00 98.6 F 69 22 95 09/09/21 19:00 64 11 L 95 09/09/21 18:30 70 14 97 09/09/21 18:00 65 28 H 98 09/09/21 17:30 64 32 H 98 09/09/21 17:00 69 14 96 09/09/21 16:30 65 21 98 09/09/21 16:00 98.3 F 61 27 H 98 09/09/21 15:30 65 25 H 98 09/09/21 15:00 64 23 98 09/09/21 14:30 98.2 F 48 L 26 H 98 09/09/21 14:15 64 27 H 98 09/09/21 14:00 65 26 H 97 09/09/21 13:45 66 32 H 97 Intake and Output 09/09/21 09/10/21 09/10/21 22:59 06:59 14:59 Intake Total 398 565.182 319 Output Total 945 825 400 Balance -547 -259.818 -81 Intake: IV 198 183 119 .9 @ 10 mL/hr 80 80 10 ART line 18 3 9 Piperacillin-Tazobactam 3 100 100 100 .375 gm In Sodium Chloride 0.9% 100 ml @ 25 mls/hr IVPB Q8H [facility] Rx#: [id number] Intake, IV Titration 232.182 Amount Heparin Sod,Pork in 0.45% 232.182 NaCl 25,000 unit In 0.45 % NaCl 1 250ml.bag @ 6. 944 UNITS/KG/HR 9.999 mls /hr IV .Q24H [facility] Rx#: [id number] Oral 200 150 200 Output: Urine 945 825 400 Other: Voiding Method Indwelling Catheter Indwelling Catheter Weight 143.3 kg ABP, PAP, CO, CI - Last 8 Hours Arterial Blood Pressure 167/73 Arterial Blood Pressure 166/70 Arterial Blood Pressure 173/72 Arterial Blood Pressure 169/73 Arterial Blood Pressure 141/76 Arterial Blood Pressure 163/68 Arterial Blood Pressure 153/67 Arterial Blood Pressure 133/60 Arterial Blood Pressure 149/70 Arterial Blood Pressure 143/67 Skin: Good color, texture, turgor. General: Obese build and comfortable appearance. Head: Normocephalic, atraumatic. Eyes: Symmetric. Pupils equal round. Ears: Symmetric. Hearing within normal limits. Mouth: Clear. Neck: Supple. Carotid without bruit. Cardiac: Regular rate and rhythm. Lungs: Clear anteriorly and posteriorly. Abdomen: Soft active nontender. Overweight. Extremities: Normal tone. Neurological: Mental status: Alert, cooperative, pleasant. Cranial nerves: Symmetric facial tone and trapezius. Motor: Active movement all 4 limbs. Less than antigravity arms and legs poor. Sensation: Intact throughout. DTRs: Symmetric and equal throughout. Mobility: Nurse reports 2-3 person assist for transfer from bed to bedside Zainab chair. Results CBC & Chem 7: 09/10/21 04:45 09/10/21 04:45 Labs: Abnormal Lab Results - Last 24 Hours (Table) 09/09/21 09/09/21 09/09/21 Range/Units 04:40 14:47 17:55 WBC (3.8-10.6) k/uL RBC (4.30-5.90) m/uL Hgb (13.0-17.5) gm/dL Hct (39.0-53.0) % Neutrophils # (1.3-7.7) k/uL Lymphocytes # (1.0-4.8) k/uL APTT (22.0-30.0) sec Sodium (137-145) mmol/L Carbon Dioxide (22-30) mmol/L BUN (9-20) mg/dL Creatinine (0.66-1.25) mg/dL Glucose (74-99) mg/dL POC Glucose (mg/dL) 180 H 181 H (75-99) mg/dL Calcium (8.4-10.2) mg/dL Magnesium 3.2 H (1.6-2.3) mg/dL 09/09/21 09/10/21 09/10/21 Range/Units 23:25 04:45 04:45 WBC 11.9 H (3.8-10.6) k/uL RBC 3.13 L (4.30-5.90) m/uL Hgb 10.1 L (13.0-17.5) gm/dL Hct 30.6 L (39.0-53.0) % Neutrophils # 10.2 H (1.3-7.7) k/uL Lymphocytes # 0.6 L (1.0-4.8) k/uL APTT 37.3 H (22.0-30.0) sec Sodium (137-145) mmol/L Carbon Dioxide (22-30) mmol/L BUN (9-20) mg/dL Creatinine (0.66-1.25) mg/dL Glucose (74-99) mg/dL POC Glucose (mg/dL) 125 H (75-99) mg/dL Calcium (8.4-10.2) mg/dL Magnesium (1.6-2.3) mg/dL 09/10/21 09/10/21 09/10/21 Range/Units 04:45 06:31 13:16 WBC (3.8-10.6) k/uL RBC (4.30-5.90) m/uL Hgb (13.0-17.5) gm/dL Hct (39.0-53.0) % Neutrophils # (1.3-7.7) k/uL Lymphocytes # (1.0-4.8) k/uL APTT (22.0-30.0) sec Sodium 135 L (137-145) mmol/L Carbon Dioxide 21 L (22-30) mmol/L BUN 85 H (9-20) mg/dL Creatinine 4.23 H (0.66-1.25) mg/dL Glucose 145 H (74-99) mg/dL POC Glucose (mg/dL) 150 H 216 H (75-99) mg/dL Calcium 8.1 L (8.4-10.2) mg/dL Magnesium (1.6-2.3) mg/dL Microbiology - Last 24 Hours (Table) 09/08/21 16:05 Urine Culture - Final Urine,Catheterized 09/08/21 15:45 Blood Culture - Preliminary Blood No Growth after 24 hours 09/08/21 20:55 Sputum Culture - Preliminary Sputum Assessment and Plan (1) STEMI (ST elevation myocardial infarction) Current Visit: No Status: Acute Code(s): I21.3 - ST ELEVATION (STEMI) MYOCARDIAL INFARCTION OF [facility] SITE SNOMED Code(s): 42808181 Plan: Impression: 1. Cardiac debility with recent arrest and non-STEMI and history of RI. 2. Atrial fibrillation with bradycardia. 3. Hypertension. 4. Dyslipidemia. 5. Osteoarthritis. 6. Chronic kidney disease. 7. Sleep apnea. 8. Diabetes. 9. Reflux. Comments and plan: At this time PT and OT are ongoing. Patient currently with endurance issues requires two-person assistance for any upright activity. Not currently ready for inpatient rehab we'll continue to follow closely with yourself. We'll review therapy notes daily.
[2021-09-10 16:27] LABS: Glucose,Whole Blood 147 mg/dL (75-99)
[2021-09-10 20:15] LABS: Glucose,Whole Blood 162 mg/dL (75-99)
[2021-09-10] MEDS: ATORVASTATIN 80 MG TAB PO SCH (20:24)
[2021-09-10] MEDS: polyethylene glycoL 3350 17 GM POWD.PACK PO SCH (20:25)
[2021-09-10] MEDS ORDERED: METOPROLOL TARTRATE 12.5 MG TAB PO SCH (21:00)
[2021-09-10] MEDS: DEXMEDETOMIDINE/0.9% NACL(PMX) 400 MCG in EMPTY BAG 1 BAG IV SCH (22:58)
[2021-09-10] MEDS: ACETAMINOPHEN IV (For NPO) 1,000 MG in EMPTY BAG 1 BAG IVPB SCH (22:59)
[2021-09-10] MEDS: FUROSEMIDE 20 MG TAB PO SCH (23:00)
[2021-09-10] MEDS: ARTIFICIAL TEARS-HYPROMELLOSE DROPS 15 ML BTL BOTH EYES SCH (23:00)
[2021-09-11] MEDS: ACETAMINOPHEN TAB 500 MG TAB PO PRN (05:27)
[2021-09-11] MEDS: PIPERACILLIN-TAZOBACTAM 3.375 GM in SODIUM CHLORIDE 0.9% 100 ML IVPB SCH ×2 (05:29→17:00)
[2021-09-11 06:11] LABS: Glucose,Whole Blood 194 mg/dL (75-99)
[2021-09-11] MEDS: INSULIN ASPART (NovoLOG) 100 UNIT/ML VIAL SQ SCH ×4 (06:59→20:57)
[2021-09-11] MEDS: FAMOTIDINE 20 MG TAB PO SCH (09:22)
[2021-09-11] MEDS: AMIODARONE 200 MG TAB PO SCH ×2 (09:22→20:57)
[2021-09-11] MEDS: CLOPIDOGREL 75 MG TAB PO SCH (09:22)
[2021-09-11] MEDS: METOPROLOL TARTRATE 12.5 MG TAB PO SCH ×2 (09:26→20:54)
[2021-09-11 09:29] LABS: Basophils % (A) 0 %; Eosinophils # (A) 0.3 k/uL (0-0.7); Eosinophils % (A) 3 %; HCT 33.2 % (39.0-53.0); HGB 10.9 gm/dL (13.0-17.5); Lymphocytes # (A) 0.5 k/uL (1.0-4.8); Lymphocytes % (A) 5 %; MCH 32.5 pg (25.0-35.0); MCHC 32.8 g/dL (31.0-37.0); MCV 99.2 fL (80.0-100.0); Mean Platelet Volume 7.1; Monocytes # (A) 0.6 k/uL (0-1.0); Monocytes % (A) 5 %; Neutrophils % (A) 85 %; Platelet Count 237 k/uL (150-450); RBC 3.35 m/uL (4.30-5.90); RDW 13.4 % (11.5-15.5); WBC 10.6 k/uL (3.8-10.6)
[2021-09-11 09:52] LABS: Calcium 8.6 mg/dL (8.4-10.2)
[2021-09-11 10:18] LABS: Potassium 5.1 mmol/L (3.5-5.1)
[2021-09-11] MEDS: HEPARIN SOD,PORK IN 0.45% NACL 25,000 UNIT in 0.45% NACL 1 250ML.BAG IV SCH (10:21)
--- NOTE | 2021-09-11 10:36 | P.PN ---
Subjective patient was seen and evaluated by me today. He is doing fairly well. He does not have any complaints. Objective - Vital Signs Vital signs: Vital Signs Temp 98.1 F 09/11/21 04:00 Pulse 106 H 09/11/21 04:00 Resp 18 09/11/21 04:00 BP 153/78 09/11/21 04:00 Pulse Ox 95 09/11/21 09:24 Intake & Output 09/10/21 09/11/21 09/11/21 18:59 06:59 18:59 Intake Total 478 239.904 237.293 Output Total 600 1412 100 Balance -122 -1172.096 137.293 Weight 143.3 kg 136.5 kg Intake: IV 158 .9 @ 10 mL/hr 40 ART line 18 Piperacillin-Tazobactam 3 100 .375 gm In Sodium Chloride 0.9% 100 ml @ 25 mls/hr IVPB Q8H [facility] Rx#: [id number] Intake, IV Titration 239.904 237.293 Amount Heparin Sod,Pork in 0.45% 239.904 237.293 NaCl 25,000 unit In 0.45 % NaCl 1 250ml.bag @ 6. 944 UNITS/KG/HR 9.999 mls /hr IV .Q24H [facility] Rx#: [id number] Oral 320 Output: Urine 600 1412 100 Stool 0 Urine/Stool Mix 0 Other: Voiding Method Indwelling Catheter Indwelling Catheter # Voids 0 # Bowel Movements 1 ABP, PAP, CO, CI - Last Documented Arterial Blood Pressure 108/60 - Exam General: The patient is awake and alert, in no distress Eye: there is normal conjunctiva bilaterally. Neck: The neck is supple, there is no JVD. Cardiovascular: Normal S1-S2, no S3-S4, no murmurs. Respiratory: Lungs clear to auscultation bilaterally Gastrointestinal: Abdomen is soft, nontender Musculoskeletal: There is no pedal edema. Neurological:. Speech is normal. Skin: Skin is warm and dry - Labs CBC & Chem 7: 09/11/21 08:58 09/11/21 08:58 Labs: Abnormal Lab Results - Last 24 Hours (Table) 09/10/21 09/10/21 09/10/21 Range/Units 13:16 13:18 16:25 RBC (4.30-5.90) m/uL Hgb (13.0-17.5) gm/dL Hct (39.0-53.0) % Neutrophils # (1.3-7.7) k/uL Lymphocytes # (1.0-4.8) k/uL APTT 46.2 H (22.0-30.0) sec Chloride (98-107) mmol/L Carbon Dioxide (22-30) mmol/L BUN (9-20) mg/dL Creatinine (0.66-1.25) mg/dL Glucose (74-99) mg/dL POC Glucose (mg/dL) 216 H 147 H (75-99) mg/dL Magnesium (1.6-2.3) mg/dL 09/10/21 09/11/21 09/11/21 Range/Units 20:14 06:10 08:58 RBC 3.35 L (4.30-5.90) m/uL Hgb 10.9 L (13.0-17.5) gm/dL Hct 33.2 L (39.0-53.0) % Neutrophils # 9.0 H (1.3-7.7) k/uL Lymphocytes # 0.5 L (1.0-4.8) k/uL APTT (22.0-30.0) sec Chloride (98-107) mmol/L Carbon Dioxide (22-30) mmol/L BUN (9-20) mg/dL Creatinine (0.66-1.25) mg/dL Glucose (74-99) mg/dL POC Glucose (mg/dL) 162 H 194 H (75-99) mg/dL Magnesium (1.6-2.3) mg/dL 09/11/21 09/11/21 Range/Units 08:58 08:58 RBC (4.30-5.90) m/uL Hgb (13.0-17.5) gm/dL Hct (39.0-53.0) % Neutrophils # (1.3-7.7) k/uL Lymphocytes # (1.0-4.8) k/uL APTT 38.8 H (22.0-30.0) sec Chloride 109 H (98-107) mmol/L Carbon Dioxide 19 L (22-30) mmol/L BUN 91 H (9-20) mg/dL Creatinine 3.67 H (0.66-1.25) mg/dL Glucose 198 H (74-99) mg/dL POC Glucose (mg/dL) (75-99) mg/dL Magnesium 3.0 H (1.6-2.3) mg/dL Microbiology - Last 24 Hours (Table) 09/08/21 15:45 Blood Culture - Preliminary Blood No Growth after 48 hours 09/08/21 20:55 Gram Stain - Preliminary Sputum Sputum Culture - Preliminary Gram Neg Bacilli Maite albicans Assessment and Plan Assessment: This is a 66-year-old male with complex past medical history noted below who presented to the hospital originally with a chief complaint of back pain and shoulder pain. Given prior history of coronary artery disease patient was place d on observation and ACS was ruled out. He was seen and evaluated by cardiology. He was doing fairly well up until 09/06 in the afternoon and he was found unresponsive right after finishing an echocardiogram and he went into a cardiac arrest requiring a prolonged resuscitation with successful ROSC. Patient was intubated and admitted to the ICU. Below is a list of his medical problems at this hospitalization. 1. PEA cardiac arrest converting to V. fib requiring prolonged resuscitation with successful ROSC 2. Acute hypoxic respiratory failure requiring intubation and mechanical ventilation secondary to above extubated successfully on 09/09 3. Cardiogenic shock requiring norepinephrine 4. Coronary artery disease with prior stent and underlying ischemic cardiomyopathy with known EF of 20-25% 5. Chronic atrial fibrillation with prior ablation on anticoagulation 6. Acute kidney injury with hyperkalemia and possible ATN probably secondary to cardiac event and hypotension. Nephrology consulted for further evaluation Today, I reviewed his medication list and lab work results. Appreciate [facility] consultant's recommendations. Continue antibiotic as directed by pulmonary. transition anticoagulation to oral patient was seen and evaluated by PT/OT. [facility] to [facility] for [facility]. Apparently patient didn't qualify for acute rehab.
--- NOTE | 2021-09-11 10:45 | P.PN ---
Subjective Progress Note Date: 09/11/21 Principal diagnosis: This is a 66-year-old male seen in consultation because of acute kidney injury post cardiac arrest. He was extubated day before yesterday and is doing very we ll. Sitting in a chair. No focal motor deficit. Denies any nausea vomiting diarrhea appetite is fair no dysphagia Vital signs are stable urine output is 201 2 mL. Currently on nasal cannula oxygen Objective - Vital Signs Vital signs: Vital Signs Temp 98.1 F 09/11/21 04:00 Pulse 106 H 09/11/21 04:00 Resp 18 09/11/21 04:00 BP 153/78 09/11/21 04:00 Pulse Ox 95 09/11/21 09:24 Intake & Output 09/10/21 09/11/21 09/11/21 18:59 06:59 18:59 Intake Total 478 239.904 237.293 Output Total 600 1412 100 Balance -122 -1172.096 137.293 Weight 143.3 kg 136.5 kg Intake: IV 158 .9 @ 10 mL/hr 40 ART line 18 Piperacillin-Tazobactam 3 100 .375 gm In Sodium Chloride 0.9% 100 ml @ 25 mls/hr IVPB Q8H [facility] Rx#: [id number] Intake, IV Titration 239.904 237.293 Amount Heparin Sod,Pork in 0.45% 239.904 237.293 NaCl 25,000 unit In 0.45 % NaCl 1 250ml.bag @ 6. 944 UNITS/KG/HR 9.999 mls /hr IV .Q24H [facility] Rx#: [id number] Oral 320 Output: Urine 600 1412 100 Stool 0 Urine/Stool Mix 0 Other: Voiding Method Indwelling Catheter Indwelling Catheter # Voids 0 # Bowel Movements 1 ABP, PAP, CO, CI - Last Documented Arterial Blood Pressure 108/60 On examination is awake alert oriented comfortable sitting in a HEENT exam no JVP neck is supple no facial asymmetry Lungs clear to auscultation good air entry bilaterally Heart sounds somewhat distant but unremarkable Abdomen soft protuberant and nontender extreme exam was no edema Warm to touch awake alert oriented no focal motor deficit - Labs CBC & Chem 7: 09/11/21 08:58 09/11/21 08:58 Labs: Abnormal Lab Results - Last 24 Hours (Table) 09/10/21 09/10/2121 Range/Units 13:16 13:18 16:25 RBC (4.30-5.90) m/uL Hgb (13.0-17.5) gm/dL Hct (39.0-53.0) % Neutrophils # (1.3-7.7) k/uL Lymphocytes # (1.0-4.8) k/uL APTT 46.2 H (22.0-30.0) sec Chloride (98-107) mmol/L Carbon Dioxide (22-30) mmol/L BUN (9-20) mg/dL Creatinine (0.66-1.25) mg/dL Glucose (74-99) mg/dL POC Glucose (mg/dL) 216 H 147 H (75-99) mg/dL Magnesium (1.6-2.3) mg/dL 09/10/21 09/11/21 09/11/21 Range/Units 20:14 06:10 08:58 RBC 3.35 L (4.30-5.90) m/uL Hgb 10.9 L (13.0-17.5) gm/dL Hct 33.2 L (39.0-53.0) % Neutrophils # 9.0 H (1.3-7.7) k/uL Lymphocytes # 0.5 L (1.0-4.8) k/uL APTT (22.0-30.0) sec Chloride (98-107) mmol/L Carbon Dioxide (22-30) mmol/L BUN (9-20) mg/dL Creatinine (0.66-1.25) mg/dL Glucose (74-99) mg/dL POC Glucose (mg/dL) 162 H 194 H (75-99) mg/dL Magnesium (1.6-2.3) mg/dL 09/11/21 09/11/21 Range/Units 08:58 08:58 RBC (4.30-5.90) m/uL Hgb (13.0-17.5) gm/dL Hct (39.0-53.0) % Neutrophils # (1.3-7.7) k/uL Lymphocytes # (1.0-4.8) k/uL APTT 38.8 H (22.0-30.0) sec Chloride 109 H (98-107) mmol/L Carbon Dioxide 19 L (22-30) mmol/L BUN 91 H (9-20) mg/dL Creatinine 3.67 H (0.66-1.25) mg/dL Glucose 198 H (74-99) mg/dL POC Glucose (mg/dL) (75-99) mg/dL Magnesium 3.0 H (1.6-2.3) mg/dL Microbiology - Last 24 Hours (Table) 09/08/21 15:45 Blood Culture - Preliminary Blood No Growth after 48 hours 09/08/21 20:55 Gram Stain - Preliminary Sputum Sputum Culture - Preliminary Gram Neg Bacilli Maite albicans Assessment and Plan Assessment: Impression 1. Acute kidney injury status post cardiac arrest improving, creatinine down from 4.23-3.67 2. Mild degree of non-gap acidosis from acute kidney injury, bicarb is 19 down from 21 yesterday 3. Clinically euvolemic 4. Status post cardiac arrest status post remote stenting and ischemic cardiomyopathy, 20 with ejection fraction 20-25% Recommendation 1. Continue to watch no need for any diuretics. Currently 2. Monitor labs. 3. Expect non-gap metabolic acidosis, to improve
[2021-09-11 11:42] LABS: Glucose,Whole Blood 176 mg/dL (75-99)
--- NOTE | 2021-09-11 12:22 | P.PN ---
Subjective Patient seen and examined sitting up conversing with his . He is going in and out of atrial fibrillation this morning. Currently in sinus rhythm with controlled heart rate in the 60s. Blood pressure 132/75. Laboratory data reviewed, WBC 10.6, hemoglobin 10.9, platelets 85, sodium 138, potassium 5.1, creatinine 3.67 and magnesium 3.0. Currently maintained on amiodarone 200 mg twice a day, Eliquis 5 mg twice a day, atorvastatin 80 mg daily, Plavix 75 mg daily, aspirin 81 mg daily, Lopressor 25 mg twice a day and IV antibiotics. GENERAL: Well-appearing, well-nourished and in no acute distress. NECK: Supple without JVD or thyromegaly. LUNGS: Breath sounds clear to auscultation bilaterally. Respiration equal and unlabored. No wheezes, rales or rhonchi. HEART: Regular rate and rhythm with systolic ejection murmur at the base, no rub s or gallops. S1 and S2 heard. EXTREMITIES: Normal range of motion, no edema. No clubbing or cyanosis. Peripheral pulses intact. ASSESSMENT Status post cardiac arrest Paroxysmal atrial fibrillation Acute kidney injury Cardiogenic shock Diabetes mellitus Coronary artery disease Hypertension Dyslipidemia PLAN Discontinue aspirin. Continue plavix and eliquis. Repeat limited echo for LV function Monday. Nurse Practitioner note has been reviewed, I agree with a documented findings and plan of care. Patient was seen and examined. Objective - Vital Signs Vital signs: Vital Signs Temp 98.0 F 09/11/21 08:00 Pulse 106 H 09/11/21 08:00 Resp 18 09/11/21 08:00 BP 132/75 09/11/21 08:00 Pulse Ox 95 09/11/21 09:24 Intake & Output 09/10/21 09/11/21 09/11/21 18:59 06:59 18:59 Intake Total 478 239.904 237.293 Output Total 600 1412 100 Balance -122 -1172.096 137.293 Weight 143.3 kg 136.5 kg Intake: IV 158 .9 @ 10 mL/hr 40 ART line 18 Piperacillin-Tazobactam 3 100 .375 gm In Sodium Chloride 0.9% 100 ml @ 25 mls/hr IVPB Q8H [facility] Rx#: [id number] Intake, IV Titration 239.904 237.293 Amount Heparin Sod,Pork in 0.45% 239.904 237.293 NaCl 25,000 unit In 0.45 % NaCl 1 250ml.bag @ 6. 944 UNITS/KG/HR 9.999 mls /hr IV .Q24H [facility] Rx#: [id number] Oral 320 Output: Urine 600 1412 100 Stool 0 0 Urine/Stool Mix 0 Other: Voiding Method Indwelling Catheter Indwelling Catheter # Voids 0 1 # Bowel Movements 1 ABP, PAP, CO, CI - Last Documented Arterial Blood Pressure 108/60 - Labs CBC & Chem 7: 09/11/21 08:58 09/11/21 08:58 Labs: Abnormal Lab Results - Last 24 Hours (Table) 09/10/21 09/10/21 09/10/21 Range/Units 13:16 13:18 16:25 RBC (4.30-5.90) m/uL Hgb (13.0-17.5) gm/dL Hct (39.0-53.0) % Neutrophils # (1.3-7.7) k/uL Lymphocytes # (1.0-4.8) k/uL APTT 46.2 H (22.0-30.0) sec Chloride (98-107) mmol/L Carbon Dioxide (22-30) mmol/L BUN (9-20) mg/dL Creatinine (0.66-1.25) mg/dL Glucose (74-99) mg/dL POC Glucose (mg/dL) 216 H 147 H (75-99) mg/dL Magnesium (1.6-2.3) mg/dL 09/10/21 09/11/21 09/11/21 Range/Units 20:14 06:10 08:58 RBC 3.35 L (4.30-5.90) m/uL Hgb 10.9 L (13.0-17.5) gm/dL Hct 33.2 L (39.0-53.0) % Neutrophils # 9.0 H (1.3-7.7) k/uL Lymphocytes # 0.5 L (1.0-4.8) k/uL APTT (22.0-30.0) sec Chloride (98-107) mmol/L Carbon Dioxide (22-30) mmol/L BUN (9-20) mg/dL Creatinine (0.66-1.25) mg/dL Glucose (74-99) mg/dL POC Glucose (mg/dL) 162 H 194 H (75-99) mg/dL Magnesium (1.6-2.3) mg/dL 09/11/21 09/11/21 09/11/21 Range/Units 08:58 08:58 11:40 RBC (4.30-5.90) m/uL Hgb (13.0-17.5) gm/dL Hct (39.0-53.0) % Neutrophils # (1.3-7.7) k/uL Lymphocytes # (1.0-4.8) k/uL APTT 38.8 H (22.0-30.0) sec Chloride 109 H (98-107) mmol/L Carbon Dioxide 19 L (22-30) mmol/L BUN 91 H (9-20) mg/dL Creatinine 3.67 H (0.66-1.25) mg/dL Glucose 198 H (74-99) mg/dL POC Glucose (mg/dL) 176 H (75-99) mg/dL Magnesium 3.0 H (1.6-2.3) mg/dL Microbiology - Last 24 Hours (Table) 09/08/21 15:45 Blood Culture - Preliminary Blood No Growth after 48 hours 09/08/21 20:55 Gram Stain - Preliminary Sputum Sputum Culture - Preliminary Gram Neg Bacilli Maite albicans
--- NOTE | 2021-09-11 12:56 | P.PN ---
Subjective Progress Note Date: 09/11/21 Principal diagnosis: Cardiac arrest This is a 66-year-old white male with history of coronary artery disease, ischemic cardiomyopathy, patient had previous stent placement in [facility]AD back in February 2021, his also known to have history of chronic atrial fibrillation, hypertension, dyslipidemia, patient was admitted on 09/05/2021, mostly with symptoms of chest pain. Patient described the chest pain as severe, woke him up in the morning around 5:40 AM, and pain was radiating to the left shoulder. Across his back. Patient had similar chest pain previously when he had previous SC. Patient was seen by cardiology, and the recommendation was to do an echocardiogram, and recommended reevaluation after his echocardiogram and stress test.apparently the patient was getting an echocardiogram,Just after receiving his lumason, patient went unresponsive, and he went pulseless. Chest co mpression was started immediately by nursing staff, his initial rhythm was pulseless electrical activity, patient received multiple rounds of epinephrine, and he received multiple fibrillations. And multiple shocks were given. Patient had high quality CPR, and ACLS protocol was followed. Patient received 2 amiodarone boluses, he was shocked you times, and eventually there was return of spontaneous circulation, in the meantime patient was intubated, transferred to the ICU, and I was asked to see him on consultation. In the ICU, patient was hypotensive, required placement of right femoral central line, and he required an arterial line/left radial. His ventilator settings were noted to be initially on the percent FiO2, tidal volume is 500, rate of 20, PEEP was increased from 5-10. And ABG was pending. Reevaluated today on 09/07/2021, patient remains in the ICU intubated and mechanically ventilated, his assist-control rate is 26 FiO2 is down to 55%, PEEP is 10 tidal volume is 500. ABG showed a pO2 of 90 pCO2 51 pH of 7.27. WBC count is elevated at 29.5 hemoglobin 16. Electrolytes showed elevated potassium of 6.0. Worsening renal profile with a BUN of 32 creatinine 1.8. Patient is being followed by nephrology. Chest x-ray showed left basilar infiltrate or atelectasis. With a small left pleural effusion. Right lung is relatively clear. Patient remains on multiple drips, including amiodarone at 0.5 mg/m, he is on Nimbex, propofol at 40, is also on heparin drip. And norepinephrine. Blood pressure remains marginal with systolic of 97 diastolic of 54, urine output is also marginal about 15 mL per hour. Troponin today is 1.9, patient is being followed by cardiology. Patient is yet to be started on enteral feeding today, and I'm recommending stopping his Nimbex today for at least assessment of mental status if possible. In the meantime neurology was consulted, I strongly believe the patient must have sustained significant brain injury from his prolonged cardiac arrest. The patient is seen today 09/08/2021 in follow-up in the intensive care unit. He remains intubated, sedated and on the mechanical ventilator. Current settings are assist-control mode with a rate of 26, tidal volume 500, FiO2 55% 10. Morning blood gases reveal a pO2 of 70, pCO2 7, pH 7.37. Chest x-ray shows atelectasis in the lung bases. He is sedated on propofol 50 mcg/kg/m. N orepinephrine at 4 mcg/m. Heparin drip per weight base protocol. Amiodarone is 0.5 mg/m. He is being nourished with vital HPI 36 ML's per hour which is goal. He is on antibiotics in the form of Zosyn. He remains on IV diuretics. Moderate to severely impaired left ventricular systolic function with ejection fraction 20-25%. Computed tomography scan of the brain without contrast revealed mild atrophy. No mass effect or midline shift. No sign of intracranial hemorrhage. Sodium 132. Potassium 5.1. Creatinine 3.40. Glucose 227. AST 40. ALT 16. CBC pending. Reevaluated today on 09/09/2021, patient remains in the ICU, remains on mechanical ventilation, remains on Precedex. His ventilator settings are assist control rate of 26 tidal volume is 500 FiO2 is 50%, PEEP of 10 and I cut it down to 5. ABG this morning showed a pO2 of 123 pCO2 34 pH of 7.41. Chest x-ray is showing small bilateral pleural effusions right more so than left. Hence the patient received a dose of Lasix earlier today. Patient is arousable, he is on Precedex, and seems to follow all instructions, seems to be very appropriate. His CBC is relatively normal lites are normal however his renal profile is abnormal with a BUN of 70 creatinine 3.96, this is obviously secondary to acute tubular necrosis/acute kidney injury from his cardiac arrest. However the patient is making good urine. Patient had weaning parameters which seems to be very adequate, and I went ahead and place the patient on pressure support of 8 and CPAP, he seemed to tolerate the weaning mode quite well, then I proceeded to extubating the patient while I'm at bedside. Reevaluated today on 09/11/21, patient is doing well, sitting at a bedside chair, he had episodes of in and out of atrial fibrillation this morning, presently in sinus rhythm, rate of 60. Blood pressure is stable 132/75. Patient denies any shortness of breath, no cough, no wheezing, and no chest pain. He is still using incentive spirometry, maintained on amiodarone Eliquis and on atorvastatin as well as Plavix and aspirin along with Lopressor. He re alexis on IV antibiotics. And today I recommended that we discontinue his right groin central line, and establish a peripheral IV access. Patient is being followed by nephrology for his acute kidney injury he was also evaluated for possible rehab referral. WBC count is 10.6 hemoglobin is 10.9 electrolytes are normal bicarb is 19 BUN is 91 creatinine 3.67, definitely improving compared to yesterday 4.23 creatinine. Urine output remains excellent Objective - Vital Signs Vital signs: Vital Signs Temp 98.0 F 09/11/21 08:00 Pulse 106 H 09/11/21 08:00 Resp 18 09/11/21 08:00 BP 132/75 09/11/21 08:00 Pulse Ox 95 09/11/21 09:24 Intake & Output 09/10/21 09/11/21 09/11/21 18:59 06:59 18:59 Intake Total 478 239.904 237.293 Output Total 600 1412 100 Balance -122 -1172.096 137.293 Weight 143.3 kg 136.5 kg Intake: IV 158 .9 @ 10 mL/hr 40 ART line 18 Piperacillin-Tazobactam 3 100 .375 gm In Sodium Chloride 0.9% 100 ml @ 25 mls/hr IVPB Q8H [facility] Rx#: [id number] Intake, IV Titration 239.904 237.293 Amount Heparin Sod,Pork in 0.45% 239.904 237.293 NaCl 25,000 unit In 0.45 % NaCl 1 250ml.bag @ 6. 944 UNITS/KG/HR 9.999 mls /hr IV .Q24H [facility] Rx#: [id number] Oral 320 Output: Urine 600 1412 100 Stool 0 0 Urine/Stool Mix 0 Other: Voiding Method Indwelling Catheter Indwelling Catheter # Voids 0 1 # Bowel Movements 1 ABP, PAP, CO, CI - Last Documented Arterial Blood Pressure 108/60 - Exam GENERAL: revealed a 66-year-old white male. On 1 L nasal cannula, in no distress, sitting at a bedside chair. head:atraumatic normocephalic. HEENT: Head is normocephalic. Pupils are equal, round. Sclerae anicteric. Mucous membranes of the mouth are moist. Neck supple. No JVD or thyromegaly LUNGS: .Symmetrical chest expansion, minimal crackles at the bases no rhonchi and no wheezes. HEART: Normal S1 and S2, no S3 gallop. ABDOMEN: Obese, Soft. Nondistended. Nontender. EXTREMITIES: Normal range of motion. No clubbing or cyanosis. Peripheral pulses intact. No lower extremity edema NEUROLOGIC: Alert and oriented 3, no gross focal deficits. Psychiatric: Normal mood, affect and normal mental status examination. - Labs CBC & Chem 7: 09/11/21 08:58 09/11/21 08:58 Labs: Abnormal Lab Results - Last 24 Hours (Table) 09/10/21 09/10/21 09/10/21 Range/Units 13:16 13:18 16:25 RBC (4.30-5.90) m/uL Hgb (13.0-17.5) gm/dL Hct (39.0-53.0) % Neutrophils # (1.3-7.7) k/uL Lymphocytes # (1.0-4.8) k/uL APTT 46.2 H (22.0-30.0) sec Chloride (98-107) mmol/L Carbon Dioxide (22-30) mmol/L BUN (9-20) mg/dL Creatinine (0.66-1.25) mg/dL Glucose (74-99) mg/dL POC Glucose (mg/dL) 216 H 147 H (75-99) mg/dL Magnesium (1.6-2.3) mg/dL 09/10/21 09/11/21 09/11/21 Range/Units 20:14 06:10 08:58 RBC 3.35 L (4.30-5.90) m/uL Hgb 10.9 L (13.0-17.5) gm/dL Hct 33.2 L (39.0-53.0) % Neutrophils # 9.0 H (1.3-7.7) k/uL Lymphocytes # 0.5 L (1.0-4.8) k/uL APTT (22.0-30.0) sec Chloride (98-107) mmol/L Carbon Dioxide (22-30) mmol/L BUN (9-20) mg/dL Creatinine (0.66-1.25) mg/dL Glucose (74-99) mg/dL POC Glucose (mg/dL) 162 H 194 H (75-99) mg/dL Magnesium (1.6-2.3) mg/dL 09/11/21 09/11/21 09/11/21 Range/Units 08:58 08:58 11:40 RBC (4.30-5.90) m/uL Hgb (13.0-17.5) gm/dL Hct (39.0-53.0) % Neutrophils # (1.3-7.7) k/uL Lymphocytes # (1.0-4.8) k/uL APTT 38.8 H (22.0-30.0) sec Chloride 109 H (98-107) mmol/L Carbon Dioxide 19 L (22-30) mmol/L BUN 91 H (9-20) mg/dL Creatinine 3.67 H (0.66-1.25) mg/dL Glucose 198 H (74-99) mg/dL POC Glucose (mg/dL) 176 H (75-99) mg/dL Magnesium 3.0 H (1.6-2.3) mg/dL Microbiology - Last 24 Hours (Table) 09/08/21 15:45 Blood Culture - Preliminary Blood No Growth after 48 hours 09/08/21 20:55 Gram Stain - Preliminary Sputum Sputum Culture - Preliminary Gram Neg Bacilli Maite albicans Assessment and Plan Assessment: Impression: Cardiac arrest, possible non-ST elevation myocardial infarction. Acute hypoxic respiratory failure secondary to cardiac arrest. History of underlying coronary artery disease and previous stent placement. Acute kidney injury, suspect acute tubular necrosis secondary to hypotension secondary to cardiac arrest and ischemic cardiomyopathy with LV dysfunction. Hypotension secondary to ischemic cardiomyopathy and LV dysfunction. Recommendation: Continue present supportive care measures Titrate and discontinue oxygen Discontinue central line after establishing a peripheral IV access Continue beta blockers, statins, Continue anticoagulation therapy, continue amiodarone, Continue Zosyn but transitioned to Augmentin when time comes for discharge. Continue to monitor renal profile, being followed by nephrology. Discussed his overall status with family at bedside including the . Time with Patient: Less than 30
[2021-09-11] MEDS: APIXABAN 5 MG TAB PO SCH ×2 (13:15→20:58)
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
[2021-09-11 16:19] LABS: Glucose,Whole Blood 173 mg/dL (75-99)
[2021-09-11 20:07] LABS: Glucose,Whole Blood 164 mg/dL (75-99)
[2021-09-11] MEDS: ATORVASTATIN 80 MG TAB PO SCH (20:54)
[2021-09-11] MEDS: polyethylene glycoL 3350 17 GM POWD.PACK PO SCH (20:59)
[2021-09-11] MEDS ORDERED: APIXABAN 5 MG TAB PO SCH (21:00)
[2021-09-11] MEDS ORDERED: MELATONIN 5 MG TABLET PO ONE (23:59)
[2021-09-12 05:44] LABS: Glucose,Whole Blood 173 mg/dL (75-99)
[2021-09-12] MEDS: INSULIN ASPART (NovoLOG) 100 UNIT/ML VIAL SQ SCH ×4 (06:30→21:24)
[2021-09-12] MEDS: PIPERACILLIN-TAZOBACTAM 3.375 GM in SODIUM CHLORIDE 0.9% 100 ML IVPB SCH (06:31)
--- NOTE | 2021-09-12 09:49 | P.PN ---
Subjective Progress Note Date: 09/12/21 Principal diagnosis: This is a 66-year-old male seen in consultation because of acute kidney injury post cardiac arrest. He was extubated day before yesterday and is doing very we ll. Sitting in a chair. No focal motor deficit. Denies any nausea vomiting diarrhea appetite is fair no dysphagia Vital signs are stable urine output is 1075 Currently off of oxygen. Looks comfortable. No dizziness no chest pain shortness of breath has mild edema Is not on any diuretics and abdomen. While signs are stable. Objective - Vital Signs Vital signs: Vital Signs Temp 97.5 F L 09/12/21 04:00 Pulse 68 09/12/21 04:00 Resp 18 09/12/21 04:00 BP 150/86 09/12/21 04:00 Pulse Ox 96 09/12/21 04:00 Intake & Output 09/11/21 09/12/21 09/12/21 18:59 06:59 18:59 Intake Total 835.293 240 Output Total 100 975 Balance 735.293 -975 240 Weight 141.8 kg Intake: Intake, IV Titration 237.293 Amount Heparin Sod,Pork in 0.45% 237.293 NaCl 25,000 unit In 0.45 % NaCl 1 250ml.bag @ 6. 944 UNITS/KG/HR 9.999 mls /hr IV .Q24H [facility] Rx#: [id number] Oral 598 240 Output: Urine 100 975 Stool 0 Other: Voiding Method Urinal Urinal # Voids 1 1 ABP, PAP, CO, CI - Last Documented Arterial Blood Pressure 108/60 On examination awake alert oriented comfortable HEENT exam no JVP neck is supple no facial asymmetry Lungs clear to auscultation good air entry bilaterally Heart sounds unremarkable for any murmur rub gallop Abdomen soft nontender protuberant Extremity exam reveals minimal to mild edema Neurologically awake alert - Labs CBC & Chem 7: 09/11/21 08:58 09/11/21 08:58 Labs: Abnormal Lab Results - Last 24 Hours (Table) 09/11/21 09/11/21 09/11/21 Range/Units 08:58 08:58 11:40 APTT 38.8 H (22.0-30.0) sec Chloride 109 H (98-107) mmol/L Carbon Dioxide 19 L (22-30) mmol/L BUN 91 H (9-20) mg/dL Creatinine 3.67 H (0.66-1.25) mg/dL Glucose 198 H (74-99) mg/dL POC Glucose (mg/dL) 176 H (75-99) mg/dL Magnesium 3.0 H (1.6-2.3) mg/dL 09/11/21 09/11/21 09/12/21 Range/Units 16:17 19:57 05:43 APTT (22.0-30.0) sec Chloride (98-107) mmol/L Carbon Dioxide (22-30) mmol/L BUN (9-20) mg/dL Creatinine (0.66-1.25) mg/dL Glucose (74-99) mg/dL POC Glucose (mg/dL) 173 H 164 H 173 H (75-99) mg/dL Magnesium (1.6-2.3) mg/dL Microbiology - Last 24 Hours (Table) 09/08/21 15:45 Blood Culture - Preliminary Blood No Growth after 72 hours 09/08/21 20:55 Gram Stain - Final Sputum Sputum Culture - Final Klebsiella pneumoniae Maite albicans Assessment and Plan Assessment: Impression 1. Acute kidney injury status post cardiac arrest improving, creatinine down from 4.23-3.67, today/pending 2. Mild degree of non-gap acidosis from acute kidney injury, bicarb is 19 down from 21 3. Clinically euvolemic intravascularly but has mild edema 4. Status post cardiac arrest status post remote stenting and ischemic cardiomyopathy, 20 with ejection fraction 20-25% Recommendation 1. Will source Lasix 20 mg by mouth daily to improve the edema 2. Monitor labs. 3. Expect non-gap metabolic acidosis, to improve
[2021-09-12] MEDS: FAMOTIDINE 20 MG TAB PO SCH (09:51)
[2021-09-12] MEDS: METOPROLOL TARTRATE 12.5 MG TAB PO SCH ×2 (09:51→21:24)
[2021-09-12] MEDS: CLOPIDOGREL 75 MG TAB PO SCH (09:51)
[2021-09-12] MEDS: AMIODARONE 200 MG TAB PO SCH ×2 (09:51→21:24)
[2021-09-12] MEDS: APIXABAN 5 MG TAB PO SCH ×2 (09:51→21:24)
--- NOTE | 2021-09-12 10:38 | P.PN ---
Subjective Progress Note Date: 09/12/21 Patient has no new complaints today, urine output is good. Patient says he was able to walk to the bathroom without assistance 3 times today. Goal is to remove femoral line and achieve peripheral access today. We'll discuss with pulmonary medicine regarding narrowing antibiotics for Klebsiella pneumonia. Objective - Vital Signs Vital signs: Vital Signs Temp 98.0 F 09/12/21 08:00 Pulse 63 09/12/21 08:00 Resp 18 09/12/21 08:00 BP 130/86 09/12/21 08:00 Pulse Ox 99 09/12/21 08:00 Intake & Output 09/11/21 09/12/21 09/12/21 18:59 06:59 18:59 Intake Total 835.293 240 Output Total 100 975 0 Balance 735.293 -975 240 Weight 141.8 kg Intake: Intake, IV Titration 237.293 Amount Heparin Sod,Pork in 0.45% 237.293 NaCl 25,000 unit In 0.45 % NaCl 1 250ml.bag @ 6. 944 UNITS/KG/HR 9.999 mls /hr IV .Q24H [facility] Rx#: [id number] Oral 598 240 Output: Urine 100 975 Stool 0 0 Other: Voiding Method Urinal Urinal Urinal # Voids 1 1 ABP, PAP, CO, CI - Last Documented Arterial Blood Pressure 108/60 - Exam Gen: awake, alert HEENT: normocephalic, atraumatic, good hearing acuity, moist mucous membranes Resp: good air exchange, breathing comfortably with no accessory muscle use, bibasilar crackles CVS: good distal perfusion x 4, irregular rhythm, normal rate GI: soft, NTTP, ND : no SPT, no CVAT, garcia catheter not present MSK: + pitting edema, no clubbing Neuro: non-focal, moving all extremities Psych: cooperative, euthymic mood - Labs CBC & Chem 7: 09/11/21 08:58 09/11/21 08:58 Labs: Abnormal Lab Results - Last 24 Hours (Table) 09/11/21 09/11/21 09/11/21 Range/Units 11:40 16:17 19:57 POC Glucose (mg/dL) 176 H 173 H 164 H (75-99) mg/dL 09/12/21 Range/Units 05:43 POC Glucose (mg/dL) 173 H (75-99) mg/dL Microbiology - Last 24 Hours (Table) 09/08/21 15:45 Blood Culture - Preliminary Blood No Growth after 72 hours 09/08/21 20:55 Gram Stain - Final Sputum Sputum Culture - Final Klebsiella pneumoniae Maite albicans Assessment and Plan Assessment: Cardiac Arrest secondary to ventricular fibrillation, resolved Cardiogenic shock, resolved CAD with ischemic cardiomyopathy, EF 20-25%, chronic, stable Permanent atrial fibrillation, chronic, stable -Continue amiodarone, blood thinner, atorvastatin, Plavix -Continue Lasix -Cardiology consulted -Continue metoprolol -Cardiology consulted Klebsiella pneumonia, improving Acute hypoxemic respiratory failure requiring intubation, resolved -Oxygen as needed, currently on room air -Pulmonary consulted -Narrow antibiotics today to ceftriaxone -Albuterol when necessary Acute kidney injury with hyperkalemia, improving ATN secondary to cardiogenic shock and hypoperfusion, improving -Nephrology consulted -Lasix as above [facility] Versus home with home PT pending evaluation on 09/13. Patient remains full code
[2021-09-12 11:01] LABS: Magnesium 2.8 mg/dL (1.6-2.3); Potassium 4.6 mmol/L (3.5-5.1)
[2021-09-12 11:39] LABS: Glucose,Whole Blood 187 mg/dL (75-99)
--- NOTE | 2021-09-12 11:44 | P.PN ---
Subjective Patient seen and examined sitting up conversing with his . He is going in and out of atrial fibrillation this morning. Currently in sinus rhythm with controlled heart rate in the 60s. Blood pressure 132/75. Laboratory data reviewed, WBC 10.6, hemoglobin 10.9, platelets 85, sodium 138, potassium 5.1, creatinine 3.67 and magnesium 3.0. Currently maintained on amiodarone 200 mg twice a day, Eliquis 5 mg twice a day, atorvastatin 80 mg daily, Plavix 75 mg daily, aspirin 81 mg daily, Lopressor 25 mg twice a day and IV antibiotics. 09/12/2021 Patient seen and examined sitting up in chair with family at the bedside. He complains of chest discomfort in the mid-sternal region from CPR. Nephrology has started him on PO lasix. Blood pressure 130/86 heart rate 67 afebrile and maintaining oxygen saturation on room air. Laboratory data reviewed, sodium 139, potassium 4.6, creatinine 3.33, magnesium 2.8. GENERAL: Well-appearing, well-nourished and in no acute distress. NECK: Supple without JVD or thyromegaly. LUNGS: Breath sounds clear to auscultation bilaterally. Respiration equal and unlabored. No wheezes, rales or rhonchi. HEART: Regular rate and rhythm with systolic ejection murmur at the base, no rubs or gallops. S1 and S2 heard. EXTREMITIES: Normal range of motion, no edema. No clubbing or cyanosis. Peripheral pulses intact. ASSESSMENT Status post cardiac arrest Paroxysmal atrial fibrillation Acute kidney injury Cardiogenic shock Diabetes mellitus Coronary artery disease Hypertension Dyslipidemia PLAN Continue current medical regimen. Repeat limited echo for LV function Monday. We will await LV function and discuss ICD if needed. Nurse Practitioner note has been reviewed, I agree with a documented findings and plan of care. Patient was seen and examined. Objective - Vital Signs Vital signs: Vital Signs Temp 98.0 F 09/12/21 08:00 Pulse 63 09/12/21 08:00 Resp 18 09/12/21 08:00 BP 130/86 09/12/21 08:00 Pulse Ox 99 09/12/21 08:00 Intake & Output 09/11/21 09/12/21 09/12/21 18:59 06:59 18:59 Intake Total 835.293 240 Output Total 100 975 0 Balance 735.293 -975 240 Weight 141.8 kg Intake: Intake, IV Titration 237.293 Amount Heparin Sod,Pork in 0.45% 237.293 NaCl 25,000 unit In 0.45 % NaCl 1 250ml.bag @ 6. 944 UNITS/KG/HR 9.999 mls /hr IV .Q24H [facility] Rx#: [id number] Oral 598 240 Output: Urine 100 975 Stool 0 0 Other: Voiding Method Urinal Urinal Urinal # Voids 1 1 ABP, PAP, CO, CI - Last Documented Arterial Blood Pressure 108/60 - Labs CBC & Chem 7: 09/11/21 08:58 09/12/21 09:52 Labs: Abnormal Lab Results - Last 24 Hours (Table) 09/11/21 09/11/21 09/11/21 Range/Units 11:40 16:17 19:57 Carbon Dioxide (22-30) mmol/L BUN (9-20) mg/dL Creatinine (0.66-1.25) mg/dL Glucose (74-99) mg/dL POC Glucose (mg/dL) 176 H 173 H 164 H (75-99) mg/dL Magnesium (1.6-2.3) mg/dL 09/12/21 09/12/21 09/12/21 Range/Units 05:43 09:52 11:37 Carbon Dioxide 21 L (22-30) mmol/L BUN 86 H (9-20) mg/dL Creatinine 3.33 H (0.66-1.25) mg/dL Glucose 185 H (74-99) mg/dL POC Glucose (mg/dL) 173 H 187 H (75-99) mg/dL Magnesium 2.8 H (1.6-2.3) mg/dL Microbiology - Last 24 Hours (Table) 09/08/21 15:45 Blood Culture - Preliminary Blood No Growth after 72 hours 09/08/21 20:55 Gram Stain - Final Sputum Sputum Culture - Final Klebsiella pneumoniae Maite albicans
[2021-09-12] MEDS: FUROSEMIDE 20 MG TAB PO SCH (11:46)
[2021-09-12 16:31] LABS: Glucose,Whole Blood 162 mg/dL (75-99)
[2021-09-12 20:01] LABS: Glucose,Whole Blood 179 mg/dL (75-99)
[2021-09-12] MEDS: ATORVASTATIN 80 MG TAB PO SCH (21:24)
[2021-09-12] MEDS: polyethylene glycoL 3350 17 GM POWD.PACK PO SCH (21:25)
--- NOTE | 2021-09-12 23:31 | P.PN ---
Subjective Progress Note Date: 09/12/21 Patient was seen for a follow-up by Teleneurology today on 09/12/2021. Patient is sitting in the recliner, appears very comfortable. Patient states he is getting better every day. He had walked to the bathroom, can't do by himself. He walks with one assist. Patient denies any dizziness, no headache, no numbness or tingling. Patient is complaining of pain in the lower rib cage on the side, from his CPR. Patient states that his left hip hurts but it always hurts. He felt slightly weak, but generalized. Patient probably will be going home with home care. Objective - Vital Signs Vital signs: Vital Signs Temp 98.0 F 09/12/21 08:00 Pulse 63 09/12/21 08:00 Resp 18 09/12/21 08:00 BP 130/86 09/12/21 08:00 Pulse Ox 99 09/12/21 08:00 Intake & Output 09/11/21 09/12/21 09/12/21 18:59 06:59 18:59 Intake Total 835.293 240 Output Total 100 975 0 Balance 735.293 -975 240 Weight 141.8 kg Intake: Intake, IV Titration 237.293 Amount Heparin Sod,Pork in 0.45% 237.293 NaCl 25,000 unit In 0.45 % NaCl 1 250ml.bag @ 6. 944 UNITS/KG/HR 9.999 mls /hr IV .Q24H [facility] Rx#: [id number] Oral 598 240 Output: Urine 100 975 Stool 0 0 Other: Voiding Method Urinal Urinal Urinal # Voids 1 1 ABP, PAP, CO, CI - Last Documented Arterial Blood Pressure 108/60 - Exam Patient sitting in the recliner, alert and awake. Patient is fully oriented. Patient knows it is August and the year is 21. He knows that it is [facility] in [place] and name of the current president. Speech and language functions are normal. Attention, concentration, fund of knowledge appears adequate. Extraocular muscles intact. Detailed testing was not performed. Patient's face is symmetric, pupils are round, visual mejia are full. Muscle strength is normal. - Labs CBC & Chem 7: 09/11/21 08:58 09/12/21 09:52 Labs: Abnormal Lab Results - Last 24 Hours (Table) 09/11/21 09/11/21 09/11/21 Range/Units 11:40 16:17 19:57 Carbon Dioxide (22-30) mmol/L BUN (9-20) mg/dL Creatinine (0.66-1.25) mg/dL Glucose (74-99) mg/dL POC Glucose (mg/dL) 176 H 173 H 164 H (75-99) mg/dL Magnesium (1.6-2.3) mg/dL 09/12/21 09/12/21 Range/Units 05:43 09:52 Carbon Dioxide 21 L (22-30) mmol/L BUN 86 H (9-20) mg/dL Creatinine 3.33 H (0.66-1.25) mg/dL Glucose 185 H (74-99) mg/dL POC Glucose (mg/dL) 173 H (75-99) mg/dL Magnesium 2.8 H (1.6-2.3) mg/dL Microbiology - Last 24 Hours (Table) 09/08/21 15:45 Blood Culture - Preliminary Blood No Growth after 72 hours 09/08/21 20:55 Gram Stain - Final Sputum Sputum Culture - Final Klebsiella pneumoniae Maite albicans Assessment and Plan Assessment: * Status post in-house, witnessed cardiac arrest with prolonged downtime. CPR continued for about 30-40 minutes. Patient has recovered extremely well. Patient's mentation is normal. Muscle strength appears fairly normal. * Acute non-ST segment elevation UT, cardiogenic shock, ischemic cardiomyopathy * Acute kidney injury, with hyperkalemia, possible ATN. Renal functions started to improve now. * Paroxysmal Atrial fibrillation * Possible aspiration pneumonia, on Zosyn. * Hypertension * Diabetes Plan: * Patient is doing very well. He is fully oriented. His speech and limits functions are normal. * Patient's renal functions are improving slightly now. Nephrology following. * Physical medicine and rehab input appreciated. Patient currently with endurance issues, requires 2 person assistance for any upright activity. Not currently ready for inpatient rehab (as per his note from 09/10/2021) * EEG 09/07/2021 revealed background slowing of moderate degree. This is suggestive of generalized cerebral dysfunction as can be seen with toxic metabolic encephalopathy or related to diffuse structural brain abnormality. No epileptiform activity was seen. * CT head 09/08/[address] head. Mild atrophy. No change. I reviewed the CT, agree with the findings. * Per cardiology patient to be maintained on Plavix and Eliquis. * Neurologically clear. Neurology will sign off. Please reconsult neurology if any concerns.
[2021-09-13] MEDS: ACETAMINOPHEN TAB 500 MG TAB PO PRN ×2 (00:44→23:22)
[2021-09-13 06:01] LABS: Glucose,Whole Blood 157 mg/dL (75-99)
[2021-09-13] MEDS: INSULIN ASPART (NovoLOG) 100 UNIT/ML VIAL SQ SCH ×4 (06:38→20:33)
[2021-09-13] MEDS: METOPROLOL TARTRATE 12.5 MG TAB PO SCH (08:36)
[2021-09-13] MEDS: AMIODARONE 200 MG TAB PO SCH ×2 (08:37→20:33)
[2021-09-13] MEDS: FUROSEMIDE 20 MG TAB PO SCH (08:37)
[2021-09-13] MEDS: APIXABAN 5 MG TAB PO SCH ×2 (08:37→20:33)
[2021-09-13] MEDS: CLOPIDOGREL 75 MG TAB PO SCH (08:37)
[2021-09-13] MEDS: FAMOTIDINE 20 MG TAB PO SCH (08:37)
[2021-09-13 08:51] LABS: Basophils % (A) 0 %; Eosinophils # (A) 0.7 k/uL (0-0.7); Eosinophils % (A) 6 %; HCT 33.5 % (39.0-53.0); HGB 10.9 gm/dL (13.0-17.5); Lymphocytes # (A) 0.8 k/uL (1.0-4.8); Lymphocytes % (A) 7 %; MCHC 32.6 g/dL (31.0-37.0); MCV 98.2 fL (80.0-100.0); Mean Platelet Volume 7.3; Monocytes # (A) 0.5 k/uL (0-1.0); Monocytes % (A) 4 %; Neutrophils # (A) 9.2 k/uL (1.3-7.7); Neutrophils % (A) 81 %; Platelet Count 302 k/uL (150-450); RBC 3.41 m/uL (4.30-5.90); RDW 13.1 % (11.5-15.5); WBC 11.3 k/uL (3.8-10.6)
[2021-09-13 09:14] LABS: Calcium 9.3 mg/dL (8.4-10.2); Magnesium 2.5 mg/dL (1.6-2.3); Potassium 4.4 mmol/L (3.5-5.1)
--- NOTE | 2021-09-13 09:55 | ECHOF ---
Referral Reason:assess LV function MEASUREMENTS -------- HEIGHT: 180.3 cm WEIGHT: 140.2 kg BP: FINDINGS -------- Consider GRAY, cardiac MRI or MUGA if clinically indicated for further LV function assessment. This was a technically difficult study with suboptimal views. Limited Study Unable to visualize heart, no lumason used due to allergy. CONCLUSIONS -------- 1. Consider GRAY, cardiac MRI or MUGA if clinically indicated for further LV function assessment. 2. Unable to visualize heart, no lumason used due to allergy. NURSE ESTHETICIAN: Jessica Valles RDCS
[2021-09-13 11:54] LABS: Glucose,Whole Blood 140 mg/dL (75-99)
--- NOTE | 2021-09-13 12:19 | P.PN ---
Subjective Patient is seen in follow-up for acute kidney injury. Currently sitting up in chair. Good urine output. Renal function improving. No vomiting or diarrhea. Oral intake fair. Vital signs are stable. General: The patient appeared well nourished and normally developed. HEENT: Head exam is unremarkable. LUNGS: Breath sounds decreased. HEART: Rate and Rhythm are regular. ABDOMEN: Soft, no distention. EXTREMITITES: Trace edema. Objective - Vital Signs Vital signs: Vital Signs Temp 98.4 F 09/13/21 08:35 Pulse 76 09/13/21 08:35 Resp 18 09/13/21 08:35 BP 130/75 09/13/21 08:35 Pulse Ox 98 09/13/21 08:35 Intake & Output 09/12/21 09/13/21 09/13/21 18:59 06:59 18:59 Intake Total 476 120 Output Total 625 900 200 Balance -149 -900 -80 Weight 140.4 kg Intake: Oral 476 120 Output: Urine 625 900 200 Stool 0 0 Other: Voiding Method Urinal Urinal Urinal # Voids 1 # Bowel Movements 1 ABP, PAP, CO, CI - Last Documented Arterial Blood Pressure 108/60 - Labs CBC & Chem 7: 09/13/21 08:08 09/13/21 08:08 Labs: Abnormal Lab Results - Last 24 Hours (Table) 09/12/21 09/12/21 09/13/21 Range/Units 16:29 19:58 06:00 WBC (3.8-10.6) k/uL RBC (4.30-5.90) m/uL Hgb (13.0-17.5) gm/dL Hct (39.0-53.0) % Neutrophils # (1.3-7.7) k/uL Lymphocytes # (1.0-4.8) k/uL BUN (9-20) mg/dL Creatinine (0.66-1.25) mg/dL Glucose (74-99) mg/dL POC Glucose (mg/dL) 162 H 179 H 157 H (75-99) mg/dL Magnesium (1.6-2.3) mg/dL 09/13/21 09/13/21 09/13/21 Range/Units 08:08 08:08 11:52 WBC 11.3 H (3.8-10.6) k/uL RBC 3.41 L (4.30-5.90) m/uL Hgb 10.9 L (13.0-17.5) gm/dL Hct 33.5 L (39.0-53.0) % Neutrophils # 9.2 H (1.3-7.7) k/uL Lymphocytes # 0.8 L (1.0-4.8) k/uL BUN 80 H (9-20) mg/dL Creatinine 2.96 H (0.66-1.25) mg/dL Glucose 168 H (74-99) mg/dL POC Glucose (mg/dL) 140 H (75-99) mg/dL Magnesium 2.5 H (1.6-2.3) mg/dL Microbiology - Last 24 Hours (Table) 09/08/21 15:45 Blood Culture - Preliminary Blood No Growth after 96 hours Assessment and Plan Plan: Assessment: 1. Acute kidney injury secondary to ATN secondary to cardiopulmonary arrest. Renal function improving. Creatinine 2.96 today. 2. Status post cardiopulmonary arrest. 3. Volume overload. Improving with diuresis. 4. Diabetes mellitus. Plan: Maintain oral Lasix. Encourage oral intake. Avoid nephrotoxins. Continue to monitor renal function and urine output
--- NOTE | 2021-09-13 12:46 | P.PN ---
Subjective This is a 66-year-old male with a past medical history significant for coronary artery disease with stent placement to the LAD and February 2021, prior ischemic cardiomyopathy with EF 20-25% improved to 40% s/p PCI in February 2021, Atrial fibrillation, hypertension, and hyperlipidemia. Patient follows in the office with Dr. Hernandez. We have been asked to see the patient in consultation for chest pain. Patient's main presentation was of atypical mostly reproducible constant back pain radiating across to his chest. Troponins initially noted to be normal and EKG unrevealing. On 09/06/21, Patient had echo performed with difficulty assessing LV function and endocardial border and therefore Lumason was used to help define endocardial border. Per nursing, shortly after patient appeared to be gasping and appeared to almost be choking. Per nursing, quick attempts were made at stabilizing patient however became blue and lost pulse. Underwent prolonged CPR with initial PEA then Torsades and Vfib with Amio given, defibrillation and eventual ROSC. He was admitted to the ICU, stabilized, eventually was transferred to 3S cardiac stepdown unit. 09/13/21 Patient seen and examined sitting up in the bedside chair, no acute distress. He denies any chest pain or shortness of breath. Currently in atrial fibrillation with controlled ventricular rates. He appears to be in an out of atrial fibrillation. He is having pauses all less than 3 seconds. Blood pressure 130/75, afebrile, oxygen saturation 78% on room air. Laboratory data reviewed, WBC 11.3, hemoglobin 10, platelets 302, sodium 138, potassium 4.4, BUN 80, serum creatinine 2.9, magnesium 2.5 Currently maintained on amiodarone 200 mg twice a day, Eliquis 5 mg twice a day, atorvastatin 80 mg daily, Plavix 75 mg daily, aspirin 81 mg daily, Lopressor 25 mg twice a day GENERAL: Well-appearing, well-nourished and in no acute distress. NECK: Supple without JVD or thyromegaly. LUNGS: Breath sounds clear to auscultation bilaterally. Respiration equal and unlabored. No wheezes, rales or rhonchi. HEART: Regular rate and rhythm with systolic ejection murmur at the base, no rubs or gallops. S1 and S2 heard. EXTREMITIES: Normal range of motion, no edema. No clubbing or cyanosis. Peripheral pulses intact. ASSESSMENT Status post cardiac arrest with possibly suspected reaction to Lumason Paroxysmal atrial fibrillation [id number] requiring anticoagulation, on Eliquis Acute kidney injury, improvin Cardiogenic shock Diabetes mellitus Coronary artery disease Hypertension Dyslipidemia PLAN Maximize medical therapy Telemetry reviewed with Dr. Maciel Carvedilol 3.125mg BID, Stop metoprolol tartrate Repeat limited echo unable to visualize to see adequate LV function. Recommend lifevest prior to discharge due to risk of sudden cardiac ,however, patient refused lifevest at this time. Patient may need an ICD implantation in the future. Recommend maximizing medical therapy and have patient follow up out outpatient for further evaluation ACEI/ARB held due to renal function From a cardiology perspective, patient an be discharged today. Follow up with Dr. Hernandez in one week. Nurse Practitioner note has been reviewed, I agree with a documented findings and plan of care. Patient was seen and examined. Objective - Vital Signs Vital signs: Vital Signs Temp 98.4 F 09/13/21 08:35 Pulse 76 09/13/21 08:35 Resp 18 09/13/21 08:35 BP 130/75 09/13/21 08:35 Pulse Ox 98 09/13/21 08:35 Intake & Output 09/12/21 09/13/21 09/13/21 18:59 06:59 18:59 Intake Total 476 120 Output Total 625 900 200 Balance -149 -900 -80 Weight 140.4 kg Intake: Oral 476 120 Output: Urine 625 900 200 Stool 0 0 Other: Voiding Method Urinal Urinal Urinal # Voids 1 # Bowel Movements 1 ABP, PAP, CO, CI - Last Documented Arterial Blood Pressure 108/60 - Labs CBC & Chem 7: 09/13/21 08:08 09/13/21 08:08 Labs: Abnormal Lab Results - Last 24 Hours (Table) 09/12/21 09/12/21 09/13/21 Range/Units 16:29 19:58 06:00 WBC (3.8-10.6) k/uL RBC (4.30-5.90) m/uL Hgb (13.0-17.5) gm/dL Hct (39.0-53.0) % Neutrophils # (1.3-7.7) k/uL Lymphocytes # (1.0-4.8) k/uL BUN (9-20) mg/dL Creatinine (0.66-1.25) mg/dL Glucose (74-99) mg/dL POC Glucose (mg/dL) 162 H 179 H 157 H (75-99) mg/dL Magnesium (1.6-2.3) mg/dL 09/13/21 09/13/21 09/13/21 Range/Units 08:08 08:08 11:52 WBC 11.3 H (3.8-10.6) k/uL RBC 3.41 L (4.30-5.90) m/uL Hgb 10.9 L (13.0-17.5) gm/dL Hct 33.5 L (39.0-53.0) % Neutrophils # 9.2 H (1.3-7.7) k/uL Lymphocytes # 0.8 L (1.0-4.8) k/uL BUN 80 H (9-20) mg/dL Creatinine 2.96 H (0.66-1.25) mg/dL Glucose 168 H (74-99) mg/dL POC Glucose (mg/dL) 140 H (75-99) mg/dL Magnesium 2.5 H (1.6-2.3) mg/dL Microbiology - Last 24 Hours (Table) 09/08/21 15:45 Blood Culture - Preliminary Blood No Growth after 96 hours
[2021-09-13 12:49] VITALS: BMI 44.4
--- NOTE | 2021-09-13 13:14 | P.PN ---
Subjective Progress Note Date: 09/13/21 Pt is doing much better today. Ambulating with min assist. No plans for ICD at this time per cardiology, will f/u outpatient for further assessment. Objective - Vital Signs Vital signs: Vital Signs Temp 98.4 F 09/13/21 08:35 Pulse 76 09/13/21 08:35 Resp 18 09/13/21 08:35 BP 130/75 09/13/21 08:35 Pulse Ox 98 09/13/21 08:35 Intake & Output 09/12/21 09/13/21 09/13/21 18:59 06:59 18:59 Intake Total 476 120 Output Total 625 900 200 Balance -149 -900 -80 Weight 140.4 kg 140.4 kg Intake: Oral 476 120 Output: Urine 625 900 200 Stool 0 0 Other: Voiding Method Urinal Urinal Urinal # Voids 1 # Bowel Movements 1 ABP, PAP, CO, CI - Last Documented Arterial Blood Pressure 108/60 - Exam Gen: awake, alert HEENT: normocephalic, atraumatic, good hearing acuity, moist mucous membranes Resp: good air exchange, breathing comfortably with no accessory muscle use, bibasilar crackles CVS: good distal perfusion x 4, irregular rhythm, normal rate GI: soft, NTTP, ND : no SPT, no CVAT, garcia catheter not present MSK: + pitting edema, no clubbing Neuro: non-focal, moving all extremities Psych: cooperative, euthymic mood - Labs CBC & Chem 7: 09/13/21 08:08 09/13/21 08:08 Labs: Abnormal Lab Results - Last 24 Hours (Table) 09/12/21 09/12/21 09/13/21 Range/Units 16:29 19:58 06:00 WBC (3.8-10.6) k/uL RBC (4.30-5.90) m/uL Hgb (13.0-17.5) gm/dL Hct (39.0-53.0) % Neutrophils # (1.3-7.7) k/uL Lymphocytes # (1.0-4.8) k/uL BUN (9-20) mg/dL Creatinine (0.66-1.25) mg/dL Glucose (74-99) mg/dL POC Glucose (mg/dL) 162 H 179 H 157 H (75-99) mg/dL Magnesium (1.6-2.3) mg/dL 09/13/21 09/13/21 09/13/21 Range/Units 08:08 08:08 11:52 WBC 11.3 H (3.8-10.6) k/uL RBC 3.41 L (4.30-5.90) m/uL Hgb 10.9 L (13.0-17.5) gm/dL Hct 33.5 L (39.0-53.0) % Neutrophils # 9.2 H (1.3-7.7) k/uL Lymphocytes # 0.8 L (1.0-4.8) k/uL BUN 80 H (9-20) mg/dL Creatinine 2.96 H (0.66-1.25) mg/dL Glucose 168 H (74-99) mg/dL POC Glucose (mg/dL) 140 H (75-99) mg/dL Magnesium 2.5 H (1.6-2.3) mg/dL Microbiology - Last 24 Hours (Table) 09/08/21 15:45 Blood Culture - Preliminary Blood No Growth after 96 hours Assessment and Plan Assessment: Cardiac Arrest secondary to ventricular fibrillation, resolved Cardiogenic shock, resolved CAD with ischemic cardiomyopathy, EF 20-25%, chronic, stable Permanent atrial fibrillation, chronic, stable -Continue amiodarone, blood thinner, atorvastatin, Plavix -Continue Lasix -Cardiology consulted -Continue metoprolol -Cardiology consulted Klebsiella pneumonia, improving Acute hypoxemic respiratory failure requiring intubation, resolved -Oxygen as needed, currently on room air -Pulmonary consulted -Narrow antibiotics today to ceftriaxone -Albuterol when necessary Acute kidney injury with hyperkalemia, improving ATN secondary to cardiogenic shock and hypoperfusion, improving -Nephrology consulted -Lasix as above, monitor UOP -continuously improving Discharge planning to alf facility for subacute rehab Versus home with home PT pending evaluation on 09/13 - likely d/c on 09/14 Patient remains full code
[2021-09-13 16:22] LABS: Glucose,Whole Blood 149 mg/dL (75-99)
[2021-09-13] MEDS: carvediloL 3.125 MG TAB PO SCH (16:41)
[2021-09-13 20:04] LABS: Glucose,Whole Blood 141 mg/dL (75-99)
[2021-09-13] MEDS: polyethylene glycoL 3350 17 GM POWD.PACK PO SCH (20:33)
[2021-09-13] MEDS: ATORVASTATIN 80 MG TAB PO SCH (20:33)
[2021-09-14 06:00] LABS: Glucose,Whole Blood 121 mg/dL (75-99)
[2021-09-14] MEDS: INSULIN ASPART (NovoLOG) 100 UNIT/ML VIAL SQ SCH ×4 (06:06→21:03)
[2021-09-14] MEDS: carvediloL 3.125 MG TAB PO SCH (06:32)
[2021-09-14 08:06] LABS: Calcium 9.2 mg/dL (8.4-10.2); Magnesium 2.2 mg/dL (1.6-2.3); Potassium 4.3 mmol/L (3.5-5.1)
[2021-09-14] MEDS: AMIODARONE 200 MG TAB PO SCH ×2 (08:43→21:03)
[2021-09-14] MEDS: APIXABAN 5 MG TAB PO SCH ×2 (08:43→21:03)
[2021-09-14] MEDS: CLOPIDOGREL 75 MG TAB PO SCH (08:43)
[2021-09-14] MEDS: FAMOTIDINE 20 MG TAB PO SCH (08:43)
[2021-09-14] MEDS: FUROSEMIDE 20 MG TAB PO SCH (08:43)
--- NOTE | 2021-09-14 09:52 | P.PN ---
Subjective Patient is seen in follow-up for acute kidney injury. Currently sitting up in chair. Good urine output. Renal function improving. No vomiting or diarrhea. Oral intake fair. No active complaints. Vital signs are stable. General: The patient appeared well nourished and normally developed. HEENT: Head exam is unremarkable. LUNGS: Breath sounds decreased. HEART: Rate and Rhythm are regular. ABDOMEN: Soft, no distention. EXTREMITITES: Trace edema. Objective - Vital Signs Vital signs: Vital Signs Temp 98.3 F 09/14/21 08:41 Pulse 66 09/14/21 08:41 Resp 18 09/14/21 08:41 BP 126/89 09/14/21 08:41 Pulse Ox 94 L 09/14/21 08:41 Intake & Output 09/13/21 09/14/21 09/14/21 18:59 06:59 18:59 Intake Total 580 180 Output Total 750 1220 150 Balance -170 -1220 30 Weight 140.4 kg 140.3 kg Intake: Intake, IV Titration 100 Amount cefTRIAXone 1 gm In 100 Sodium Chloride 0.9% 50 ml @ 100 mls/hr IVPB Q24HR [facility] Rx#:[id number] Oral 480 180 Output: Urine 750 1220 150 Stool 0 Other: Voiding Method Urinal Urinal # Voids 2 ABP, PAP, CO, CI - Last Documented Arterial Blood Pressure 108/60 - Labs CBC & Chem 7: 09/13/21 08:08 09/14/21 07:06 Labs: Abnormal Lab Results - Last 24 Hours (Table) 09/13/21 09/13/21 09/13/21 Range/Units 11:52 16:20 20:03 BUN (9-20) mg/dL Creatinine (0.66-1.25) mg/dL Glucose (74-99) mg/dL POC Glucose (mg/dL) 140 H 149 H 141 H (75-99) mg/dL 09/14/21 09/14/21 Range/Units 05:59 07:06 BUN 70 H (9-20) mg/dL Creatinine 2.52 H (0.66-1.25) mg/dL Glucose 124 H (74-99) mg/dL POC Glucose (mg/dL) 121 H (75-99) mg/dL Microbiology - Last 24 Hours (Table) 09/08/21 15:45 Blood Culture - Preliminary Blood No Growth after 120 hours Assessment and Plan Plan: Assessment: 1. Acute kidney injury secondary to ATN secondary to cardiopulmonary arrest. Renal function improving. Creatinine 2.52 today. 2. Status post cardiopulmonary arrest. 3. Volume overload. Improving with diuresis. 4. Diabetes mellitus. Plan: Maintain oral Lasix. Encourage oral intake. Avoid nephrotoxins. Continue to monitor renal function and urine output.
[2021-09-14] MEDS ORDERED: carvediloL 3.125 MG TAB PO STA (10:24)
[2021-09-14 12:05] LABS: Glucose,Whole Blood 121 mg/dL (75-99)
--- NOTE | 2021-09-14 13:14 | CDI ---
Documentation Clarification Form Date: 09/14/2021 12:38:27 PM From: Carli Coleman RN, CCDS Admit Date: 09/06/2021 03:30:00 PM Patient Name: Jeramie Stahl Visit Number: [id number] Discharge Date: ATTENTION: The Clinical Documentation Specialists (CDI) and [facility] Coding Staff appreciate your assistance in clarifying documentation. Please respond to the clarification below the line at the bottom and electronically sign. The CDI & [facility] Coding staff will review the response and follow-up if needed. Please note: Queries are made part of the Legal Health Record. If you have any questions, please contact the author of this message via ITS. Dr. Brionna Mejias The patients principal diagnosis the diagnosis that was chiefly responsible for the admission - has not been clearly identified and clarification is requested. The patient presented with the followin/15 found pulseless. He was getting an echocardiogram and right after receiving Lumason patient went unresponsive and was found to be pulseless. CPR started by nursing staff. History/Risk factors: Atrial Fibrillation Hypertension, Myocardial Infarction Renal disease, Coronary artery disease, Ischemic cardiomyopathy with EF 20-25 % Clinical Indicators:66-year-old male present for complaints of upper back and shoulder pain, similar to prior myocardial infarction. 09/06 CODE BLUE event: found pulseless 09/06@16:00 Vital signs 82/33 62 30 (mechanical ventilation) Treatment: ICU/Telemetry CPR/ACLS Protocol shocked X1 with ROSC Amiodarone boluses Intubated/Mechanical ventilation (Monitor per pulmonary In your professional opinion, can you please clarify which diagnosis, after study, was the reason chiefly responsible for the admission? [ ] Cardiac arrest following Lumason administration (further specify if possible reaction) [ x] Cardiac arrest secondary to ventricular fibrillation (further specify) [ ] Other, please specify [ ] Unable to determine (Template Last Revised: December 2020) MTDD
--- NOTE | 2021-09-14 14:02 | P.PN ---
Subjective This is a 66-year-old male with a past medical history significant for coronary artery disease with stent placement to the LAD and February 2021, prior ischemic cardiomyopathy with EF 20-25% improved to 40% s/p PCI in February 2021, Atrial fibrillation, hypertension, and hyperlipidemia. Patient follows in the office with Dr. Hernandez. We have been asked to see the patient in consultation for chest pain. Patient's main presentation was of atypical mostly reproducible constant back pain radiating across to his chest. Troponins initially noted to be normal and EKG unrevealing. On 09/06/21, Patient had echo performed with difficulty assessing LV function and endocardial border and therefore Lumason was used to help define endocardial border. Per nursing, shortly after patient appeared to be gasping and appeared to almost be choking. Per nursing, quick attempts were made at stabilizing patient however became blue and lost pulse. Underwent prolonged CPR with initial PEA then Torsades and Vfib with Amio given, defibrillation and eventual ROSC. He was admitted to the ICU, stabilized, eventually was transferred to 3S cardiac stepdown unit. 09/14/21 Patient seen and examined sitting up in the bedside chair, no acute distress. He denies any chest pain or shortness of breath. Currently in sinus mechanism HR 60s. He was in and out of atrial fibrillation yesterday. Yesterday he was also having pauses all less than 3 seconds, no further pauses overnight. Blood pressure 127/82, heart rate 65, afebrile, oxygen saturation is 97% on room air. Laboratory data reviewed, sodium 138, potassium 4.3, BUN 70, Serevent 2.5, ma gnesium 2.2 Currently maintained on amiodarone 200 mg twice a day, Eliquis 5 mg twice a day, atorvastatin 80 mg daily, Plavix 75 mg daily, aspirin 81 mg daily, Lopressor 25 mg twice a day GENERAL: Well-appearing, well-nourished and in no acute distress. NECK: Supple without JVD or thyromegaly. LUNGS: Breath sounds clear to auscultation bilaterally. Respiration equal and unlabored. No wheezes, rales or rhonchi. HEART: Regular rate and rhythm with systolic ejection murmur at the base, no rubs or gallops. S1 and S2 heard. EXTREMITIES: Normal range of motion, no edema. No clubbing or cyanosis. Peripheral pulses intact. ASSESSMENT Status post cardiac arrest with possibly suspected reaction to Lumason Paroxysmal atrial fibrillation [id number] requiring anticoagulation, on Eliquis Acute kidney injury, improving Cardiogenic shock Diabetes mellitus Coronary artery disease Hypertension Dyslipidemia PLAN Discussed Lifevest with patient, he was not agreeable to the Lifevest but was agreeable to ICD if needed in the future. Later discussion with Primary, RN and case management patient is now agreeable to Lifevest We will continue to Maximize medical therapy Increase Carvedilol 3.25mg BID Recommend lifevest prior to discharge due to risk of sudden cardiac if patient is agreeable. Patient may need an ICD implantation in the future. Recommend maximizing medical therapy and have patient follow up out outpatient for further evaluation ACEI/ARB held due to renal function From a cardiology perspective, patient an be discharged today. Follow up with Dr. Hernandez in one week. Nurse Practitioner note has been reviewed, I agree with a documented findings and plan of care. Patient was seen and examined. Objective - Vital Signs Vital signs: Vital Signs Temp 98.3 F 09/14/21 08:41 Pulse 65 09/14/21 11:26 Resp 18 09/14/21 11:26 BP 127/82 09/14/21 11:26 Pulse Ox 97 09/14/21 11:26 Intake & Output 09/13/21 09/14/21 09/14/21 18:59 06:59 18:59 Intake Total 580 180 Output Total 750 1220 400 Balance -170 -1220 -220 Weight 140.4 kg 140.3 kg Intake: Intake, IV Titration 100 Amount cefTRIAXone 1 gm In 100 Sodium Chloride 0.9% 50 ml @ 100 mls/hr IVPB Q24HR [facility] Rx#:[id number] Oral 480 180 Output: Urine 750 1220 400 Stool 0 Other: Voiding Method Urinal Urinal Urinal # Voids 2 # Bowel Movements 1 ABP, PAP, CO, CI - Last Documented Arterial Blood Pressure 108/60 - Labs CBC & Chem 7: 09/13/21 08:08 09/14/21 07:06 Labs: Abnormal Lab Results - Last 24 Hours (Table) 09/13/21 09/13/21 09/14/21 Range/Units 16:20 20:03 05:59 BUN (9-20) mg/dL Creatinine (0.66-1.25) mg/dL Glucose (74-99) mg/dL POC Glucose (mg/dL) 149 H 141 H 121 H (75-99) mg/dL 09/14/21 09/14/21 Range/Units 07:06 12:03 BUN 70 H (9-20) mg/dL Creatinine 2.52 H (0.66-1.25) mg/dL Glucose 124 H (74-99) mg/dL POC Glucose (mg/dL) 121 H (75-99) mg/dL Microbiology - Last 24 Hours (Table) 09/08/21 15:45 Blood Culture - Preliminary Blood No Growth after 120 hours
--- NOTE | 2021-09-14 14:27 | P.DS ---
Providers Date of admission: 09/06/21 15:30 Expected date of discharge: 09/14/21 Attending physician: Sarika Garcia Consults: 09/05/21 07:52 Consult Physician Urgent Consulting Provider: María Elena Hernandez Consult Reason/Comments: chest pain Do you want consulting provider notified?: Yes 09/06/21 15:37 Consult Physician Routine Consulting Provider: Von Isidro Consult Reason/Comments: Intubation secondary to cardiac arrest Do you want consulting provider notified?: Yes 09/06/21 18:03 Consult Physician Urgent Consulting Provider: Ben Harmon Consult Reason/Comments: oliguria Do you want consulting provider notified?: Yes 09/07/21 10:11 Consult Physician Routine Consulting Provider: Sarah Tovar Consult Reason/Comments: anoxic brain injur Do you want consulting provider notified?: Yes 09/10/21 11:51 Consult Physician Routine Consulting Provider: Landon Davies Consult Reason/Comments: possible IPR Do you want consulting provider notified?: Yes Primary care physician: Brien Girard [facility] Course: This is a 66-year-old male with complex past medical history noted below who presented to the hospital originally with a chief complaint of back pain and shoulder pain. Given prior history of coronary artery disease patient was placed on observation and ACS was ruled out. He was seen and evaluated by cardiology. He was doing fairly well up until 09/06 in the afternoon and he was found unresponsive right after finishing an echocardiogram and he went into a cardiac arrest requiring a prolonged resuscitation with successful ROSC. Patient was intubated and admitted to the ICU. He was successfully extubated and recovered quickly. Patient was treated with amiodarone, eliquis, atorvastatin, plavix, lasix, metoprolol. Patient incidentally was also noted to have pneumonia secondary to klebisiella, and was treated with zosyn. Sputum Cx returned with multiple sensitivities and he was narrowed to ceftriaxone. He completed 6 days by day of discharge and was prescribed cefdinir for an additional 2 days on d/c. Cardiac Arrest secondary to ventricular fibrillation, resolved Cardiogenic shock, resolved CAD with ischemic cardiomyopathy, EF 20-25%, chronic, stable Permanent atrial fibrillation, chronic, stable -Continued amiodarone, Eliquis, atorvastatin, Plavix -Continued Lasix -Continued metoprolol Klebsiella pneumonia, resolved Acute hypoxemic respiratory failure requiring intubation, resolved -Cefdinir 300mg BID on discharge Acute kidney injury with hyperkalemia, improving ATN secondary to cardiogenic shock and hypoperfusion, improving -continuously improving, Cr of 2.5 on discharge, baseline < 1.0 I spent 40 minutes coordinating this complex discharge. Assessment: Gen: awake, alert HEENT: normocephalic, atraumatic, good hearing acuity, moist mucous membranes Resp: good air exchange, breathing comfortably with no accessory muscle use, bibasilar crackles CVS: good distal perfusion x 4, irregular rhythm, normal rate GI: soft, NTTP, ND : no SPT, no CVAT, garcia catheter not present MSK: + pitting edema, no clubbing Neuro: non-focal, moving all extremities Psych: cooperative, euthymic mood Patient Condition at Discharge: Good Plan - Discharge Summary Discharge Rx Participant: No New Discharge Prescriptions: New Carvedilol [Coreg] 6.25 mg PO BID 30 Days #60 tablet Amiodarone [Cordarone] 200 mg PO BID 60 Days #120 tab Furosemide [Lasix] 20 mg PO DAILY tab Cefdinir [Omnicef] 300 mg PO Q12HR #4 capsule Continue Oxybutynin Chloride 5 mg PO BID Albuterol Sulfate [Proair Hfa] 2 puff INHALATION RT-QID PRN PRN Reason: Shortness Of Breath Atorvastatin [Lipitor] 80 mg PO HS Nitroglycerin Sl Tabs [Nitrostat] 0.4 mg SUBLINGUAL Q5M PRN #30 tab PRN Reason: Chest Pain Apixaban [Eliquis] 5 mg PO BID Spironolactone 25 mg PO DAILY Acetaminophen [Tylenol Extra Strength] 500 mg PO Q6H PRN PRN Reason: Fever And/ Or Pain Clopidogrel [Plavix] 75 mg PO DAILY metFORMIN HCL [Glucophage] 500 mg PO AC-BID ALPRAZolam [Xanax] 0.25 mg PO DAILY PRN PRN Reason: Anxiety Fluticasone Nasal [place] [Flonase Nasal [place]] 1 spray EA NOSTRIL DAILY PRN PRN Reason: Allergy Symptoms Discontinued lisinopriL [Zestril] 5 mg PO BID Furosemide [Lasix] 20 mg PO BID Sildenafil [Revatio] 20 mg PO TID Metoprolol Tartrate [Lopressor] 25 mg PO DAILY Discharge Medication List Oxybutynin Chloride 5 mg PO BID 11/04/15 [History] Albuterol Sulfate [Proair Hfa] 2 puff INHALATION RT-QID PRN 03/07/21 [History] metFORMIN HCL [Glucophage] 500 mg PO AC-BID 03/07/21 [History] Atorvastatin [Lipitor] 80 mg PO HS 03/14/21 [History] Nitroglycerin Sl Tabs [Nitrostat] 0.4 mg SUBLINGUAL Q5M PRN #30 tab 03/14/21 [Rx] ALPRAZolam [Xanax] 0.25 mg PO DAILY PRN 09/05/21 [History] Acetaminophen [Tylenol Extra Strength] 500 mg PO Q6H PRN 09/05/21 [History] Apixaban [Eliquis] 5 mg PO BID 09/05/21 [History] Fluticasone Nasal [place] [Flonase Nasal [place]] 1 spray EA NOSTRIL DAILY PRN 09/05/21 [History] Spironolactone 25 mg PO DAILY 09/05/21 [History] Clopidogrel [Plavix] 75 mg PO DAILY 09/09/21 [History] Amiodarone [Cordarone] 200 mg PO BID 60 Days #120 tab 09/13/21 [Rx] Furosemide [Lasix] 20 mg PO DAILY tab 09/13/21 [Rx] Carvedilol [Coreg] 6.25 mg PO BID 30 Days #60 tablet 09/14/21 [Rx] Cefdinir [Omnicef] 300 mg PO Q12HR #4 capsule 09/14/21 [Rx] Follow up Appointment(s)/Referral(s): María Elena Hernandez MD [STAFF PHYSICIAN] - 1 Week Brien Girard MD [Primary Care Provider] - 1-2 days [facility] Visiting Nurse, [NON-STAFF] - Ambulatory/Diagnostic Orders: Basic Metabolic Panel [LAB.AMB] Location: None Selected Discharge/Stand Alone Forms: Personal Animal Handler Discharge Disposition: HOME SELF-CARE
[2021-09-14] MEDS: ACETAMINOPHEN TAB 500 MG TAB PO PRN ×2 (14:49→23:51)
[2021-09-14 16:53] LABS: Glucose,Whole Blood 179 mg/dL (75-99)
[2021-09-14] MEDS: carvediloL 6.25 MG TAB PO SCH (17:42)
[2021-09-14 20:36] LABS: Glucose,Whole Blood 146 mg/dL (75-99)
[2021-09-14] MEDS: ATORVASTATIN 80 MG TAB PO SCH (21:02)
[2021-09-14] MEDS: polyethylene glycoL 3350 17 GM POWD.PACK PO SCH (21:03)
[2021-09-15 05:42] LABS: Glucose,Whole Blood 125 mg/dL (75-99)
[2021-09-15] MEDS: carvediloL 6.25 MG TAB PO SCH (05:59)
[2021-09-15] MEDS: INSULIN ASPART (NovoLOG) 100 UNIT/ML VIAL SQ SCH (05:59)
[2021-09-15 08:34] VITALS: BP 118/83; PULSE 72; RESP 18; TEMP 97.9
[2021-09-15] MEDS: CLOPIDOGREL 75 MG TAB PO SCH (08:34)
[2021-09-15] MEDS: FAMOTIDINE 20 MG TAB PO SCH (08:34)
[2021-09-15] MEDS: FUROSEMIDE 20 MG TAB PO SCH (08:34)
[2021-09-15] MEDS: AMIODARONE 200 MG TAB PO SCH (08:34)
[2021-09-15] MEDS: APIXABAN 5 MG TAB PO SCH (08:35)
[2021-09-15 08:54] LABS: Calcium 9.2 mg/dL (8.4-10.2); Magnesium 1.9 mg/dL (1.6-2.3); Potassium 4.9 mmol/L (3.5-5.1)
[2021-09-15] MEDS ORDERED: FUROSEMIDE 10 MG/ML 4 ML VIAL IV STA (10:12)
--- NOTE | 2021-09-15 10:16 | P.PN ---
Subjective Patient is seen in follow-up for acute kidney injury. Currently sitting up in chair. Good urine output. Renal function improving. No vomiting or diarrhea. Oral intake fair. No active complaints. Vital signs are stable. General: The patient appeared well nourished and normally developed. HEENT: Head exam is unremarkable. LUNGS: Breath sounds decreased. HEART: Rate and Rhythm are regular. ABDOMEN: Soft, no distention. EXTREMITITES: 1+ edema. Objective - Vital Signs Vital signs: Vital Signs Temp 97.9 F 09/15/21 08:33 Pulse 72 09/15/21 08:33 Resp 18 09/15/21 08:33 BP 118/83 09/15/21 08:33 Pulse Ox 100 09/15/21 08:33 Intake & Output 09/14/21 09/15/21 09/15/21 18:59 06:59 18:59 Intake Total 540 180 Output Total 400 0 Balance 140 180 Weight 139.9 kg Intake: Oral 540 180 Output: Urine 400 Stool 0 0 Other: Voiding Method Urinal Urinal Urinal # Voids 1 2 # Bowel Movements 1 ABP, PAP, CO, CI - Last Documented Arterial Blood Pressure 108/60 - Labs CBC & Chem 7: 09/13/21 08:08 09/15/21 07:02 Labs: Abnormal Lab Results - Last 24 Hours (Table) 09/14/21 09/14/21 09/14/21 Range/Units 12:03 16:51 20:24 BUN (9-20) mg/dL Creatinine (0.66-1.25) mg/dL Glucose (74-99) mg/dL POC Glucose (mg/dL) 121 H 179 H 146 H (75-99) mg/dL 09/15/21 09/15/21 Range/Units 05:18 07:02 BUN 61 H (9-20) mg/dL Creatinine 2.39 H (0.66-1.25) mg/dL Glucose 120 H (74-99) mg/dL POC Glucose (mg/dL) 125 H (75-99) mg/dL Microbiology - Last 24 Hours (Table) 09/08/21 15:45 Blood Culture - Final Blood No Growth after 144 hours Assessment and Plan Plan: Assessment: 1. Acute kidney injury secondary to ATN secondary to cardiopulmonary arrest. Renal function improving. Creatinine 2.38 today. Baseline creatinine near 1. 2. Status post cardiopulmonary arrest. 3. Volume overload. 4. Diabetes mellitus. Plan: Maintain oral Lasix. I will give him an additional dose of Lasix 40 mg IV once today. Encourage oral intake. Avoid nephrotoxins. Continue to monitor renal function and urine output. Check UA and renal ultrasound.
--- NOTE | 2021-09-15 12:33 | P.PN ---
Subjective This is a 66-year-old male with a past medical history significant for coronary artery disease with stent placement to the LAD and February 2021, prior ischemic cardiomyopathy with EF 20-25% improved to 40% s/p PCI in February 2021, Atrial fibrillation, hypertension, and hyperlipidemia. Patient follows in the office with Dr. Hernandez. We have been asked to see the patient in consultation for chest pain. Patient's main presentation was of atypical mostly reproducible constant back pain radiating across to his chest. Troponins initially noted to be normal and EKG unrevealing. On 09/06/21, Patient had echo performed with difficulty assessing LV function and endocardial border and therefore Lumason was used to help define endocardial border. Per nursing, shortly after patient appeared to be gasping and appeared to almost be choking. Per nursing, quick attempts were made at stabilizing patient however became blue and lost pulse. Underwent prolonged CPR with initial PEA then Torsades and Vfib with Amio given, defibrillation and eventual ROSC. He was admitted to the ICU, stabilized, eventually was transferred to 3S cardiac stepdown unit. 09/15/21 Patient seen and examined sitting up in the bedside chair, no acute distress. Family at bedside. He denies any chest pain or shortness of breath. Telemetry reviewed, patient in and out of atrial fibrillation with controlled rates, had few pauses overnight less than 3 seconds. Blood pressure 118/83, heart rate 72, afebrile, oxygen saturation is 100% on room air. Laboratory data reviewed, sodium 137, potassium 4.9, BUN 61, serum creatinine 2.3, magnesium 1.9 Currently maintained on amiodarone 200 mg twice a day, Eliquis 5 mg twice a day, atorvastatin 80 mg daily, Plavix 75 mg daily, aspirin 81 mg daily, Lopressor 25 mg twice a day, carvedilol 6.25mg BID GENERAL: Well-appearing, well-nourished and in no acute distress. NECK: Supple without JVD or thyromegaly. LUNGS: Breath sounds clear to auscultation bilaterally. Respiration equal and unlabored. No wheezes, rales or rhonchi. HEART: Regular rate and rhythm with systolic ejection murmur at the base, no rubs or gallops. S1 and S2 heard. EXTREMITIES: Normal range of motion, no edema. No clubbing or cyanosis. Peripheral pulses intact. ASSESSMENT Status post cardiac arrest with possibly suspected reaction to Lumason Paroxysmal atrial fibrillation [id number] requiring anticoagulation, on Eliquis Acute kidney injury, improving Cardiogenic shock Diabetes mellitus Coronary artery disease Hypertension Dyslipidemia PLAN Patient agreeable for lifevest on discharge, patient's lifevest delivered and placed on patient. We will continue to Maximize medical therapy Continue Carvedilol 6.25mg BID Recommend lifevest prior to discharge due to risk of sudden cardiac if patient is agreeable. Patient may need an ICD implantation in the future. Recommend maximizing medical therapy and have patient follow up out outpatient for further evaluation ACEI/ARB held due to renal function, cannot start entresto or spironolactone due to renal function and potassium From a cardiology perspective, patient an be discharged today. Repeat [facility] outpatient Follow up with Dr. Hernandez in one week. Nurse Practitioner note has been reviewed, I agree with a documented findings and plan of care. Patient was seen and examined. Objective - Vital Signs Vital signs: Vital Signs Temp 97.9 F 09/15/21 08:33 Pulse 72 09/15/21 08:33 Resp 18 09/15/21 08:33 BP 118/83 09/15/21 08:33 Pulse Ox 100 09/15/21 08:33 Intake & Output 09/14/21 09/15/21 09/15/21 18:59 06:59 18:59 Intake Total 540 230 Output Total 400 0 Balance 140 230 Weight 139.9 kg Intake: Intake, IV Titration 50 Amount cefTRIAXone 1 gm In 50 Sodium Chloride 0.9% 50 ml @ 100 mls/hr IVPB Q24HR [facility] Rx#:[id number] Oral 540 180 Output: Urine 400 Stool 0 0 Other: Voiding Method Urinal Urinal Urinal # Voids 1 2 3 # Bowel Movements 1 ABP, PAP, CO, CI - Last Documented Arterial Blood Pressure 108/60 - Labs CBC & Chem 7: 09/13/21 08:08 09/15/21 07:02 Labs: Abnormal Lab Results - Last 24 Hours (Table) 09/14/21 09/14/21 09/15/21 Range/Units 16:51 20:24 05:18 BUN (9-20) mg/dL Creatinine (0.66-1.25) mg/dL Glucose (74-99) mg/dL POC Glucose (mg/dL) 179 H 146 H 125 H (75-99) mg/dL 09/15/21 Range/Units 07:02 BUN 61 H (9-20) mg/dL Creatinine 2.39 H (0.66-1.25) mg/dL Glucose 120 H (74-99) mg/dL POC Glucose (mg/dL) (75-99) mg/dL Microbiology - Last 24 Hours (Table) 09/08/21 15:45 Blood Culture - Final Blood No Growth after 144 hours
== END 2021-09-15 11:12 | disposition home or self-care (01) | DRG 280 ==
LOC: SUPCPDRO 06:31 → EC 06:31 → 6NMEDSUR 07:48 → 2SICU 09-06 15:28 → OBSVTOIN 09-06 15:30 → 3SCARD 09-10 16:13
PROVIDERS: ADMIT Internal Medicine; ATTEND Internal Medicine
PROC: 3E033XZ Introduction of Vasopressor into Peripheral Vein, Percutaneous Approach (ICD-10-PCS; principal; 2021-09-06)
PROC: 03HY32Z Insertion of Monitoring Device into Upper Artery, Percutaneous Approach (ICD-10-PCS; 2021-09-06)
PROC: 4A133B1 Monitoring of Arterial Pressure, Peripheral, Percutaneous Approach (ICD-10-PCS; 2021-09-06)
PROC: 4A133J1 Monitoring of Arterial Pulse, Peripheral, Percutaneous Approach (ICD-10-PCS; 2021-09-06)
PROC: 5A12012 Performance of Cardiac Output, Single, Manual (ICD-10-PCS; 2021-09-06)
PROC: 0BH17EZ Insertion of Endotracheal Airway into Trachea, Via Natural or Artificial Opening (ICD-10-PCS; 2021-09-06)
PROC: 5A1945Z Respiratory Ventilation, 24-96 Consecutive Hours (ICD-10-PCS; 2021-09-06)
DX: I21.09 ST elevation (STEMI) myocardial infarction involving other coronary artery of anterior wall (principal); N17.0 Acute kidney failure with tubular necrosis; I46.2 Cardiac arrest due to underlying cardiac condition; I49.01 Ventricular fibrillation; J96.01 Acute respiratory failure with hypoxia; G92.8 Other toxic encephalopathy; J15.0 Pneumonia due to Klebsiella pneumoniae; J69.0 Pneumonitis due to inhalation of food and vomit; Z68.42 Body mass index [BMI] 45.0-49.9, adult; E87.2 Acidosis; I50.22 Chronic systolic (congestive) heart failure; I48.21 Permanent atrial fibrillation; I13.0 Hypertensive heart and chronic kidney disease with heart failure and stage 1 through stage 4 chronic kidney disease, or unspecified chronic kidney disease; G93.1 Anoxic brain damage, not elsewhere classified; E11.22 Type 2 diabetes mellitus with diabetic chronic kidney disease; E66.01 Morbid (severe) obesity due to excess calories; E78.5 Hyperlipidemia, unspecified; E87.5 Hyperkalemia; I25.10 Atherosclerotic heart disease of native coronary artery without angina pectoris; I25.5 Ischemic cardiomyopathy; K21.9 Gastro-esophageal reflux disease without esophagitis; M19.90 Unspecified osteoarthritis, unspecified site; I95.9 Hypotension, unspecified; N18.9 Chronic kidney disease, unspecified; N32.81 Overactive bladder; G47.33 Obstructive sleep apnea (adult) (pediatric); I44.0 Atrioventricular block, first degree; Z96.653 Presence of artificial knee joint, bilateral; Z20.822 Contact with and (suspected) exposure to COVID-19; I25.2 Old myocardial infarction; Z79.01 Long term (current) use of anticoagulants; Z79.02 Long term (current) use of antithrombotics/antiplatelets; Z79.82 Long term (current) use of aspirin; Z79.84 Long term (current) use of oral hypoglycemic drugs; Z79.899 Other long term (current) drug therapy; Z80.52 Family history of malignant neoplasm of bladder; Z87.442 Personal history of urinary calculi; Z87.891 Personal history of nicotine dependence; Z95.5 Presence of coronary angioplasty implant and graft; Z98.890 Other specified postprocedural states; Z90.49 Acquired absence of other specified parts of digestive tract
CPT/HCPCS: 36415; 70450; 71045; 71046; 72070; 74018; 80048; 80053; 80061; 82805; 83036; 83690; 83735; 83880; 84443; 84484; 85025; 85610; 85730; 87040; 87070; 87077; 87086; 87186; 87205; 87635; 92950; 93005; 93308; 94003; 94760; 95822; 99285

== ENCOUNTER → 2021-09-18 | Outpatient (CLI) | payer MEDICARE ==
[2021-09-19 05:30] LABS: Magnesium 1.7 mg/dL (1.5-2.4)
[2021-09-19 05:35] LABS: African American GFR (CKD) 39.1 (60.0-200.0); Anion Gap 14.1 mmol/L (10.00-18.00); BUN/Creat Ratio 20.8 Ratio (12.00-20.00); Blood Urea Nitrogen 41.6 mg/dL (9.0-27.0); Carbon Dioxide 19.9 mmol/L (20.0-27.5); Non-African American GFR(CKD) 33.8 (60.0-200.0)
== END | disposition home or self-care (01) ==
LOC: LABWHC1 08:26
PROVIDERS: ATTEND Nurse Practitioner
DX: I12.9 Hypertensive chronic kidney disease with stage 1 through stage 4 chronic kidney disease, or unspecified chronic kidney disease (principal); E11.22 Type 2 diabetes mellitus with diabetic chronic kidney disease; E78.2 Mixed hyperlipidemia; Z79.01 Long term (current) use of anticoagulants; E87.5 Hyperkalemia; N18.9 Chronic kidney disease, unspecified
CPT/HCPCS: 36415; 80048; 83735

== ENCOUNTER → 2021-10-19 | Outpatient (CLI) | payer MEDICARE ==
[2021-10-19 19:06] LABS: ALT 16 U/L (10-49); AST 17 U/L (14-35); African American GFR (CKD) 55.4 (60.0-200.0); Albumin 4.5 g/dL (3.8-4.9); Albumin/Globulin Ratio 1.96 (1.60-3.17); Alkaline Phosphatase 89 U/L (41-126); BUN/Creat Ratio 16.93 Ratio (12.00-20.00); Blood Urea Nitrogen 25.4 mg/dL (9.0-27.0); Calcium 9.9 mg/dL (8.7-10.3); Carbon Dioxide 24.8 mmol/L (20.0-27.5); Chloride 101 mmol/L (96-109); Chol/HDL Ratio 3.59 Ratio; Globulin 2.3 g/dL (1.6-3.3); Glucose 115 mg/dL (70-110); LDL Cholesterol,Calculated 70.8 mg/dL (0.0-131.0); Non-African American GFR(CKD) 47.8 (60.0-200.0); Potassium 4.6 mmol/L (3.5-5.5); Sodium 139 mmol/L (135-145); Total Protein 6.8 g/dL (6.2-8.2)
== END | disposition home or self-care (01) ==
LOC: LABWHC1 08:38
PROVIDERS: ATTEND Internal Medicine Interventional Cardiology
DX: I48.21 Permanent atrial fibrillation (principal); E78.2 Mixed hyperlipidemia
CPT/HCPCS: 36415; 80053; 80061; 84443

== ENCOUNTER → 2021-12-16 | Outpatient (CLI) | payer MEDICARE ==
[2021-12-16 15:11] LABS: ALT 14 U/L (10-49); AST 13 U/L (14-35); African American GFR (CKD) 76.4 (60.0-200.0); Albumin 4.3 g/dL (3.8-4.9); Albumin/Globulin Ratio 1.74 (1.60-3.17); Alkaline Phosphatase 73 U/L (41-126); Calcium 9.7 mg/dL (8.7-10.3); Carbon Dioxide 21.3 mmol/L (20.0-27.5); Chloride 105 mmol/L (96-109); Chol/HDL Ratio 3.89 Ratio; Globulin 2.5 g/dL (1.6-3.3); Glucose 130 mg/dL (70-110); LDL Cholesterol,Calculated 68.9 mg/dL (0.0-131.0); Non-African American GFR(CKD) 65.9 (60.0-200.0); Potassium 4.2 mmol/L (3.5-5.5); Sodium 138 mmol/L (135-145); Total Protein 6.8 g/dL (6.2-8.2)
== END | disposition home or self-care (01) ==
LOC: LABWHC1 08:03
PROVIDERS: ATTEND Internal Medicine Interventional Cardiology
DX: E78.2 Mixed hyperlipidemia (principal)
CPT/HCPCS: 36415; 80053; 80061

== ENCOUNTER → 2022-04-05 | Outpatient (CLI) | payer MEDICARE ==
--- NOTE | 2022-04-05 18:35 | US ---
EXAMINATION TYPE: US venous doppler duplex LE RT DATE OF EXAM: 04/05/2022 11:07 AM COMPARISON: NONE CLINICAL HISTORY: 67-year-old male I82.401 ACUTE EMBOLISM AND THROMBUS UNSPECIFIED DEEP VEINS. SIDE PERFORMED: Right TECHNIQUE: The lower extremity deep venous system is examined utilizing real time linear array sonog efrain with graded compression, doppler sonography and color-flow sonography. VESSELS IMAGED: Common Femoral Vein Deep Femoral Vein Greater Saphenous Vein * Femoral Vein Popliteal Vein Small Saphenous Vein * Proximal Calf Veins (* superficial vessels) Right Leg: Negative for DVT IMPRESSION: No evidence for DVT within the right lower extremity imaged from the groin to the upper calf.
== END | disposition home or self-care (01) ==
LOC: RADUSWWP 10:45
PROVIDERS: ATTEND Internal Medicine
DX: I82.401 Acute embolism and thrombosis of unspecified deep veins of right lower extremity (principal)

== ENCOUNTER → 2022-04-12 | Outpatient (CLI) | payer MEDICARE ==
--- NOTE | 2022-04-13 07:07 | US ---
EXAMINATION TYPE: US kidneys/renal and bladder DATE OF EXAM: 04/12/2022 COMPARISON: NONE CLINICAL HISTORY: N18.31 CHRONIC KIDNEY DISEASE, STAGE 3A. ckd 3 EXAM MEASUREMENTS: Right Kidney: 13.5 x 5.7 x 4.2 cm Left Kidney: 12.1 x 5.7 x 4.4 cm Right Kidney: Left Kidney: Echogenic area seen lower pole 1.5 cm. Bladder: wnl Bilateral Jets seen: No There is no evidence for hydronephrosis at this point in time. No masses are identified. The urina ry bladder is anechoic. IMPRESSION: Nonobstructing calculus left kidney.
== END | disposition home or self-care (01) ==
LOC: RADUSWWP 15:25
PROVIDERS: ATTEND Internal Medicine
DX: N18.31 Chronic kidney disease, stage 3a (principal); N20.0 Calculus of kidney
CPT/HCPCS: 76770

== ENCOUNTER → 2022-06-28 | Outpatient (CLI) | payer MEDICARE ==
[2022-06-28 11:18] LABS: ALT 15 U/L (10-49); AST 15 U/L (14-35); African American GFR (CKD) 72.1 (60.0-200.0); Albumin 4.3 g/dL (3.8-4.9); Albumin/Globulin Ratio 1.79 (1.60-3.17); Alkaline Phosphatase 81 U/L (41-126); BUN/Creat Ratio 19.58 Ratio (12.00-20.00); Blood Urea Nitrogen 23.5 mg/dL (9.0-27.0); Calcium 9.6 mg/dL (8.7-10.3); Carbon Dioxide 22.6 mmol/L (20.0-27.5); Chloride 108 mmol/L (96-109); Chol/HDL Ratio 3.14 Ratio; Globulin 2.4 g/dL (1.6-3.3); Glucose 113 mg/dL (70-110); LDL Cholesterol,Calculated 53.6 mg/dL (0.0-131.0); Non-African American GFR(CKD) 62.2 (60.0-200.0); Potassium 4.6 mmol/L (3.5-5.5); Sodium 141 mmol/L (135-145); Total Protein 6.7 g/dL (6.2-8.2); VLDL Calculation 18.56 mg/dL (5.00-40.00)
== END | disposition home or self-care (01) ==
LOC: LABWHC1 08:31
PROVIDERS: ATTEND Internal Medicine Interventional Cardiology
DX: E78.2 Mixed hyperlipidemia (principal); I48.21 Permanent atrial fibrillation
CPT/HCPCS: 36415; 80053; 80061; 84443

== ENCOUNTER → 2022-07-29 | Outpatient (CLI) | payer MEDICARE | END | disposition home or self-care (01) | LOC: LABWHC1 07:17 | PROVIDERS: ATTEND Urology | DX: R35.0 Frequency of micturition (principal) | CPT/HCPCS: 36415; 84153 ==

== ENCOUNTER → 2022-09-22 | Outpatient (CLI) | payer MEDICARE ==
[2022-09-22 10:13] LABS: African American GFR (CKD) 70 (>60 ml/min/1.73 sqM); Anion Gap 9 mmol/L; Blood Urea Nitrogen 28 mg/dL (9-20); Calcium 9.3 mg/dL (8.4-10.2); Carbon Dioxide 24 mmol/L (22-30); Chloride 107 mmol/L (98-107); Glucose 111 mg/dL (74-99); Non-African American GFR(CKD) 60 (>60 ml/min/1.73 sqM); Potassium 5.2 mmol/L (3.5-5.1); Sodium 140 mmol/L (137-145)
== END | disposition home or self-care (01) ==
LOC: LABWHC1 09:23
PROVIDERS: ATTEND Internal Medicine Cardiovascular Disease
DX: I48.91 Unspecified atrial fibrillation (principal)
CPT/HCPCS: 36415; 80048

== ENCOUNTER → 2023-01-20 | Outpatient (CLI) | payer MEDICARE ==
[2023-01-20 11:27] LABS: ALT 21 U/L (10-49); AST 22 U/L (14-35); African American GFR (CKD) 75.1 (60.0-200.0); Albumin 4.2 g/dL (3.8-4.9); Albumin/Globulin Ratio 1.86 (1.60-3.17); Alkaline Phosphatase 76 U/L (41-126); BUN/Creat Ratio 18.36 Ratio (12.00-20.00); Blood Urea Nitrogen 21.3 mg/dL (9.0-27.0); Calcium 9.5 mg/dL (8.7-10.3); Carbon Dioxide 24.9 mmol/L (20.0-27.5); Chloride 107 mmol/L (96-109); Chol/HDL Ratio 2.86 Ratio; Globulin 2.3 g/dL (1.6-3.3); Glucose 127 mg/dL (70-110); LDL Cholesterol,Calculated 71.1 mg/dL (0.0-131.0); Non-African American GFR(CKD) 64.8 (60.0-200.0); Sodium 143 mmol/L (135-145); Total Protein 6.5 g/dL (6.2-8.2); VLDL Calculation 17.96 mg/dL (5.00-40.00)
== END | disposition home or self-care (01) ==
LOC: LABWHC1 06:56
PROVIDERS: ATTEND Internal Medicine Interventional Cardiology
DX: I11.0 Hypertensive heart disease with heart failure (principal); I50.22 Chronic systolic (congestive) heart failure; E78.2 Mixed hyperlipidemia
CPT/HCPCS: 36415; 80053; 80061

== ENCOUNTER → 2023-03-21 | Outpatient (CLI) | payer MEDICARE ==
[2023-03-21 21:36] LABS: Basophils # (A) 0.04 X 10*3/uL (0.00-0.10); Basophils % (A) 0.7 %; Eosinophils # (A) 0.21 X 10*3/uL (0.04-0.35); Eosinophils % (A) 3.5 %; HCT 43.5 % (39.6-50.0); HGB 14.2 g/dL (13.0-17.0); Immature Grans, Automated 0.5 %; Lymphocytes # (A) 0.62 X 10*3/uL (0.90-5.00); Lymphocytes % (A) 10.3 %; MCH 32.2 pg (27.0-32.0); MCHC 32.6 g/dL (32.0-37.0); MCV 98.6 fL (80.0-97.0); Mean Platelet Volume 9.1 fL (9.5-12.2); Monocytes # (A) 0.54 X 10*3/uL (0.20-1.00); NRBC Per 100 WBC 0 /100 WBCS (0.0-0.0); Neutrophils # (A) 4.57 X 10*3/uL (1.80-7.70); Platelet Count 224 X 10*3/uL (140-440); RBC 4.41 X 10*6/uL (4.40-5.60); RDW 14.4 % (11.5-14.5); WBC 6.01 X 10*3/uL (4.50-10.00)
[2023-03-21 21:57] LABS: Appearance,Urine Clear (Clear); Bilirubin,Urine Negative (Negative); Blood,Urine Large (Negative); Color,Urine Yellow (Yellow); Ketones,Urine Negative (Negative); Nitrite,Urine Negative (Negative); PH, Urine 5.5 (5.0-8.0); Specific Gravity,Urine 1.027 (1.001-1.030)
[2023-03-21 22:03] LABS: Bacteria,Urine None Seen /HPF (None Seen)
[2023-03-21 23:08] LABS: % Iron Saturation 21.34 (15.00-50.00); African American GFR (CKD) 68.1 (60.0-200.0); Anion Gap 13.5 mmol/L (10.00-18.00); BUN/Creat Ratio 13.84 Ratio (12.00-20.00); Blood Urea Nitrogen 17.3 mg/dL (9.0-27.0); Calcium 9.8 mg/dL (8.7-10.3); Carbon Dioxide 22.6 mmol/L (20.0-27.5); Magnesium 1.8 mg/dL (1.5-2.4); Non-African American GFR(CKD) 58.8 (60.0-200.0); Phosphorus 3.6 mg/dL (2.4-5.1); Potassium 4.7 mmol/L (3.5-5.5); Uric Acid 3.7 mg/dL (3.7-8.7)
[2023-03-22 01:25] LABS: Urine Creatinine 87.3 mg/dL (39.0-259.0)
== END | disposition home or self-care (01) ==
LOC: LABWHC1 14:21
PROVIDERS: ATTEND Nurse Practitioner Family
DX: E55.9 Vitamin D deficiency, unspecified (principal); D63.1 Anemia in chronic kidney disease; N39.0 Urinary tract infection, site not specified; E21.3 Hyperparathyroidism, unspecified; M10.9 Gout, unspecified; N18.2 Chronic kidney disease, stage 2 (mild); R80.9 Proteinuria, unspecified
CPT/HCPCS: 36415; 80048; 81001; 82043; 82306; 82570; 82728; 83540; 83550; 83735; 83970; 84100; 84550; 85025

== ENCOUNTER → 2023-04-27 | Outpatient (CLI) | payer MEDICARE ==
--- NOTE | 2023-04-27 15:39 | US ---
EXAMINATION TYPE: US kidneys/renal and bladder DATE OF EXAM: 04/27/2023 COMPARISON: US renal 04/12/2022, CT urogram 2018 CLINICAL INDICATION: Male, 68 years old with history of N18.2 CHRONIC KIDNEY DISEASE, STAGE 2 (MILD); EXAM MEASUREMENTS: Right Kidney: 13.7 x 6.9 x 7.3 cm Left Kidney: 12.9 x 6.0 x 6.5 cm Right Kidney: 0.9cm stone inferior pole, 1.8cm hypoechoic area mid Left Kidney: no hydronephrosis or masses seen Bladder: wnl Bilateral Jets seen: yes There is no evidence for hydronephrosis at this point in time. No nephrolithiasis is seen in the lef t kidney. Nonobstructive inferior pole right renal calculus measuring up to 0.9 cm. No solid masses a re identified. 1.8 cm right mid kidney simple cyst. Cortical medullary differentiation is maintained bilaterally. The urinary bladder is anechoic. Bilateral ureteral jets are seen. IMPRESSION: 1. No hydronephrosis. 2. Nonobstructive right renal calculus. 3. Right renal simple cyst.
== END | disposition home or self-care (01) ==
LOC: RADUSWWP 14:36
PROVIDERS: ATTEND Internal Medicine
DX: N18.2 Chronic kidney disease, stage 2 (mild) (principal); N20.0 Calculus of kidney; N28.1 Cyst of kidney, acquired
CPT/HCPCS: 76770

== ENCOUNTER → 2023-05-05 | Outpatient (CLI) | payer MEDICARE ==
[2023-05-05 10:02] LABS: African American GFR (CKD) 72 (>60 ml/min/1.73 sqM); Anion Gap 9 mmol/L; Blood Urea Nitrogen 24 mg/dL (9-20); Calcium 8.9 mg/dL (8.4-10.2); Carbon Dioxide 23 mmol/L (22-30); Chloride 107 mmol/L (98-107); Glucose 109 mg/dL (74-99); Non-African American GFR(CKD) 63 (>60 ml/min/1.73 sqM); Potassium 4.6 mmol/L (3.5-5.1); Sodium 139 mmol/L (137-145)
[2023-05-05 10:10] LABS: NT-Pro-B-Type Natriuretic Pept 461 pg/mL
== END | disposition home or self-care (01) ==
LOC: LABWHC1 07:11
PROVIDERS: ATTEND Internal Medicine Cardiovascular Disease
DX: I50.22 Chronic systolic (congestive) heart failure (principal)
CPT/HCPCS: 36415; 80048; 83880

== ENCOUNTER → 2023-07-31 | Outpatient (CLI) | payer MEDICARE ==
[2023-07-31 15:40] LABS: Basophils # (A) 0.05 X 10*3/uL (0.00-0.10); Basophils % (A) 0.8 %; Eosinophils # (A) 0.28 X 10*3/uL (0.04-0.35); Eosinophils % (A) 4.5 %; HCT 42.6 % (39.6-50.0); HGB 14.3 d/dL (13.0-17.0); Lymphocytes # (A) 0.59 X 10*3/uL (0.90-5.00); Lymphocytes % (A) 9.5 %; MCH 32.9 pg (27.0-32.0); MCHC 33.6 d/dL (32.0-37.0); MCV 98.2 FL (80.0-97.0); Mean Platelet Volume 9.4 FL (9.5-12.2); Monocytes # (A) 0.62 X 10*3/uL (0.20-1.00); Monocytes % (A) 9.9 %; NRBC Per 100 WBC 0 X 10*3/uL (0.00-0.01); Neutrophils # (A) 4.67 X 10*3/uL (1.80-7.70); Neutrophils % (A) 74.8 %; Platelet Count 206 X 10*3/uL (140-440); RBC 4.34 X 10*6/uL (4.40-5.60); RDW 13.5 % (11.5-14.5); WBC 6.24 X 10*3/uL (4.50-10.00)
[2023-07-31 16:30] LABS: Chol/HDL Ratio 3.16 Ratio; Magnesium 1.9 mg/dL (1.5-2.4)
[2023-07-31 16:31] LABS: % Iron Saturation 24.54 (15.00-50.00); ALT 21 U/L (10-49); AST 17 U/L (14-35); Albumin 4.4 d/dL (3.8-4.9); Albumin/Globulin Ratio 1.91 Ratio (1.60-3.17); Alkaline Phosphatase 78 U/L (41-126); BUN/Creat Ratio 16.92 Ratio (12.00-20.00); Calcium 9.8 mg/dL (8.7-10.3); Carbon Dioxide 24.2 mmol/L (21.6-31.8); Chloride 104 mmol/L (96-109); Globulin 2.3 d/dL (1.6-3.3); Glucose 92 mg/dL (70-110); Iron 80 UG/DL (65-175); LDL Cholesterol,Calculated 60.3 mg/dL (0.0-131.0); Phosphorus 3.5 mg/dL (2.4-5.1); Potassium 4.8 mmol/L (3.5-5.5); Prostate Specific Antigen 1.33 ng/mL (0.000-4.500); Sodium 139 mmol/L (135-145); Total Bilirubin 0.5 mg/dL (0.3-1.2); Total Iron Binding Capacity 326 UG/DL (228-460); Total Protein 6.7 d/dL (6.2-8.2); Uric Acid 3.7 mg/dL (3.7-8.7)
[2023-07-31 16:50] LABS: Appearance,Urine Clear (Clear); Bilirubin,Urine Negative (Negative); Blood,Urine Negative (Negative); Color,Urine Yellow (Yellow); Ketones,Urine Negative (Negative); Nitrite,Urine Negative (Negative); Specific Gravity,Urine 1.026 (1.001-1.030); Urobilinogen,Urine 0.2 E.U./DL
[2023-07-31 19:24] LABS: Urine Creatinine 94.7 mg/dL (39.0-259.0)
== END | disposition home or self-care (01) ==
LOC: LABWHC1 10:03
PROVIDERS: ATTEND Urology
DX: E55.9 Vitamin D deficiency, unspecified (principal); E78.2 Mixed hyperlipidemia; D63.1 Anemia in chronic kidney disease; N39.0 Urinary tract infection, site not specified; N25.81 Secondary hyperparathyroidism of renal origin; M10.9 Gout, unspecified; R35.0 Frequency of micturition; R80.9 Proteinuria, unspecified
CPT/HCPCS: 36415; 80053; 80061; 81003; 82043; 82306; 82570; 82728; 83540; 83550; 83735; 83970; 84100; 84153; 84550; 85025

== ENCOUNTER → 2024-02-02 | Outpatient (CLI) | payer MEDICARE ==
[2024-02-02 16:47] LABS: NT-Pro-B-Type Natriuretic Pept 276 pg/mL (0-125)
[2024-02-02 17:04] LABS: ALT 19 U/L (10-49); AST 18 U/L (14-35); Albumin 4.4 g/dL (3.8-4.9); Alkaline Phosphatase 73 U/L (41-126); BUN/Creat Ratio 16.67 Ratio (12.00-20.00); Calcium 10.2 mg/dL (8.7-10.3); Carbon Dioxide 19.3 mmol/L (21.6-31.8); Chloride 107 mmol/L (96-109); Chol/HDL Ratio 3.38 Ratio; Globulin 2.2 g/dL (1.6-3.3); Glucose 105 mg/dL (70-110); LDL Cholesterol,Calculated 48.7 mg/dL (0.0-131.0); Potassium 4.6 mmol/L (3.5-5.5); Sodium 140 mmol/L (135-145); Total Bilirubin 0.6 mg/dL (0.3-1.2); Total Protein 6.6 g/dL (6.2-8.2)
== END | disposition home or self-care (01) ==
LOC: LABWHC1 09:03
PROVIDERS: ATTEND Internal Medicine Interventional Cardiology
DX: E78.2 Mixed hyperlipidemia (principal)
CPT/HCPCS: 36415; 80053; 80061; 83880

== ENCOUNTER → 2024-03-28 | Outpatient (CLI) | payer MEDICARE ==
[2024-03-28 16:01] LABS: HCT 44.3 % (39.6-50.0); HGB 14.6 g/dL (13.0-17.0); MCV 100.2 FL (80.0-97.0); Mean Platelet Volume 9.4 FL (9.5-12.2); NRBC Per 100 WBC 0 X 10*3/uL (0.00-0.01); Platelet Count 212 X 10*3/uL (140-440); RBC 4.42 X 10*6/uL (4.40-5.60); RDW 12.9 % (11.5-14.5); WBC 5.97 X 10*3/uL (4.50-10.00)
[2024-03-28 16:23] LABS: % Iron Saturation 26.49 (15.00-50.00); ALT 18 U/L (10-49); AST 16 U/L (14-35); Albumin 4.4 g/dL (3.8-4.9); Albumin/Globulin Ratio 1.91 Ratio (1.60-3.17); Alkaline Phosphatase 78 U/L (41-126); BUN/Creat Ratio 15.77 Ratio (12.00-20.00); Blood Urea Nitrogen 20.5 mg/dL (9.0-27.0); Calcium 9.7 mg/dL (8.7-10.3); Carbon Dioxide 20.9 mmol/L (21.6-31.8); Chloride 107 mmol/L (96-109); Globulin 2.3 g/dL (1.6-3.3); Glucose 119 mg/dL (70-110); Iron 89 UG/DL (65-175); Magnesium 2.1 mg/dL (1.5-2.4); Phosphorus 3.6 mg/dL (2.4-5.1); Potassium 4.7 mmol/L (3.5-5.5); Sodium 141 mmol/L (135-145); Total Bilirubin 0.5 mg/dL (0.3-1.2); Total Iron Binding Capacity 336 UG/DL (228-460); Total Protein 6.7 g/dL (6.2-8.2)
[2024-03-28 19:29] LABS: Microalbumin Creatinine Ratio <9 mg/g Cr (0-30)
[2024-03-28 20:23] LABS: Appearance,Urine Clear (Clear); Bilirubin,Urine Negative (Negative); Blood,Urine Negative (Negative); Color,Urine Yellow (Yellow); Ketones,Urine Trace (Negative); Nitrite,Urine Negative (Negative); Specific Gravity,Urine 1.031 (1.001-1.030)
== END | disposition home or self-care (01) ==
LOC: LABWHC1 08:32
PROVIDERS: ATTEND Internal Medicine Nephrology
DX: N18.31 Chronic kidney disease, stage 3a (principal)
CPT/HCPCS: 36415; 80053; 81003; 82043; 82306; 82570; 82728; 83540; 83550; 83735; 83970; 84100; 84550; 85027

== ENCOUNTER → 2024-08-14 | Outpatient (CLI) | payer MEDICARE ==
[2024-08-14 16:42] LABS: ALT 18 U/L (10-49); AST 18 U/L (14-35); Albumin 3.8 g/dL (3.8-4.9); Albumin/Globulin Ratio 1.73 Ratio (1.60-3.17); Alkaline Phosphatase 71 U/L (41-126); BUN/Creat Ratio 22.45 Ratio (12.00-20.00); Blood Urea Nitrogen 24.7 mg/dL (9.0-27.0); Calcium 9.7 mg/dL (8.7-10.3); Carbon Dioxide 22.2 mmol/L (21.6-31.8); Chloride 108 mmol/L (96-109); Globulin 2.2 g/dL (1.6-3.3); Glucose 89 mg/dL (70-110); LDL Cholesterol,Calculated 27.6 mg/dL (0.0-131.0); Potassium 4.5 mmol/L (3.5-5.5); Sodium 142 mmol/L (135-145); Total Bilirubin 0.7 mg/dL (0.3-1.2)
== END | disposition home or self-care (01) ==
LOC: LABWHC1 08:19
PROVIDERS: ATTEND Internal Medicine Interventional Cardiology
DX: E78.2 Mixed hyperlipidemia (principal)
CPT/HCPCS: 36415; 80053; 80061

== ENCOUNTER → 2024-08-20 | Outpatient (CLI) | payer MEDICARE | END | disposition home or self-care (01) | LOC: LABWHC1 12:53 | PROVIDERS: ATTEND Urology | DX: R97.20 Elevated prostate specific antigen [PSA] (principal) | CPT/HCPCS: 36415; 84153 ==

== ENCOUNTER → 2024-08-23 | Outpatient (CLI) | payer MEDICARE ==
--- NOTE | 2024-08-23 15:22 | USB ---
Technique: Method: Targeted. Doppler: Color. Patient Position: Supine. Findings: The periareolar of the right breast, the axilla of the right breast and the retroareolar of the right breast were scanned. Targeted ultrasound subareolar and periareolar right breast. Some images show focal subareolar tissue in keeping with gynecomastia. Other images labeled by the degreasing solution mixer show more rounded areas, for example, one measuring 1 cm. However, on the other plane of imaging, the finding does not clearly persist. Gynecomastia tissue is favored. No discrete suspicious mass is identified. Precautionary 6 month follow-up recommended. No axillary adenopathy. Overall Assessment: Probably benign, BI-RAD 3 Management: Diagnostic Mammogram of the right breast in 6 months. Diagnostic Breast Ultrasound of the right breast in 6 months. Findings favored to represent benign gynecomastia. Correlate for possible causes in this patient. Some of the images labeled by the degreasing solution mixer show poorly defined rounded areas also favored to represent gynecomastia. No discrete suspicious mass is identified. Precautionary 6 month follow-up recommended. Results were given to the patient verbally at the time of exam. [facility], , 08/23/2024 3:18 PM. Electronically signed and approved by: Iliana Armendariz M.D. Radiologist
--- NOTE | 2024-08-23 16:40 | MM ---
Reason for Exam: Clinical finding. Tissue Density: There are scattered areas of fibroglandular density. Findings: Analyzed By CAD. Subareolar density on the right has a somewhat rounded contour on the MLO view but without any discrete persisting mass on the CC view. Flame-shaped subareolar density on the left compatible with benign gynecomastia. No suspicious microcalcification or other discrete abnormality is seen. Overall Assessment: Incomplete: need additional imaging evaluation, BI-RAD 0 Management: Diagnostic Breast Ultrasound of the right breast. [facility], , 08/23/2024 4:36 PM. Electronically signed and approved by: Iliana Armendariz M.D. Radiologist
== END | disposition home or self-care (01) ==
LOC: RADMAMWWP 14:30
PROVIDERS: ATTEND Family Medicine
DX: N63.11 Unspecified lump in the right breast, upper outer quadrant (principal); R92.323 Mammographic fibroglandular density, bilateral breasts; N62 Hypertrophy of breast
CPT/HCPCS: 77066; 76642; G0279; 77062

== ENCOUNTER → 2024-10-18 | Outpatient (CLI) | payer MEDICARE ==
[2024-10-18 16:01] LABS: BUN/Creat Ratio 18.46 Ratio (12.00-20.00); Calcium 10.2 mg/dL (8.7-10.3); Carbon Dioxide 23.1 mmol/L (21.6-31.8); Chloride 105 mmol/L (96-109); Glucose 102 mg/dL (70-110); Potassium 5.1 mmol/L (3.5-5.5); Sodium 138 mmol/L (135-145)
== END | disposition home or self-care (01) ==
LOC: LABWHC1 10:33
PROVIDERS: ATTEND Internal Medicine
DX: Z51.81 Encounter for therapeutic drug level monitoring (principal); I48.19 Other persistent atrial fibrillation; R94.31 Abnormal electrocardiogram [ECG] [EKG]; Z95.0 Presence of cardiac pacemaker; Z79.899 Other long term (current) drug therapy
CPT/HCPCS: 36415; 80048; 83735; 93005

== ENCOUNTER → 2025-02-21 | Outpatient (CLI) | payer MEDICARE ==
[2025-02-21 15:44] LABS: ALT 19 U/L (10-49); AST 18 U/L (14-35); Albumin 4.1 g/dL (3.8-4.9); Albumin/Globulin Ratio 1.78 Ratio (1.60-3.17); Alkaline Phosphatase 96 U/L (41-126); BUN/Creat Ratio 19.45 Ratio (12.00-20.00); Blood Urea Nitrogen 21.4 mg/dL (9.0-27.0); Calcium 9.7 mg/dL (8.7-10.3); Chloride 105 mmol/L (96-109); Chol/HDL Ratio 3.64 Ratio; Globulin 2.3 g/dL (1.6-3.3); Glucose 118 mg/dL (70-110); LDL Cholesterol,Calculated 68.8 mg/dL (0.0-131.0); Potassium 5.1 mmol/L (3.5-5.5); Sodium 137 mmol/L (135-145); Total Bilirubin 0.5 mg/dL (0.3-1.2); Total Protein 6.4 g/dL (6.2-8.2)
[2025-02-21 18:20] LABS: NT-Pro-B-Type Natriuretic Pept 197 pg/mL (0-125)
== END | disposition home or self-care (01) ==
LOC: LABWHC1 09:15
PROVIDERS: ATTEND Internal Medicine Interventional Cardiology
DX: E78.2 Mixed hyperlipidemia (principal)
CPT/HCPCS: 36415; 80053; 80061; 83880

== ENCOUNTER → 2025-04-21 | Outpatient (CLI) | payer MEDICARE ==
[2025-04-21 15:27] LABS: Basophils # (A) 0.07 X 10*3/uL (0.00-0.10); Basophils % (A) 1.3 %; Eosinophils # (A) 0.28 X 10*3/uL (0.04-0.35); Eosinophils % (A) 5.3 %; HCT 46.2 % (39.6-50.0); HGB 15.4 g/dL (13.0-17.0); Lymphocytes # (A) 0.82 X 10*3/uL (0.90-5.00); Lymphocytes % (A) 15.4 %; MCH 33.3 pg (27.0-32.0); MCHC 33.3 g/dL (32.0-37.0); Mean Platelet Volume 8.9 FL (9.5-12.2); Monocytes # (A) 0.52 X 10*3/uL (0.20-1.00); Monocytes % (A) 9.8 %; NRBC Per 100 WBC 0 X 10*3/uL (0.00-0.01); Neutrophils # (A) 3.59 X 10*3/uL (1.80-7.70); Neutrophils % (A) 67.6 %; Platelet Count 220 X 10*3/uL (140-440); RBC 4.62 X 10*6/uL (4.40-5.60); WBC 5.31 X 10*3/uL (4.50-10.00)
[2025-04-21 15:55] LABS: ALT 17 U/L (10-49); AST 18 U/L (14-35); Albumin 4.3 g/dL (3.8-4.9); Albumin/Globulin Ratio 1.79 Ratio (1.60-3.17); Alkaline Phosphatase 77 U/L (41-126); BUN/Creat Ratio 14.93 Ratio (12.00-20.00); Blood Urea Nitrogen 22.4 mg/dL (9.0-27.0); Calcium 9.6 mg/dL (8.7-10.3); Chloride 103 mmol/L (96-109); Globulin 2.4 g/dL (1.6-3.3); Glucose 119 mg/dL (70-110); Potassium 4.6 mmol/L (3.5-5.5); Sodium 138 mmol/L (135-145); T4, Free (Free Thyroxine) 1.19 ng/dL (0.80-1.80); Total Bilirubin 0.7 mg/dL (0.3-1.2); Total Protein 6.7 g/dL (6.2-8.2)
== END | disposition home or self-care (01) ==
LOC: LABWHC1 10:04
PROVIDERS: ATTEND Internal Medicine Endocrinology, Diabetes & Metabolism
DX: E05.90 Thyrotoxicosis, unspecified without thyrotoxic crisis or storm (principal)
CPT/HCPCS: 36415; 80053; 84439; 84443; 84480; 85025

== ENCOUNTER → 2025-05-02 | Outpatient (CLI) | payer MEDICARE ==
[2025-05-02 15:36] LABS: T4, Free (Free Thyroxine) 1.08 ng/dL (0.80-1.80)
== END | disposition home or self-care (01) ==
LOC: LABWHC1 09:37
PROVIDERS: ATTEND Internal Medicine Endocrinology, Diabetes & Metabolism
DX: E05.90 Thyrotoxicosis, unspecified without thyrotoxic crisis or storm (principal)
CPT/HCPCS: 36415; 84439; 84443; 84445; 84481

== ENCOUNTER → 2025-05-22 | Outpatient (CLI) | payer MEDICARE ==
[2025-05-22 15:44] LABS: T4, Free (Free Thyroxine) 1.16 ng/dL (0.80-1.80)
== END | disposition home or self-care (01) ==
LOC: LABWHC1 11:08
PROVIDERS: ATTEND Internal Medicine Endocrinology, Diabetes & Metabolism
DX: E05.90 Thyrotoxicosis, unspecified without thyrotoxic crisis or storm (principal)
CPT/HCPCS: 36415; 84439; 84443; 84480